=== PATIENT | male | born 1940 | race Caucasian/White ===

== ENCOUNTER 2018-07-20 05:58 | Day surgery (SDC) | payer MEDICARE ==
[2018-07-11 15:40] VITALS: BMI 48.7
[~2018-07-20 05:58] MED LIST: ALPRAZolam 0.25 MG TAB PO PRN; ALPRAZolam 0.5 MG TAB PO PRN; NITROGLYCERIN SL TABS 0.4 MG TAB SUBLINGUAL PRN; SODIUM CHLORIDE 0.9% 1,000 ML in EMPTY BAG 1 BAG IV ONE
[2018-07-20] MEDS ORDERED: ASPIRIN 325 MG TAB PO ONE (07:00)
[2018-07-20] MEDS ORDERED: ATORVASTATIN 80 MG TAB PO ONE (07:00)
[2018-07-20] MEDS ORDERED: HEPARIN SODIUM 1,000 UN/ML (10ML VL) ONE (07:21)
[2018-07-20] MEDS ORDERED: LIDOCAINE 1% INJ 10MG/ML (20 ML MDV) ONE (07:21)
[2018-07-20] MEDS ORDERED: VERAPAMIL 2.5 MG/ML 2 ML AMP ONE (07:21)
[2018-07-20] MEDS ORDERED: fentaNYL (PF) 50 MCG/ML 2 ML AMP ONE (07:30)
[2018-07-20] MEDS ORDERED: fentaNYL (PF) 50 MCG/ML 2 ML AMP IV ONE ×2 (07:47→12:13)
[2018-07-20] MEDS ORDERED: MIDAZOLAM 2 MG/2 ML VIAL ONE (07:56)
[2018-07-20] MEDS ORDERED: MIDAZOLAM 2 MG/2 ML VIAL IVP ONE (08:01)
[2018-07-20] MEDS ORDERED: LIDOCAINE 1% INJ 10MG/ML (20 ML MDV) SQ ONE (08:02)
[2018-07-20] MEDS ORDERED: VERAPAMIL SYRINGE (5 MG/10 ML) INTRAARTER ONE (08:04)
[2018-07-20] MEDS ORDERED: HEPARIN SODIUM 1,000 UN/ML (10ML VL) IV ONE (08:14)
[2018-07-20] MEDS ORDERED: IOPAMIDOL-370 125ML BTL INJ ONE ×2 (08:20)
[2018-07-20] MEDS ORDERED: IOPAMIDOL-370 50ML BTL INJ ONE (08:26)
[2018-07-20] MEDS ORDERED: RX INFO: IV CONTRAST WAS GIVEN 1 EACH MISC MISCELLANE PRN (08:46)
[2018-07-20] MEDS ORDERED: SODIUM CHLORIDE 0.9% 1,000 ML IV SCH (09:00)
[2018-07-20] MEDS ORDERED: NAPROXEN 250 MG TAB PO PRN (09:00)
--- NOTE | 2018-07-20 09:04 | CC ---
CARDIAC CATHETERIZATION REPORT Mr. Justice is a 78-year-old male with history of hypertension who has been complaining of symptoms of progressive dyspnea on exertion and chest discomfort with mild physical activity. In view of that, recommendation was made regarding cardiac catheterization. The procedure as well as the risks and the complications were discussed with the patient who is in full understanding and agreement. PROCEDURE: Patient was brought to warehouse general lab[facility] in a fasting semi-sedated state after receiving fentanyl and Benadryl and achieving moderate conscious sedated state. Using Xylocaine anesthesia and Seldinger technique, a 6-Stateless sheath was introduced in the right radial artery. Selective right and left coronary angiography performed using 5-Stateless 3.5 bend right Jose catheter and a 5-Stateless 4 bend left Jose catheter. Multiple views of the coronary artery including hemiaxial views were obtained. Following that, 5- Stateless tight pigtail catheter was introduced in the left ventricle and a 30-degree ARGUELLES view of the left ventricle was obtained. Following that, catheter and sheaths were removed. Hemostasis was obtained with deployment of a TR band. There was no immediate complication. Patient was returned to his room in stable condition. Of note, the patient received 5000 units of intravenous heparin as well as intra-arterial verapamil. FINDINGS: FLUOROSCOPY: There was significant calcification involving all the coronary arteries as well as the mitral anulus and the aortic valve. LEFT MAIN: This is a very short size vessel that bifurcates immediately to the left circumflex and the left anterior descending artery. LEFT ANTERIOR DESCENDING ARTERY: This vessel has a 95% stenosis in the ostium. Subsequently, it gives rise to a large diagonal branch that has an 80% stenosis. The LAD after the takeoff of the diagonal branch has a 99% stenosis with slow antegrade flow. LEFT CIRCUMFLEX: This is a nondominant vessel large in caliber giving rise to 2 large obtuse marginal branches. The left circumflex is diffusely disease anteriorly and both obtuse marginal branches have 80% plaque. The rest of the vessel has intimal disease without any evidence of high-grade stenosis. RIGHT CORONARY ARTERY: This is a large dominant vessel bifurcating distally PDA and posterolateral segment branches. The right coronary artery and the distal segment has a 30% to 40% plaque. The PLV has a 95% lesion in the mid segment. The rest of the vessel has intimal disease without any evidence of high-grade stenosis. LEFT VENTRICULOGRAM: Left ventriculogram was performed in 30-degree ARGUELLES view and revealed mild mid anterior wall hypokinesis. Ejection fraction is 50%. There was no significant mitral regurgitation. HEMODYNAMICS: Left ventricle end-diastolic pressure was 18 to 20 mmHg. There was a 35 to 40 mm peak gradient across the aortic valve. IMPRESSION: 1. Severe triple-vessel coronary artery disease. 2. Moderate aortic stenosis. RECOMMENDATION: In view of finding in the anatomy, I recommend proceeding with transesophageal echocardiogram to further evaluate the aortic valve and depending on that, proceed with aortic valve replacement and coronary artery bypass grafting. Those findings and recommendations were discussed with the patient and his family who are in full understanding and agreement. Duration of procedure is 30 minutes. MMJOSEL / IJN: [id number] /
[2018-07-20] MEDS ORDERED: IV FLUID CONTINUATION 600 ML IV ONE (11:50)
[2018-07-20] MEDS: BENZOCAINE SPRAY 1 CAN MUCOUS MEM ONE ×2 (11:58→12:13)
[2018-07-20] MEDS ORDERED: MIDAZOLAM 2 MG/2 ML VIAL IV ONE (12:13)
[2018-07-20] MEDS ORDERED: NITROGLYCERIN SL TABS 0.4 MG TAB SUBLINGUAL ONE (12:44)
--- NOTE | 2018-07-20 12:46 | ECHOT ---
TRANSESOPHAGEAL ECHOCARDIOGRAM TRANSESOPHAGEAL ECHOCARDIOGRAM: INDICATION: Evaluation of aortic valve. PROCEDURE: After explaining the procedure to the patient, its risks and complications, blood pressure, heart rate, O2 saturation was monitored. The throat was sprayed with Cetacaine. He received 2 mg intravenous Versed, 50 mcg intravenous fentanyl. The probe was introduced into the esophagus without difficulty. The probe was not advanced into the stomach because of prior history of lap band. Images were obtained. Following that, the probe was removed. There was no immediate complication. FINDINGS: Left atrial size appears to be normal. Left atrial appendage is normal. Left ventricular size and systolic function are preserved. The aortic valve is tricuspid valve, calcified with reduced opening. Bi-planimetry valve area is 1.2 cm2. The mitral valve revealed mild thickening of the mitral valve leaflets. The tricuspid valve appears to be normal. No pericardial effusion was noted. Contrast bubble study revealed no evidence of shunting across the interatrial septum. Doppler pulse wave and color Doppler obtained and revealed mild mitral, aortic and tricuspid regurgitation. There was no shunting by color Doppler study. CONCLUSION: 1. Normal left ventricular size and systolic function. 2. Moderate aortic stenosis with mild aortic regurgitation. 3. Mild mitral and tricuspid regurgitation. 4. Normal appearance of the descending and thoracic aorta. 5. No evidence of shunting across the interatrial septum. MMODL / IJN: [id number] /
--- NOTE | 2018-07-20 17:09 | P.GSCN ---
History of Present Illness Consult date: 07/20/18 Reason for Consult: Symptomatic multivessel artery disease, moderate aortic stenosis with mild aortic regurgitation. Requesting physician: Tracie Rand History of present illness: This is a 78-year-old gentleman who is followed by Dr. Colby Fuchs on an outpatient basis. 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 Recently, the patient was at a routine exam at Dr. Fuchs office, patient reported he had complaints of progressive dyspnea and chest pain with activity. On physical exam he was noted to have a systolic murmur and was referred to Dr. Rand from [facility]. The patient denies any complaints of nausea, vomiting, fever, chills, orthopnea, peripheral edema syncope or near syncope. Subsequently, the patient underwent an elective cardiac catheterization and transesophageal echocardiogram today . The patient's cardiac catheterization results demonstrated a 90% stenosis to his right coronary artery, and 80% stenosis to a circumflex coronary artery, a 95% stenosis to his proximal left anterior descending coronary artery, a 99% stenosis to his mid left anterior descending coronary artery and moderate aortic valve stenosis . Also during the heart catheterization a left ventriculogram was completed which demonstrated a mild mid anterior wall hypokinesis with an ejection fraction of 50%. The transesophageal echocardiogram results showed a normal left ventricular size and systolic function, moderate aortic valve stenosis with mild aortic valve regurgitation, mild mitral and tricuspid valve regurgitation and a left ventricular size and systolic function to be preserved. Due to the patient's presenting symptoms, cardiac catheterization and transesophageal echocardiogram results a consult was placed to Dr. Jarett Acharya from cardiothoracic surgery to evaluate the patient for recommendations on myocardial revascularization and aortic valve surgery. Review of Systems A 14 point review systems was completed and was negative except as mentioned in the HPI. Past Medical History Past Medical History: Chest Pain / Angina, CVA/TIA, Hypertension, Osteoarthritis (OA), Prostate Disorder, Sleep Apnea/CPAP/BIPAP Additional Past Medical History / Comment(s): hx TIA, heart murmer, no cpap used , drop foot left leg History of Any Multi-Drug Resistant Organisms: None Reported Past Surgical History: Back Surgery, Bariatric Surgery, Hernia Repair, Joint Replacement Additional Past Surgical History / Comment(s): lap band surgery, left knee replacement, ashley cataracts Past Anesthesia/Blood Transfusion Reactions: No Reported Reaction Past Psychological History: No Psychological Hx Reported Smoking Status: Former smoker (Quit 35-40 years ago.) Past Alcohol Use History: Rare Additional Past Alcohol Use History / Comment(s): quit smoking 30-40 yrs ago, smoked for 30 yrs, < 1 PPD Past Drug Use History: None Reported - Past Family History Father Family Medical History: Cancer Medications and Allergies Home Medications Medication Instructions Recorded Confirmed Type Aspirin [Adult Low Dose Aspirin EC] 162 mg PO QAM 07/11/18 07/20/18 History Isosorbide Mononitrate [Isosorbide 30 mg PO DAILY 07/11/18 07/11/18 History Mononitrate ER] Lisinopril 20 mg PO DAILY 07/11/18 07/11/18 History Metoprolol Tartrate 12.5 mg PO QAM 07/11/18 07/11/18 History Oxybutynin Chloride 5 mg PO QAM 07/11/18 07/11/18 History Tamsulosin HCl [Flomax] 0.4 mg PO QAM 07/11/18 07/11/18 History Naproxen Sodium [Aleve] 220 mg PO DIRECTED 07/20/18 07/20/18 History Allergies Allergy/AdvReac Type Severity Reaction Status Date / Time No Known Allergies Allergy Verified 07/11/18 15:29 Surgical - Exam Vital Signs Temp Pulse Resp BP Pulse Ox 97.7 F 70 20 163/92 93 L 07/20/18 06:57 07/20/18 06:57 07/20/18 06:57 07/20/18 06:57 07/20/18 06:57 - General well developed, well nourished, no distress, no pain, obese - Eyes PERRL, normal ocular movement - ENT normal pinna, normal nares, normal mucosa, no hearing loss, no congestion, poor penitent[facility] - Neck Neck is supple, no lymphadenopathy. no masses, no bruits, trachea midline, no venous distension - Respiratory Lungs sounds are essentially clear throughout. Respirations are symmetrical and nonlabored. No wheezing or rhonchi. Room air oxygen saturations 96%. - Cardiovascular Regular rhythm and rate. S1 and S2 present, systolic murmur 3/6 present heard at the base with radiation to his neck. - Abdomen Abdomen is soft, nontender and nondistended. Morbidly obese. No guarding or rigidity. Active bowel sounds all 4 abdominal quadrants. No organomegaly. - Genitourinary Deferred - Rectum Deferred - Integumentary no rash, no growths, no abnormal pigmentation - Neurologic normal coordination, normal sensation - Musculoskeletal Walks with a cane and a support to his left foot and ankle. Weakness to his left lower extremity. normal posture - Psychiatric oriented to time, oriented to person, oriented to place, speech is normal, memory intact Results - Imaging Comments: Cardiac catheterization and transesophageal echocardiogram results reviewed. Assessment and Plan (1) Hypertension Current Visit: Yes Status: Acute Code(s): I10 - ESSENTIAL (PRIMARY) HYPERTENSION SNOMED Code(s): 19732361 (2) Aortic valve stenosis Current Visit: Yes Status: Acute Code(s): I35.0 - NONRHEUMATIC AORTIC (VALVE ) STENOSIS SNOMED Code(s): 73469975 (3) Coronary artery disease Current Visit: Yes Status: Acute Code(s): I25.10 - ATHSCL HEART DISEASE OF [place] CORONARY ARTERY W/O ANG PCTRS SNOMED Code(s): 01505307 (4) Elevated hemoglobin A1c measurement Current Visit: Yes Status: Acute Code(s): R73.09 - OTHER ABNORMAL GLUCOSE SNOMED Code(s): 167873819 (5) Obstructive sleep apnea Current Visit: Yes Status: Acute Code(s): G47.33 - OBSTRUCTIVE SLEEP APNEA ( ADULT) (PEDIATRIC) SNOMED Code(s): 15712302 (6) Foot drop, left Current Visit: Yes Status: Acute Code(s): M21.372 - FOOT DROP, LEFT FOOT SNOMED Code(s): 0725567 (7) Osteoarthritis Current Visit: Yes Status: Acute Code(s): M19.90 - UNSPECIFIED OSTEOARTHRITIS, UNSPECIFIED SITE SNOMED Code(s): 783835592 (8) BPH (benign prostatic hyperplasia) Current Visit: Yes Status: Acute Code(s): N40.0 - BENIGN PROSTATIC HYPERPLASIA WITHOUT LOWER URINRY TRACT SYMP SNOMED Code(s): 937739865 (9) Nicotine dependence in remission Current Visit: Yes Status: Acute Code(s): F17.201 - NICOTINE DEPENDENCE, UNSPECIFIED, IN REMISSION SNOMED Code(s): 43126370 (10) Morbid obesity with BMI of 45.0-49.9, adult Current Visit: Yes Status: Acute Code(s): E66.01 - MORBID (SEVERE) OBESITY DUE TO EXCESS CALORIES; Z68.42 - BODY MASS INDEX (BMI) 45.0-49.9, ADULT SNOMED Code(s): 397831873 Plan: The patient was seen and examined. His chart and diagnostics were reviewed. The patient was seen and examined by Dr. Jarett Acharya from cardiothoracic surgery. Preoperative testing has been initiated. Preoperative teaching has been initiated. Dr. Acharya has reviewed the results of the cardiac catheterization and transesophageal echocardiogram reports with the patient and his . STS risk score reviewed with the patient and his . 5 minute walk test was completed with the patient, time 1:6.43 seconds, time 2: 6.69 seconds, time 3:6.8 to seconds. Patient does wish to proceed with myocardial revascularization surgery with possible aortic valve replacement on elective basis. Once his preoperative testing has been completed and dental clearance has been obtained and he will be scheduled for myocardial revascularization surgery with aortic valve replacement. Thank you Dr. Rand for this consult and we will look forward to working with you in the care of your patient. Time with Patient: Greater than 30
[2018-07-20] MEDS: ASPIRIN 81 MG PO SCH (19:01)
[2018-07-20] MEDS: METOPROLOL TARTRATE 12.5 MG TAB PO SCH (19:01)
[2018-07-20] MEDS: ISOSORBIDE MONONITRATE ER 30 MG TAB.ER.24H PO SCH (19:01)
[2018-07-20] MEDS: OXYBUTYNIN CHLORIDE 5 MG TAB PO SCH (19:01)
[2018-07-20] MEDS: LISINOPRIL 20 MG TAB PO SCH (19:01)
[2018-07-20] MEDS: ATORVASTATIN 40 MG TAB PO SCH (19:01)
[2018-07-20] MEDS: TAMSULOSIN 0.4 MG CAP.ER.24H PO SCH (19:02)
[2018-07-20] MEDS: SODIUM CHLORIDE 0.9% 1,000 ML IV SCH (19:02)
--- NOTE | 2018-07-20 19:16 | US ---
EXAMINATION TYPE: US carotid duplex BILAT DATE OF EXAM: 07/20/2018 COMPARISON: NONE CLINICAL HISTORY: PreOp Cardiac Surgery. Pre op cardiac surgery EXAM MEASUREMENTS: RIGHT: Peak Systolic Velocity (PSV) cm/sec ----- Right CCA: 81.2 ----- Right ICA: 151.5 ----- Right ECA: 206.5 ICA/CCA ratio: 1.9 RIGHT: End Diastole cm/sec ----- Right CCA: 13.1 ----- Right ICA: 51.0 ----- Right ECA: 18.4 LEFT: Peak Systolic Velocity (PSV) cm/sec ----- Left CCA: 73.5 ----- Left ICA: 87.9 ----- Left ECA: 125.8 ICA/CCA ratio: 1.2 LEFT: End Diastole cm/sec ----- Left CCA: 13.1 ----- Left ICA: 24.5 ----- Left ECA: 0.0 VERTEBRALS (direction of flow): Right Vertebral: Antegrade Left Vertebral: Antegrade Rhythm: Normal Moderate to severe plaque bilateral bifurcations, greater on the right. Increased velocities right IC A and ECA. Technical limitations due to patient's body habitus IMPRESSION: There is calcified plaque which limits the exam. The images and measurements suggest 50- 70% stenosis in both internal carotid arteries. There is antegrade flow in the vertebral arteries. Criteria for Assigning % of Stenosis / Diameter reduction (Estimation based on the indirect measurements of the internal carotid artery velocities (ICA PSV). 1. Normal (no stenosis)=ICA PSV < 125 cm/s: ratio < 2.0: ICA EDV<40 cm/s. 2. Less than 50% stenosis=ICA PSV < 125 cm/s: ratio < 2.0: ICA EDV<40 cm/s. 3. 50 to 69% stenosis=ICA PSV of 125 to 230 cm/s: ration 2.0 ? 4.0: ICA EDV 40-100 cm/s. 4. Greater than 70% stenosis to near occlusion= ICA PSV > 230 cm/s: ratio > 4.0: ICA EDV > 100 cm/s. 5. Near occlusion= ICA PSV velocities may be low or undetectable: variable ratio and ICA EDV. 6. Total occlusion=unable to detect flow.
[2018-07-20 19:23] LABS: Basophils # (A) 0.1 k/uL (0-0.2); Basophils % (A) 1 %; Eosinophils # (A) 0.2 k/uL (0-0.7); Eosinophils % (A) 2 %; HCT 45.3 % (39.0-53.0); HGB 14.4 gm/dL (13.0-17.5); Lymphocytes % (A) 20 %; MCH 30.7 pg (25.0-35.0); MCHC 31.8 g/dL (31.0-37.0); MCV 96.5 fL (80.0-100.0); Mean Platelet Volume 7.1; Monocytes # (A) 0.7 k/uL (0-1.0); Monocytes % (A) 7 %; Neutrophils # (A) 6.8 k/uL (1.3-7.7); Neutrophils % (A) 69 %; Platelet Count 231 k/uL (150-450); RBC 4.69 m/uL (4.30-5.90); RDW 12.7 % (11.5-15.5); WBC 9.9 k/uL (3.8-10.6)
[2018-07-20 19:46] LABS: Albumin 3.7 g/dL (3.5-5.0); Calcium 9.2 mg/dL (8.4-10.2); Potassium 4.4 mmol/L (3.5-5.1); Total Bilirubin 0.4 mg/dL (0.2-1.3); Total Protein 6.9 g/dL (6.3-8.2)
[2018-07-20 19:52] LABS: INR 1.1 (<1.2); Partial Thromboplastin Time 22.5 sec (22.0-30.0); Prothrombin Time 10.6 sec (9.0-12.0)
--- NOTE | 2018-07-20 21:49 | XR ---
EXAMINATION TYPE: XR chest 2V DATE OF EXAM: 07/20/2018 COMPARISON: NONE HISTORY: Preop cardiac surgery TECHNIQUE: Frontal and lateral views of the chest are obtained. FINDINGS: There is no heart failure nor confluent pneumonic infiltrate. Costophrenic angles are brianne r. Thoracic aorta is atheromatous. Heart appears top normal in size. There is spurring in the thoraci c spine. There are chest leads. IMPRESSION: No active cardiopulmonary disease.
[2018-07-21 04:04] LABS: Hepatitis A Antibody IgM Non-Reactive (Non-Reactive); Hepatitis B Core IgM Non-Reactive (Non-Reactive)
[2018-07-21 04:46] LABS: Hemoglobin A1C 6.3 % (4.0-6.0)
[2018-07-21] MEDS: METOPROLOL TARTRATE 12.5 MG TAB PO SCH ×2 (06:34→08:59)
[2018-07-21 06:45] VITALS: RESP 16
[2018-07-21] MEDS: LISINOPRIL 20 MG TAB PO SCH (08:59)
[2018-07-21] MEDS: OXYBUTYNIN CHLORIDE 5 MG TAB PO SCH (08:59)
[2018-07-21] MEDS: ATORVASTATIN 40 MG TAB PO SCH (08:59)
[2018-07-21] MEDS: ISOSORBIDE MONONITRATE ER 30 MG TAB.ER.24H PO SCH (08:59)
[2018-07-21] MEDS: TAMSULOSIN 0.4 MG CAP.ER.24H PO SCH (08:59)
[2018-07-21] MEDS: ASPIRIN 81 MG PO SCH (08:59)
[2018-07-21 10:10] VITALS: BP 155/86; PULSE 64; TEMP 97
[2018-07-21] MEDS: SODIUM CHLORIDE 0.9% 1,000 ML IV SCH (11:58)
--- NOTE | 2018-07-21 11:59 | PN ---
PROGRESS NOTE Mr. Justice is a 78-year-old male with a history of hypertension who presented with symptoms of progressive dyspnea and chest discomfort, underwent a cardiac catheterization that revealed evidence of severe triple-vessel coronary artery disease and he had moderate aortic stenosis. He was evaluated by the surgical team and he is scheduled to undergo surgical intervention early next week with possible aortic valve replacement. He is feeling well this morning, denying any chest pain. His breathing has been stable. He denies any dizziness or palpitation. He continued to be on aspirin once a day, Lipitor 40 mg daily, lisinopril 20 mg daily, isosorbide mononitrate 30 mg daily, metoprolol tartrate 12.5 mg twice a day. PHYSICAL EXAMINATION: Blood pressure running in the 120s to 150s with the heart rate in the 60s. LUNGS: Clear. HEART: Regular rate and rhythm. S1, S2. No S3 with systolic murmur heard at the base, ejection type. No diastolic murmur. No rub. ABDOMEN: Soft, nontender, obese. EXTREMITIES: Trace edema. Right radial pulse is intact. LAB DATA: Lab data revealed BUN and creatinine of 21 and 0.96. His cholesterol is 193, LDL of 136. Hemoglobin of 14.4. IMPRESSION: 1. Severe triple-vessel coronary artery disease. 2. Moderate aortic stenosis. 3. Hypertension. 4. Hyperlipidemia. RECOMMENDATION: The patient will be discharged home today and will be readmitted early next week for surgical intervention. MMJOSEL / BARBYN: [id number] /
--- NOTE | 2018-07-21 17:26 | CONS ---
CONSULTATION PULMONARY/CRITICAL CARE CONSULTATION: DATE OF SERVICE: 07/21/2018 This is a very pleasant 78-year-old male who is possibly going to be discharged home from the hospital today. He was actually sitting completely dressed in the room when we got to his room. He sees Dr. Colby Fuchs in the outpatient setting as his primary doctor. He apparently has a history of underlying hypertension, DJD, morbid obesity, remote history of TIA with left-sided weakness, BPH, drop foot to his left foot, unstable angina and obstructive sleep apnea syndrome. The patient has also had lower back surgery. Anyway, the patient was apparently having complaints of progressive dyspnea and was evaluated initially by Dr. Rand. He was recently being evaluated by Dr. Fuchs. Subsequent to that, he was apparently referred to Dr. Rand when he was noted to have a systolic murmur. Dr. Rnad, in the process of evaluating this patient, did a cardiac catheterization which revealed severe triple-vessel coronary artery disease and moderate aortic stenosis. His aortic valve surface area was 1.2 cm2. In addition, the patient had a 90% stenosis of his right coronary artery, 80% stenosis of the circumflex coronary artery and a 95% stenosis to his proximal left anterior descending coronary artery. He also had a 99% stenosis to his mid left anterior descending coronary artery. He was thought to have moderate aortic stenosis based on the evaluation. For that reason, the patient was evaluated and was being set up to have a triple-vessel bypass and possible aortic valve replacement next week. The surgeon will be Dr. Jarett Acharya. Anyway, the patient will be discharged I think later today or tomorrow and will come back next week for his surgery. He otherwise is doing well. Denies any chest pain or chest discomfort. He does get shortness of breath on exertion. PAST MEDICAL HISTORY: Positive for: 1. Angina. 2. CVA. 3. Hypertension. 4. DJD. 5. Prostate enlargement. 6. Sleep apnea syndrome, currently on CPAP. 7. The patient also has a history of drop foot on the left leg. 8. History of bariatric surgery. 9. Back surgery. 10.Hernia repair. 11.Joint replacement. 12.He also has a history of cataracts. SOCIAL HISTORY: Positive for previous smoking. He quit maybe 35 to 40 years ago. He states alcohol use is rare. Denies any illicit drug use. HOME MEDICATIONS: His home medications include: 1. Aspirin. 2. Imdur. 3. Lisinopril. 4. Metoprolol. 5. Oxybutynin. 6. Flomax. 7. Naproxen. ALLERGIES: DENIED. FAMILY HISTORY: Family history again is noncontributory. REVIEW OF SYSTEMS: CONSTITUTIONAL: Negative. NEUROLOGIC: Negative. HEENT: Negative. CARDIOVASCULAR: Negative. PULMONARY: Shortness of breath on exertion. GI: Negative. : Negative. RHEUMATOLOGIC: Negative. IMMUNOLOGIC: Negative. ENDOCRINOLOGIC: Negative. DERMATOLOGIC: Negative. PHYSICAL EXAMINATION: Current vital signs are reviewed. Temperature 97, heart rate 64, respiratory rate 16, blood pressure 155/86, mean 109, room-air saturation 95% to 96%. He appears in no acute distress. HEENT examination is grossly unremarkable. Mucous membranes are moist. No oral lesions. NECK: Supple. Full range of motion. No adenopathy or thyromegaly. Neck veins are flat. Cardiovascular examination reveals regular rhythm and rate. Heart sounds are distant. S1, S2 normal. There is a grade 2 to 3 over 6 systolic ejection murmur. It is consistent with aortic stenosis. No S3, S4. LUNGS: Clear breath sounds. No wheezes or rhonchi. No crackles. Breath sounds equal bilaterally. ABDOMEN: Obese. Bowel sounds are heard. Extremities are intact. No cyanosis, clubbing or edema. SKIN: Without rash. Neurologic examination is brief but non-focal. Gait is normal. Cranial nerves are intact. LABORATORY DATA: Reviewed. White count 9.9, hemoglobin 14.4, hematocrit 45.3, platelet count normal. PT, INR, PTT all normal. Sodium, potassium, chloride, CO2 all normal. Anion gap is 9. BUN 21, creatinine 0.96. Glucose 101. A1c is 6.3. TSH is normal. Cholesterol is 193. Hepatitis A, B and C are all non-reactive. His carotid Doppler studies show calcified plaque, which limits exam. The images and measurements suggest 50% to 70% stenosis in both internal carotid arteries. A chest x- ray done on July 20 shows no active cardiopulmonary disease. The rest of his studies are evaluated. His current medications only included an IV 0.9, atorvastatin 80 mg and aspirin. ASSESSMENT: 1. Severe triple-vessel coronary artery disease with moderate aortic stenosis showing a valve surface area of 1.2 cm2. 2. History of angina pectoris. 3. History of cerebrovascular accident. 4. History of hypertension. 5. Osteoarthritis by history. 6. Benign prostatic hypertrophy. 7. Sleep apnea syndrome. 8. Previous history of bariatric surgery. 9. Morbid obesity. 10.Remote history of tobacco use. PLAN: The patient did not appear to have any lung disease. From the pulmonary standpoint, the patient is cleared for surgery. My partner will see him next week after surgery. I believe he is coming back in on Tuesday for the surgical procedure. No additional recommendations are made. We will continue to follow. Prognosis is generally thought to be good. I did speak to Dr. Acharya about the patient. Given his weight, certainly he is at higher risk. He has no significant lung issues. Tobacco use was minimal and remote. MMODL / IJN: [id number] /
[2018-07-21] MEDS ORDERED: METOPROLOL TARTRATE 25 MG TAB PO SCH (21:00)
--- NOTE | 2018-07-26 13:01 | P.VSCSTY ---
Greater Saphenous Vein Mapping This is bilateral lower extremity greater saphenous vein mapping. Date of service 07/20/2018 Vein quality and ultrasound appearance preop CABG. Vein size groin right 6.1 x 6.4 groin left 5.7 x 6.6 High thigh right 4.7 x 4.7 high thigh left 5.2 x 4.2 Mid thigh right 4.2 x 5.2 mid thigh left 4.7 x 6.0 Above-knee right 3.9 x 5.0 above- knee left to 5.3 x 7.1 Below knee right 3.4 x 4.0 below-knee left 3.9 x 5.8 Mid calf right 2.7 x 3.5 mid calf left 3.5 x 4.5 Ankle right 2.3 x 3.3 ankle left 3.3 x 3.6 Impression usable bilateral greater saphenous vein. Somewhat more consistent in size on the right..
--- NOTE | 2018-07-26 13:02 | P.ARTDOP ---
Arterial Doppler LOWER EXTREMITY ARTERIAL DOPPLER: DATE OF SERVICE: 07/20/2018 Reason for study: Preop CABG. Doppler waveforms: Multiphasic bilaterally throughout. Pulse volume recording: []. Pressure gradients: None. Ankle-brachial indices: Greater than 1 bilaterally. Toe pressures: [] on the right, [] on the left Impression: Normal study.
== END 2018-07-21 14:51 | disposition home or self-care (01) ==
LOC: CATHCVL 05:58 → 3SCARD 08:37 → CATHCVL 07-21 14:51
PROVIDERS: ATTEND Internal Medicine Interventional Cardiology
DX: I25.110 Atherosclerotic heart disease of native coronary artery with unstable angina pectoris (principal); I08.3 Combined rheumatic disorders of mitral, aortic and tricuspid valves; I65.23 Occlusion and stenosis of bilateral carotid arteries; I10 Essential (primary) hypertension; E78.5 Hyperlipidemia, unspecified; R73.09 Other abnormal glucose; G47.33 Obstructive sleep apnea (adult) (pediatric); M21.372 Foot drop, left foot; R01.1 Cardiac murmur, unspecified; M19.90 Unspecified osteoarthritis, unspecified site; E66.01 Morbid (severe) obesity due to excess calories; Z68.42 Body mass index [BMI] 45.0-49.9, adult; I69.354 Hemiplegia and hemiparesis following cerebral infarction affecting left non-dominant side; N40.0 Benign prostatic hyperplasia without lower urinary tract symptoms; Z99.89 Dependence on other enabling machines and devices; Z79.1 Long term (current) use of non-steroidal anti-inflammatories (NSAID); Z79.82 Long term (current) use of aspirin; Z79.899 Other long term (current) drug therapy; Z96.652 Presence of left artificial knee joint; Z98.84 Bariatric surgery status; Z87.891 Personal history of nicotine dependence
CPT/HCPCS: 94150; 93312; 93320; 93325; 93458; 80061; 80053; 80074; 84443; 83735; 85025; 85610; 85730; 87070; 83036; 71046; 93970; 93922; 93880; C1894; C1769 ×2; J2250; J2001; J3010; J1644; Q9967 ×2; 93923

== ENCOUNTER → 2018-07-24 | Outpatient (CLI) | payer MEDICARE ==
[2018-07-24 13:38] LABS: Appearance,Urine Clear (Clear); Bilirubin,Urine Negative (Negative); Blood,Urine Negative (Negative); Color,Urine Yellow; Glucose,Urine (UA) Negative (Negative); Ketones,Urine Negative (Negative); Leukocyte Esterase,Urine Negative (Negative); Nitrite,Urine Negative (Negative); PH, Urine 5.5 (5.0-8.0); Protein,Urine Negative (Negative); Specific Gravity,Urine 1.014 (1.001-1.035); Urobilinogen,Urine <2.0 mg/dL (<2.0)
== END | disposition home or self-care (01) ==
LOC: LABPAT 12:19
PROVIDERS: ATTEND Surgery
DX: I25.10 Atherosclerotic heart disease of native coronary artery without angina pectoris (principal); Z79.899 Other long term (current) drug therapy
CPT/HCPCS: 81003; 87086

== ENCOUNTER 2018-07-25 05:26 | Inpatient (IN) | payer MEDICARE ==
[~2018-07-25 05:26] MED LIST changes: +ALBUMIN HUMAN 25% 50 ML IV ONE; +ALBUMIN HUMAN 5% 500 ML IVPB ONE; -ALPRAZolam 0.25 MG TAB PO PRN; -ALPRAZolam 0.5 MG TAB PO PRN; +ASPIRIN 325 MG TAB PO ONE; +ATORVASTATIN 10 MG TAB PO ONE; +CALCIUM CHLORIDE 100 MG/ML 10 ML SYRINGE IV ONE; +CHLORHEXIDINE GLUCONATE 15 ML CUP MUCOUS MEM ONE; +CLEVIDIPINE BUTYRATE 25 MG in EMPTY BAG 1 BAG IV ONE; +DEXTROSE 5% IN WATER 1,000 ML with POTASSIUM CHLORIDE 110 MEQ, MAGNESIUM SULFATE 16 MEQ... IV ONE; +DEXTROSE 5% IN WATER 1,000 ML with POTASSIUM CHLORIDE 25 MEQ, SODIUM CHLORIDE 2.5MEQ/ML... IRRIGATION ONE; +HEPARIN SODIUM 1,000 UN/ML (10ML VL) IV ONE; +HEPARIN SODIUM,PORCINE 5,000 UNIT in SODIUM CHLORIDE 0.9% 500 ML 500 ML IV ONE; +INSULIN REGULAR 100 UNIT in SODIUM CHLORIDE 0.9% 100 ML IV ONE; +LACTATED RINGERS 1,000 ML IV ONE; +MAGNESIUM SULFATE MG 500 MG/ML IV ONE; +MANNITOL 25% 12.5 GM/50 ML VIAL IV ONE; +METOPROLOL TARTRATE 12.5 MG TAB PO ONE; -NITROGLYCERIN SL TABS 0.4 MG TAB SUBLINGUAL PRN; +NITROGLYCERIN-D5W PMX 25 MG/250 ML BTL IV ONE; +NITROGLYCERIN-D5W PMX 50 MG in DEXTROSE/WATER 1 250ML.BAG IV ONE; +NOREPINEPHRINE 4 MG in SODIUM CHLORIDE 0.9% 250 ML IV ONE; +PAPAVERINE 360 MG in SODIUM CHLORIDE 0.9% 90 ML IV ONE; +PHENYLEPHRINE 40 MG in SODIUM CHLORIDE 0.9% 250 ML IV ONE; +PHENYLEPHRINE-0.9% NACL SYG 1 MG/10 ML SYRINGE IV ONE; +PROPOFOL 1,000 MG/100 ML VIAL IV ONE; +PROTAMINE SULFATE 10 MG/ML 25 ML VIAL IV ONE; +PROTAMINE SULFATE 250 MG in EMPTY BAG 1 BAG IV ONE; +SODIUM BICARB 8.4% 50 ML SYR (1 MEQ/ML) IV ONE; +SODIUM CHLORIDE 0.9% 1,000 ML IV ONE; -SODIUM CHLORIDE 0.9% 1,000 ML in EMPTY BAG 1 BAG IV ONE; +TRANEXAMIC ACID 2,000 MG in SODIUM CHLORIDE 0.9% 180 ML IV ONE; +ceFAZolin 1,000 MG in SODIUM CHLORIDE 0.9% IRRIGATIO 1,000 ML IRRIGATION ONE; +ceFAZolin 2,000 MG in SODIUM CHLORIDE 0.9% 30 ML IVPB ONE; +ceFAZolin 3 GM in SODIUM CHLORIDE 0.9% 30 ML IVPB ONE; +ceFAZolin IN SWFI 2 GM/20 ML SYRINGE IVP ONE
[2018-07-25] MEDS ORDERED: PROTAMINE SULFATE 10 MG/ML 25 ML VIAL IV ONE (07:57)
[2018-07-25] MEDS ORDERED: SODIUM CHLORIDE 0.9% 250 ML BAG ONE (07:57)
[2018-07-25] MEDS ORDERED: ceFAZolin 1,000 MG VIAL ONE (07:57)
[2018-07-25] MEDS ORDERED: ONDANSETRON 4 MG/2 ML VIAL ONE (07:57)
[2018-07-25] MEDS ORDERED: fentaNYL (PF) 50 MCG/ML 2 ML AMP ONE (07:57)
[2018-07-25] MEDS ORDERED: fentaNYL (PF) 50 MCG/ML 50 ML VIAL ONE (07:57)
[2018-07-25] MEDS ORDERED: ALBUMIN HUMAN 5% 250 ML BOTTLE IVPB ONE (07:57)
[2018-07-25] MEDS ORDERED: SUCCINYLCHOLINE CHLORIDE VIAL 200 MG/10 ML VIAL IV ONE (07:57)
[2018-07-25] MEDS ORDERED: LIDOCAINE 2% SYG (PF) 100 MG/5 ML ONE (07:57)
[2018-07-25] MEDS ORDERED: MIDAZOLAM 2 MG/2 ML VIAL ONE (07:57)
[2018-07-25] MEDS ORDERED: ELECTROLYTE-R (PH 7.4) 1,000 ML IV.SOLN IV ONE (07:57)
[2018-07-25] MEDS ORDERED: MAGNESIUM SULFATE 4 MEQ/ML 10ML VIAL ONE (07:57)
[2018-07-25] MEDS ORDERED: PROPOFOL 10 MG/ML 20 ML VIAL IV ONE (07:57)
[2018-07-25] MEDS ORDERED: SODIUM CHLORIDE 0.9% IRRIG 1,000 ML BTL IRRIGATION ONE (07:57)
[2018-07-25] MEDS ORDERED: WATER FOR INJECTION, STERILE 10 ML VIAL IV ONE (07:57)
[2018-07-25] MEDS ORDERED: TRANEXAMIC ACID 1,000 MG/10 ML VIAL ONE (07:57)
[2018-07-25] MEDS ORDERED: PHENYLEPHRINE-0.9% NACL SYG 1 MG/10 ML SYRINGE ONE (07:57)
[2018-07-25] MEDS ORDERED: CALCIUM CHLORIDE 100 MG/ML 10 ML SYRINGE ONE (07:57)
[2018-07-25] MEDS ORDERED: VECURONIUM 10 MG VIAL IV ONE (07:57)
[2018-07-25] MEDS ORDERED: TRANEXAMIC ACID 2,000 MG in SODIUM CHLORIDE 0.9% 180 ML IV ONE (08:15)
[2018-07-25 08:38] LABS: ABG Base Excess -0.2 mmol/L; ABG HCO3 25 mmol/L (21-25); ABG PCO2 42 mmHg (35-45); ABG PH 7.38 (7.35-7.45); ABG PO2 314 mmHg (83-108); ABG Potassium Whole Blood 4.8 mmol/L (3.4-4.5); ABG Sodium Whole Blood 139 mmol/L (135-146); ABG TCO2 26 mmol/L (19-24)
[2018-07-25 10:04] LABS: ABG Base Excess -1.8 mmol/L; ABG HCO3 24 mmol/L (21-25); ABG Oxygen Saturation 99.6 % (94-97); ABG PCO2 41 mmHg (35-45); ABG PH 7.37 (7.35-7.45); ABG PO2 190 mmHg (83-108); ABG Potassium Whole Blood 4.5 mmol/L (3.4-4.5); ABG Sodium Whole Blood 139 mmol/L (135-146); ABG TCO2 25 mmol/L (19-24)
[2018-07-25 11:31] LABS: ABG Base Excess -1.5 mmol/L; ABG HCO3 23 mmol/L (21-25); ABG PCO2 39 mmHg (35-45); ABG PH 7.39 (7.35-7.45); ABG Potassium Whole Blood 5.4 mmol/L (3.4-4.5); ABG Sodium Whole Blood 133 mmol/L (135-146); ABG TCO2 25 mmol/L (19-24)
[2018-07-25 11:50] LABS: ABG PO2 >420 mmHg (83-108)
[2018-07-25 11:57] LABS: ABG Base Excess -1.9 mmol/L; ABG HCO3 23 mmol/L (21-25); ABG PCO2 39 mmHg (35-45); ABG PH 7.38 (7.35-7.45); ABG PO2 401 mmHg (83-108); ABG Potassium Whole Blood 5.4 mmol/L (3.4-4.5); ABG Sodium Whole Blood 133 mmol/L (135-146); ABG TCO2 24 mmol/L (19-24)
[2018-07-25 12:32] LABS: ABG Base Excess -2.6 mmol/L; ABG HCO3 23 mmol/L (21-25); ABG PCO2 40 mmHg (35-45); ABG PH 7.36 (7.35-7.45); ABG PO2 375 mmHg (83-108); ABG Potassium Whole Blood 5.5 mmol/L (3.4-4.5); ABG Sodium Whole Blood 133 mmol/L (135-146); ABG TCO2 24 mmol/L (19-24)
[2018-07-25 13:05] LABS: ABG Base Excess -3.1 mmol/L; ABG HCO3 23 mmol/L (21-25); ABG PCO2 42 mmHg (35-45); ABG PH 7.34 (7.35-7.45); ABG PO2 322 mmHg (83-108); ABG Potassium Whole Blood 5.2 mmol/L (3.4-4.5); ABG Sodium Whole Blood 134 mmol/L (135-146); ABG TCO2 24 mmol/L (19-24)
[2018-07-25 13:43] LABS: ABG Base Excess -2.6 mmol/L; ABG HCO3 23 mmol/L (21-25); ABG PCO2 44 mmHg (35-45); ABG PH 7.33 (7.35-7.45); ABG PO2 380 mmHg (83-108); ABG Sodium Whole Blood 136 mmol/L (135-146); ABG TCO2 25 mmol/L (19-24)
[2018-07-25 14:37] LABS: ABG Base Excess -1.4 mmol/L; ABG HCO3 24 mmol/L (21-25); ABG Oxygen Saturation 99.4 % (94-97); ABG PCO2 41 mmHg (35-45); ABG PH 7.38 (7.35-7.45); ABG PO2 159 mmHg (83-108); ABG Potassium Whole Blood 4.5 mmol/L (3.4-4.5); ABG Sodium Whole Blood 139 mmol/L (135-146); ABG TCO2 25 mmol/L (19-24)
[2018-07-25] MEDS ORDERED: ONDANSETRON 4 MG/2 ML VIAL IVP PRN (16:06)
[2018-07-25] MEDS ORDERED: NITROGLYCERIN-D5W PMX 50 MG in DEXTROSE/WATER 1 250ML.BAG IV SCH (16:06)
[2018-07-25] MEDS ORDERED: PROPOFOL 1,000 MG in EMPTY BAG 1 BAG IV SCH (16:06)
[2018-07-25] MEDS ORDERED: Potassium Replacement Protocol 1 EACH MISC MISCELLANE PRN (16:06)
[2018-07-25] MEDS ORDERED: BENZOCAINE/MENTHOL LOZENG 1 EACH LOZENGE MUCOUS MEM PRN (16:06)
[2018-07-25] MEDS ORDERED: Phosphorus Replacement Protoco 1 EACH MISC MISCELLANE PRN (16:06)
[2018-07-25] MEDS ORDERED: CALCIUM CHLORIDE 1,000 MG in SODIUM CHLORIDE 0.9% 100 ML IV PRN (16:06)
[2018-07-25] MEDS ORDERED: NOREPINEPHRINE 4 MG in SODIUM CHLORIDE 0.9% 250 ML IV SCH (16:06)
[2018-07-25] MEDS ORDERED: METOCLOPRAMIDE 5 MG/ML 2 ML VIAL IVP PRN (16:06)
[2018-07-25] MEDS ORDERED: Magnesium Replacement Protocol 1 EACH MISC MISCELLANE PRN (16:06)
[2018-07-25 16:32] LABS: Glucose,Whole Blood 138 mg/dL (75-99)
--- NOTE | 2018-07-25 16:53 | XR ---
EXAMINATION TYPE: XR chest 1V portable DATE OF EXAM: 07/25/2018 COMPARISON: 07/20/2018 HISTORY: Postop cardiac surgery TECHNIQUE: Single frontal view of the chest is obtained. FINDINGS: There is left chest tube. Lungs are clear of consolidation. There is no heart failure. The re is right jugular catheter with the tip in the main pulmonary artery. Endotracheal tube is 2.5 cm f rom the antoni. There are drains over the chest. IMPRESSION: No complicating process seen.
[2018-07-25 16:55] LABS: ABG Base Excess -1.2 mmol/L; ABG HCO3 25 mmol/L (21-25); ABG PCO2 48 mmHg (35-45); ABG PH 7.33 (7.35-7.45); ABG PO2 174 mmHg (83-108); ABG TCO2 26 mmol/L (19-24)
[2018-07-25 16:59] LABS: Glucose,Whole Blood 157 mg/dL (75-99)
[2018-07-25] MEDS: LACTATED RINGERS 1,000 ML IV SCH (17:24)
[2018-07-25] MEDS: ACETAMINOPHEN IV (For NPO) 1,000 MG in EMPTY BAG 1 BAG IVPB SCH ×2 (17:27→23:05)
[2018-07-25] MEDS: MILRINONE-D5W PMX 20 MG in DEXTROSE/WATER 1 100ML.BAG IV SCH ×2 (17:29→21:43)
[2018-07-25] MEDS: INSULIN REGULAR 100 UNIT in SODIUM CHLORIDE 0.9% 100 ML IV SCH (17:30)
[2018-07-25 17:35] LABS: Ionized Calcium 4.4 mg/dL (4.5-5.3)
[2018-07-25 17:41] LABS: Basophils # (A) 0.1 k/uL (0-0.2); Basophils % (A) 0 %; Eosinophils # (A) 0.1 k/uL (0-0.7); Eosinophils % (A) 0 %; HCT 23.9 % (39.0-53.0); Lymphocytes # (A) 1.7 k/uL (1.0-4.8); Lymphocytes % (A) 12 %; MCH 31.9 pg (25.0-35.0); MCV 96.6 fL (80.0-100.0); Mean Platelet Volume 7.2; Monocytes # (A) 0.9 k/uL (0-1.0); Monocytes % (A) 6 %; Neutrophils # (A) 12.3 k/uL (1.3-7.7); Neutrophils % (A) 81 %; RBC 2.47 m/uL (4.30-5.90); RDW 12.8 % (11.5-15.5); WBC 15.2 k/uL (3.8-10.6)
[2018-07-25 17:42] LABS: HGB 7.9 gm/dL (13.0-17.5); Platelet Count 109 k/uL (150-450)
[2018-07-25 17:46] LABS: ALT 34 U/L (21-72); AST 33 U/L (17-59); Albumin 3.4 g/dL (3.5-5.0); Alkaline Phosphatase <20 U/L (38-126); Anion Gap 8 mmol/L; Blood Urea Nitrogen 17 mg/dL (9-20); Calcium 7.6 mg/dL (8.4-10.2); Carbon Dioxide 25 mmol/L (22-30); Chloride 107 mmol/L (98-107); Glucose 132 mg/dL (74-99); Magnesium 2.4 mg/dL (1.6-2.3); Potassium 4.4 mmol/L (3.5-5.1); Sodium 140 mmol/L (137-145)
[2018-07-25 17:47] LABS: INR 1.5 (<1.2); Partial Thromboplastin Time 30.5 sec (22.0-30.0); Prothrombin Time 13.9 sec (9.0-12.0)
[2018-07-25 18:13] LABS: Glucose,Whole Blood 183 mg/dL (75-99)
--- NOTE | 2018-07-25 18:15 | P.CNPUL ---
<Shweta Morejon M - Last Filed: 07/25/18 17:57> History of Present Illness Consult date: 07/25/18 Requesting physician: Jarett Acharya Reason for consult: other Chief complaint: Multivessel coronary artery disease, status post four-vessel bypass graftin History of present illness: This is 78-year-old white male patient of Dr. Fuchs, who we met on 07/20/2018 for preop pulmonary evaluation for coronary artery bypass grafting. Patient has been having progressive dyspnea, he was referred to cardiology, had a cardiac catheterization which revealed severe multivessel coronary artery disease and moderate aortic stenosis. Patient had a 90% stenosis of his RCA, 80 % stenosis of his circumflex, 95% stenosis of his mid LAD. Aortic valve surface area was 1.2 cm. Other medical history includes previous history of CVA, hypertension, osteoarthritis, and 9 prostatic hypertrophy, sleep apnea syndrome, previous history of bariatric surgery, morbid obesity, and remote history of tobacco use. His preop bedside spirometry showed FEV1 of 86% of predicted, FVC of 71% of predicted, mild restriction. Patient was deferred to cardiothoracic surgery, and was recommended a surgical intervention, today on patient underwent four-vessel coronary artery bypass grafting, with MATT to LAD, SVG to the PLB, SVG to the diagonal, and SVG to the OM 1. Patient is seen in the intensive care unit, he is sedated, on mechanical ventilator, currently SIMV mode of ventilation with a rate of 12, tidal volume of 580, FiO2 100%, and PEEP of 10. Chest x-ray showed ET tube, chest tubes, right IJ PA catheter in appropriate positions, lungs are clear of consolidation, no heart failure. Patient is in sinus rhythm, his maintenance IV fluids of LR at 50, milrinone at 0.5 mics/per kilo per minute, Levaquin fed at 2 mics per minute, insulin at 2 units per hour, Diprivan at 15 mics per kilo per minute, and nitro at 5 mics/min. Blood work showed WBC of 15.2, hemoglobin of 7.9, INR 1.5, choice and renal profile were within normal limits, blood gas showed pO2 of 174 , pCO2 48, and pH is 7.3. Patient has 2 mediastinal chest tubes, left pleural chest tube, and there has been a 300 mL of sanguinous output in the mediastinal chest tube, and 10 mL in the left pleural. Hemodynamically patient is stable, cardiac output and index are 5.6 and 2.2 respectively, PA pressures 35/21. Review of Systems All systems: negative Constitutional: Denies chills, Denies fever Eyes: denies blurred vision, denies pain Ears, nose, mouth and throat: Denies headache, Denies sore throat Cardiovascular: Reports decreased exercise tolerance, Reports dyspnea on exertion, Denies chest pain, Denies shortness of breath Respiratory: Denies cough Gastrointestinal: Denies abdominal pain, Denies diarrhea, Denies nausea, Denies vomiting Musculoskeletal: Denies myalgias Integumentary: Denies pruritus, Denies rash Neurological: Denies numbness, Denies weakness Psychiatric: Denies anxiety, Denies depression Endocrine: Denies fatigue, Denies weight change Past Medical History Past Medical History: Chest Pain / Angina, CVA/TIA, Hypertension, Osteoarthritis (OA), Prostate Disorder, Sleep Apnea/CPAP/BIPAP Additional Past Medical History / Comment(s): hx TIA, heart murmur, no cpap used , drop foot left leg History of Any Multi-Drug Resistant Organisms: None Reported Past Surgical History: Back Surgery, Bariatric Surgery, Hernia Repair, Joint Replacement Additional Past Surgical History / Comment(s): lap band surgery, left knee replacement, ashley cataracts Past Anesthesia/Blood Transfusion Reactions: No Reported Reaction Smoking Status: Former smoker - Past Family History Father Family Medical History: Cancer Medications and Allergies Home Medications Medication Instructions Recorded Confirmed Type Aspirin [Adult Low Dose Aspirin EC] 162 mg PO QAM 07/11/18 07/25/18 History Isosorbide Mononitrate [Isosorbide 30 mg PO DAILY 07/11/18 07/25/18 History Mononitrate ER] Lisinopril 20 mg PO DAILY 07/11/18 07/25/18 History Oxybutynin Chloride 5 mg PO QAM 07/11/18 07/25/18 History Tamsulosin HCl [Flomax] 0.4 mg PO QAM 07/11/18 07/25/18 History Atorvastatin [Lipitor] 40 mg PO DAILY #90 tab 07/21/18 07/25/18 Rx Metoprolol Tartrate 12.5 mg PO DAILY 07/24/18 07/25/18 History Allergies Allergy/AdvReac Type Severity Reaction Status Date / Time No Known Allergies Allergy Verified 07/25/18 15:47 Physical Exam Vitals: Vital Signs Temp Pulse Resp BP BP Pulse Ox 07/25/18 16:06 97 07/25/18 06:06 97.9 F 71 16 163/72 187/88 94 L Intake and Output 07/25/18 07/25/18 07/25/18 06:59 14:59 22:59 Intake Total 3 Output Total 3000 Balance -2997 Intake: IV 3 Output: Urine 1000 Estimated Blood Loss 1999 Other: Weight 152.407 kg GENERAL EXAM: Sedated, obese 78-year-old white male, intubated, comfortable in no apparent distress. HEAD: Normocephalic/atraumatic. EYES: Normal reaction of pupils, equal size. Conjunctiva pink, sclera white. NOSE: Clear with pink turbinates. THROAT: No erythema or exudates. NECK: No masses, no JVD, no thyroid enlargement, no adenopathy. CHEST: No chest wall deformity. Symmetrical expansion. Sternal incision is clean dry and intact, well approximated, covered with surgical dressing, 2 mediastinal and left pleural chest tubes, with Pleur-evacs to wall suction, with sanguinous output in the Pleur-evacs. Epicardial wires are present, to external pacemaker LUNGS: Equal air entry with no crackles, wheeze, rhonchi or dullness. CVS: Regular rate and rhythm, normal S1 and S2, no gallops, no murmurs, no rubs ABDOMEN: Soft, nontender. No hepatosplenomegaly, normal bowel sounds, no guarding or rigidity. EXTREMITIES: No clubbing, no edema, no cyanosis, 2+ pulses and upper and lower extremities. Bilateral lower extremities are Toni wrapped, there is a MELINA drain in the left lower extremity from saphenous graft site MUSCULOSKELETAL: Muscle strength and tone normal. SPINE: No scoliosis or deformity SKIN: No rashes CENTRAL NERVOUS SYSTEM: Sedated. No focal deficits, tone is normal in all 4 extremities. Results - Laboratory Findings CBC and BMP: 07/25/18 16:06 07/25/18 16:06 ABG ABG pH 7.33 (7.35-7.45) L 07/25/18 16:50 ABG pCO2 48 mmHg (35-45) H 07/25/18 16:50 ABG pO2 174 mmHg (83-108) H 07/25/18 16:50 ABG O2 Saturation 100.0 % (94-97) H 07/25/18 16:50 Abnormal lab findings: Abnormal Labs 07/24/18 07/25/18 07/25/18 12:40 08:36 10:02 WBC RBC Hgb Hct Plt Count Neutrophils # ABG pH ABG pCO2 ABG pO2 314 H 190 H ABG Total CO2 26 H 25 H ABG O2 Saturation 100.0 H 99.6 H ABG Hematocrit ABG Sodium ABG Potassium 4.8 H ABG Ionized Calcium ABG Glucose 119 H 124 H ABG Lactic Acid Hemoglobin Glucose POC Glucose (mg/dL) Calcium Ionized Calcium Gianluca Magnesium Alkaline Phosphatase Total Protein Albumin Arterial Blood Potassium 4.8 H Arterial Blood Glucose 119 H 124 H Crossmatch See Detail 07/25/18 07/25/18 07/25/18 11:29 11:55 12:30 WBC RBC Hgb Hct Plt Count Neutrophils # ABG pH ABG pCO2 ABG pO2 >420 H 401 H 375 H ABG Total CO2 25 H ABG O2 Saturation 100.0 H 100.0 H 100.0 H ABG Hematocrit 33 L 29 L 29 L ABG Sodium 133 L 133 L 133 L ABG Potassium 5.4 H 5.4 H 5.5 H ABG Ionized Calcium 4.2 L 4.0 L 4.0 L ABG Glucose 225 H 204 H 211 H ABG Lactic Acid 1.8 H 2.2 H* 2.5 H* Hemoglobin 10.6 L 9.4 L 9.5 L Glucose POC Glucose (mg/dL) Calcium Ionized Calcium Gianluca Magnesium Alkaline Phosphatase Total Protein Albumin Arterial Blood Potassium 5.4 H 5.4 H 5.5 H Arterial Blood Glucose 225 H 204 H 211 H Crossmatch 07/25/18 07/25/18 07/25/18 13:03 13:42 14:36 WBC RBC Hgb Hct Plt Count Neutrophils # ABG pH 7.34 L 7.33 L ABG pCO2 ABG pO2 322 H 380 H 159 H ABG Total CO2 25 H 25 H ABG O2 Saturation 100.0 H 100.0 H 99.4 H ABG Hematocrit 27 L 27 L 30 L ABG Sodium 134 L ABG Potassium 5.2 H 5.0 H ABG Ionized Calcium 4.0 L 3.9 L 3.9 L ABG Glucose 210 H 185 H 151 H ABG Lactic Acid 3.2 H* 4.2 H* 3.7 H* Hemoglobin 8.8 L 8.9 L 9.8 L Glucose POC Glucose (mg/dL) Calcium Ionized Calcium Gianluca Magnesium Alkaline Phosphatase Total Protein Albumin Arterial Blood Potassium 5.2 H 5.0 H Arterial Blood Glucose 210 H 185 H 151 H Crossmatch 07/25/18 07/25/18 07/25/18 16:06 16:06 16:29 WBC 15.2 H RBC 2.47 L Hgb 7.9 L D Hct 23.9 L Plt Count 109 L D Neutrophils # 12.3 H ABG pH ABG pCO2 ABG pO2 ABG Total CO2 ABG O2 Saturation ABG Hematocrit ABG Sodium ABG Potassium ABG Ionized Calcium ABG Glucose ABG Lactic Acid Hemoglobin Glucose 132 H POC Glucose (mg/dL) 138 H Calcium 7.6 L Ionized Calcium Gianluca 4.4 L Magnesium 2.4 H Alkaline Phosphatase <20 L Total Protein 5.0 L Albumin 3.4 L Arterial Blood Potassium Arterial Blood Glucose Crossmatch 07/25/18 07/25/18 16:50 16:56 WBC RBC Hgb Hct Plt Count Neutrophils # ABG pH 7.33 L ABG pCO2 48 H ABG pO2 174 H ABG Total CO2 26 H ABG O2 Saturation 100.0 H ABG Hematocrit ABG Sodium ABG Potassium ABG Ionized Calcium ABG Glucose ABG Lactic Acid Hemoglobin Glucose POC Glucose (mg/dL) 157 H Calcium Ionized Calcium Gianluca Magnesium Alkaline Phosphatase Total Protein Albumin Arterial Blood Potassium Arterial Blood Glucose Crossmatch - Diagnostic Findings Chest x-ray: report reviewed, image reviewed Assessment and Plan Plan: Assessment: #1. Symptomatic multivessel coronary artery disease, status post four-vessel bypass with MATT to LAD, SVG to the PLB, SVG to the diag, and to OM1, stop day 0 #2. Routine postoperative ventilator management #3. Acute blood loss anemia, an expected outcome of bypass grafting surgery #4. Moderate aortic stenosis #5. Hypertension #6. Sleep apnea syndrome on CPAP therapy #7. History of CVA #8. Morbid obesity #9. History of bariatric surgery #10. Prostate enlargement #11. DJD Plan: Continue close hemodynamic monitoring, chest x-ray, blood gases were reviewed by Dr. Rose, wean FiO2. Proceed with spontaneous breathing trials and extubation once the patient is awake, and following commands. Senna spirometer to the bedside, encourage deep breathing and coughing, pain control. Daily chest x-ray, labs, nebulized bronchodilators. Continue to closely follow I performed a history & physical examination of the patient and discussed their management with my nurse practitioner, Shweta Morejon. I reviewed the nurse practitioner's note and agree with the documented findings and plan of care. Lung sounds are clear breath sounds. The findings and the impression was discussed with the patient. I attest to the documentation by the nurse practitioner. Time with Patient: Greater than 30 <Lino Rose - Last Filed: 07/25/18 20:03> Physical Exam Vitals: Vital Signs Temp Pulse Pulse Resp BP BP Pulse Ox 07/25/18 19:00 98 21 97 07/25/18 18:45 95 20 97 07/25/18 18:30 93 19 97 07/25/18 18:15 87 20 97 07/25/18 18:00 88 21 96 07/25/18 17:45 86 19 97 07/25/18 17:30 81 21 96 07/25/18 17:15 76 18 96 07/25/18 17:00 75 22 99 07/25/18 16:45 74 11 L 93 L 07/25/18 16:30 75 12 97 07/25/18 16:15 70 12 100 07/25/18 16:14 18 07/25/18 16:06 97 07/25/18 06:06 97.9 F 71 16 163/72 187/88 94 L Intake and Output 07/25/18 07/25/18 07/25/18 06:59 14:59 22:59 Intake Total 3 436.310 Output Total 3000 1140 Balance -7921 -703.690 Intake: IV 3 116 cardiac output 80 pressure bags 36 Intake, IV Titration 320.310 Amount ACETAMINOPHEN IV (For NPO 100 ) 1,000 mg In Empty Bag 1 bag @ 400 mls/hr IVPB Q6HR [facility] Rx#:[id number] Insulin Regular 100 unit 9.007 In Sodium Chloride 0.9% 100 ml @ Per Protocol IV .Q0M [facility] Rx#:[id number] Lactated Ringers 1,000 ml 150 @ 50 mls/hr IV .Q20H [facility] Rx#:[id number] Norepinephrine 4 mg In 11.303 Sodium Chloride 0.9% 250 ml @ Titrate IV .Q0M [facility] Rx#:[id number] ceFAZolin 3 gm In Sodium 50 Chloride 0.9% 50 ml @ 50 mls/hr IVPB Q8HR [facility] Rx#: [id number] Output: Chest Tube Drainage 360 left pleural 20 mediastinal x2 340 Drainage 40 left calf 40 Urine 1000 740 Estimated Blood Loss 2000 Other: Voiding Method Indwelling Catheter Weight 152.407 kg ABP, PAP, CO, CI - Last 8 Hours Arterial Blood Pressure 108/50 Arterial Blood Pressure 95/45 Arterial Blood Pressure 97/45 Arterial Blood Pressure 100/46 Arterial Blood Pressure 113/49 Arterial Blood Pressure 92/43 Arterial Blood Pressure 108/47 Arterial Blood Pressure 90/43 Arterial Blood Pressure 98/46 Arterial Blood Pressure 108/53 Arterial Blood Pressure 97/48 Pulmonary Artery Pressure 36/20 Pulmonary Artery Pressure 35/19 Pulmonary Artery Pressure 36/20 Pulmonary Artery Pressure 34/20 Pulmonary Artery Pressure 36/19 Pulmonary Artery Pressure 35/21 Pulmonary Artery Pressure 37/19 Pulmonary Artery Pressure 26/20 Pulmonary Artery Pressure 29/20 Pulmonary Artery Pressure 39/9 Pulmonary Artery Pressure 29/17 Cardiac Output 6.9 Cardiac Output 6.5 Cardiac Output 6.5 Cardiac Output 6.5 Cardiac Output 5.6 Cardiac Output 5.6 Cardiac Output 5.6 Cardiac Output 5.6 Cardiac Output 5.6 Cardiac Output 6.1 Cardiac Output 6.1 Cardiac Index 2.7 Cardiac Index 2.5 Cardiac Index 2.2 Cardiac Index 2.2 Cardiac Index 2.3 Results - Laboratory Findings CBC and BMP: 07/25/18 18:54 07/25/18 16:06 ABG ABG pH 7.33 (7.35-7.45) L 07/25/18 16:50 ABG pCO2 48 mmHg (35-45) H 07/25/18 16:50 ABG pO2 174 mmHg (83-108) H 07/25/18 16:50 ABG O2 Saturation 100.0 % (94-97) H 07/25/18 16:50 PT/INR, D-dimer PT 13.9 sec (9.0-12.0) H 07/25/18 16:30 INR 1.5 (<1.2) H 07/25/18 16:30 Abnormal lab findings: Abnormal Labs 07/24/18 07/25/18 07/25/18 12:40 08:36 10:02 WBC RBC Hgb Hct Plt Count Neutrophils # PT INR APTT Fibrinogen ABG pH ABG pCO2 ABG pO2 314 H 190 H ABG Total CO2 26 H 25 H ABG O2 Saturation 100.0 H 99.6 H ABG Hematocrit ABG Sodium ABG Potassium 4.8 H ABG Ionized Calcium ABG Glucose 119 H 124 H ABG Lactic Acid Hemoglobin Glucose POC Glucose (mg/dL) Calcium Ionized Calcium Gianluca Magnesium Alkaline Phosphatase Total Protein Albumin Arterial Blood Potassium 4.8 H Arterial Blood Glucose 119 H 124 H Crossmatch See Detail 07/25/18 07/25/18 07/25/18 11:29 11:55 12:30 WBC RBC Hgb Hct Plt Count Neutrophils # PT INR APTT Fibrinogen ABG pH ABG pCO2 ABG pO2 >420 H 401 H 375 H ABG Total CO2 25 H ABG O2 Saturation 100.0 H 100.0 H 100.0 H ABG Hematocrit 33 L 29 L 29 L ABG Sodium 133 L 133 L 133 L ABG Potassium 5.4 H 5.4 H 5.5 H ABG Ionized Calcium 4.2 L 4.0 L 4.0 L ABG Glucose 225 H 204 H 211 H ABG Lactic Acid 1.8 H 2.2 H* 2.5 H* Hemoglobin 10.6 L 9.4 L 9.5 L Glucose POC Glucose (mg/dL) Calcium Ionized Calcium Gianluca Magnesium Alkaline Phosphatase Total Protein Albumin Arterial Blood Potassium 5.4 H 5.4 H 5.5 H Arterial Blood Glucose 225 H 204 H 211 H Crossmatch 07/25/18 07/25/18 07/25/18 13:03 13:42 14:36 WBC RBC Hgb Hct Plt Count Neutrophils # PT INR APTT Fibrinogen ABG pH 7.34 L 7.33 L ABG pCO2 ABG pO2 322 H 380 H 159 H ABG Total CO2 25 H 25 H ABG O2 Saturation 100.0 H 100.0 H 99.4 H ABG Hematocrit 27 L 27 L 30 L ABG Sodium 134 L ABG Potassium 5.2 H 5.0 H ABG Ionized Calcium 4.0 L 3.9 L 3.9 L ABG Glucose 210 H 185 H 151 H ABG Lactic Acid 3.2 H* 4.2 H* 3.7 H* Hemoglobin 8.8 L 8.9 L 9.8 L Glucose POC Glucose (mg/dL) Calcium Ionized Calcium Gianluca Magnesium Alkaline Phosphatase Total Protein Albumin Arterial Blood Potassium 5.2 H 5.0 H Arterial Blood Glucose 210 H 185 H 151 H Crossmatch 07/25/18 07/25/18 07/25/18 16:06 16:06 16:29 WBC 15.2 H RBC 2.47 L Hgb 7.9 L D Hct 23.9 L Plt Count 109 L D Neutrophils # 12.3 H PT INR APTT Fibrinogen ABG pH ABG pCO2 ABG pO2 ABG Total CO2 ABG O2 Saturation ABG Hematocrit ABG Sodium ABG Potassium ABG Ionized Calcium ABG Glucose ABG Lactic Acid Hemoglobin Glucose 132 H POC Glucose (mg/dL) 138 H Calcium 7.6 L Ionized Calcium Gianluca 4.4 L Magnesium 2.4 H Alkaline Phosphatase <20 L Total Protein 5.0 L Albumin 3.4 L Arterial Blood Potassium Arterial Blood Glucose Crossmatch 07/25/18 07/25/18 07/25/18 16:30 16:50 16:56 WBC RBC Hgb Hct Plt Count Neutrophils # PT 13.9 H INR 1.5 H APTT 30.5 H Fibrinogen 112 L ABG pH 7.33 L ABG pCO2 48 H ABG pO2 174 H ABG Total CO2 26 H ABG O2 Saturation 100.0 H ABG Hematocrit ABG Sodium ABG Potassium ABG Ionized Calcium ABG Glucose ABG Lactic Acid Hemoglobin Glucose POC Glucose (mg/dL) 157 H Calcium Ionized Calcium Gianluca Magnesium Alkaline Phosphatase Total Protein Albumin Arterial Blood Potassium Arterial Blood Glucose Crossmatch 07/25/18 07/25/18 07/25/18 17:58 18:54 18:54 WBC 16.5 H RBC 2.53 L Hgb 8.2 L Hct 24.5 L Plt Count 121 L Neutrophils # 14.3 H PT INR APTT Fibrinogen ABG pH ABG pCO2 ABG pO2 ABG Total CO2 ABG O2 Saturation ABG Hematocrit ABG Sodium ABG Potassium ABG Ionized Calcium ABG Glucose ABG Lactic Acid Hemoglobin Glucose POC Glucose (mg/dL) 183 H 187 H Calcium Ionized Calcium Gianluca Magnesium Alkaline Phosphatase Total Protein Albumin Arterial Blood Potassium Arterial Blood Glucose Crossmatch Assessment and Plan Plan: The patient was seen in intensive care unit postop day #0. This is a joint evaluation that was done along with a nurse practitioner. The patient is still sedated and when the process of weaning down the Diprivan. FiO2 has been cut down to 40%. We'll switch him to an assist-control mode volume cycle at a tidal volume of 580 and increased respiratory rate of 20. The blood Was reviewed. Chest x-ray was reviewed. Cardiac index is at 2.5. The patient is on a combination of levo fed and milrinone. Chest tube output is minimal at this point in time. No evidence of any bleeding. We'll continue to follow. Anticipate extubation with the next few hours.
[2018-07-25 18:56] LABS: Glucose,Whole Blood 187 mg/dL (75-99)
[2018-07-25 19:25] LABS: Basophils # (A) 0.1 k/uL (0-0.2); Basophils % (A) 0 %; Eosinophils % (A) 0 %; HCT 24.5 % (39.0-53.0); HGB 8.2 gm/dL (13.0-17.5); Lymphocytes # (A) 1.2 k/uL (1.0-4.8); Lymphocytes % (A) 7 %; MCH 32.5 pg (25.0-35.0); MCHC 33.5 g/dL (31.0-37.0); MCV 96.9 fL (80.0-100.0); Mean Platelet Volume 6.9; Monocytes # (A) 0.9 k/uL (0-1.0); Monocytes % (A) 5 %; Neutrophils # (A) 14.3 k/uL (1.3-7.7); Neutrophils % (A) 87 %; Platelet Count 121 k/uL (150-450); RBC 2.53 m/uL (4.30-5.90); RDW 12.9 % (11.5-15.5); WBC 16.5 k/uL (3.8-10.6)
[2018-07-25 20:03] LABS: Glucose,Whole Blood 205 mg/dL (75-99)
[2018-07-25] MEDS: CLEVIDIPINE BUTYRATE 25 MG in EMPTY BAG 1 BAG IV SCH (20:16)
[2018-07-25] MEDS: IPRATROPIUM-ALBUTEROL 3 ML NEB INHALATION SCH ×3 (20:17→23:27)
[2018-07-25] MEDS: CHLORHEXIDINE GLUCONATE 15 ML CUP MUCOUS MEM SCH (21:08)
[2018-07-25 21:35] LABS: Glucose,Whole Blood 223 mg/dL (75-99)
[2018-07-25] MEDS: MUPIROCIN 2% OINT 22 GM TUBE NASAL SCH (21:42)
[2018-07-25 22:12] LABS: Basophils % (A) 0 %; Eosinophils % (A) 0 %; HCT 23.8 % (39.0-53.0); HGB 7.9 gm/dL (13.0-17.5); Lymphocytes # (A) 0.7 k/uL (1.0-4.8); Lymphocytes % (A) 5 %; MCH 31.7 pg (25.0-35.0); MCV 96.1 fL (80.0-100.0); Mean Platelet Volume 7.6; Monocytes # (A) 0.6 k/uL (0-1.0); Monocytes % (A) 4 %; Neutrophils # (A) 13.3 k/uL (1.3-7.7); Neutrophils % (A) 90 %; Platelet Count 135 k/uL (150-450); RBC 2.48 m/uL (4.30-5.90); RDW 13.1 % (11.5-15.5); WBC 14.8 k/uL (3.8-10.6)
[2018-07-25 22:28] LABS: Glucose,Whole Blood 209 mg/dL (75-99)
[2018-07-25] MEDS: HEPARIN SODIUM,PORCINE 5,000 UNIT/ML 1 ML VIAL SQ SCH (23:05)
[2018-07-25 23:17] LABS: Glucose,Whole Blood 206 mg/dL (75-99)
[2018-07-26 00:30] LABS: Glucose,Whole Blood 202 mg/dL (75-99)
[2018-07-26 01:02] LABS: Glucose,Whole Blood 174 mg/dL (75-99)
[2018-07-26 01:06] LABS: ABG Base Excess -2.4 mmol/L; ABG HCO3 23 mmol/L (21-25); ABG Oxygen Saturation 95.8 % (94-97); ABG PCO2 40 mmHg (35-45); ABG PH 7.37 (7.35-7.45); ABG PO2 72 mmHg (83-108); ABG TCO2 24 mmol/L (19-24)
[2018-07-26] MEDS: INSULIN REGULAR 100 UNIT in SODIUM CHLORIDE 0.9% 100 ML IV SCH ×2 (01:25→13:09)
[2018-07-26] MEDS: IPRATROPIUM-ALBUTEROL 3 ML NEB INHALATION PRN (01:38)
[2018-07-26] MEDS: MILRINONE-D5W PMX 20 MG in DEXTROSE/WATER 1 100ML.BAG IV SCH ×2 (02:08→06:12)
[2018-07-26 02:11] LABS: Glucose,Whole Blood 170 mg/dL (75-99)
[2018-07-26 03:07] LABS: Glucose,Whole Blood 165 mg/dL (75-99)
[2018-07-26 04:03] LABS: Glucose,Whole Blood 161 mg/dL (75-99)
[2018-07-26 04:24] LABS: Basophils % (A) 0 %; Eosinophils % (A) 0 %; HCT 23.7 % (39.0-53.0); HGB 8.1 gm/dL (13.0-17.5); Lymphocytes % (A) 7 %; MCH 32.7 pg (25.0-35.0); MCV 96.3 fL (80.0-100.0); Mean Platelet Volume 8.3; Monocytes # (A) 0.6 k/uL (0-1.0); Monocytes % (A) 5 %; Neutrophils # (A) 11.6 k/uL (1.3-7.7); Neutrophils % (A) 87 %; Platelet Count 138 k/uL (150-450); RBC 2.46 m/uL (4.30-5.90); RDW 12.8 % (11.5-15.5); WBC 13.3 k/uL (3.8-10.6)
[2018-07-26 04:30] LABS: Ionized Calcium 4.8 mg/dL (4.5-5.3)
[2018-07-26 04:33] LABS: INR 1.2 (<1.2); Partial Thromboplastin Time 27.7 sec (22.0-30.0); Prothrombin Time 11.7 sec (9.0-12.0)
[2018-07-26 04:39] LABS: ALT 31 U/L (21-72); AST 98 U/L (17-59); Albumin 3.2 g/dL (3.5-5.0); Alkaline Phosphatase 25 U/L (38-126); Anion Gap 11 mmol/L; Blood Urea Nitrogen 19 mg/dL (9-20); Calcium 8.4 mg/dL (8.4-10.2); Carbon Dioxide 22 mmol/L (22-30); Chloride 107 mmol/L (98-107); Glucose 142 mg/dL (74-99); Magnesium 2.3 mg/dL (1.6-2.3); Potassium 4.1 mmol/L (3.5-5.1); Sodium 140 mmol/L (137-145); Total Bilirubin 0.6 mg/dL (0.2-1.3); Total Protein 5.1 g/dL (6.3-8.2)
[2018-07-26] MEDS: ACETAMINOPHEN IV (For NPO) 1,000 MG in EMPTY BAG 1 BAG IVPB SCH ×3 (05:39→18:32)
[2018-07-26 06:16] LABS: Glucose,Whole Blood 147 mg/dL (75-99)
[2018-07-26 07:05] LABS: Glucose,Whole Blood 130 mg/dL (75-99)
[2018-07-26] MEDS: IPRATROPIUM-ALBUTEROL 3 ML NEB INHALATION SCH ×4 (07:10→20:19)
--- NOTE | 2018-07-26 07:19 | XR ---
EXAMINATION TYPE: XR chest 1V portable DATE OF EXAM: 07/26/2018 COMPARISON: 07/25/2018 HISTORY: SOB, Follow Up FINDINGS: Endotracheal and NG tubes have been removed. Mcmillan-Perry catheter is in place as is left sided chest tu be and mediastinal drains. No change in bibasilar opacities. Stable appearance of the cardio-mediastinal structures at this time. Pleural effusion unchanged. IMPRESSION: 1. Stable portable chest. Clinical correlation and follow up until resolution is recommended.
--- NOTE | 2018-07-26 07:40 | OP ---
OPERATIVE REPORT DATE OF SURGERY: 07/25/2018 PREOPERATIVE DIAGNOSIS: Coronary artery disease. POSTOPERATIVE DIAGNOSIS: Coronary artery disease. PROCEDURE: 1. Coronary artery bypass grafting x4 vessels (left internal mammary to left anterior descending artery, saphenous vein graft to diagonal artery, saphenous vein graft to OM2, saphenous vein graft to posterolateral branch of right coronary artery). 2. Endoscopic vein harvest bilateral greater saphenous vein. 3. Epiaortic ultrasound. 4. Transesophageal echocardiogram. 5. Closure of sternum using titanium plating system. SURGEON: Jarett Acharya MD. ASSISTANTS: 1. NANCY Walls. 2. Reymundo Xavier NP. ANESTHESIA: General. SPECIMENS: None. COMPLICATIONS: None. HISTORY OF PRESENT ILLNESS: The patient is a 78-year-old male with a past medical history significant for TIA and left-sided weakness, BPH, drop foot in his left leg, obstructive sleep apnea, hypertension, osteoarthritis, and morbid obesity who reports chest pain and dyspnea with activity. Cardiac catheterization revealed multivessel coronary artery disease. He was also known to have moderate aortic valve stenosis. I did speak with Dr. Rand and we felt that the patient will be best served with coronary artery bypass at this time and we will monitor the aortic valve stenosis. If it gets worse, then he may benefit from or TAVR down the road. The risks, alternatives to surgery were discussed with the patient. All his questions were answered. Consent was obtained. FINDINGS: The left internal mammary artery was good, brisk flow. The saphenous vein was dilated but overall was adequate conduit. The LAD measured 1.3 mm. The diagonal artery measured 1.3 mm. The obtuse marginal artery #2 measured 1 mm. The posterolateral branch of the right coronary artery measured 1 mm. The OM1 was was heavily calcified and not amenable for bypass. Of note, the patient was morbidly obese, which made every aspect of the procedure somewhat challenging. PROCEDURE IN DETAIL: The patient was taken the operating room and placed supine on the operating table. After induction of general anesthesia, he was prepped and draped in the usual sterile fashion. Preoperative transesophageal echocardiogram revealed an ejection fraction of about 45% to 50% with mild mitral regurgitation and moderate aortic valve stenosis. There was no significant aortic insufficiency. A median sternotomy was performed. The left internal mammary artery was harvested in a standard fashion taking care to clip all branches. Intravenous heparin was administered. The vessel was transected distally revealing brisk flow. Of note, this dissection was quite difficult given the patient's body habitus. Simultaneously, greater saphenous vein was harvested from the left lower extremity. This was performed using endoscopic technique. All branches were tied. The vein was quite dilated proximally. Therefore, additional vein was harvested from the right thigh. Again, this was performed using endoscopic technique. Both the mammary artery and saphenous vein were adequate conduits. A pericardial cradle was created. The ascending aorta was palpated. There was no significant calcific plaque noted. Of note, the heart was quite enlarged and covered with fat. Epiaortic ultrasound was then performed on the ascending aorta. Again, there was no calcific plaque noted. An arterial cannula was placed in the distal ascending aorta. A venous cannula was placed through the right atrial appendage and directed into the IVC. Both antegrade and retrograde catheters were placed as well. The patient was then placed on cardiopulmonary bypass with good decompression of the heart. The aortic cross-clamp was applied. Cardioplegia was delivered in both antegrade and retrograde fashion to achieve arrest of the heart. Of note, cardioplegia was delivered every 15 to 20 minutes while the patient remained under cross-clamp. We began by inspecting the inferior wall. The posterolateral branch of right coronary artery was dissected free. It was small in diameter, but I felt it was amenable for bypass. It accepts a 1 mm probe. The saphenous vein in a reverse fashion in an end-to- side anastomosis was created. This was performed using a running 7-0 Prolene suture. The graft was hemostatic and had adequate flow. Next, lateral was inspected. Both OM branches were identified. The OM1 was heavily calcified throughout its course. There was no soft spot amenable to bypass. The OM2 did have a soft spot distally prior to the bifurcation. A small arteriotomy was created. This vessel accepted a 1 mm probe. Using saphenous vein in a reverse fashion, an end-to-side anastomosis was created. This was performed a running 7-0 Prolene suture. Graft was hemostatic and had adequate flow. Next, the anterior wall of the heart was identified. The diagonal artery was dissected free. A small arteriotomy was created. Using saphenous vein in a reverse fashion, an end-to-side anastomosis was created. This was performed in an end-to-side fashion with running 7-0 Prolene suture. The graft was hemostatic and had good flow. Finally the left anterior descending artery was dissected free. It was deep within the fat. It was found after a dissection. An arteriotomy was created. Using the left internal mammary artery, an end-to-side anastomosis was created. This was performed using running 8-0 Prolene suture. The graft was hemostatic. The mammary pedicle was then tacked on the anterior surface of the heart. Attention was then turned to the proximal anastomoses. This was performed in an end-to- side fashion using running 6-0 Prolene sutures. One liter of warm blood was delivered in retrograde fashion. Lidocaine magnesium were administered as well. The aortic cross-clamp was removed. All vein grafts were de-aired in the standard fashion. Distal anastomoses were inspected, appeared to be hemostatic. The retrograde catheter was removed. Temporary atrial and ventricular pacer wires were placed and brought through the skin. The patient was then weaned off cardiopulmonary bypass. He without difficulty. Low-dose Milrinone and low-dose Levophed were instituted. Protamine was administered. There were no adverse reactions. The site was copiously irrigated with warm saline solution. All surgical sites were inspected, appeared to be hemostatic. Reinforcement sutures were placed as needed. Soft tissues were reapproximated over the ascending aorta as well as over the apex of the heart. A straight 32-Montserratian chest tubes were placed directly in the left pleural space as well as the mediastinum. This were secured to the skin using sutures. Due to the patient's obesity, we elected to reapproximate the sternum using a sternal plating system. Two [place] cables, 2 X plates, and a V plate were placed and 16 mm screws screws were used. At the completion of the closure, the sternum was well aligned. The soft tissue was then reapproximated in multiple layers. A sterile dressing was applied. The patient appeared to tolerate the procedure well. There were no immediate complications. He returned to the ICU in critical, but stable condition. MMODL / IJN: [id number] /
[2018-07-26] MEDS: CHLORHEXIDINE GLUCONATE 15 ML CUP MUCOUS MEM SCH (08:12)
[2018-07-26 08:30] LABS: Glucose,Whole Blood 120 mg/dL (75-99)
[2018-07-26] MEDS: ATORVASTATIN 40 MG TAB PO SCH (08:41)
[2018-07-26] MEDS: CLOPIDOGREL 75 MG TAB PO SCH (08:41)
[2018-07-26] MEDS: PANTOPRAZOLE 40 MG/10 ML VIAL IVP SCH (08:41)
[2018-07-26] MEDS: ASPIRIN 325 MG TAB PO SCH (08:41)
[2018-07-26] MEDS: MUPIROCIN 2% OINT 22 GM TUBE NASAL SCH ×2 (08:41→20:51)
[2018-07-26] MEDS: HEPARIN SODIUM,PORCINE 5,000 UNIT/ML 1 ML VIAL SQ SCH ×3 (08:42→23:50)
[2018-07-26] MEDS ORDERED: METOPROLOL TARTRATE 25 MG TAB PO SCH (09:00)
[2018-07-26] MEDS ORDERED: METOPROLOL TARTRATE 12.5 MG TAB PO SCH (09:00)
[2018-07-26 09:11] LABS: Glucose,Whole Blood 114 mg/dL (75-99)
[2018-07-26 10:06] LABS: Glucose,Whole Blood 115 mg/dL (75-99)
--- NOTE | 2018-07-26 10:33 | P.CRDCN ---
History of Present Illness Consult date: 07/26/18 History of present illness: This is a 78-year-old gentleman who was evaluated by Dr. Jackson and was found to have triple-vessel disease and also aortic stenosis. Patient underwent hiatal coronary bypass surgery yesterday with the MATT graft to the LAD, separate graft to the PLV, diagonal and also OM branch. Patient also has evidence of mild to moderate aortic stenosis. Patient is extubated on 1:00 last night. Patient is still sleepy and mildly confused. His maintaining sinus rhythm. His urine output is. His cardiac index fever. He is lab work shows mild anemia. Renal function is stable. Continue current medical therapy. No arrhythmias noted. So far Review of Systems As per the chart Past Medical History Past Medical History: Chest Pain / Angina, CVA/TIA, Hypertension, Osteoarthritis (OA), Prostate Disorder, Sleep Apnea/CPAP/BIPAP Additional Past Medical History / Comment(s): hx TIA, heart murmur, no cpap used , drop foot left leg History of Any Multi-Drug Resistant Organisms: None Reported Past Surgical History: Back Surgery, Bariatric Surgery, Hernia Repair, Joint Replacement Additional Past Surgical History / Comment(s): lap band surgery, left knee replacement, ashley cataracts Past Anesthesia/Blood Transfusion Reactions: No Reported Reaction Smoking Status: Former smoker - Past Family History Father Family Medical History: Cancer Medications and Allergies Home Medications Medication Instructions Recorded Confirmed Type Aspirin [Adult Low Dose Aspirin EC] 162 mg PO QAM 07/11/18 07/25/18 History Isosorbide Mononitrate [Isosorbide 30 mg PO DAILY 07/11/18 07/25/18 History Mononitrate ER] Lisinopril 20 mg PO DAILY 07/11/18 07/25/18 History Oxybutynin Chloride 5 mg PO QAM 07/11/18 07/25/18 History Tamsulosin HCl [Flomax] 0.4 mg PO QAM 07/11/18 07/25/18 History Atorvastatin [Lipitor] 40 mg PO DAILY #90 tab 07/21/18 07/25/18 Rx Metoprolol Tartrate 12.5 mg PO DAILY 07/24/18 07/25/18 History Allergies Allergy/AdvReac Type Severity Reaction Status Date / Time No Known Allergies Allergy Verified 07/25/18 15:47 Physical Exam Vitals: Vital Signs Temp Pulse Resp BP Pulse Ox 12/05/18 08:15 115 H 20 110/62 94 L 07/26/18 08:00 112 H 24 111/61 95 07/26/18 07:45 112 H 21 111/61 95 07/26/18 07:30 112 H 23 111/61 95 07/26/18 07:25 112 H 07/26/18 07:15 108 H 28 H 111/61 96 18 07:10 113 H 07/26/18 07:00 115 H 23 95/72 93 L 07/26/18 06:45 112 H 22 95/72 94 L 07/26/18 06:30 108 H 21 95/72 94 L 07/26/18 06:15 110 H 21 94 L 07/26/18 06:00 114 H 26 H 97 07/26/18 05:45 112 H 24 92 L 07/26/18 05:30 115 H 22 92 L 07/26/18 05:15 110 H 25 H 90 L 07/26/18 05:00 101 H 21 91 L 07/26/18 04:45 97 27 H 93 L 07/26/18 04:30 105 H 26 H 95 07/26/18 04:15 106 H 25 H 94 L 07/26/18 04:00 97.8 F 101 H 26 H 93 L 07/26/18 03:45 101 H 27 H 91 L 07/26/18 03:30 100 27 H 93 L 07/26/18 03:15 105 H 25 H 93 L 07/26/18 03:00 105 H 27 H 92 L 07/26/18 02:45 103 H 25 H 93 L 07/26/18 02:30 103 H 28 H 92 L 07/26/18 02:15 102 H 22 92 L 07/26/18 02:00 98 25 H 95 18 01:47 96 07/26/18 01:45 98 20 96 07/26/18 01:38 96 07/26/18 01:30 89 27 H 96 07/26/18 01:15 93 22 92 L 07/26/18 01:00 94 20 94 L 07/26/18 00:45 90 22 94 L 07/26/18 00:30 93 21 95 07/26/18 00:15 92 21 94 L 07/26/18 00:07 92 20 94 L 07/26/18 00:00 97.6 F 87 20 97 07/25/18 23:45 88 20 95 07/25/18 23:30 92 21 95 07/25/18 23:15 92 22 94 L 07/25/18 23:00 94 24 94 L 07/25/18 22:45 90 21 95 07/25/18 22:30 100 23 96 07/25/18 22:15 85 20 96 07/25/18 22:00 92 20 96 07/25/18 21:45 92 23 92 L 07/25/18 21:30 103 H 29 H 95 07/25/18 21:15 92 23 95 07/25/18 21:00 92 22 94 L 07/25/18 20:45 88 20 95 07/25/18 20:30 93 20 93 L 07/25/18 20:15 93 21 92 L 07/25/18 20:00 97.6 F 95 21 95 07/25/18 19:45 96 20 97 07/25/18 19:30 96 25 H 96 07/25/18 19:15 110 H 22 95 07/25/18 19:00 98 21 97 07/25/18 18:45 95 20 97 07/25/18 18:30 93 19 97 07/25/18 18:15 87 20 97 07/25/18 18:00 88 21 96 07/25/18 17:45 86 19 97 07/25/18 17:30 81 21 96 07/25/18 17:15 76 18 96 07/25/18 17:00 75 22 99 07/25/18 16:45 74 11 L 93 L 07/25/18 16:30 75 12 97 07/25/18 16:15 70 12 100 07/25/18 16:14 18 07/25/18 16:06 97 Intake and Output 07/25/18 07/26/18 07/26/18 22:59 06:59 14:59 Intake Total 067.289 4053.477 192.292 Output Total 1594 879 130 Balance -624.160 892.477 62.292 Intake: IV 453 1402 118 ACETAMINOPHEN IV (For NPO 800 ) 1,000 mg In Empty Bag 1 bag @ 400 mls/hr IVPB Q6HR [facility] Rx#:[id number] Calcium Chloride 1,000 mg 100 In Sodium Chloride 0.9% 100 ml @ 100 mls/hr IV ONCE PRN Rx#:[id number] Lactated Ringers 1,000 ml 150 400 100 @ 20 mls/hr IV .Q24H [facility] Rx#:[id number] cardiac output 140 80 ceFAZolin 3 gm In Sodium 50 Chloride 0.9% 50 ml @ 50 mls/hr IVPB Q8HR [facility] Rx#: [id number] pressure bags 63 72 18 Intake, IV Titration 516.840 369.477 74.292 Amount ACETAMINOPHEN IV (For NPO 100 ) 1,000 mg In Empty Bag 1 bag @ 400 mls/hr IVPB Q6HR [facility] Rx#:[id number] Insulin Regular 100 unit 26.829 108.250 26.996 In Sodium Chloride 0.9% 100 ml @ Per Protocol IV .Q0M [facility] Rx#:[id number] Lactated Ringers 1,000 ml 150 @ 20 mls/hr IV .Q24H [facility] Rx#:[id number] Milrinone-D5w Pmx 20 mg 96.774 204.775 In Dextrose/Water 1 100ml .bag @ Per Protocol IV . Q0M [facility] Rx#:[id number] Nitroglycerin-D5w Pmx 50 22.15 mg In Dextrose/Water 1 250ml.bag @ 5 MCG/MIN 1.5 mls/hr IV .Q24H [facility] Rx#: [id number] Norepinephrine 4 mg In 48.070 56.452 25.146 Sodium Chloride 0.9% 250 ml @ Titrate IV .Q0M [facility] Rx#:[id number] Propofol 1,000 mg In 45.167 Empty Bag 1 bag @ Titrate IV .Q0M [facility] Rx#: [id number] ceFAZolin 3 gm In Sodium 50 Chloride 0.9% 50 ml @ 50 mls/hr IVPB Q8HR [facility] Rx#: [id number] Output: Chest Tube Drainage 594 344 30 left pleural 144 234 20 mediastinal x2 450 110 10 Drainage 40 20 left calf 40 20 Urine 960 535 80 Other: Voiding Method Indwelling Catheter Indwelling Catheter Indwelling Catheter Weight 156.2 kg ABP, PAP, CO, CI - Last 8 Hours Arterial Blood Pressure 103/48 Arterial Blood Pressure 103/49 Arterial Blood Pressure 103/48 Arterial Blood Pressure 105/48 Arterial Blood Pressure 96/48 Arterial Blood Pressure 108/51 Arterial Blood Pressure 101/47 Arterial Blood Pressure 102/49 Arterial Blood Pressure 93/45 Arterial Blood Pressure 104/47 Arterial Blood Pressure 104/49 Arterial Blood Pressure 117/59 Arterial Blood Pressure 88/50 Arterial Blood Pressure 99/54 Arterial Blood Pressure 88/43 Arterial Blood Pressure 101/47 Arterial Blood Pressure 122/57 Arterial Blood Pressure 108/58 Arterial Blood Pressure 108/54 Arterial Blood Pressure 94/52 Arterial Blood Pressure 113/60 Arterial Blood Pressure 111/56 Arterial Blood Pressure 118/60 Arterial Blood Pressure 121/56 Pulmonary Artery Pressure 34/20 Pulmonary Artery Pressure 34/20 Pulmonary Artery Pressure 34/19 Pulmonary Artery Pressure 33/17 Pulmonary Artery Pressure 31/16 Pulmonary Artery Pressure 40/21 Pulmonary Artery Pressure 32/18 Pulmonary Artery Pressure 32/19 Pulmonary Artery Pressure 32/19 Pulmonary Artery Pressure 40/18 Pulmonary Artery Pressure 34/21 Pulmonary Artery Pressure 40/15 Pulmonary Artery Pressure 46/19 Pulmonary Artery Pressure 41/15 Pulmonary Artery Pressure 39/10 Pulmonary Artery Pressure 36/17 Pulmonary Artery Pressure 41/23 Pulmonary Artery Pressure 40/23 Pulmonary Artery Pressure 46/24 Pulmonary Artery Pressure 41/22 Pulmonary Artery Pressure 45/24 Pulmonary Artery Pressure 41/24 Pulmonary Artery Pressure 44/22 Pulmonary Artery Pressure 41/21 Cardiac Output 6.9 Cardiac Output 5.8 Cardiac Output 5.8 Cardiac Output 5.8 Cardiac Output 5.8 Cardiac Output 7.3 Cardiac Output 7.3 Cardiac Index 2.8 GENERAL EXAM: Patient is sleepy and confused HEENT: Normocephalic. Normal reaction of pupils, equal size, normal range of extraocular motion. No erythema or exudates in the throat. NECK: No masses, no nuchal rigidity. CHEST: Postsurgical LUNGS: Diminished breath sounds HEART: S1 and S2 heard. Difficult to appreciate any murmurs ABDOMEN: Soft SKIN: No rashes CENTRAL NERVOUS SYSTEM: No focal deficits. EXTREMITIES: No cyanosis, clubbing or edema. Results 07/26/18 04:15 07/26/18 04:15 Cardiac Enzymes 07/25/18 07/26/18 Range/Units 16:06 04:15 AST 33 98 H (17-59) U/L Coagulation 07/25/18 07/26/18 Range/Units 16:30 04:15 PT 13.9 H 11.7 (9.0-12.0) sec APTT 30.5 H 27.7 (22.0-30.0) sec CBC 07/25/18 07/25/18 07/25/18 Range/Units 16:06 18:54 21:20 WBC 15.2 H 16.5 H 14.8 H (3.8-10.6) k/uL RBC 2.47 L 2.53 L 2.48 L (4.30-5.90) m/uL Hgb 7.9 L D 8.2 L 7.9 L (13.0-17.5) gm/dL Hct 23.9 L 24.5 L 23.8 L (39.0-53.0) % Plt Count 109 L D 121 L 135 L (150-450) k/uL 07/26/18 Range/Units 04:15 WBC 13.3 H (3.8-10.6) k/uL RBC 2.46 L (4.30-5.90) m/uL Hgb 8.1 L (13.0-17.5) gm/dL Hct 23.7 L (39.0-53.0) % Plt Count 138 L (150-450) k/uL Comprehensive Metabolic Panel 07/25/18 07/26/18 Range/Units 16:06 04:15 Sodium 140 140 (137-145) mmol/L Potassium 4.4 4.1 (3.5-5.1) mmol/L Chloride 107 107 (98-107) mmol/L Carbon Dioxide 25 22 (22-30) mmol/L BUN 17 19 (9-20) mg/dL Creatinine 0.74 0.89 (0.66-1.25) mg/dL Glucose 132 H 142 H (74-99) mg/dL Calcium 7.6 L 8.4 (8.4-10.2) mg/dL AST 33 98 H (17-59) U/L ALT 34 31 (21-72) U/L Alkaline Phosphatase <20 L 25 L (38-126) U/L Total Protein 5.0 L 5.1 L (6.3-8.2) g/dL Albumin 3.4 L 3.2 L (3.5-5.0) g/dL Current Medications Generic Name Dose Route Start Last Admin Trade Name Freq PRN Reason Stop Dose Admin Hydrocodone Bitart/Acetaminophen 2 each 07/26/18 23:00 [place] 5-325 PO Q4HR PRN Severe Pain Hydrocodone Bitart/Acetaminophen 1 each 07/26/18 23:00 [place] 5-325 PO Q4HR PRN Moderate Pain Albuterol/Ipratropium 3 ml 07/25/18 16:06 07/26/18 01:38 Duone[place] 0.5 Mg-3 Mg/3 Ml Soln INHALATION 3 ml RT-Q2H PRN Administration Shortness Of Breath Or Wheezing Albuterol/Ipratropium 3 ml 07/25/18 21:33 07/26/18 07:10 Duoneb 0.5 Mg-3 Mg/3 Ml Soln INHALATION 3 ml RT-QID [facility] Administration Aspirin 325 mg 07/26/18 09:00 07/26/18 08:41 Aspirin PO 325 mg DAILY [facility] Administration Atorvastatin Calcium 40 mg 07/26/18 09:00 07/26/18 08:41 Lipitor PO 40 mg DAILY [facility] Administration Benzocaine/Menthol 1 each 07/25/18 16:06 Cepacol Lozenge MUCOUS MEM Q2H PRN Sore Throat Bisacodyl 10 mg 07/26/18 15:30 Dulcolax RECTAL DAILY PRN Constipation Chlorhexidine Gluconate 15 ml 07/25/18 21:00 07/26/18 08:12 Peridex MUCOUS MEM Not Given BID [facility] Clopidogrel Bisulfate 75 mg 07/26/18 09:00 07/26/18 08:41 Plavix PO 75 mg DAILY [facility] Administration Heparin Sodium (Porcine) 5,000 unit 07/25/18 23:30 07/26/18 08:42 Heparin SQ 5,000 unit Q8HR [facility] Administration Acetaminophen 1,000 mg/ IV 100 mls @ 400 mls/hr 07/25/18 18:00 07/26/18 05:39 Solution IVPB 07/26/18 18:01 400 mls/hr Q6HR [facility] Administration Albumin Human 250 ml/ IV 250 mls @ 250 mls/hr 07/25/18 16:06 Solution IVPB 07/27/18 16:07 Q1HR PRN For Volume Amiodarone HCl 150 mg/ 103 mls @ 618 mls/hr 07/25/18 16:06 Dextrose/Water IV .Q10M PRN Per protocol Protocol Amiodarone HCl 450 mg/ 259 mls @ 34.53 mls/hr 07/25/18 16:06 Dextrose/Water IV .Q7H31M PRN Per Protocol Protocol 1 MG/MIN Cefazolin Sodium 3 gm/ Sodium 50 mls @ 50 mls/hr 07/25/18 16:06 07/26/18 09: 37 Chloride IVPB 07/27/18 00:59 50 mls/hr Q8HR [facility] Administration Clevidipine 25 mg/ IV Solution 50 mls @ 2 mls/hr 07/25/18 16:06 07/25/18 20: 16 IV Not Given .Q24H [facility] Protocol 1 MG/HR Insulin Human Regular 100 unit 101 mls @ 0 mls/hr 07/25/18 16:06 07/26/18 09: 08 / Sodium Chloride IV 0 units/hr .Q0M [facility] 0 mls/hr Titration Protocol Per Protocol Lactated Ringer's 1,000 mls @ 20 mls/hr 07/25/18 16:06 07/25/18 17:24 Lactated Ringers IV 50 mls/hr .Q24H [facility] Administration Milrinone Lactate/Dextrose 20 100 mls @ 0 mls/hr 07/25/18 16:06 07/26/18 06: 43 mg/ IV Solution IV 0.3 mcg/kg/min .Q0M [facility] 13.71 mls/hr Titration Protocol Per Protocol Norepinephrine Bitartrate 4 mg 254 mls @ 0 mls/hr 07/25/18 16:06 07/26/18 09: 39 / Sodium Chloride IV 0 mcg/min .Q0M [facility] 0 mls/hr Titration Protocol Titrate Magnesium Hydroxide 2,400 mg 07/26/18 15:30 Milk Of Magnesia PO BID PRN Constipation Metoclopramide HCl 10 mg 07/25/18 16:06 Reglan IVP Q4H PRN Nausea And Vomiting Metoprolol Tartrate 25 mg 07/26/18 09:00 07/26/18 08:41 Lopressor PO 25 mg BID [facility] Administration Miscellaneous Information 1 each 07/25/18 16:06 Magnesium Per Protocol MISCELLANE DAILY PRN Per Protocol Protocol Miscellaneous Information 1 each 07/25/18 16:06 Phosphorus Per Protocol MISCELLANE DAILY PRN Per Protocol Protocol Miscellaneous Information 1 each 07/25/18 16:06 Potassium Per Protocol MISCELLANE DAILY PRN Per Protocol Protocol Mupirocin 1 applic 07/25/18 21:00 07/26/18 08:41 Bactroban Oint NASAL 07/28/18 21:01 1 applic BID [facility] Administration Ondansetron HCl 4 mg 07/25/18 16:06 Zofran IVP Q6HR PRN Nausea And Vomiting Oxycodone HCl 10 mg 07/25/18 16:06 07/26/18 01:00 Oxyir PO 07/26/18 23:00 10 mg Q4H PRN Administration Severe Pain Oxycodone HCl 5 mg 07/25/18 16:06 Oxyir PO 07/26/18 23:00 Q4H PRN Moderate Pain Pantoprazole Sodium 40 mg 07/26/18 09:00 07/26/18 08:41 Protonix IVP 40 mg DAILY [facility] Administration Senna/Docusate Sodium 2 each 07/26/18 21:00 Senokot-S PO HS [facility] Sodium Chloride 10 ml 07/25/18 21:00 07/26/18 08:42 Saline Flush IV Not Given BID [facility] Intake and Output 07/25/18 07/26/18 07/26/18 22:59 06:59 14:59 Intake Total 116.219 1466.477 192.292 Output Total 1594 879 130 Balance -624.160 892.477 62.292 Intake: IV 453 1402 118 ACETAMINOPHEN IV (For NPO 800 ) 1,000 mg In Empty Bag 1 bag @ 400 mls/hr IVPB Q6HR [facility] Rx#:[id number] Calcium Chloride 1,000 mg 100 In Sodium Chloride 0.9% 100 ml @ 100 mls/hr IV ONCE PRN Rx#:[id number] Lactated Ringers 1,000 ml 150 400 100 @ 20 mls/hr IV .Q24H [facility] Rx#:[id number] cardiac output 140 80 ceFAZolin 3 gm In Sodium 50 Chloride 0.9% 50 ml @ 50 mls/hr IVPB Q8HR [facility] Rx#: [id number] pressure bags 63 72 18 Intake, IV Titration 516.840 369.477 74.292 Amount ACETAMINOPHEN IV (For NPO 100 ) 1,000 mg In Empty Bag 1 bag @ 400 mls/hr IVPB Q6HR [facility] Rx#:[id number] Insulin Regular 100 unit 26.829 108.250 26.996 In Sodium Chloride 0.9% 100 ml @ Per Protocol IV .Q0M [facility] Rx#:[id number] Lactated Ringers 1,000 ml 150 @ 20 mls/hr IV .Q24H [facility] Rx#:[id number] Milrinone-D5w Pmx 20 mg 96.774 204.775 In Dextrose/Water 1 100ml .bag @ Per Protocol IV . Q0M [facility] Rx#:[id number] Nitroglycerin-D5w Pmx 50 22.15 mg In Dextrose/Water 1 250ml.bag @ 5 MCG/MIN 1.5 mls/hr IV .Q24H [facility] Rx#: [id number] Norepinephrine 4 mg In 48.070 56.452 25.146 Sodium Chloride 0.9% 250 ml @ Titrate IV .Q0M [facility] Rx#:[id number] Propofol 1,000 mg In 45.167 Empty Bag 1 bag @ Titrate IV .Q0M [facility] Rx#: [id number] ceFAZolin 3 gm In Sodium 50 Chloride 0.9% 50 ml @ 50 mls/hr IVPB Q8HR [facility] Rx#: [id number] Output: Chest Tube Drainage 594 344 30 left pleural 144 234 20 mediastinal x2 450 110 10 Drainage 40 20 left calf 40 20 Urine 960 535 80 Other: Voiding Method Indwelling Catheter Indwelling Catheter Indwelling Catheter Weight 156.2 kg 07/26/18 04:15 07/26/18 04:15 EKG Interpretations (text) Sinus tachycardia Assessment and Plan (1) Status post aorto-coronary artery bypass graft Current Visit: Yes Status: Acute Code(s): Z95.1 - PRESENCE OF AORTOCORONARY BYPASS GRAFT SNOMED Code(s): 007138008 (2) Aortic valve stenosis Current Visit: No Status: Acute Code(s): I35.0 - NONRHEUMATIC AORTIC (VALVE ) STENOSIS SNOMED Code(s): 58767582 (3) Hypertension Current Visit: No Status: Acute Code(s): I10 - ESSENTIAL (PRIMARY) HYPERTENSION SNOMED Code(s): 83130095 (4) Morbid obesity with BMI of 45.0-49.9, adult Current Visit: No Status: Acute Code(s): E66.01 - MORBID (SEVERE) OBESITY DUE TO EXCESS CALORIES; Z68.42 - BODY MASS INDEX (BMI) 45.0-49.9, ADULT SNOMED Code(s): 778941837 Plan: Continue current management. Increase activity as tolerated. Incentive spirometry. Will follow
[2018-07-26 11:06] LABS: Glucose,Whole Blood 115 mg/dL (75-99)
[2018-07-26] MEDS: ALBUMIN HUMAN 5% 250 ML in EMPTY BAG 1 BAG IVPB PRN (11:09)
--- NOTE | 2018-07-26 11:44 | P.PN ---
Subjective Progress Note Date: 07/26/18 Principal diagnosis: Coronary artery disease. Previous medical history of hypertension, previous tobacco dependence with preoperative FEV1 86% of predicted, obstructive sleep apnea, TIA, bilateral internal carotid artery stenosis 50-79%, prostate disorder , morbid obesity with history of bariatric surgery, and drop foot on the left leg. POD #1 coronary artery bypass grafting 4 vessels, left internal mammary to the left anterior descending artery, reverse saphenous vein graft to the diagonal artery, reverse saphenous vein graft to the second obtuse marginal artery, reverse saphenous vein graft to the posterior lateral branch of the right coronary artery. Endoscopic vein harvest of bilateral greater saphenous veins. Epi-aortic ultrasound. Intraoperative transesophageal echocardiogram. Closure of the sternum using titanium plating system. Postoperative acute blood loss anemia, expected postsurgical condition secondary to hemodilution and cardiopulmonary bypass pump. The patient is currently lying in bed in no acute distress. Remains very lethargic but does arouse to verbal commands. Denies pain, shortness of breath. He was successfully extubated this morning at 1:30. Remains a little tachycardic and hypotensive on Primacor and low-dose levo. No new complaints. Objective - Vital Signs Vital signs: Vital Signs Temp 97.8 F 07/26/18 04:00 Pulse 102 H 07/26/18 11:05 Resp 20 07/26/18 11:00 BP 86/45 07/26/18 11:00 Pulse Ox 96 07/26/18 11:00 Intake & Output 07/25/18 07/26/18 07/26/18 18:59 06:59 18:59 Intake Total 623.168 0799.970 768.819 Output Total 4065 1408 420 Balance -3673.653 944.970 348.819 Weight 156.2 kg Intake: IV 90 1768 385 ACETAMINOPHEN IV (For NPO 800 ) 1,000 mg In Empty Bag 1 bag @ 400 mls/hr IVPB Q6HR [facility] Rx#:[id number] Calcium Chloride 1,000 mg 100 In Sodium Chloride 0.9% 100 ml @ 100 mls/hr IV ONCE PRN Rx#:[id number] Lactated Ringers 1,000 ml 550 250 @ 20 mls/hr IV .Q24H [facility] Rx#:[id number] cardiac output 60 160 40 ceFAZolin 3 gm In Sodium 50 50 Chloride 0.9% 50 ml @ 50 mls/hr IVPB Q8HR [facility] Rx#: [id number] pressure bags 27 108 45 Intake, IV Titration 301.347 584.970 383.819 Amount ACETAMINOPHEN IV (For NPO 100 ) 1,000 mg In Empty Bag 1 bag @ 400 mls/hr IVPB Q6HR [facility] Rx#:[id number] Dextrose 5% in Water 100 250 ml @ 618 mls/hr IV .Q10M PRN with Amiodarone 150 mg Rx#:[id number] Insulin Regular 100 unit 1.347 133.732 26.996 In Sodium Chloride 0.9% 100 ml @ Per Protocol IV .Q0M [facility] Rx#:[id number] Lactated Ringers 1,000 ml 150 @ 20 mls/hr IV .Q24H [facility] Rx#:[id number] Milrinone-D5w Pmx 20 mg 301.549 54.383 In Dextrose/Water 1 100ml .bag @ Per Protocol IV . Q0M [facility] Rx#:[id number] Nitroglycerin-D5w Pmx 50 22.15 mg In Dextrose/Water 1 250ml.bag @ 5 MCG/MIN 1.5 mls/hr IV .Q24H [facility] Rx#: [id number] Norepinephrine 4 mg In 104.522 30.290 Sodium Chloride 0.9% 250 ml @ Titrate IV .Q0M [facility] Rx#:[id number] Propofol 1,000 mg In 45.167 Empty Bag 1 bag @ Titrate IV .Q0M [facility] Rx#: [id number] ceFAZolin 3 gm In Sodium 50 Chloride 0.9% 50 ml @ 50 mls/hr IVPB Q8HR [facility] Rx#: [id number] Output: Chest Tube Drainage 360 578 210 left pleural 20 358 180 mediastinal x2 340 220 30 Drainage 40 20 left calf 40 20 Urine 1665 830 190 Estimated Blood Loss 1999 Other: Voiding Method Indwelling Catheter Indwelling Catheter Indwelling Catheter ABP, PAP, CO, CI - Last Documented Arterial Blood Pressure 111/47 Pulmonary Artery Pressure 32/17 Cardiac Output 6.2 Cardiac Index 2.4 - Constitutional General appearance: Present: morbidly obese, no acute distress - Respiratory Details: Lungs sounds diminished bilaterally. Respirations even, nonlabored. Currently on 7 L high flow nasal cannula with oxygen saturation 97%. Not able to use incentive spirometry appropriately. Weak cough. Mediastinal chest tube to continuous wall suction, 120 mL serosanguineous drainage overnight, 550 mL since surgery. Left pleural chest tube to continuous wall suction, 210 mL serosanguineous drainage overnight, 500 mL since surgery. No air leaks present. - Cardiovascular Details: S1, S2 present. Tachycardic but regular rate and rhythm, sinus tach on telemetry. Sternum stable. A/V epicardial pacemaker wires present, connected to generator, tender to turned off. Palpable peripheral pulses bilaterally. Trace generalized edema present. No calf pain or tenderness noted. Right internal jugular Iron/Cordis, right radial arterial line present. Currently on 0.3 mcg/kg/min of Primacor and 3 mcgs of levo with most recent CO/CI 6.2/2.4. Heart hugger in place with patient unable to demonstrate appropriate use. Antiembolism stockings, SCDs present. - Gastrointestinal Gastrointestinal Comment(s): Abdomen soft, nondistended, nontender, obese. Hypoactive bowel sounds present 4 quadrants. Able to swallow pills with applesauce but not eating very much currently due to lethargy. - Genitourinary Genitourinary Comment(s): Smith present draining clear, yellow urine. Output 42-125 mL per hour overnight. - Integumentary Integumentary Comment(s): Skin is warm and dry with evidence of good perfusion. Anterior chest incision well approximated, dry intact dressing present. Left lower extremity EVH site well approximated, MELINA drain present with minimal drainage. - Neurologic Neurologic: Present: CNII-XII intact - Musculoskeletal Musculoskeletal: Present: generalized weakness, strength equal bilaterally - Psychiatric Psychiatric Comment(s): Oriented 3 but very sleepy, does arouse to verbal command and follows directions. - Allied health notes Allied health notes reviewed: nursing - Labs CBC & Chem 7: 07/26/18 04:15 07/26/18 04:15 Labs: Abnormal Lab Results - Last 24 Hours (Table) 07/24/18 07/25/18 07/25/18 Range/Units 12:40 10:02 11:29 WBC (3.8-10.6) k/uL RBC (4.30-5.90) m/uL Hgb (13.0-17.5) gm/dL Hct (39.0-53.0) % Plt Count (150-450) k/uL Neutrophils # (1.3-7.7) k/uL Lymphocytes # (1.0-4.8) k/uL PT (9.0-12.0) sec INR (<1.2) APTT (22.0-30.0) sec Fibrinogen (200-500) mg/dL ABG pH (7.35-7.45) ABG pCO2 (35-45) mmHg ABG pO2 190 H >420 H (83-108) mmHg ABG Total CO2 25 H 25 H (19-24) mmol/L ABG O2 Saturation 99.6 H 100.0 H (94-97) % ABG Hematocrit 33 L (34.0-46.0) % ABG Sodium 133 L (135-146) mmol/L ABG Potassium 5.4 H (3.4-4.5) mmol/L ABG Ionized Calcium 4.2 L (4.5-5.3) mg/dL ABG Glucose 124 H 225 H (75-99) mg/dL ABG Lactic Acid 1.8 H (0.5-1.6) mmol/L Hemoglobin 10.6 L (13.0-17.5) gm/dL Glucose (74-99) mg/dL POC Glucose (mg/dL) (75-99) mg/dL Calcium (8.4-10.2) mg/dL Ionized Calcium Gianluca (4.5-5.3) mg/dL Magnesium (1.6-2.3) mg/dL AST (17-59) U/L Alkaline Phosphatase (38-126) U/L Total Protein (6.3-8.2) g/dL Albumin (3.5-5.0) g/dL Arterial Blood Potassium 5.4 H (3.4-4.5) mmol/L Arterial Blood Glucose 124 H 225 H (75-99) mg/dL Crossmatch See Detail 07/25/18 07/25/18 07/25/18 Range/Units 11:55 12:30 13:03 WBC (3.8-10.6) k/uL RBC (4.30-5.90) m/uL Hgb (13.0-17.5) gm/dL Hct (39.0-53.0) % Plt Count (150-450) k/uL Neutrophils # (1.3-7.7) k/uL Lymphocytes # (1.0-4.8) k/uL PT (9.0-12.0) sec INR (<1.2) APTT (22.0-30.0) sec Fibrinogen (200-500) mg/dL ABG pH 7.34 L (7.35-7.45) ABG pCO2 (35-45) mmHg ABG pO2 401 H 375 H 322 H (83-108) mmHg ABG Total CO2 (19-24) mmol/L ABG O2 Saturation 100.0 H 100.0 H 100.0 H (94-97) % ABG Hematocrit 29 L 29 L 27 L (34.0-46.0) % ABG Sodium 133 L 133 L 134 L (135-146) mmol/L ABG Potassium 5.4 H 5.5 H 5.2 H (3.4-4.5) mmol/L ABG Ionized Calcium 4.0 L 4.0 L 4.0 L (4.5-5.3) mg/dL ABG Glucose 204 H 211 H 210 H (75-99) mg/dL ABG Lactic Acid 2.2 H* 2.5 H* 3.2 H* (0.5-1.6) mmol/L Hemoglobin 9.4 L 9.5 L 8.8 L (13.0-17.5) gm/dL Glucose (74-99) mg/dL POC Glucose (mg/dL) (75-99) mg/dL Calcium (8.4-10.2) mg/dL Ionized Calcium Gianluca (4.5-5.3) mg/dL Magnesium (1.6-2.3) mg/dL AST (17-59) U/L Alkaline Phosphatase (38-126) U/L Total Protein (6.3-8.2) g/dL Albumin (3.5-5.0) g/dL Arterial Blood Potassium 5.4 H 5.5 H 5.2 H (3.4-4.5) mmol/L Arterial Blood Glucose 204 H 211 H 210 H (75-99) mg/dL Crossmatch 07/25/18 07/25/18 07/25/18 Range/Units 13:42 14:36 16:06 WBC 15.2 H (3.8-10.6) k/uL RBC 2.47 L (4.30-5.90) m/uL Hgb 7.9 L D (13.0-17.5) gm/dL Hct 23.9 L (39.0-53.0) % Plt Count 109 L D (150-450) k/uL Neutrophils # 12.3 H (1.3-7.7) k/uL Lymphocytes # (1.0-4.8) k/uL PT (9.0-12.0) sec INR (<1.2) APTT (22.0-30.0) sec Fibrinogen (200-500) mg/dL ABG pH 7.33 L (7.35-7.45) ABG pCO2 (35-45) mmHg ABG pO2 380 H 159 H (83-108) mmHg ABG Total CO2 25 H 25 H (19-24) mmol/L ABG O2 Saturation 100.0 H 99.4 H (94-97) % ABG Hematocrit 27 L 30 L (34.0-46.0) % ABG Sodium (135-146) mmol/L ABG Potassium 5.0 H (3.4-4.5) mmol/L ABG Ionized Calcium 3.9 L 3.9 L (4.5-5.3) mg/dL ABG Glucose 185 H 151 H (75-99) mg/dL ABG Lactic Acid 4.2 H* 3.7 H* (0.5-1.6) mmol/L Hemoglobin 8.9 L 9.8 L (13.0-17.5) gm/dL Glucose (74-99) mg/dL POC Glucose (mg/dL) (75-99) mg/dL Calcium (8.4-10.2) mg/dL Ionized Calcium Gianluca (4.5-5.3) mg/dL Magnesium (1.6-2.3) mg/dL AST (17-59) U/L Alkaline Phosphatase (38-126) U/L Total Protein (6.3-8.2) g/dL Albumin (3.5-5.0) g/dL Arterial Blood Potassium 5.0 H (3.4-4.5) mmol/L Arterial Blood Glucose 185 H 151 H (75-99) mg/dL Crossmatch 07/25/18 07/25/18 07/25/18 Range/Units 16:06 16:29 16:30 WBC (3.8-10.6) k/uL RBC (4.30-5.90) m/uL Hgb (13.0-17.5) gm/dL Hct (39.0-53.0) % Plt Count (150-450) k/uL Neutrophils # (1.3-7.7) k/uL Lymphocytes # (1.0-4.8) k/uL PT 13.9 H (9.0-12.0) sec INR 1.5 H (<1.2) APTT 30.5 H (22.0-30.0) sec Fibrinogen 112 L (200-500) mg/dL ABG pH (7.35-7.45) ABG pCO2 (35-45) mmHg ABG pO2 (83-108) mmHg ABG Total CO2 (19-24) mmol/L ABG O2 Saturation (94-97) % ABG Hematocrit (34.0-46.0) % ABG Sodium (135-146) mmol/L ABG Potassium (3.4-4.5) mmol/L ABG Ionized Calcium (4.5-5.3) mg/dL ABG Glucose (75-99) mg/dL ABG Lactic Acid (0.5-1.6) mmol/L Hemoglobin (13.0-17.5) gm/dL Glucose 132 H (74-99) mg/dL POC Glucose (mg/dL) 138 H (75-99) mg/dL Calcium 7.6 L (8.4-10.2) mg/dL Ionized Calcium Gianluca 4.4 L (4.5-5.3) mg/dL Magnesium 2.4 H (1.6-2.3) mg/dL AST (17-59) U/L Alkaline Phosphatase <20 L (38-126) U/L Total Protein 5.0 L (6.3-8.2) g/dL Albumin 3.4 L (3.5-5.0) g/dL Arterial Blood Potassium (3.4-4.5) mmol/L Arterial Blood Glucose (75-99) mg/dL Crossmatch 07/25/18 07/25/18 07/25/18 Range/Units 16:50 16:56 17:58 WBC (3.8-10.6) k/uL RBC (4.30-5.90) m/uL Hgb (13.0-17.5) gm/dL Hct (39.0-53.0) % Plt Count (150-450) k/uL Neutrophils # (1.3-7.7) k/uL Lymphocytes # (1.0-4.8) k/uL PT (9.0-12.0) sec INR (<1.2) APTT (22.0-30.0) sec Fibrinogen (200-500) mg/dL ABG pH 7.33 L (7.35-7.45) ABG pCO2 48 H (35-45) mmHg ABG pO2 174 H (83-108) mmHg ABG Total CO2 26 H (19-24) mmol/L ABG O2 Saturation 100.0 H (94-97) % ABG Hematocrit (34.0-46.0) % ABG Sodium (135-146) mmol/L ABG Potassium (3.4-4.5) mmol/L ABG Ionized Calcium (4.5-5.3) mg/dL ABG Glucose (75-99) mg/dL ABG Lactic Acid (0.5-1.6) mmol/L Hemoglobin (13.0-17.5) gm/dL Glucose (74-99) mg/dL POC Glucose (mg/dL) 157 H 183 H (75-99) mg/dL Calcium (8.4-10.2) mg/dL Ionized Calcium Gianluca (4.5-5.3) mg/dL Magnesium (1.6-2.3) mg/dL AST (17-59) U/L Alkaline Phosphatase (38-126) U/L Total Protein (6.3-8.2) g/dL Albumin (3.5-5.0) g/dL Arterial Blood Potassium (3.4-4.5) mmol/L Arterial Blood Glucose (75-99) mg/dL Crossmatch 07/25/18 07/25/18 07/25/18 Range/Units 18:54 18:54 19:50 WBC 16.5 H (3.8-10.6) k/uL RBC 2.53 L (4.30-5.90) m/uL Hgb 8.2 L (13.0-17.5) gm/dL Hct 24.5 L (39.0-53.0) % Plt Count 121 L (150-450) k/uL Neutrophils # 14.3 H (1.3-7.7) k/uL Lymphocytes # (1.0-4.8) k/uL PT (9.0-12.0) sec INR (<1.2) APTT (22.0-30.0) sec Fibrinogen (200-500) mg/dL ABG pH (7.35-7.45) ABG pCO2 (35-45) mmHg ABG pO2 (83-108) mmHg ABG Total CO2 (19-24) mmol/L ABG O2 Saturation (94-97) % ABG Hematocrit (34.0-46.0) % ABG Sodium (135-146) mmol/L ABG Potassium (3.4-4.5) mmol/L ABG Ionized Calcium (4.5-5.3) mg/dL ABG Glucose (75-99) mg/dL ABG Lactic Acid (0.5-1.6) mmol/L Hemoglobin (13.0-17.5) gm/dL Glucose (74-99) mg/dL POC Glucose (mg/dL) 187 H 205 H (75-99) mg/dL Calcium (8.4-10.2) mg/dL Ionized Calcium Gianluca (4.5-5.3) mg/dL Magnesium (1.6-2.3) mg/dL AST (17-59) U/L Alkaline Phosphatase (38-126) U/L Total Protein (6.3-8.2) g/dL Albumin (3.5-5.0) g/dL Arterial Blood Potassium (3.4-4.5) mmol/L Arterial Blood Glucose (75-99) mg/dL Crossmatch 07/25/18 07/25/18 07/25/18 Range/Units 21:20 21:21 22:15 WBC 14.8 H (3.8-10.6) k/uL RBC 2.48 L (4.30-5.90) m/uL Hgb 7.9 L (13.0-17.5) gm/dL Hct 23.8 L (39.0-53.0) % Plt Count 135 L (150-450) k/uL Neutrophils # 13.3 H (1.3-7.7) k/uL Lymphocytes # 0.7 L (1.0-4.8) k/uL PT (9.0-12.0) sec INR (<1.2) APTT (22.0-30.0) sec Fibrinogen (200-500) mg/dL ABG pH (7.35-7.45) ABG pCO2 (35-45) mmHg ABG pO2 (83-108) mmHg ABG Total CO2 (19-24) mmol/L ABG O2 Saturation (94-97) % ABG Hematocrit (34.0-46.0) % ABG Sodium (135-146) mmol/L ABG Potassium (3.4-4.5) mmol/L ABG Ionized Calcium (4.5-5.3) mg/dL ABG Glucose (75-99) mg/dL ABG Lactic Acid (0.5-1.6) mmol/L Hemoglobin (13.0-17.5) gm/dL Glucose (74-99) mg/dL POC Glucose (mg/dL) 223 H 209 H (75-99) mg/dL Calcium (8.4-10.2) mg/dL Ionized Calcium Gianluca (4.5-5.3) mg/dL Magnesium (1.6-2.3) mg/dL AST (17-59) U/L Alkaline Phosphatase (38-126) U/L Total Protein (6.3-8.2) g/dL Albumin (3.5-5.0) g/dL Arterial Blood Potassium (3.4-4.5) mmol/L Arterial Blood Glucose (75-99) mg/dL Crossmatch 07/25/18 07/26/18 07/26/18 Range/Units 23:03 00:03 00:58 WBC (3.8-10.6) k/uL RBC (4.30-5.90) m/uL Hgb (13.0-17.5) gm/dL Hct (39.0-53.0) % Plt Count (150-450) k/uL Neutrophils # (1.3-7.7) k/uL Lymphocytes # (1.0-4.8) k/uL PT (9.0-12.0) sec INR (<1.2) APTT (22.0-30.0) sec Fibrinogen (200-500) mg/dL ABG pH (7.35-7.45) ABG pCO2 (35-45) mmHg ABG pO2 (83-108) mmHg ABG Total CO2 (19-24) mmol/L ABG O2 Saturation (94-97) % ABG Hematocrit (34.0-46.0) % ABG Sodium (135-146) mmol/L ABG Potassium (3.4-4.5) mmol/L ABG Ionized Calcium (4.5-5.3) mg/dL ABG Glucose (75-99) mg/dL ABG Lactic Acid (0.5-1.6) mmol/L Hemoglobin (13.0-17.5) gm/dL Glucose (74-99) mg/dL POC Glucose (mg/dL) 206 H 202 H 174 H (75-99) mg/dL Calcium (8.4-10.2) mg/dL Ionized Calcium Gianluca (4.5-5.3) mg/dL Magnesium (1.6-2.3) mg/dL AST (17-59) U/L Alkaline Phosphatase (38-126) U/L Total Protein (6.3-8.2) g/dL Albumin (3.5-5.0) g/dL Arterial Blood Potassium (3.4-4.5) mmol/L Arterial Blood Glucose (75-99) mg/dL Crossmatch 07/26/18 07/26/18 07/26/18 Range/Units 01:00 01:56 02:53 WBC (3.8-10.6) k/uL RBC (4.30-5.90) m/uL Hgb (13.0-17.5) gm/dL Hct (39.0-53.0) % Plt Count (150-450) k/uL Neutrophils # (1.3-7.7) k/uL Lymphocytes # (1.0-4.8) k/uL PT (9.0-12.0) sec INR (<1.2) APTT (22.0-30.0) sec Fibrinogen (200-500) mg/dL ABG pH (7.35-7.45) ABG pCO2 (35-45) mmHg ABG pO2 72 L (83-108) mmHg ABG Total CO2 (19-24) mmol/L ABG O2 Saturation (94-97) % ABG Hematocrit (34.0-46.0) % ABG Sodium (135-146) mmol/L ABG Potassium (3.4-4.5) mmol/L ABG Ionized Calcium (4.5-5.3) mg/dL ABG Glucose (75-99) mg/dL ABG Lactic Acid (0.5-1.6) mmol/L Hemoglobin (13.0-17.5) gm/dL Glucose (74-99) mg/dL POC Glucose (mg/dL) 170 H 165 H (75-99) mg/dL Calcium (8.4-10.2) mg/dL Ionized Calcium Gianluca (4.5-5.3) mg/dL Magnesium (1.6-2.3) mg/dL AST (17-59) U/L Alkaline Phosphatase (38-126) U/L Total Protein (6.3-8.2) g/dL Albumin (3.5-5.0) g/dL Arterial Blood Potassium (3.4-4.5) mmol/L Arterial Blood Glucose (75-99) mg/dL Crossmatch 07/26/18 07/26/18 07/26/18 Range/Units 04:01 04:15 04:15 WBC 13.3 H (3.8-10.6) k/uL RBC 2.46 L (4.30-5.90) m/uL Hgb 8.1 L (13.0-17.5) gm/dL Hct 23.7 L (39.0-53.0) % Plt Count 138 L (150-450) k/uL Neutrophils # 11.6 H (1.3-7.7) k/uL Lymphocytes # (1.0-4.8) k/uL PT (9.0-12.0) sec INR 1.2 H (<1.2) APTT (22.0-30.0) sec Fibrinogen (200-500) mg/dL ABG pH (7.35-7.45) ABG pCO2 (35-45) mmHg ABG pO2 (83-108) mmHg ABG Total CO2 (19-24) mmol/L ABG O2 Saturation (94-97) % ABG Hematocrit (34.0-46.0) % ABG Sodium (135-146) mmol/L ABG Potassium (3.4-4.5) mmol/L ABG Ionized Calcium (4.5-5.3) mg/dL ABG Glucose (75-99) mg/dL ABG Lactic Acid (0.5-1.6) mmol/L Hemoglobin (13.0-17.5) gm/dL Glucose (74-99) mg/dL POC Glucose (mg/dL) 161 H (75-99) mg/dL Calcium (8.4-10.2) mg/dL Ionized Calcium Gianluca (4.5-5.3) mg/dL Magnesium (1.6-2.3) mg/dL AST (17-59) U/L Alkaline Phosphatase (38-126) U/L Total Protein (6.3-8.2) g/dL Albumin (3.5-5.0) g/dL Arterial Blood Potassium (3.4-4.5) mmol/L Arterial Blood Glucose (75-99) mg/dL Crossmatch 07/26/18 07/26/18 07/26/18 Range/Units 04:15 06:02 06:52 WBC (3.8-10.6) k/uL RBC (4.30-5.90) m/uL Hgb (13.0-17.5) gm/dL Hct (39.0-53.0) % Plt Count (150-450) k/uL Neutrophils # (1.3-7.7) k/uL Lymphocytes # (1.0-4.8) k/uL PT (9.0-12.0) sec INR (<1.2) APTT (22.0-30.0) sec Fibrinogen (200-500) mg/dL ABG pH (7.35-7.45) ABG pCO2 (35-45) mmHg ABG pO2 (83-108) mmHg ABG Total CO2 (19-24) mmol/L ABG O2 Saturation (94-97) % ABG Hematocrit (34.0-46.0) % ABG Sodium (135-146) mmol/L ABG Potassium (3.4-4.5) mmol/L ABG Ionized Calcium (4.5-5.3) mg/dL ABG Glucose (75-99) mg/dL ABG Lactic Acid (0.5-1.6) mmol/L Hemoglobin (13.0-17.5) gm/dL Glucose 142 H (74-99) mg/dL POC Glucose (mg/dL) 147 H 130 H (75-99) mg/dL Calcium (8.4-10.2) mg/dL Ionized Calcium Gianluca (4.5-5.3) mg/dL Magnesium (1.6-2.3) mg/dL AST 98 H (17-59) U/L Alkaline Phosphatase 25 L (38-126) U/L Total Protein 5.1 L (6.3-8.2) g/dL Albumin 3.2 L (3.5-5.0) g/dL Arterial Blood Potassium (3.4-4.5) mmol/L Arterial Blood Glucose (75-99) mg/dL Crossmatch 07/26/18 07/26/18 07/26/18 Range/Units 08:03 09:06 10:03 WBC (3.8-10.6) k/uL RBC (4.30-5.90) m/uL Hgb (13.0-17.5) gm/dL Hct (39.0-53.0) % Plt Count (150-450) k/uL Neutrophils # (1.3-7.7) k/uL Lymphocytes # (1.0-4.8) k/uL PT (9.0-12.0) sec INR (<1.2) APTT (22.0-30.0) sec Fibrinogen (200-500) mg/dL ABG pH (7.35-7.45) ABG pCO2 (35-45) mmHg ABG pO2 (83-108) mmHg ABG Total CO2 (19-24) mmol/L ABG O2 Saturation (94-97) % ABG Hematocrit (34.0-46.0) % ABG Sodium (135-146) mmol/L ABG Potassium (3.4-4.5) mmol/L ABG Ionized Calcium (4.5-5.3) mg/dL ABG Glucose (75-99) mg/dL ABG Lactic Acid (0.5-1.6) mmol/L Hemoglobin (13.0-17.5) gm/dL Glucose (74-99) mg/dL POC Glucose (mg/dL) 120 H 114 H 115 H (75-99) mg/dL Calcium (8.4-10.2) mg/dL Ionized Calcium Gianluca (4.5-5.3) mg/dL Magnesium (1.6-2.3) mg/dL AST (17-59) U/L Alkaline Phosphatase (38-126) U/L Total Protein (6.3-8.2) g/dL Albumin (3.5-5.0) g/dL Arterial Blood Potassium (3.4-4.5) mmol/L Arterial Blood Glucose (75-99) mg/dL Crossmatch 07/26/18 Range/Units 11:03 WBC (3.8-10.6) k/uL RBC (4.30-5.90) m/uL Hgb (13.0-17.5) gm/dL Hct (39.0-53.0) % Plt Count (150-450) k/uL Neutrophils # (1.3-7.7) k/uL Lymphocytes # (1.0-4.8) k/uL PT (9.0-12.0) sec INR (<1.2) APTT (22.0-30.0) sec Fibrinogen (200-500) mg/dL ABG pH (7.35-7.45) ABG pCO2 (35-45) mmHg ABG pO2 (83-108) mmHg ABG Total CO2 (19-24) mmol/L ABG O2 Saturation (94-97) % ABG Hematocrit (34.0-46.0) % ABG Sodium (135-146) mmol/L ABG Potassium (3.4-4.5) mmol/L ABG Ionized Calcium (4.5-5.3) mg/dL ABG Glucose (75-99) mg/dL ABG Lactic Acid (0.5-1.6) mmol/L Hemoglobin (13.0-17.5) gm/dL Glucose (74-99) mg/dL POC Glucose (mg/dL) 115 H (75-99) mg/dL Calcium (8.4-10.2) mg/dL Ionized Calcium Gianluca (4.5-5.3) mg/dL Magnesium (1.6-2.3) mg/dL AST (17-59) U/L Alkaline Phosphatase (38-126) U/L Total Protein (6.3-8.2) g/dL Albumin (3.5-5.0) g/dL Arterial Blood Potassium (3.4-4.5) mmol/L Arterial Blood Glucose (75-99) mg/dL Crossmatch - Imaging and Cardiology Chest x-ray: report reviewed, image reviewed Assessment and Plan (1) Status post aorto-coronary artery bypass graft Current Visit: Yes Status: Acute Code(s): Z95.1 - PRESENCE OF AORTOCORONARY BYPASS GRAFT SNOMED Code(s): 499396168 (2) Aortic valve stenosis Current Visit: Yes Status: Chronic Code(s): I35.0 - NONRHEUMATIC AORTIC ( VALVE) STENOSIS SNOMED Code(s): 90039494 (3) BPH (benign prostatic hyperplasia) Current Visit: Yes Status: Chronic Code(s): N40.0 - BENIGN PROSTATIC HYPERPLASIA WITHOUT LOWER URINRY TRACT SYMP SNOMED Code(s): 787327580 (4) Coronary artery disease Current Visit: Yes Status: Chronic Code(s): I25.10 - ATHSCL HEART DISEASE OF [place] CORONARY ARTERY W/O ANG PCTRS SNOMED Code(s): 16335244 (5) Foot drop, left Current Visit: Yes Status: Chronic Code(s): M21.372 - FOOT DROP, LEFT FOOT SNOMED Code(s): 7977796 (6) Hypertension Current Visit: Yes Status: Chronic Code(s): I10 - ESSENTIAL (PRIMARY) HYPERTENSION SNOMED Code(s): 59470818 (7) Morbid obesity with BMI of 45.0-49.9, adult Current Visit: Yes Status: Chronic Code(s): E66.01 - MORBID (SEVERE) OBESITY DUE TO EXCESS CALORIES; Z68.42 - BODY MASS INDEX (BMI) 45.0-49.9, ADULT SNOMED Code(s): 054521007 (8) Nicotine dependence in remission Current Visit: No Status: Resolved Code(s): F17.201 - NICOTINE DEPENDENCE, UNSPECIFIED, IN REMISSION SNOMED Code(s): 03790466 (9) Obstructive sleep apnea Current Visit: Yes Status: Chronic Code(s): G47.33 - OBSTRUCTIVE SLEEP APNEA (ADULT) (PEDIATRIC) SNOMED Code(s): 52237770 (10) Osteoarthritis Current Visit: Yes Status: Chronic Code(s): M19.90 - UNSPECIFIED OSTEOARTHRITIS, UNSPECIFIED SITE SNOMED Code(s): 170106398 Plan: 1. Continue aspirin, statin, Plavix, beta rodríguez therapy, will increase beta rodríguez therapy as tolerated. 2. Wean Primacor and levo as tolerated. 3. Wean O2 as tolerated. Encourage incentive spirometry use 10 times every hour while awake. 4. Increase activity as tolerated. PT/OT/cardiac rehab following. Patient should wear boot for ambulation on left leg. 5. Bronchodilators per pulmonology. 6. Will monitor daily labs and x-rays. No transfusion at this point. 7. GI prophylaxis with Protonix. DVT prophylaxis with subcu heparin, SCDs. 8. Pain control with current medication regimen. Avoid narcotics at this point in time as patient is too sleepy. 9. Insulin management per primary care service. 10. Will re-add patient's home Flomax. 11. More recommendations to follow. Time with Patient: Greater than 30
[2018-07-26] MEDS: LACTATED RINGERS 1,000 ML IV SCH (12:34)
[2018-07-26] MEDS: OXYBUTYNIN CHLORIDE 5 MG TAB PO SCH (12:34)
[2018-07-26 12:54] LABS: Glucose,Whole Blood 111 mg/dL (75-99)
[2018-07-26 13:03] LABS: Glucose,Whole Blood 119 mg/dL (75-99)
--- NOTE | 2018-07-26 13:33 | P.PN ---
Subjective Progress Note Date: 07/26/18 Principal diagnosis: Symptomatic multivessel coronary artery disease, status post four-vessel bypass with MATT to LAD, SVG to the PLB, SVG to the diagonal and OM 1, postop day 1 This is 78-year-old white male patient of Dr. Fuchs, who we met on 07/20/2018 for preop pulmonary evaluation for coronary artery bypass grafting. Patient has been having progressive dyspnea, he was referred to cardiology, had a cardiac catheterization which revealed severe multivessel coronary artery disease and moderate aortic stenosis. Patient had a 90% stenosis of his RCA, 80 % stenosis of his circumflex, 95% stenosis of his mid LAD. Aortic valve surface area was 1.2 cm. Other medical history includes previous history of CVA, hypertension, osteoarthritis, and 9 prostatic hypertrophy, sleep apnea syndrome, previous history of bariatric surgery, morbid obesity, and remote history of tobacco use. His preop bedside spirometry showed FEV1 of 86% of predicted, FVC of 71% of predicted, mild restriction. Patient was deferred to cardiothoracic surgery, and was recommended a surgical intervention, today on patient underwent four-vessel coronary artery bypass grafting, with MATT to LAD, SVG to the PLB, SVG to the diagonal, and SVG to the OM 1. Patient is seen in the intensive care unit, he is sedated, on mechanical ventilator, currently SIMV mode of ventilation with a rate of 12, tidal volume of 580, FiO2 100%, and PEEP of 10. Chest x-ray showed ET tube, chest tubes, right IJ PA catheter in appropriate positions, lungs are clear of consolidation, no heart failure. Patient is in sinus rhythm, his maintenance IV fluids of LR at 50, milrinone at 0.5 mics/per kilo per minute, Levaquin fed at 2 mics per minute, insulin at 2 units per hour, Diprivan at 15 mics per kilo per minute, and nitro at 5 mics/min. Blood work showed WBC of 15.2, hemoglobin of 7.9, INR 1.5, choice and renal profile were within normal limits, blood gas showed pO2 of 174 , pCO2 48, and pH is 7.3. Patient has 2 mediastinal chest tubes, left pleural chest tube, and there has been a 300 mL of sanguinous output in the mediastinal chest tube, and 10 mL in the left pleural. Hemodynamically patient is stable, cardiac output and index are 5.6 and 2.2 respectively, PA pressures 35/21. On 07/26/2018 patient seen in follow-up in the intensive care unit. This morning he is extubated, sitting up in the chair position in bed, he was extubated at about 1:30 in the morning. Currently on 6 L per nasal cannula, his pulse ox is 96%, he is awake and alert, acute distress, sinus rhythm on the monitor. Today's chest x-ray has been reviewed by Dr. Rose and showed stable bibasilar opacities and pleural effusions. Hemodynamically patient is stable. Levo has been off since 9:00 this morning, maintenance IV fluids is LR at 50 ML per hour, insulin drip is at 5 units per hour, no other drips. Cardiac output and index of 6.2 and 2.4 respectively. Today's lab work has been reviewed, WBCs 13.3, hemoglobin is 8.1, with recent blood gas prior to extubation showed pO2 of 72, pCO2 of 40%, and pH of 7.37, this was done and FiO2 40%, BMP was all within normal limits. Patient has underlying sleep apnea , on CPAP therapy. Patient may require some BiPAP support at night and is needed during the day. We'll continue to monitor, currently in no distress, he is awake and alert and responding to questions appropriately. 2 mediastinal and left pleural chest tubes are draining serosanguineous output. Mediastinal chest tube output is 560 over the last 24 hours, left pleural chest tube output is 378 in the last 24 hours. Smith catheter is present, draining urine in order of 30-45 ML per hour. We'll encourage incentive spirometry, we'll try to mobilize the patient, and set him up at the bedside. Objective - Vital Signs Vital signs: Vital Signs Temp 97.8 F 07/26/18 04:00 Pulse 101 H 07/26/18 13:00 Resp 24 07/26/18 13:00 BP 118/59 07/26/18 13:00 Pulse Ox 94 L 07/26/18 13:00 Intake & Output 07/25/18 07/26/18 07/26/18 18:59 06:59 18:59 Intake Total 666.229 4261.970 1020.951 Output Total 4065 1408 605 Balance -3673.653 944.970 415.951 Weight 156.2 kg Intake: IV 90 1768 623 ACETAMINOPHEN IV (For NPO 800 100 ) 1,000 mg In Empty Bag 1 bag @ 400 mls/hr IVPB Q6HR [facility] Rx#:[id number] Calcium Chloride 1,000 mg 100 In Sodium Chloride 0.9% 100 ml @ 100 mls/hr IV ONCE PRN Rx#:[id number] Lactated Ringers 1,000 ml 550 330 @ 20 mls/hr IV .Q24H [facility] Rx#:[id number] cardiac output 60 160 80 ceFAZolin 3 gm In Sodium 50 50 Chloride 0.9% 50 ml @ 50 mls/hr IVPB Q8HR [facility] Rx#: [id number] pressure bags 27 108 63 Intake, IV Titration 301.347 584.970 397.951 Amount ACETAMINOPHEN IV (For NPO 100 ) 1,000 mg In Empty Bag 1 bag @ 400 mls/hr IVPB Q6HR [facility] Rx#:[id number] Dextrose 5% in Water 100 250 ml @ 618 mls/hr IV .Q10M PRN with Amiodarone 150 mg Rx#:[id number] Insulin Regular 100 unit 1.347 133.732 26.996 In Sodium Chloride 0.9% 100 ml @ Per Protocol IV .Q0M [facility] Rx#:[id number] Lactated Ringers 1,000 ml 150 @ 20 mls/hr IV .Q24H [facility] Rx#:[id number] Milrinone-D5w Pmx 20 mg 301.549 62.990 In Dextrose/Water 1 100ml .bag @ Per Protocol IV . Q0M [facility] Rx#:[id number] Nitroglycerin-D5w Pmx 50 22.15 mg In Dextrose/Water 1 250ml.bag @ 5 MCG/MIN 1.5 mls/hr IV .Q24H [facility] Rx#: [id number] Norepinephrine 4 mg In 104.522 35.815 Sodium Chloride 0.9% 250 ml @ Titrate IV .Q0M [facility] Rx#:[id number] Propofol 1,000 mg In 45.167 Empty Bag 1 bag @ Titrate IV .Q0M [facility] Rx#: [id number] ceFAZolin 3 gm In Sodium 50 Chloride 0.9% 50 ml @ 50 mls/hr IVPB Q8HR [facility] Rx#: [id number] Output: Chest Tube Drainage 360 578 310 left pleural 20 358 260 mediastinal x2 340 220 50 Drainage 40 20 left calf 40 20 Urine 1665 830 275 Estimated Blood Loss 1999 Other: Voiding Method Indwelling Catheter Indwelling Catheter Indwelling Catheter ABP, PAP, CO, CI - Last Documented Arterial Blood Pressure 122/48 Pulmonary Artery Pressure 38/16 Cardiac Output 7.5 Cardiac Index 2.9 - Exam GENERAL EXAM: Sedated, obese 78-year-old white male, currently extubated, on 6 L per high flow nasal cannula, in no apparent distress. HEAD: Normocephalic/atraumatic. EYES: Normal reaction of pupils, equal size. Conjunctiva pink, sclera white. NOSE: Clear with pink turbinates. THROAT: No erythema or exudates. NECK: No masses, no JVD, no thyroid enlargement, no adenopathy. CHEST: No chest wall deformity. Symmetrical expansion. Sternal incision is clean dry and intact, well approximated, covered with surgical dressing, 2 mediastinal and left pleural chest tubes, with Pleur-evacs to wall suction, with sanguinous output in the Pleur-evacs. Epicardial wires are present, to external pacemaker, intrinsic rhythm is sinus rhythm LUNGS: Equal air entry with no crackles, wheeze, rhonchi or dullness. CVS: Regular rate and rhythm, normal S1 and S2, no gallops, no murmurs, no rubs ABDOMEN: Soft, nontender. No hepatosplenomegaly, normal bowel sounds, no guarding or rigidity. EXTREMITIES: No clubbing, no edema, no cyanosis, 2+ pulses and upper and lower extremities. Bilateral lower extremities are Toni wrapped, there is a MELINA drain in the left lower extremity from saphenous graft site MUSCULOSKELETAL: Muscle strength and tone normal. SPINE: No scoliosis or deformity SKIN: No rashes CENTRAL NERVOUS SYSTEM: Sedated. No focal deficits, tone is normal in all 4 extremities. - Labs CBC & Chem 7: 07/26/18 04:15 07/26/18 04:15 Labs: Abnormal Lab Results - Last 24 Hours (Table) 07/24/18 07/25/18 07/25/18 Range/Units 12:40 12:30 13:03 WBC (3.8-10.6) k/uL RBC (4.30-5.90) m/uL Hgb (13.0-17.5) gm/dL Hct (39.0-53.0) % Plt Count (150-450) k/uL Neutrophils # (1.3-7.7) k/uL Lymphocytes # (1.0-4.8) k/uL PT (9.0-12.0) sec INR (<1.2) APTT (22.0-30.0) sec Fibrinogen (200-500) mg/dL ABG pH 7.34 L (7.35-7.45) ABG pCO2 (35-45) mmHg ABG pO2 375 H 322 H (83-108) mmHg ABG Total CO2 (19-24) mmol/L ABG O2 Saturation 100.0 H 100.0 H (94-97) % ABG Hematocrit 29 L 27 L (34.0-46.0) % ABG Sodium 133 L 134 L (135-146) mmol/L ABG Potassium 5.5 H 5.2 H (3.4-4.5) mmol/L ABG Ionized Calcium 4.0 L 4.0 L (4.5-5.3) mg/dL ABG Glucose 211 H 210 H (75-99) mg/dL ABG Lactic Acid 2.5 H* 3.2 H* (0.5-1.6) mmol/L Hemoglobin 9.5 L 8.8 L (13.0-17.5) gm/dL Glucose (74-99) mg/dL POC Glucose (mg/dL) (75-99) mg/dL Calcium (8.4-10.2) mg/dL Ionized Calcium Gianluca (4.5-5.3) mg/dL Magnesium (1.6-2.3) mg/dL AST (17-59) U/L Alkaline Phosphatase (38-126) U/L Total Protein (6.3-8.2) g/dL Albumin (3.5-5.0) g/dL Arterial Blood Potassium 5.5 H 5.2 H (3.4-4.5) mmol/L Arterial Blood Glucose 211 H 210 H (75-99) mg/dL Crossmatch See Detail 07/25/18 07/25/18 07/25/18 Range/Units 13:42 14:36 16:06 WBC 15.2 H (3.8-10.6) k/uL RBC 2.47 L (4.30-5.90) m/uL Hgb 7.9 L D (13.0-17.5) gm/dL Hct 23.9 L (39.0-53.0) % Plt Count 109 L D (150-450) k/uL Neutrophils # 12.3 H (1.3-7.7) k/uL Lymphocytes # (1.0-4.8) k/uL PT (9.0-12.0) sec INR (<1.2) APTT (22.0-30.0) sec Fibrinogen (200-500) mg/dL ABG pH 7.33 L (7.35-7.45) ABG pCO2 (35-45) mmHg ABG pO2 380 H 159 H (83-108) mmHg ABG Total CO2 25 H 25 H (19-24) mmol/L ABG O2 Saturation 100.0 H 99.4 H (94-97) % ABG Hematocrit 27 L 30 L (34.0-46.0) % ABG Sodium (135-146) mmol/L ABG Potassium 5.0 H (3.4-4.5) mmol/L ABG Ionized Calcium 3.9 L 3.9 L (4.5-5.3) mg/dL ABG Glucose 185 H 151 H (75-99) mg/dL ABG Lactic Acid 4.2 H* 3.7 H* (0.5-1.6) mmol/L Hemoglobin 8.9 L 9.8 L (13.0-17.5) gm/dL Glucose (74-99) mg/dL POC Glucose (mg/dL) (75-99) mg/dL Calcium (8.4-10.2) mg/dL Ionized Calcium Gianluca (4.5-5.3) mg/dL Magnesium (1.6-2.3) mg/dL AST (17-59) U/L Alkaline Phosphatase (38-126) U/L Total Protein (6.3-8.2) g/dL Albumin (3.5-5.0) g/dL Arterial Blood Potassium 5.0 H (3.4-4.5) mmol/L Arterial Blood Glucose 185 H 151 H (75-99) mg/dL Crossmatch 07/25/18 07/25/18 07/25/18 Range/Units 16:06 16:29 16:30 WBC (3.8-10.6) k/uL RBC (4.30-5.90) m/uL Hgb (13.0-17.5) gm/dL Hct (39.0-53.0) % Plt Count (150-450) k/uL Neutrophils # (1.3-7.7) k/uL Lymphocytes # (1.0-4.8) k/uL PT 13.9 H (9.0-12.0) sec INR 1.5 H (<1.2) APTT 30.5 H (22.0-30.0) sec Fibrinogen 112 L (200-500) mg/dL ABG pH (7.35-7.45) ABG pCO2 (35-45) mmHg ABG pO2 (83-108) mmHg ABG Total CO2 (19-24) mmol/L ABG O2 Saturation (94-97) % ABG Hematocrit (34.0-46.0) % ABG Sodium (135-146) mmol/L ABG Potassium (3.4-4.5) mmol/L ABG Ionized Calcium (4.5-5.3) mg/dL ABG Glucose (75-99) mg/dL ABG Lactic Acid (0.5-1.6) mmol/L Hemoglobin (13.0-17.5) gm/dL Glucose 132 H (74-99) mg/dL POC Glucose (mg/dL) 138 H (75-99) mg/dL Calcium 7.6 L (8.4-10.2) mg/dL Ionized Calcium Gianluca 4.4 L (4.5-5.3) mg/dL Magnesium 2.4 H (1.6-2.3) mg/dL AST (17-59) U/L Alkaline Phosphatase <20 L (38-126) U/L Total Protein 5.0 L (6.3-8.2) g/dL Albumin 3.4 L (3.5-5.0) g/dL Arterial Blood Potassium (3.4-4.5) mmol/L Arterial Blood Glucose (75-99) mg/dL Crossmatch 07/25/18 07/25/18 07/25/18 Range/Units 16:50 16:56 17:58 WBC (3.8-10.6) k/uL RBC (4.30-5.90) m/uL Hgb (13.0-17.5) gm/dL Hct (39.0-53.0) % Plt Count (150-450) k/uL Neutrophils # (1.3-7.7) k/uL Lymphocytes # (1.0-4.8) k/uL PT (9.0-12.0) sec INR (<1.2) APTT (22.0-30.0) sec Fibrinogen (200-500) mg/dL ABG pH 7.33 L (7.35-7.45) ABG pCO2 48 H (35-45) mmHg ABG pO2 174 H (83-108) mmHg ABG Total CO2 26 H (19-24) mmol/L ABG O2 Saturation 100.0 H (94-97) % ABG Hematocrit (34.0-46.0) % ABG Sodium (135-146) mmol/L ABG Potassium (3.4-4.5) mmol/L ABG Ionized Calcium (4.5-5.3) mg/dL ABG Glucose (75-99) mg/dL ABG Lactic Acid (0.5-1.6) mmol/L Hemoglobin (13.0-17.5) gm/dL Glucose (74-99) mg/dL POC Glucose (mg/dL) 157 H 183 H (75-99) mg/dL Calcium (8.4-10.2) mg/dL Ionized Calcium Gianluca (4.5-5.3) mg/dL Magnesium (1.6-2.3) mg/dL AST (17-59) U/L Alkaline Phosphatase (38-126) U/L Total Protein (6.3-8.2) g/dL Albumin (3.5-5.0) g/dL Arterial Blood Potassium (3.4-4.5) mmol/L Arterial Blood Glucose (75-99) mg/dL Crossmatch 07/25/18 07/25/18 07/25/18 Range/Units 18:54 18:54 19:50 WBC 16.5 H (3.8-10.6) k/uL RBC 2.53 L (4.30-5.90) m/uL Hgb 8.2 L (13.0-17.5) gm/dL Hct 24.5 L (39.0-53.0) % Plt Count 121 L (150-450) k/uL Neutrophils # 14.3 H (1.3-7.7) k/uL Lymphocytes # (1.0-4.8) k/uL PT (9.0-12.0) sec INR (<1.2) APTT (22.0-30.0) sec Fibrinogen (200-500) mg/dL ABG pH (7.35-7.45) ABG pCO2 (35-45) mmHg ABG pO2 (83-108) mmHg ABG Total CO2 (19-24) mmol/L ABG O2 Saturation (94-97) % ABG Hematocrit (34.0-46.0) % ABG Sodium (135-146) mmol/L ABG Potassium (3.4-4.5) mmol/L ABG Ionized Calcium (4.5-5.3) mg/dL ABG Glucose (75-99) mg/dL ABG Lactic Acid (0.5-1.6) mmol/L Hemoglobin (13.0-17.5) gm/dL Glucose (74-99) mg/dL POC Glucose (mg/dL) 187 H 205 H (75-99) mg/dL Calcium (8.4-10.2) mg/dL Ionized Calcium Gianluca (4.5-5.3) mg/dL Magnesium (1.6-2.3) mg/dL AST (17-59) U/L Alkaline Phosphatase (38-126) U/L Total Protein (6.3-8.2) g/dL Albumin (3.5-5.0) g/dL Arterial Blood Potassium (3.4-4.5) mmol/L Arterial Blood Glucose (75-99) mg/dL Crossmatch 07/25/18 07/25/18 07/25/18 Range/Units 21:20 21:21 22:15 WBC 14.8 H (3.8-10.6) k/uL RBC 2.48 L (4.30-5.90) m/uL Hgb 7.9 L (13.0-17.5) gm/dL Hct 23.8 L (39.0-53.0) % Plt Count 135 L (150-450) k/uL Neutrophils # 13.3 H (1.3-7.7) k/uL Lymphocytes # 0.7 L (1.0-4.8) k/uL PT (9.0-12.0) sec INR (<1.2) APTT (22.0-30.0) sec Fibrinogen (200-500) mg/dL ABG pH (7.35-7.45) ABG pCO2 (35-45) mmHg ABG pO2 (83-108) mmHg ABG Total CO2 (19-24) mmol/L ABG O2 Saturation (94-97) % ABG Hematocrit (34.0-46.0) % ABG Sodium (135-146) mmol/L ABG Potassium (3.4-4.5) mmol/L ABG Ionized Calcium (4.5-5.3) mg/dL ABG Glucose (75-99) mg/dL ABG Lactic Acid (0.5-1.6) mmol/L Hemoglobin (13.0-17.5) gm/dL Glucose (74-99) mg/dL POC Glucose (mg/dL) 223 H 209 H (75-99) mg/dL Calcium (8.4-10.2) mg/dL Ionized Calcium Gianluca (4.5-5.3) mg/dL Magnesium (1.6-2.3) mg/dL AST (17-59) U/L Alkaline Phosphatase (38-126) U/L Total Protein (6.3-8.2) g/dL Albumin (3.5-5.0) g/dL Arterial Blood Potassium (3.4-4.5) mmol/L Arterial Blood Glucose (75-99) mg/dL Crossmatch 07/25/18 07/26/18 07/26/18 Range/Units 23:03 00:03 00:58 WBC (3.8-10.6) k/uL RBC (4.30-5.90) m/uL Hgb (13.0-17.5) gm/dL Hct (39.0-53.0) % Plt Count (150-450) k/uL Neutrophils # (1.3-7.7) k/uL Lymphocytes # (1.0-4.8) k/uL PT (9.0-12.0) sec INR (<1.2) APTT (22.0-30.0) sec Fibrinogen (200-500) mg/dL ABG pH (7.35-7.45) ABG pCO2 (35-45) mmHg ABG pO2 (83-108) mmHg ABG Total CO2 (19-24) mmol/L ABG O2 Saturation (94-97) % ABG Hematocrit (34.0-46.0) % ABG Sodium (135-146) mmol/L ABG Potassium (3.4-4.5) mmol/L ABG Ionized Calcium (4.5-5.3) mg/dL ABG Glucose (75-99) mg/dL ABG Lactic Acid (0.5-1.6) mmol/L Hemoglobin (13.0-17.5) gm/dL Glucose (74-99) mg/dL POC Glucose (mg/dL) 206 H 202 H 174 H (75-99) mg/dL Calcium (8.4-10.2) mg/dL Ionized Calcium Gianluca (4.5-5.3) mg/dL Magnesium (1.6-2.3) mg/dL AST (17-59) U/L Alkaline Phosphatase (38-126) U/L Total Protein (6.3-8.2) g/dL Albumin (3.5-5.0) g/dL Arterial Blood Potassium (3.4-4.5) mmol/L Arterial Blood Glucose (75-99) mg/dL Crossmatch 07/26/18 07/26/18 07/26/18 Range/Units 01:00 01:56 02:53 WBC (3.8-10.6) k/uL RBC (4.30-5.90) m/uL Hgb (13.0-17.5) gm/dL Hct (39.0-53.0) % Plt Count (150-450) k/uL Neutrophils # (1.3-7.7) k/uL Lymphocytes # (1.0-4.8) k/uL PT (9.0-12.0) sec INR (<1.2) APTT (22.0-30.0) sec Fibrinogen (200-500) mg/dL ABG pH (7.35-7.45) ABG pCO2 (35-45) mmHg ABG pO2 72 L (83-108) mmHg ABG Total CO2 (19-24) mmol/L ABG O2 Saturation (94-97) % ABG Hematocrit (34.0-46.0) % ABG Sodium (135-146) mmol/L ABG Potassium (3.4-4.5) mmol/L ABG Ionized Calcium (4.5-5.3) mg/dL ABG Glucose (75-99) mg/dL ABG Lactic Acid (0.5-1.6) mmol/L Hemoglobin (13.0-17.5) gm/dL Glucose (74-99) mg/dL POC Glucose (mg/dL) 170 H 165 H (75-99) mg/dL Calcium (8.4-10.2) mg/dL Ionized Calcium Gianluca (4.5-5.3) mg/dL Magnesium (1.6-2.3) mg/dL AST (17-59) U/L Alkaline Phosphatase (38-126) U/L Total Protein (6.3-8.2) g/dL Albumin (3.5-5.0) g/dL Arterial Blood Potassium (3.4-4.5) mmol/L Arterial Blood Glucose (75-99) mg/dL Crossmatch 07/26/18 07/26/18 07/26/18 Range/Units 04:01 04:15 04:15 WBC 13.3 H (3.8-10.6) k/uL RBC 2.46 L (4.30-5.90) m/uL Hgb 8.1 L (13.0-17.5) gm/dL Hct 23.7 L (39.0-53.0) % Plt Count 138 L (150-450) k/uL Neutrophils # 11.6 H (1.3-7.7) k/uL Lymphocytes # (1.0-4.8) k/uL PT (9.0-12.0) sec INR 1.2 H (<1.2) APTT (22.0-30.0) sec Fibrinogen (200-500) mg/dL ABG pH (7.35-7.45) ABG pCO2 (35-45) mmHg ABG pO2 (83-108) mmHg ABG Total CO2 (19-24) mmol/L ABG O2 Saturation (94-97) % ABG Hematocrit (34.0-46.0) % ABG Sodium (135-146) mmol/L ABG Potassium (3.4-4.5) mmol/L ABG Ionized Calcium (4.5-5.3) mg/dL ABG Glucose (75-99) mg/dL ABG Lactic Acid (0.5-1.6) mmol/L Hemoglobin (13.0-17.5) gm/dL Glucose (74-99) mg/dL POC Glucose (mg/dL) 161 H (75-99) mg/dL Calcium (8.4-10.2) mg/dL Ionized Calcium Gianluca (4.5-5.3) mg/dL Magnesium (1.6-2.3) mg/dL AST (17-59) U/L Alkaline Phosphatase (38-126) U/L Total Protein (6.3-8.2) g/dL Albumin (3.5-5.0) g/dL Arterial Blood Potassium (3.4-4.5) mmol/L Arterial Blood Glucose (75-99) mg/dL Crossmatch 07/26/18 07/26/18 07/26/18 Range/Units 04:15 06:02 06:52 WBC (3.8-10.6) k/uL RBC (4.30-5.90) m/uL Hgb (13.0-17.5) gm/dL Hct (39.0-53.0) % Plt Count (150-450) k/uL Neutrophils # (1.3-7.7) k/uL Lymphocytes # (1.0-4.8) k/uL PT (9.0-12.0) sec INR (<1.2) APTT (22.0-30.0) sec Fibrinogen (200-500) mg/dL ABG pH (7.35-7.45) ABG pCO2 (35-45) mmHg ABG pO2 (83-108) mmHg ABG Total CO2 (19-24) mmol/L ABG O2 Saturation (94-97) % ABG Hematocrit (34.0-46.0) % ABG Sodium (135-146) mmol/L ABG Potassium (3.4-4.5) mmol/L ABG Ionized Calcium (4.5-5.3) mg/dL ABG Glucose (75-99) mg/dL ABG Lactic Acid (0.5-1.6) mmol/L Hemoglobin (13.0-17.5) gm/dL Glucose 142 H (74-99) mg/dL POC Glucose (mg/dL) 147 H 130 H (75-99) mg/dL Calcium (8.4-10.2) mg/dL Ionized Calcium Gianluca (4.5-5.3) mg/dL Magnesium (1.6-2.3) mg/dL AST 98 H (17-59) U/L Alkaline Phosphatase 25 L (38-126) U/L Total Protein 5.1 L (6.3-8.2) g/dL Albumin 3.2 L (3.5-5.0) g/dL Arterial Blood Potassium (3.4-4.5) mmol/L Arterial Blood Glucose (75-99) mg/dL Crossmatch 07/26/18 07/26/18 07/26/18 Range/Units 08:03 09:06 10:03 WBC (3.8-10.6) k/uL RBC (4.30-5.90) m/uL Hgb (13.0-17.5) gm/dL Hct (39.0-53.0) % Plt Count (150-450) k/uL Neutrophils # (1.3-7.7) k/uL Lymphocytes # (1.0-4.8) k/uL PT (9.0-12.0) sec INR (<1.2) APTT (22.0-30.0) sec Fibrinogen (200-500) mg/dL ABG pH (7.35-7.45) ABG pCO2 (35-45) mmHg ABG pO2 (83-108) mmHg ABG Total CO2 (19-24) mmol/L ABG O2 Saturation (94-97) % ABG Hematocrit (34.0-46.0) % ABG Sodium (135-146) mmol/L ABG Potassium (3.4-4.5) mmol/L ABG Ionized Calcium (4.5-5.3) mg/dL ABG Glucose (75-99) mg/dL ABG Lactic Acid (0.5-1.6) mmol/L Hemoglobin (13.0-17.5) gm/dL Glucose (74-99) mg/dL POC Glucose (mg/dL) 120 H 114 H 115 H (75-99) mg/dL Calcium (8.4-10.2) mg/dL Ionized Calcium Gianluca (4.5-5.3) mg/dL Magnesium (1.6-2.3) mg/dL AST (17-59) U/L Alkaline Phosphatase (38-126) U/L Total Protein (6.3-8.2) g/dL Albumin (3.5-5.0) g/dL Arterial Blood Potassium (3.4-4.5) mmol/L Arterial Blood Glucose (75-99) mg/dL Crossmatch 07/26/18 07/26/18 07/26/18 Range/Units 11:03 12:28 13:00 WBC (3.8-10.6) k/uL RBC (4.30-5.90) m/uL Hgb (13.0-17.5) gm/dL Hct (39.0-53.0) % Plt Count (150-450) k/uL Neutrophils # (1.3-7.7) k/uL Lymphocytes # (1.0-4.8) k/uL PT (9.0-12.0) sec INR (<1.2) APTT (22.0-30.0) sec Fibrinogen (200-500) mg/dL ABG pH (7.35-7.45) ABG pCO2 (35-45) mmHg ABG pO2 (83-108) mmHg ABG Total CO2 (19-24) mmol/L ABG O2 Saturation (94-97) % ABG Hematocrit (34.0-46.0) % ABG Sodium (135-146) mmol/L ABG Potassium (3.4-4.5) mmol/L ABG Ionized Calcium (4.5-5.3) mg/dL ABG Glucose (75-99) mg/dL ABG Lactic Acid (0.5-1.6) mmol/L Hemoglobin (13.0-17.5) gm/dL Glucose (74-99) mg/dL POC Glucose (mg/dL) 115 H 111 H 119 H (75-99) mg/dL Calcium (8.4-10.2) mg/dL Ionized Calcium Gianluca (4.5-5.3) mg/dL Magnesium (1.6-2.3) mg/dL AST (17-59) U/L Alkaline Phosphatase (38-126) U/L Total Protein (6.3-8.2) g/dL Albumin (3.5-5.0) g/dL Arterial Blood Potassium (3.4-4.5) mmol/L Arterial Blood Glucose (75-99) mg/dL Crossmatch Assessment and Plan Plan: Assessment: #1. Symptomatic multivessel coronary artery disease, status post four-vessel bypass with MATT to LAD, SVG to the PLB, SVG to the diag, and to OM1, stop day 1 #2. Routine postoperative ventilator management, patient was extubated at 1:30 in the morning on 07/26/2018, currently on 6 L per high flow nasal cannula, tolerated extubation well #3. Acute blood loss anemia, an expected outcome of bypass grafting surgery #4. Moderate aortic stenosis #5. Hypertension #6. Sleep apnea syndrome on CPAP therapy #7. History of CVA #8. Morbid obesity #9. History of bariatric surgery #10. Prostate enlargement #11. DJD Plan: Continue encouraging deep breathing and coughing, will need physical therapist aide with mobilizing the patient, help him sit up in the recliner, today's chest x-ray has been reviewed by Dr. Rose, shows stable bibasilar small pleural effusions and atelectasis. Hemodynamically stable, remains in sinus mechanism. Patient has underlying sleep apnea, may need BiPAP support as needed during the day and at bedtime. We'll continue to closely follow. I performed a history & physical examination of the patient and discussed their management with my nurse practitioner, Shweta Morejon. I reviewed the nurse practitioner's note and agree with the documented findings and plan of care. Lung sounds are clear breath sounds. The findings and the impression was discussed with the patient. I attest to the documentation by the nurse practitioner. Time with Patient: Greater than 30
[2018-07-26 14:06] LABS: Glucose,Whole Blood 105 mg/dL (75-99)
--- NOTE | 2018-07-26 14:09 | P.CONS ---
History of Present Illness - Reason for Consult Consult date: 07/26/18 Medical management Requesting physician: Jarett Acharya - Chief Complaint s/p CABG - History of Present Illness 78-year-old male with a past medical history significant for hypertension, osteoarthritis, sleep apnea, TIA, and obesity who underwent CABG x 4 on 07/25/[address] Acharya after undergoing recent cardiac cath revealing triple vessel disease. Dr. Fuchs was consulted for medical management. The patient was seen and examined postoperatively in the intensive care unit. Patient was extubated during the night. He is on NC with oxygen saturations greater than 92%. He remains sleepy this morning but is easily arousable to verbal stimuli. He is on primacor, low dose levophed, and an insulin drip. Blood sugars are in the 110s. Chest tubes x 2 intact. He is hemodynamically stable. Reports his pain is tolerable this morning. WBC 13.3. Hemoglobin 8.1. Potassium 4.1. REVIEW OF SYSTEMS: Those systems with pertinent positive or pertinent negative responses have been documented in the HPI PHYSICAL EXAM: GENERAL: This is a 78-year-old male in no apparent distress at the time of examination, but remains sleepy. HEENT: Head is atraumatic, normocephalic. Pupils are equal, round, and reactive to light. Sclerae anicteric. Conjunctivae are clear. Mucus membranes of the mouth are moist. Neck is supple. RESPIRATORY: Clear to auscultation, diminished. No wheezes, rales, or rhonchi. No use of accessory muscles. Patient maintaining oxygen saturation greater than 92%. Mediastinal and pleural chest tubes noted. CARDIOVASCULAR: Regular rate and rhythm. S1 and S2 noted. No systolic or diastolic murmur auscultated. No JVD noted. No S3 or S4 noted. GASTROINTESTINAL: No distention noted. Abdomen soft and round. Bowel sounds auscultated x 4 quadrants. No pain or tenderness noted upon palpation. INTEGUMENTARY: No cyanosis. No jaundice. No rashes noted. No cellulitis noted. EXTREMITIES: 2+ peripheral pulses. Trace bilateral lower extremity edema. MELINA drain to left lower extremity. NEUROLOGIC: Cranial nerves II-XII intact. PSYCHIATRIC: Sleepy. Easily arousable to verbal stimuli. Oriented X 3. ASSESSMENT: Coronary artery disease, s/p CABG x 4 Acute blood loss, an expected outcome of surgery Hypertension History of TIA Sleep apnea Aortic stenosis Osteoarthritis BPH History of lap-band Nicotine dependence, in remission Morbid obesity: BMI 49.4 PLAN: Continue post op care per Dr. Acharya Continue insulin drip today. Anticipate transition to sliding scale tomorrow Pain control Activity as tolerated Monitor labs Monitor vital signs and address as appropriate Further recommendations pending patient's course Thank you for this consultation We will continue to follow with Levon during his hospitalization Nurse practitioner note has been reviewed by physician. Signing provider agrees with the documented findings, assessment, and plan of care. Past Medical History Past Medical History: Chest Pain / Angina, CVA/TIA, Hypertension, Osteoarthritis (OA), Prostate Disorder, Sleep Apnea/CPAP/BIPAP Additional Past Medical History / Comment(s): hx TIA, heart murmur, no cpap used , drop foot left leg History of Any Multi-Drug Resistant Organisms: None Reported Past Surgical History: Back Surgery, Bariatric Surgery, Hernia Repair, Joint Replacement Additional Past Surgical History / Comment(s): lap band surgery, left knee replacement, ashley cataracts Past Anesthesia/Blood Transfusion Reactions: No Reported Reaction Smoking Status: Former smoker - Past Family History Father Family Medical History: Cancer Medications and Allergies Home Medications Medication Instructions Recorded Confirmed Type Aspirin [Adult Low Dose Aspirin EC] 162 mg PO QAM 07/11/18 07/25/18 History Isosorbide Mononitrate [Isosorbide 30 mg PO DAILY 07/11/18 07/25/18 History Mononitrate ER] Lisinopril 20 mg PO DAILY 07/11/18 07/25/18 History Oxybutynin Chloride 5 mg PO QAM 07/11/18 07/25/18 History Tamsulosin HCl [Flomax] 0.4 mg PO QAM 07/11/18 07/25/18 History Atorvastatin [Lipitor] 40 mg PO DAILY #90 tab 07/21/18 07/25/18 Rx Metoprolol Tartrate 12.5 mg PO DAILY 07/24/18 07/25/18 History Allergies Allergy/AdvReac Type Severity Reaction Status Date / Time No Known Allergies Allergy Verified 07/25/18 15:47 Physical Exam Vitals: Vital Signs Temp Pulse Resp BP Pulse Ox 07/26/18 13:00 101 H 24 118/59 94 L 07/26/18 12:30 101 H 22 118/59 94 L 07/26/18 12:00 99 24 106/53 93 L 07/26/18 11:30 98 20 106/53 95 07/26/18 11:17 101 H 07/26/18 11:05 102 H 07/26/18 11:00 96 20 86/45 96 07/26/18 10:30 95 22 97/50 95 07/26/18 10:00 112 H 20 110/56 93 L 07/26/18 09:30 114 H 24 110/56 94 L 07/26/18 09:00 113 H 21 110/62 94 L 07/26/18 08:30 114 H 21 110/62 94 L 07/26/18 08:15 115 H 20 110/62 94 L 07/26/18 08:00 112 H 24 111/61 95 07/26/18 07:45 112 H 21 111/61 95 07/26/18 07:30 112 H 23 111/61 95 18 07:25 112 H 07/26/18 07:15 108 H 28 H 111/61 96 07/26/18 07:10 113 H 07/26/18 07:00 115 H 23 95/72 93 L 07/26/18 06:45 112 H 22 95/72 94 L 07/26/18 06:30 108 H 21 95/72 94 L 07/26/18 06:15 110 H 21 94 L 07/26/18 06:00 114 H 26 H 97 07/26/18 05:45 112 H 24 92 L 07/26/18 05:30 115 H 22 92 L 07/26/18 05:15 110 H 25 H 90 L 07/26/18 05:00 101 H 21 91 L 18 04:45 97 27 H 93 L 07/26/18 04:30 105 H 26 H 95 0518 04:15 106 H 25 H 94 L 07/26/18 04:00 97.8 F 101 H 26 H 93 L 18 03:45 101 H 27 H 91 L 05/18 03:30 100 27 H 93 L 18 03:15 105 H 25 H 93 L 05/18 03:00 105 H 27 H 92 L 18 02:45 103 H 25 H 93 L 18 02:30 103 H 28 H 92 L 07/26/18 02:15 102 H 22 92 L 07/26/18 02:00 98 25 H 95 07/26/18 01:47 96 07/26/18 01:45 98 20 96 07/26/18 01:38 96 07/26/18 01:30 89 27 H 96 07/26/18 01:15 93 22 92 L 07/26/18 01:00 94 20 94 L 07/26/18 00:45 90 22 94 L 07/26/18 00:30 93 21 95 07/26/18 00:15 92 21 94 L 07/26/18 00:07 92 20 94 L 07/26/18 00:00 97.6 F 87 20 97 07/25/18 23:45 88 20 95 07/25/18 23:30 92 21 95 07/25/18 23:15 92 22 94 L 07/25/18 23:00 94 24 94 L 07/25/18 22:45 90 21 95 07/25/18 22:30 100 23 96 07/25/18 22:15 85 20 96 07/25/18 22:00 92 20 96 07/25/18 21:45 92 23 92 L 07/25/18 21:30 103 H 29 H 95 07/25/18 21:15 92 23 95 07/25/18 21:00 92 22 94 L 07/25/18 20:45 88 20 95 07/25/18 20:30 93 20 93 L 07/25/18 20:15 93 21 92 L 07/25/18 20:00 97.6 F 95 21 95 07/25/18 19:45 96 20 97 07/25/18 19:30 96 25 H 96 07/25/18 19:15 110 H 22 95 07/25/18 19:00 98 21 97 07/25/18 18:45 95 20 97 07/25/18 18:30 93 19 97 07/25/18 18:15 87 20 97 07/25/18 18:00 88 21 96 07/25/18 17:45 86 19 97 07/25/18 17:30 81 21 96 07/25/18 17:15 76 18 96 07/25/18 17:00 75 22 99 07/25/18 16:45 74 11 L 93 L 07/25/18 16:30 75 12 97 12/04/18 16:15 70 12 100 07/25/18 16:14 18 07/25/18 16:06 97 Intake and Output 07/25/18 07/26/18 07/26/18 22:59 06:59 14:59 Intake Total 240.684 3566.477 1020.951 Output Total 1594 879 605 Balance -624.160 892.477 415.951 Intake: IV 453 1402 623 ACETAMINOPHEN IV (For NPO 800 100 ) 1,000 mg In Empty Bag 1 bag @ 400 mls/hr IVPB Q6HR [facility] Rx#:[id number] Calcium Chloride 1,000 mg 100 In Sodium Chloride 0.9% 100 ml @ 100 mls/hr IV ONCE PRN Rx#:[id number] Lactated Ringers 1,000 ml 150 400 330 @ 20 mls/hr IV .Q24H [facility] Rx#:[id number] cardiac output 140 80 80 ceFAZolin 3 gm In Sodium 50 50 Chloride 0.9% 50 ml @ 50 mls/hr IVPB Q8HR [facility] Rx#: [id number] pressure bags 63 72 63 Intake, IV Titration 516.840 369.477 397.951 Amount ACETAMINOPHEN IV (For NPO 100 ) 1,000 mg In Empty Bag 1 bag @ 400 mls/hr IVPB Q6HR [facility] Rx#:[id number] Dextrose 5% in Water 100 250 ml @ 618 mls/hr IV .Q10M PRN with Amiodarone 150 mg Rx#:[id number] Insulin Regular 100 unit 26.829 108.250 26.996 In Sodium Chloride 0.9% 100 ml @ Per Protocol IV .Q0M [facility] Rx#:[id number] Lactated Ringers 1,000 ml 150 @ 20 mls/hr IV .Q24H [facility] Rx#:[id number] Milrinone-D5w Pmx 20 mg 96.774 204.775 62.990 In Dextrose/Water 1 100ml .bag @ Per Protocol IV . Q0M [facility] Rx#:[id number] Nitroglycerin-D5w Pmx 50 22.15 mg In Dextrose/Water 1 250ml.bag @ 5 MCG/MIN 1.5 mls/hr IV .Q24H [facility] Rx#: [id number] Norepinephrine 4 mg In 48.070 56.452 35.815 Sodium Chloride 0.9% 250 ml @ Titrate IV .Q0M [facility] Rx#:[id number] Propofol 1,000 mg In 45.167 Empty Bag 1 bag @ Titrate IV .Q0M [facility] Rx#: [id number] ceFAZolin 3 gm In Sodium 50 Chloride 0.9% 50 ml @ 50 mls/hr IVPB Q8HR [facility] Rx#: [id number] Output: Chest Tube Drainage 594 344 310 left pleural 144 234 260 mediastinal x2 450 110 50 Drainage 40 20 left calf 40 20 Urine 960 535 275 Other: Voiding Method Indwelling Catheter Indwelling Catheter Indwelling Catheter Weight 156.2 kg ABP, PAP, CO, CI - Last 8 Hours Arterial Blood Pressure 122/48 Arterial Blood Pressure 128/52 Arterial Blood Pressure 109/47 Arterial Blood Pressure 102/44 Arterial Blood Pressure 111/47 Arterial Blood Pressure 98/32 Arterial Blood Pressure 99/48 Arterial Blood Pressure 100/49 Arterial Blood Pressure 106/49 Arterial Blood Pressure 104/49 Arterial Blood Pressure 103/48 Arterial Blood Pressure 103/49 Arterial Blood Pressure 103/48 Arterial Blood Pressure 105/48 Arterial Blood Pressure 96/48 Arterial Blood Pressure 108/51 Arterial Blood Pressure 101/47 Arterial Blood Pressure 102/49 Arterial Blood Pressure 93/45 Arterial Blood Pressure 104/47 Arterial Blood Pressure 104/49 Arterial Blood Pressure 117/59 Pulmonary Artery Pressure 38/16 Pulmonary Artery Pressure 34/18 Pulmonary Artery Pressure 32/15 Pulmonary Artery Pressure 32/16 Pulmonary Artery Pressure 32/17 Pulmonary Artery Pressure 33/9 Pulmonary Artery Pressure 35/16 Pulmonary Artery Pressure 34/20 Pulmonary Artery Pressure 33/19 Pulmonary Artery Pressure 32/19 Pulmonary Artery Pressure 34/20 Pulmonary Artery Pressure 34/20 Pulmonary Artery Pressure 34/19 Pulmonary Artery Pressure 33/17 Pulmonary Artery Pressure 31/16 Pulmonary Artery Pressure 40/21 Pulmonary Artery Pressure 32/18 Pulmonary Artery Pressure 32/19 Pulmonary Artery Pressure 32/19 Pulmonary Artery Pressure 40/18 Pulmonary Artery Pressure 34/21 Pulmonary Artery Pressure 40/15 Cardiac Output 7.5 Cardiac Output 7.5 Cardiac Output 7.3 Cardiac Output 7.3 Cardiac Output 6.2 Cardiac Output 6.9 Cardiac Output 6.9 Cardiac Output 6.9 Cardiac Output 6.9 Cardiac Output 6.9 Cardiac Output 5.8 Cardiac Output 5.8 Cardiac Output 5.8 Cardiac Output 5.8 Cardiac Output 7.3 Cardiac Index 2.9 Cardiac Index 2.4 Cardiac Index 2.7 Results CBC & Chem 7: 07/26/18 04:15 07/26/18 04:15 Labs: Abnormal Lab Results - Last 24 Hours (Table) 07/24/18 07/25/18 07/25/18 Range/Units 12:40 12:30 13:03 WBC (3.8-10.6) k/uL RBC (4.30-5.90) m/uL Hgb (13.0-17.5) gm/dL Hct (39.0-53.0) % Plt Count (150-450) k/uL Neutrophils # (1.3-7.7) k/uL Lymphocytes # (1.0-4.8) k/uL PT (9.0-12.0) sec INR (<1.2) APTT (22.0-30.0) sec Fibrinogen (200-500) mg/dL ABG pH 7.34 L (7.35-7.45) ABG pCO2 (35-45) mmHg ABG pO2 375 H 322 H (83-108) mmHg ABG Total CO2 (19-24) mmol/L ABG O2 Saturation 100.0 H 100.0 H (94-97) % ABG Hematocrit 29 L 27 L (34.0-46.0) % ABG Sodium 133 L 134 L (135-146) mmol/L ABG Potassium 5.5 H 5.2 H (3.4-4.5) mmol/L ABG Ionized Calcium 4.0 L 4.0 L (4.5-5.3) mg/dL ABG Glucose 211 H 210 H (75-99) mg/dL ABG Lactic Acid 2.5 H* 3.2 H* (0.5-1.6) mmol/L Hemoglobin 9.5 L 8.8 L (13.0-17.5) gm/dL Glucose (74-99) mg/dL POC Glucose (mg/dL) (75-99) mg/dL Calcium (8.4-10.2) mg/dL Ionized Calcium Gianluca (4.5-5.3) mg/dL Magnesium (1.6-2.3) mg/dL AST (17-59) U/L Alkaline Phosphatase (38-126) U/L Total Protein (6.3-8.2) g/dL Albumin (3.5-5.0) g/dL Arterial Blood Potassium 5.5 H 5.2 H (3.4-4.5) mmol/L Arterial Blood Glucose 211 H 210 H (75-99) mg/dL Crossmatch See Detail 07/25/18 07/25/18 07/25/18 Range/Units 13:42 14:36 16:06 WBC 15.2 H (3.8-10.6) k/uL RBC 2.47 L (4.30-5.90) m/uL Hgb 7.9 L D (13.0-17.5) gm/dL Hct 23.9 L (39.0-53.0) % Plt Count 109 L D (150-450) k/uL Neutrophils # 12.3 H (1.3-7.7) k/uL Lymphocytes # (1.0-4.8) k/uL PT (9.0-12.0) sec INR (<1.2) APTT (22.0-30.0) sec Fibrinogen (200-500) mg/dL ABG pH 7.33 L (7.35-7.45) ABG pCO2 (35-45) mmHg ABG pO2 380 H 159 H (83-108) mmHg ABG Total CO2 25 H 25 H (19-24) mmol/L ABG O2 Saturation 100.0 H 99.4 H (94-97) % ABG Hematocrit 27 L 30 L (34.0-46.0) % ABG Sodium (135-146) mmol/L ABG Potassium 5.0 H (3.4-4.5) mmol/L ABG Ionized Calcium 3.9 L 3.9 L (4.5-5.3) mg/dL ABG Glucose 185 H 151 H (75-99) mg/dL ABG Lactic Acid 4.2 H* 3.7 H* (0.5-1.6) mmol/L Hemoglobin 8.9 L 9.8 L (13.0-17.5) gm/dL Glucose (74-99) mg/dL POC Glucose (mg/dL) (75-99) mg/dL Calcium (8.4-10.2) mg/dL Ionized Calcium Gianluca (4.5-5.3) mg/dL Magnesium (1.6-2.3) mg/dL AST (17-59) U/L Alkaline Phosphatase (38-126) U/L Total Protein (6.3-8.2) g/dL Albumin (3.5-5.0) g/dL Arterial Blood Potassium 5.0 H (3.4-4.5) mmol/L Arterial Blood Glucose 185 H 151 H (75-99) mg/dL Crossmatch 07/25/18 07/25/18 07/25/18 Range/Units 16:06 16:29 16:30 WBC (3.8-10.6) k/uL RBC (4.30-5.90) m/uL Hgb (13.0-17.5) gm/dL Hct (39.0-53.0) % Plt Count (150-450) k/uL Neutrophils # (1.3-7.7) k/uL Lymphocytes # (1.0-4.8) k/uL PT 13.9 H (9.0-12.0) sec INR 1.5 H (<1.2) APTT 30.5 H (22.0-30.0) sec Fibrinogen 112 L (200-500) mg/dL ABG pH (7.35-7.45) ABG pCO2 (35-45) mmHg ABG pO2 (83-108) mmHg ABG Total CO2 (19-24) mmol/L ABG O2 Saturation (94-97) % ABG Hematocrit (34.0-46.0) % ABG Sodium (135-146) mmol/L ABG Potassium (3.4-4.5) mmol/L ABG Ionized Calcium (4.5-5.3) mg/dL ABG Glucose (75-99) mg/dL ABG Lactic Acid (0.5-1.6) mmol/L Hemoglobin (13.0-17.5) gm/dL Glucose 132 H (74-99) mg/dL POC Glucose (mg/dL) 138 H (75-99) mg/dL Calcium 7.6 L (8.4-10.2) mg/dL Ionized Calcium Gianluca 4.4 L (4.5-5.3) mg/dL Magnesium 2.4 H (1.6-2.3) mg/dL AST (17-59) U/L Alkaline Phosphatase <20 L (38-126) U/L Total Protein 5.0 L (6.3-8.2) g/dL Albumin 3.4 L (3.5-5.0) g/dL Arterial Blood Potassium (3.4-4.5) mmol/L Arterial Blood Glucose (75-99) mg/dL Crossmatch 07/25/18 07/25/18 07/25/18 Range/Units 16:50 16:56 17:58 WBC (3.8-10.6) k/uL RBC (4.30-5.90) m/uL Hgb (13.0-17.5) gm/dL Hct (39.0-53.0) % Plt Count (150-450) k/uL Neutrophils # (1.3-7.7) k/uL Lymphocytes # (1.0-4.8) k/uL PT (9.0-12.0) sec INR (<1.2) APTT (22.0-30.0) sec Fibrinogen (200-500) mg/dL ABG pH 7.33 L (7.35-7.45) ABG pCO2 48 H (35-45) mmHg ABG pO2 174 H (83-108) mmHg ABG Total CO2 26 H (19-24) mmol/L ABG O2 Saturation 100.0 H (94-97) % ABG Hematocrit (34.0-46.0) % ABG Sodium (135-146) mmol/L ABG Potassium (3.4-4.5) mmol/L ABG Ionized Calcium (4.5-5.3) mg/dL ABG Glucose (75-99) mg/dL ABG Lactic Acid (0.5-1.6) mmol/L Hemoglobin (13.0-17.5) gm/dL Glucose (74-99) mg/dL POC Glucose (mg/dL) 157 H 183 H (75-99) mg/dL Calcium (8.4-10.2) mg/dL Ionized Calcium Gianluca (4.5-5.3) mg/dL Magnesium (1.6-2.3) mg/dL AST (17-59) U/L Alkaline Phosphatase (38-126) U/L Total Protein (6.3-8.2) g/dL Albumin (3.5-5.0) g/dL Arterial Blood Potassium (3.4-4.5) mmol/L Arterial Blood Glucose (75-99) mg/dL Crossmatch 07/25/18 07/25/18 07/25/18 Range/Units 18:54 18:54 19:50 WBC 16.5 H (3.8-10.6) k/uL RBC 2.53 L (4.30-5.90) m/uL Hgb 8.2 L (13.0-17.5) gm/dL Hct 24.5 L (39.0-53.0) % Plt Count 121 L (150-450) k/uL Neutrophils # 14.3 H (1.3-7.7) k/uL Lymphocytes # (1.0-4.8) k/uL PT (9.0-12.0) sec INR (<1.2) APTT (22.0-30.0) sec Fibrinogen (200-500) mg/dL ABG pH (7.35-7.45) ABG pCO2 (35-45) mmHg ABG pO2 (83-108) mmHg ABG Total CO2 (19-24) mmol/L ABG O2 Saturation (94-97) % ABG Hematocrit (34.0-46.0) % ABG Sodium (135-146) mmol/L ABG Potassium (3.4-4.5) mmol/L ABG Ionized Calcium (4.5-5.3) mg/dL ABG Glucose (75-99) mg/dL ABG Lactic Acid (0.5-1.6) mmol/L Hemoglobin (13.0-17.5) gm/dL Glucose (74-99) mg/dL POC Glucose (mg/dL) 187 H 205 H (75-99) mg/dL Calcium (8.4-10.2) mg/dL Ionized Calcium Gianluca (4.5-5.3) mg/dL Magnesium (1.6-2.3) mg/dL AST (17-59) U/L Alkaline Phosphatase (38-126) U/L Total Protein (6.3-8.2) g/dL Albumin (3.5-5.0) g/dL Arterial Blood Potassium (3.4-4.5) mmol/L Arterial Blood Glucose (75-99) mg/dL Crossmatch 07/25/18 07/25/18 07/25/18 Range/Units 21:20 21:21 22:15 WBC 14.8 H (3.8-10.6) k/uL RBC 2.48 L (4.30-5.90) m/uL Hgb 7.9 L (13.0-17.5) gm/dL Hct 23.8 L (39.0-53.0) % Plt Count 135 L (150-450) k/uL Neutrophils # 13.3 H (1.3-7.7) k/uL Lymphocytes # 0.7 L (1.0-4.8) k/uL PT (9.0-12.0) sec INR (<1.2) APTT (22.0-30.0) sec Fibrinogen (200-500) mg/dL ABG pH (7.35-7.45) ABG pCO2 (35-45) mmHg ABG pO2 (83-108) mmHg ABG Total CO2 (19-24) mmol/L ABG O2 Saturation (94-97) % ABG Hematocrit (34.0-46.0) % ABG Sodium (135-146) mmol/L ABG Potassium (3.4-4.5) mmol/L ABG Ionized Calcium (4.5-5.3) mg/dL ABG Glucose (75-99) mg/dL ABG Lactic Acid (0.5-1.6) mmol/L Hemoglobin (13.0-17.5) gm/dL Glucose (74-99) mg/dL POC Glucose (mg/dL) 223 H 209 H (75-99) mg/dL Calcium (8.4-10.2) mg/dL Ionized Calcium Gianluca (4.5-5.3) mg/dL Magnesium (1.6-2.3) mg/dL AST (17-59) U/L Alkaline Phosphatase (38-126) U/L Total Protein (6.3-8.2) g/dL Albumin (3.5-5.0) g/dL Arterial Blood Potassium (3.4-4.5) mmol/L Arterial Blood Glucose (75-99) mg/dL Crossmatch 07/25/18 07/26/18 07/26/18 Range/Units 23:03 00:03 00:58 WBC (3.8-10.6) k/uL RBC (4.30-5.90) m/uL Hgb (13.0-17.5) gm/dL Hct (39.0-53.0) % Plt Count (150-450) k/uL Neutrophils # (1.3-7.7) k/uL Lymphocytes # (1.0-4.8) k/uL PT (9.0-12.0) sec INR (<1.2) APTT (22.0-30.0) sec Fibrinogen (200-500) mg/dL ABG pH (7.35-7.45) ABG pCO2 (35-45) mmHg ABG pO2 (83-108) mmHg ABG Total CO2 (19-24) mmol/L ABG O2 Saturation (94-97) % ABG Hematocrit (34.0-46.0) % ABG Sodium (135-146) mmol/L ABG Potassium (3.4-4.5) mmol/L ABG Ionized Calcium (4.5-5.3) mg/dL ABG Glucose (75-99) mg/dL ABG Lactic Acid (0.5-1.6) mmol/L Hemoglobin (13.0-17.5) gm/dL Glucose (74-99) mg/dL POC Glucose (mg/dL) 206 H 202 H 174 H (75-99) mg/dL Calcium (8.4-10.2) mg/dL Ionized Calcium Gianluca (4.5-5.3) mg/dL Magnesium (1.6-2.3) mg/dL AST (17-59) U/L Alkaline Phosphatase (38-126) U/L Total Protein (6.3-8.2) g/dL Albumin (3.5-5.0) g/dL Arterial Blood Potassium (3.4-4.5) mmol/L Arterial Blood Glucose (75-99) mg/dL Crossmatch 07/26/18 07/26/18 07/26/18 Range/Units 01:00 01:56 02:53 WBC (3.8-10.6) k/uL RBC (4.30-5.90) m/uL Hgb (13.0-17.5) gm/dL Hct (39.0-53.0) % Plt Count (150-450) k/uL Neutrophils # (1.3-7.7) k/uL Lymphocytes # (1.0-4.8) k/uL PT (9.0-12.0) sec INR (<1.2) APTT (22.0-30.0) sec Fibrinogen (200-500) mg/dL ABG pH (7.35-7.45) ABG pCO2 (35-45) mmHg ABG pO2 72 L (83-108) mmHg ABG Total CO2 (19-24) mmol/L ABG O2 Saturation (94-97) % ABG Hematocrit (34.0-46.0) % ABG Sodium (135-146) mmol/L ABG Potassium (3.4-4.5) mmol/L ABG Ionized Calcium (4.5-5.3) mg/dL ABG Glucose (75-99) mg/dL ABG Lactic Acid (0.5-1.6) mmol/L Hemoglobin (13.0-17.5) gm/dL Glucose (74-99) mg/dL POC Glucose (mg/dL) 170 H 165 H (75-99) mg/dL Calcium (8.4-10.2) mg/dL Ionized Calcium Gianluca (4.5-5.3) mg/dL Magnesium (1.6-2.3) mg/dL AST (17-59) U/L Alkaline Phosphatase (38-126) U/L Total Protein (6.3-8.2) g/dL Albumin (3.5-5.0) g/dL Arterial Blood Potassium (3.4-4.5) mmol/L Arterial Blood Glucose (75-99) mg/dL Crossmatch 07/26/18 07/26/18 07/26/18 Range/Units 04:01 04:15 04:15 WBC 13.3 H (3.8-10.6) k/uL RBC 2.46 L (4.30-5.90) m/uL Hgb 8.1 L (13.0-17.5) gm/dL Hct 23.7 L (39.0-53.0) % Plt Count 138 L (150-450) k/uL Neutrophils # 11.6 H (1.3-7.7) k/uL Lymphocytes # (1.0-4.8) k/uL PT (9.0-12.0) sec INR 1.2 H (<1.2) APTT (22.0-30.0) sec Fibrinogen (200-500) mg/dL ABG pH (7.35-7.45) ABG pCO2 (35-45) mmHg ABG pO2 (83-108) mmHg ABG Total CO2 (19-24) mmol/L ABG O2 Saturation (94-97) % ABG Hematocrit (34.0-46.0) % ABG Sodium (135-146) mmol/L ABG Potassium (3.4-4.5) mmol/L ABG Ionized Calcium (4.5-5.3) mg/dL ABG Glucose (75-99) mg/dL ABG Lactic Acid (0.5-1.6) mmol/L Hemoglobin (13.0-17.5) gm/dL Glucose (74-99) mg/dL POC Glucose (mg/dL) 161 H (75-99) mg/dL Calcium (8.4-10.2) mg/dL Ionized Calcium Gianluca (4.5-5.3) mg/dL Magnesium (1.6-2.3) mg/dL AST (17-59) U/L Alkaline Phosphatase (38-126) U/L Total Protein (6.3-8.2) g/dL Albumin (3.5-5.0) g/dL Arterial Blood Potassium (3.4-4.5) mmol/L Arterial Blood Glucose (75-99) mg/dL Crossmatch 07/26/18 07/26/18 07/26/18 Range/Units 04:15 06:02 06:52 WBC (3.8-10.6) k/uL RBC (4.30-5.90) m/uL Hgb (13.0-17.5) gm/dL Hct (39.0-53.0) % Plt Count (150-450) k/uL Neutrophils # (1.3-7.7) k/uL Lymphocytes # (1.0-4.8) k/uL PT (9.0-12.0) sec INR (<1.2) APTT (22.0-30.0) sec Fibrinogen (200-500) mg/dL ABG pH (7.35-7.45) ABG pCO2 (35-45) mmHg ABG pO2 (83-108) mmHg ABG Total CO2 (19-24) mmol/L ABG O2 Saturation (94-97) % ABG Hematocrit (34.0-46.0) % ABG Sodium (135-146) mmol/L ABG Potassium (3.4-4.5) mmol/L ABG Ionized Calcium (4.5-5.3) mg/dL ABG Glucose (75-99) mg/dL ABG Lactic Acid (0.5-1.6) mmol/L Hemoglobin (13.0-17.5) gm/dL Glucose 142 H (74-99) mg/dL POC Glucose (mg/dL) 147 H 130 H (75-99) mg/dL Calcium (8.4-10.2) mg/dL Ionized Calcium Gianluca (4.5-5.3) mg/dL Magnesium (1.6-2.3) mg/dL AST 98 H (17-59) U/L Alkaline Phosphatase 25 L (38-126) U/L Total Protein 5.1 L (6.3-8.2) g/dL Albumin 3.2 L (3.5-5.0) g/dL Arterial Blood Potassium (3.4-4.5) mmol/L Arterial Blood Glucose (75-99) mg/dL Crossmatch 07/26/18 07/26/18 07/26/18 Range/Units 08:03 09:06 10:03 WBC (3.8-10.6) k/uL RBC (4.30-5.90) m/uL Hgb (13.0-17.5) gm/dL Hct (39.0-53.0) % Plt Count (150-450) k/uL Neutrophils # (1.3-7.7) k/uL Lymphocytes # (1.0-4.8) k/uL PT (9.0-12.0) sec INR (<1.2) APTT (22.0-30.0) sec Fibrinogen (200-500) mg/dL ABG pH (7.35-7.45) ABG pCO2 (35-45) mmHg ABG pO2 (83-108) mmHg ABG Total CO2 (19-24) mmol/L ABG O2 Saturation (94-97) % ABG Hematocrit (34.0-46.0) % ABG Sodium (135-146) mmol/L ABG Potassium (3.4-4.5) mmol/L ABG Ionized Calcium (4.5-5.3) mg/dL ABG Glucose (75-99) mg/dL ABG Lactic Acid (0.5-1.6) mmol/L Hemoglobin (13.0-17.5) gm/dL Glucose (74-99) mg/dL POC Glucose (mg/dL) 120 H 114 H 115 H (75-99) mg/dL Calcium (8.4-10.2) mg/dL Ionized Calcium Gianluca (4.5-5.3) mg/dL Magnesium (1.6-2.3) mg/dL AST (17-59) U/L Alkaline Phosphatase (38-126) U/L Total Protein (6.3-8.2) g/dL Albumin (3.5-5.0) g/dL Arterial Blood Potassium (3.4-4.5) mmol/L Arterial Blood Glucose (75-99) mg/dL Crossmatch 07/26/18 07/26/18 07/26/18 Range/Units 11:03 12:28 13:00 WBC (3.8-10.6) k/uL RBC (4.30-5.90) m/uL Hgb (13.0-17.5) gm/dL Hct (39.0-53.0) % Plt Count (150-450) k/uL Neutrophils # (1.3-7.7) k/uL Lymphocytes # (1.0-4.8) k/uL PT (9.0-12.0) sec INR (<1.2) APTT (22.0-30.0) sec Fibrinogen (200-500) mg/dL ABG pH (7.35-7.45) ABG pCO2 (35-45) mmHg ABG pO2 (83-108) mmHg ABG Total CO2 (19-24) mmol/L ABG O2 Saturation (94-97) % ABG Hematocrit (34.0-46.0) % ABG Sodium (135-146) mmol/L ABG Potassium (3.4-4.5) mmol/L ABG Ionized Calcium (4.5-5.3) mg/dL ABG Glucose (75-99) mg/dL ABG Lactic Acid (0.5-1.6) mmol/L Hemoglobin (13.0-17.5) gm/dL Glucose (74-99) mg/dL POC Glucose (mg/dL) 115 H 111 H 119 H (75-99) mg/dL Calcium (8.4-10.2) mg/dL Ionized Calcium Gianluca (4.5-5.3) mg/dL Magnesium (1.6-2.3) mg/dL AST (17-59) U/L Alkaline Phosphatase (38-126) U/L Total Protein (6.3-8.2) g/dL Albumin (3.5-5.0) g/dL Arterial Blood Potassium (3.4-4.5) mmol/L Arterial Blood Glucose (75-99) mg/dL Crossmatch
[2018-07-26 15:07] LABS: Glucose,Whole Blood 113 mg/dL (75-99)
[2018-07-26] MEDS ORDERED: MAGNESIUM HYDROXIDE 2,400 MG/10 ML CUP PO PRN (15:30)
[2018-07-26] MEDS ORDERED: BISACODYL 10 MG SUPP RECTAL PRN (15:30)
[2018-07-26] MEDS: KETOROLAC 30 MG/ML 1 ML VIAL IVP SCH ×3 (15:36→23:50)
[2018-07-26] MEDS: METOPROLOL TARTRATE 25 MG TAB PO SCH ×2 (15:38→20:50)
[2018-07-26] MEDS: CLEVIDIPINE BUTYRATE 25 MG in EMPTY BAG 1 BAG IV SCH (16:22)
[2018-07-26 16:32] LABS: Glucose,Whole Blood 135 mg/dL (75-99)
[2018-07-26 17:20] LABS: Glucose,Whole Blood 129 mg/dL (75-99)
[2018-07-26] MEDS: TAMSULOSIN 0.4 MG CAP.ER.24H PO SCH (17:44)
[2018-07-26] MEDS ORDERED: ACETAMINOPHEN TAB 325 MG TAB PO PRN ×2 (18:01)
[2018-07-26 18:13] LABS: Glucose,Whole Blood 121 mg/dL (75-99)
[2018-07-26 19:07] LABS: Glucose,Whole Blood 113 mg/dL (75-99)
[2018-07-26 20:06] LABS: Glucose,Whole Blood 122 mg/dL (75-99)
[2018-07-26] MEDS: SENNOSIDES-DOCUSATE SODIUM 1 EACH TAB PO SCH (20:50)
[2018-07-26 21:08] LABS: Glucose,Whole Blood 113 mg/dL (75-99)
[2018-07-26 22:22] LABS: Glucose,Whole Blood 127 mg/dL (75-99)
[2018-07-26] MEDS ORDERED: HYDROcodone/APAP 5-325MG 1 EACH TAB PO PRN ×2 (23:00)
[2018-07-27 00:10] LABS: Glucose,Whole Blood 109 mg/dL (75-99)
[2018-07-27 01:56] LABS: Glucose,Whole Blood 166 mg/dL (75-99)
[2018-07-27] MEDS ORDERED: HALOPERIDOL LACTATE 5 MG/ML 1 ML VIAL IVP STA (02:06)
[2018-07-27] MEDS: ALBUMIN HUMAN 5% 250 ML in EMPTY BAG 1 BAG IVPB PRN (02:38)
[2018-07-27] MEDS ORDERED: HALOPERIDOL LACTATE 5 MG/ML 1 ML VIAL IVP ONE ×2 (03:00→12:56)
[2018-07-27 04:49] LABS: Glucose,Whole Blood 118 mg/dL (75-99)
[2018-07-27 05:06] LABS: Basophils % (A) 0 %; Eosinophils % (A) 0 %; HCT 21.2 % (39.0-53.0); HGB 7.1 gm/dL (13.0-17.5); Lymphocytes # (A) 1.6 k/uL (1.0-4.8); Lymphocytes % (A) 12 %; MCH 32.8 pg (25.0-35.0); MCHC 33.5 g/dL (31.0-37.0); MCV 97.8 fL (80.0-100.0); Mean Platelet Volume 8.3; Monocytes # (A) 0.6 k/uL (0-1.0); Monocytes % (A) 4 %; Neutrophils # (A) 11.3 k/uL (1.3-7.7); Neutrophils % (A) 83 %; Platelet Count 103 k/uL (150-450); RBC 2.17 m/uL (4.30-5.90); RDW 13.2 % (11.5-15.5); WBC 13.7 k/uL (3.8-10.6)
[2018-07-27 05:07] LABS: Ionized Calcium 4.8 mg/dL (4.5-5.3)
[2018-07-27 05:18] LABS: Calcium 8.2 mg/dL (8.4-10.2); Magnesium 2.6 mg/dL (1.6-2.3); Potassium 4.2 mmol/L (3.5-5.1); Total Bilirubin 0.4 mg/dL (0.2-1.3); Total Protein 5.1 g/dL (6.3-8.2)
[2018-07-27 05:58] LABS: Glucose,Whole Blood 85 mg/dL (75-99)
[2018-07-27] MEDS: KETOROLAC 30 MG/ML 1 ML VIAL IVP SCH ×3 (06:49→17:05)
[2018-07-27 07:14] LABS: Glucose,Whole Blood 104 mg/dL (75-99)
--- NOTE | 2018-07-27 07:19 | XR ---
EXAMINATION TYPE: XR chest 1V portable DATE OF EXAM: 07/27/2018 Comparison: 07/26/2018 and 07/25/2018 Clinical History: 78-year-old male Post Operative Cardiac Surgery Findings: Right IJ sheath with [place]-Perry catheter in the main pulmonary outflow tract. Mediastinal drains and l eft-sided chest tube are present. [id number] left pleural effusion tracks up to the apex. Retr ocardiac density persists. Median sternotomy wires as well as as plate and screw fixation. Lateral of fset regarding the vertical alignment of the multiple plates in the upper sternum is unchanged. Sligh tly tilted appearance to the first fixation plate. Heart remains enlarged with interstitial prominenc e. Impression: 1. Stable cardiomegaly with probable [id number] left effusion tracking up to the left apex and possible mild pulmonary vascular congestion. 2. Prominent postsurgical retrocardiac atelectasis. 3. Unchanged lateral offset of the first and second sternal fixation plates. Questionable clinical si gnificance. Correlate with surgical technique.
[2018-07-27] MEDS: IPRATROPIUM-ALBUTEROL 3 ML NEB INHALATION SCH ×4 (07:54→20:26)
[2018-07-27] MEDS: HEPARIN SODIUM,PORCINE 5,000 UNIT/ML 1 ML VIAL SQ SCH ×2 (08:12→16:38)
[2018-07-27] MEDS: PANTOPRAZOLE 40 MG/10 ML VIAL IVP SCH (08:12)
[2018-07-27 08:36] LABS: Glucose,Whole Blood 108 mg/dL (75-99)
[2018-07-27 08:40] LABS: ABG Base Excess 1.5 mmol/L; ABG HCO3 25 mmol/L (21-25); ABG Oxygen Saturation 96.4 % (94-97); ABG PCO2 35 mmHg (35-45); ABG PH 7.47 (7.35-7.45); ABG PO2 75 mmHg (83-108); ABG TCO2 26 mmol/L (19-24)
--- NOTE | 2018-07-27 08:56 | P.PN ---
Subjective Progress Note Date: 07/27/18 78-year-old male with a past medical history significant for hypertension, osteoarthritis, sleep apnea, TIA, and obesity who underwent CABG x 4 on 07/25/[address] Acharya after undergoing recent cardiac cath revealing triple vessel disease. Dr. Fuchs was consulted for medical management. 07/26/2018 The patient was seen and examined postoperatively in the intensive care unit. Patient was extubated during the night. He is on NC with oxygen saturations greater than 92%. He remains sleepy this morning but is easily arousable to verbal stimuli. He is on primacor, low dose levophed, and an insulin drip. Blood sugars are in the 110s. Chest tubes x 2 intact. He is hemodynamically stable. Reports his pain is tolerable this morning. WBC 13.3. Hemoglobin 8.1. Potassium 4.1. 07/27/2018 Patient examined at the bedside with Dr. Fuchs. Apparently patient became very combative and agitated last night. He was given Haldol at 0212 in the morning. The patient is currently extremely lethargic and difficult to arouse. He responds to painful stimuli and will say one or two words, although garbled and hard to understand. Patient will not open his eyes. He remains on an insulin drip. It is currently paused. However, nursing reports when it is infusing he is requiring 8-9 units an hour. Blood sugars are 85, 94, 104, 108. PHYSICAL EXAM: GENERAL: This is a 78-year-old male who is lethargic and difficult to arouse at the time of examination. HEENT: Head is atraumatic, normocephalic. Pupils are equal, round, and reactive to light. Sclerae anicteric. Conjunctivae are clear. Mucus membranes of the mouth are moist. Neck is supple. RESPIRATORY: Clear to auscultation, diminished. No wheezes, rales, or rhonchi. No use of accessory muscles. Patient maintaining oxygen saturation greater than 92%. Mediastinal and pleural chest tubes noted. CARDIOVASCULAR: Regular rate and rhythm. S1 and S2 noted. No systolic or diastolic murmur auscultated. No JVD noted. No S3 or S4 noted. GASTROINTESTINAL: No distention noted. Abdomen soft and round. Bowel sounds auscultated x 4 quadrants. No pain or tenderness noted upon palpation. INTEGUMENTARY: No cyanosis. No jaundice. No rashes noted. No cellulitis noted. EXTREMITIES: 2+ peripheral pulses. Trace bilateral lower extremity edema. MELINA drain to left lower extremity. NEUROLOGIC: Cranial nerves II-XII grossly intact. PSYCHIATRIC: Lethargic. Difficult to arouse. ASSESSMENT: Coronary artery disease, s/p CABG x 4 Acute blood loss, an expected outcome of surgery Lethargy, may be secondary to haldol administration, rule out hypoxia Hypertension History of TIA Sleep apnea Aortic stenosis Osteoarthritis BPH History of lap-band Nicotine dependence, in remission Morbid obesity: BMI 49.4 PLAN: Continue post op care per Dr. Patrizia Ragland ordered. Await results No further haldol. Avoid narcotics Due to patients mental status, patient will be unable to tolerate PO intake at this time. Due to this, we will continue insulin drip. If patients mentation improves and he is able to eat later today, insulin drip may be discontinued and will place patient on Novolog sliding scale. Pain control Activity as tolerated Monitor labs Monitor vital signs and address as appropriate Further recommendations pending patient's course Nurse practitioner note has been reviewed by physician. Signing provider agrees with the documented findings, assessment, and plan of care. Objective - Vital Signs Vital signs: Vital Signs Temp 99.3 F 07/27/18 08:00 Pulse 84 07/27/18 08:08 Resp 16 07/27/18 08:08 BP 123/58 07/26/18 22:00 Pulse Ox 93 L 07/27/18 08:00 Intake & Output 07/26/18 07/27/18 07/27/18 18:59 06:59 18:59 Intake Total 1446.660 612.478 58 Output Total 1060 945 60 Balance 386.660 -332.522 -2 Weight 156 kg Intake: IV 1018 498 58 ACETAMINOPHEN IV (For NPO 200 ) 1,000 mg In Empty Bag 1 bag @ 400 mls/hr IVPB Q6HR [facility] Rx#:[id number] Lactated Ringers 1,000 ml 480 250 40 @ 20 mls/hr IV .Q24H [facility] Rx#:[id number] cardiac output 130 90 ceFAZolin 3 gm In Sodium 100 50 Chloride 0.9% 50 ml @ 50 mls/hr IVPB Q8HR [facility] Rx#: [id number] pressure bags 108 108 18 Intake, IV Titration 428.660 114.478 Amount Dextrose 5% in Water 100 250 ml @ 618 mls/hr IV .Q10M PRN with Amiodarone 150 mg Rx#:[id number] Insulin Regular 100 unit 57.705 64.630 In Sodium Chloride 0.9% 100 ml @ Per Protocol IV .Q0M [facility] Rx#:[id number] Milrinone-D5w Pmx 20 mg 62.990 In Dextrose/Water 1 100ml .bag @ Per Protocol IV . Q0M [facility] Rx#:[id number] Nitroglycerin-D5w Pmx 50 22.15 mg In Dextrose/Water 1 250ml.bag @ 5 MCG/MIN 1.5 mls/hr IV .Q24H [facility] Rx#: [id number] Norepinephrine 4 mg In 35.815 49.848 Sodium Chloride 0.9% 250 ml @ Titrate IV .Q0M [facility] Rx#:[id number] Output: Chest Tube Drainage 550 460 left pleural 430 330 mediastinal x2 120 130 Drainage 20 10 left calf 20 10 Urine 490 475 60 Other: Voiding Method Indwelling Catheter Indwelling Catheter ABP, PAP, CO, CI - Last Documented Arterial Blood Pressure 155/66 Pulmonary Artery Pressure 46/11 Cardiac Output 7.2 Cardiac Index 2.8 - Labs CBC & Chem 7: 07/27/18 04:58 07/27/18 04:58 Labs: Abnormal Lab Results - Last 24 Hours (Table) 07/26/18 07/26/18 07/26/18 Range/Units 09:06 10:03 11:03 WBC (3.8-10.6) k/uL RBC (4.30-5.90) m/uL Hgb (13.0-17.5) gm/dL Hct (39.0-53.0) % Plt Count (150-450) k/uL Neutrophils # (1.3-7.7) k/uL Chloride (98-107) mmol/L BUN (9-20) mg/dL POC Glucose (mg/dL) 114 H 115 H 115 H (75-99) mg/dL Calcium (8.4-10.2) mg/dL Magnesium (1.6-2.3) mg/dL AST (17-59) U/L Alkaline Phosphatase (38-126) U/L Total Protein (6.3-8.2) g/dL Albumin (3.5-5.0) g/dL 07/26/18 07/26/18 07/26/18 Range/Units 12:28 13:00 13:58 WBC (3.8-10.6) k/uL RBC (4.30-5.90) m/uL Hgb (13.0-17.5) gm/dL Hct (39.0-53.0) % Plt Count (150-450) k/uL Neutrophils # (1.3-7.7) k/uL Chloride (98-107) mmol/L BUN (9-20) mg/dL POC Glucose (mg/dL) 111 H 119 H 105 H (75-99) mg/dL Calcium (8.4-10.2) mg/dL Magnesium (1.6-2.3) mg/dL AST (17-59) U/L Alkaline Phosphatase (38-126) U/L Total Protein (6.3-8.2) g/dL Albumin (3.5-5.0) g/dL 07/26/18 07/26/18 07/26/18 Range/Units 15:05 16:18 17:17 WBC (3.8-10.6) k/uL RBC (4.30-5.90) m/uL Hgb (13.0-17.5) gm/dL Hct (39.0-53.0) % Plt Count (150-450) k/uL Neutrophils # (1.3-7.7) k/uL Chloride (98-107) mmol/L BUN (9-20) mg/dL POC Glucose (mg/dL) 113 H 135 H 129 H (75-99) mg/dL Calcium (8.4-10.2) mg/dL Magnesium (1.6-2.3) mg/dL AST (17-59) U/L Alkaline Phosphatase (38-126) U/L Total Protein (6.3-8.2) g/dL Albumin (3.5-5.0) g/dL 07/26/18 07/26/18 07/26/18 Range/Units 18:09 19:04 20:02 WBC (3.8-10.6) k/uL RBC (4.30-5.90) m/uL Hgb (13.0-17.5) gm/dL Hct (39.0-53.0) % Plt Count (150-450) k/uL Neutrophils # (1.3-7.7) k/uL Chloride (98-107) mmol/L BUN (9-20) mg/dL POC Glucose (mg/dL) 121 H 113 H 122 H (75-99) mg/dL Calcium (8.4-10.2) mg/dL Magnesium (1.6-2.3) mg/dL AST (17-59) U/L Alkaline Phosphatase (38-126) U/L Total Protein (6.3-8.2) g/dL Albumin (3.5-5.0) g/dL 07/26/18 07/26/18 07/26/18 Range/Units 21:04 22:16 23:56 WBC (3.8-10.6) k/uL RBC (4.30-5.90) m/uL Hgb (13.0-17.5) gm/dL Hct (39.0-53.0) % Plt Count (150-450) k/uL Neutrophils # (1.3-7.7) k/uL Chloride (98-107) mmol/L BUN (9-20) mg/dL POC Glucose (mg/dL) 113 H 127 H 109 H (75-99) mg/dL Calcium (8.4-10.2) mg/dL Magnesium (1.6-2.3) mg/dL AST (17-59) U/L Alkaline Phosphatase (38-126) U/L Total Protein (6.3-8.2) g/dL Albumin (3.5-5.0) g/dL 07/27/18 07/27/18 07/27/18 Range/Units 01:52 04:22 04:58 WBC (3.8-10.6) k/uL RBC (4.30-5.90) m/uL Hgb (13.0-17.5) gm/dL Hct (39.0-53.0) % Plt Count (150-450) k/uL Neutrophils # (1.3-7.7) k/uL Chloride 109 H (98-107) mmol/L BUN 28 H (9-20) mg/dL POC Glucose (mg/dL) 166 H 118 H (75-99) mg/dL Calcium 8.2 L (8.4-10.2) mg/dL Magnesium 2.6 H (1.6-2.3) mg/dL AST 271 H (17-59) U/L Alkaline Phosphatase 26 L (38-126) U/L Total Protein 5.1 L (6.3-8.2) g/dL Albumin 3.0 L (3.5-5.0) g/dL 07/27/18 07/27/18 07/27/18 Range/Units 04:58 07:11 08:11 WBC 13.7 H (3.8-10.6) k/uL RBC 2.17 L (4.30-5.90) m/uL Hgb 7.1 L (13.0-17.5) gm/dL Hct 21.2 L (39.0-53.0) % Plt Count 103 L (150-450) k/uL Neutrophils # 11.3 H (1.3-7.7) k/uL Chloride (98-107) mmol/L BUN (9-20) mg/dL POC Glucose (mg/dL) 104 H 108 H (75-99) mg/dL Calcium (8.4-10.2) mg/dL Magnesium (1.6-2.3) mg/dL AST (17-59) U/L Alkaline Phosphatase (38-126) U/L Total Protein (6.3-8.2) g/dL Albumin (3.5-5.0) g/dL
--- NOTE | 2018-07-27 09:07 | P.PN ---
Subjective Progress Note Date: 07/27/18 78-year-old gentleman is status post aortocoronary bypass surgery. Last night patient got agitated and received Haldol. This morning patient is sleepy and lethargic but arousable. Patient is not communicating. Hemodynamically stable. Maintaining sinus rhythm. No arrhythmias noted. Urine output is adequate. Blood work shows anemia which is stable. We'll continue current medical therapy. Objective - Vital Signs Vital signs: Vital Signs Temp 99.3 F 07/27/18 08:00 Pulse 84 07/27/18 08:08 Resp 16 07/27/18 08:08 BP 123/58 07/26/18 22:00 Pulse Ox 93 L 07/27/18 08:00 Intake & Output 07/26/18 07/27/18 07/27/18 18:59 06:59 18:59 Intake Total 1446.660 612.478 58 Output Total 1060 945 60 Balance 386.660 -332.522 -2 Weight 156 kg Intake: IV 1018 498 58 ACETAMINOPHEN IV (For NPO 200 ) 1,000 mg In Empty Bag 1 bag @ 400 mls/hr IVPB Q6HR [facility] Rx#:[id number] Lactated Ringers 1,000 ml 480 250 40 @ 20 mls/hr IV .Q24H [facility] Rx#:[id number] cardiac output 130 90 ceFAZolin 3 gm In Sodium 100 50 Chloride 0.9% 50 ml @ 50 mls/hr IVPB Q8HR [facility] Rx#: [id number] pressure bags 108 108 18 Intake, IV Titration 428.660 114.478 Amount Dextrose 5% in Water 100 250 ml @ 618 mls/hr IV .Q10M PRN with Amiodarone 150 mg Rx#:[id number] Insulin Regular 100 unit 57.705 64.630 In Sodium Chloride 0.9% 100 ml @ Per Protocol IV .Q0M [facility] Rx#:[id number] Milrinone-D5w Pmx 20 mg 62.990 In Dextrose/Water 1 100ml .bag @ Per Protocol IV . Q0M [facility] Rx#:[id number] Nitroglycerin-D5w Pmx 50 22.15 mg In Dextrose/Water 1 250ml.bag @ 5 MCG/MIN 1.5 mls/hr IV .Q24H [facility] Rx#: [id number] Norepinephrine 4 mg In 35.815 49.848 Sodium Chloride 0.9% 250 ml @ Titrate IV .Q0M [facility] Rx#:[id number] Output: Chest Tube Drainage 550 460 left pleural 430 330 mediastinal x2 120 130 Drainage 20 10 left calf 20 10 Urine 490 475 60 Other: Voiding Method Indwelling Catheter Indwelling Catheter ABP, PAP, CO, CI - Last Documented Arterial Blood Pressure 155/66 Pulmonary Artery Pressure 46/11 Cardiac Output 7.2 Cardiac Index 2.8 - Exam GENERAL EXAM: Patient is sleepy and barely arousable. Not communicative HEENT: Normocephalic. Normal reaction of pupils, equal size, normal range of extraocular motion. No erythema or exudates in the throat. NECK: No masses, no nuchal rigidity. CHEST: Postsurgical changes LUNGS: Equal air entry with no crackles or wheeze. HEART: S1 and S2 normal with no audible mumurs or gallops. Regular rhythm, femorals equal on both sides.. ABDOMEN: No hepatosplenomegaly, normal bowel sounds, no guarding or rigidity. SKIN: No rashes CENTRAL NERVOUS SYSTEM: No focal deficits. EXTREMITIES: No cyanosis, clubbing or edema. - Labs CBC & Chem 7: 07/27/18 04:58 07/27/18 04:58 Labs: Abnormal Lab Results - Last 24 Hours (Table) 07/26/18 07/26/18 07/26/18 Range/Units 09:06 10:03 11:03 WBC (3.8-10.6) k/uL RBC (4.30-5.90) m/uL Hgb (13.0-17.5) gm/dL Hct (39.0-53.0) % Plt Count (150-450) k/uL Neutrophils # (1.3-7.7) k/uL ABG pH (7.35-7.45) ABG pO2 (83-108) mmHg ABG Total CO2 (19-24) mmol/L Chloride (98-107) mmol/L BUN (9-20) mg/dL POC Glucose (mg/dL) 114 H 115 H 115 H (75-99) mg/dL Calcium (8.4-10.2) mg/dL Magnesium (1.6-2.3) mg/dL AST (17-59) U/L Alkaline Phosphatase (38-126) U/L Total Protein (6.3-8.2) g/dL Albumin (3.5-5.0) g/dL 07/26/18 07/26/18 07/26/18 Range/Units 12:28 13:00 13:58 WBC (3.8-10.6) k/uL RBC (4.30-5.90) m/uL Hgb (13.0-17.5) gm/dL Hct (39.0-53.0) % Plt Count (150-450) k/uL Neutrophils # (1.3-7.7) k/uL ABG pH (7.35-7.45) ABG pO2 (83-108) mmHg ABG Total CO2 (19-24) mmol/L Chloride (98-107) mmol/L BUN (9-20) mg/dL POC Glucose (mg/dL) 111 H 119 H 105 H (75-99) mg/dL Calcium (8.4-10.2) mg/dL Magnesium (1.6-2.3) mg/dL AST (17-59) U/L Alkaline Phosphatase (38-126) U/L Total Protein (6.3-8.2) g/dL Albumin (3.5-5.0) g/dL 07/26/18 07/26/18 07/26/18 Range/Units 15:05 16:18 17:17 WBC (3.8-10.6) k/uL RBC (4.30-5.90) m/uL Hgb (13.0-17.5) gm/dL Hct (39.0-53.0) % Plt Count (150-450) k/uL Neutrophils # (1.3-7.7) k/uL ABG pH (7.35-7.45) ABG pO2 (83-108) mmHg ABG Total CO2 (19-24) mmol/L Chloride (98-107) mmol/L BUN (9-20) mg/dL POC Glucose (mg/dL) 113 H 135 H 129 H (75-99) mg/dL Calcium (8.4-10.2) mg/dL Magnesium (1.6-2.3) mg/dL AST (17-59) U/L Alkaline Phosphatase (38-126) U/L Total Protein (6.3-8.2) g/dL Albumin (3.5-5.0) g/dL 07/26/18 07/26/18 07/26/18 Range/Units 18:09 19:04 20:02 WBC (3.8-10.6) k/uL RBC (4.30-5.90) m/uL Hgb (13.0-17.5) gm/dL Hct (39.0-53.0) % Plt Count (150-450) k/uL Neutrophils # (1.3-7.7) k/uL ABG pH (7.35-7.45) ABG pO2 (83-108) mmHg ABG Total CO2 (19-24) mmol/L Chloride (98-107) mmol/L BUN (9-20) mg/dL POC Glucose (mg/dL) 121 H 113 H 122 H (75-99) mg/dL Calcium (8.4-10.2) mg/dL Magnesium (1.6-2.3) mg/dL AST (17-59) U/L Alkaline Phosphatase (38-126) U/L Total Protein (6.3-8.2) g/dL Albumin (3.5-5.0) g/dL 07/26/18 07/26/18 07/26/18 Range/Units 21:04 22:16 23:56 WBC (3.8-10.6) k/uL RBC (4.30-5.90) m/uL Hgb (13.0-17.5) gm/dL Hct (39.0-53.0) % Plt Count (150-450) k/uL Neutrophils # (1.3-7.7) k/uL ABG pH (7.35-7.45) ABG pO2 (83-108) mmHg ABG Total CO2 (19-24) mmol/L Chloride (98-107) mmol/L BUN (9-20) mg/dL POC Glucose (mg/dL) 113 H 127 H 109 H (75-99) mg/dL Calcium (8.4-10.2) mg/dL Magnesium (1.6-2.3) mg/dL AST (17-59) U/L Alkaline Phosphatase (38-126) U/L Total Protein (6.3-8.2) g/dL Albumin (3.5-5.0) g/dL 07/27/18 07/27/18 07/27/18 Range/Units 01:52 04:22 04:58 WBC (3.8-10.6) k/uL RBC (4.30-5.90) m/uL Hgb (13.0-17.5) gm/dL Hct (39.0-53.0) % Plt Count (150-450) k/uL Neutrophils # (1.3-7.7) k/uL ABG pH (7.35-7.45) ABG pO2 (83-108) mmHg ABG Total CO2 (19-24) mmol/L Chloride 109 H (98-107) mmol/L BUN 28 H (9-20) mg/dL POC Glucose (mg/dL) 166 H 118 H (75-99) mg/dL Calcium 8.2 L (8.4-10.2) mg/dL Magnesium 2.6 H (1.6-2.3) mg/dL AST 271 H (17-59) U/L Alkaline Phosphatase 26 L (38-126) U/L Total Protein 5.1 L (6.3-8.2) g/dL Albumin 3.0 L (3.5-5.0) g/dL 07/27/18 07/27/18 07/27/18 Range/Units 04:58 07:11 08:11 WBC 13.7 H (3.8-10.6) k/uL RBC 2.17 L (4.30-5.90) m/uL Hgb 7.1 L (13.0-17.5) gm/dL Hct 21.2 L (39.0-53.0) % Plt Count 103 L (150-450) k/uL Neutrophils # 11.3 H (1.3-7.7) k/uL ABG pH (7.35-7.45) ABG pO2 (83-108) mmHg ABG Total CO2 (19-24) mmol/L Chloride (98-107) mmol/L BUN (9-20) mg/dL POC Glucose (mg/dL) 104 H 108 H (75-99) mg/dL Calcium (8.4-10.2) mg/dL Magnesium (1.6-2.3) mg/dL AST (17-59) U/L Alkaline Phosphatase (38-126) U/L Total Protein (6.3-8.2) g/dL Albumin (3.5-5.0) g/dL 07/27/18 Range/Units 08:38 WBC (3.8-10.6) k/uL RBC (4.30-5.90) m/uL Hgb (13.0-17.5) gm/dL Hct (39.0-53.0) % Plt Count (150-450) k/uL Neutrophils # (1.3-7.7) k/uL ABG pH 7.47 H (7.35-7.45) ABG pO2 75 L (83-108) mmHg ABG Total CO2 26 H (19-24) mmol/L Chloride (98-107) mmol/L BUN (9-20) mg/dL POC Glucose (mg/dL) (75-99) mg/dL Calcium (8.4-10.2) mg/dL Magnesium (1.6-2.3) mg/dL AST (17-59) U/L Alkaline Phosphatase (38-126) U/L Total Protein (6.3-8.2) g/dL Albumin (3.5-5.0) g/dL Assessment and Plan (1) Status post aorto-coronary artery bypass graft Current Visit: Yes Status: Acute Code(s): Z95.1 - PRESENCE OF AORTOCORONARY BYPASS GRAFT SNOMED Code(s): 126866076 (2) Aortic valve stenosis Current Visit: Yes Status: Chronic Code(s): I35.0 - NONRHEUMATIC AORTIC ( VALVE) STENOSIS SNOMED Code(s): 51732254 (3) Hypertension Current Visit: Yes Status: Chronic Code(s): I10 - ESSENTIAL (PRIMARY) HYPERTENSION SNOMED Code(s): 76273503 (4) Morbid obesity with BMI of 45.0-49.9, adult Current Visit: Yes Status: Chronic Code(s): E66.01 - MORBID (SEVERE) OBESITY DUE TO EXCESS CALORIES; Z68.42 - BODY MASS INDEX (BMI) 45.0-49.9, ADULT SNOMED Code(s): 773725925 Plan: Patient is status post CABG. Patient's mental status remains unstable. Patient was agitated last night. Currently sleepy and drowsy and barely arousable. Hemodynamically otherwise stable. Continue current medical therapy.
[2018-07-27 09:31] LABS: Glucose,Whole Blood 123 mg/dL (75-99)
--- NOTE | 2018-07-27 10:18 | P.PN ---
Subjective Progress Note Date: 07/27/18 Principal diagnosis: Coronary artery disease. Previous medical history of hypertension, previous tobacco dependence with preoperative FEV1 86% of predicted, obstructive sleep apnea, TIA, bilateral internal carotid artery stenosis 50-79%, prostate disorder , morbid obesity with history of bariatric surgery, and drop foot on the left leg. POD #2 coronary artery bypass grafting 4 vessels, left internal mammary to the left anterior descending artery, reverse saphenous vein graft to the diagonal artery, reverse saphenous vein graft to the second obtuse marginal artery, reverse saphenous vein graft to the posterior lateral branch of the right coronary artery. Endoscopic vein harvest of bilateral greater saphenous veins. Epi-aortic ultrasound. Intraoperative transesophageal echocardiogram. Closure of the sternum using titanium plating system. Postoperative acute blood loss anemia, expected postsurgical condition secondary to hemodilution and cardiopulmonary bypass pump. The patient is currently lying in bed in no acute distress. Denies pain, shortness of breath. Currently off all pressors and inotropes, hemodynamically stable. Patient was agitated and confused last night, received IV Haldol, currently sleepy but does arouse. Objective - Vital Signs Vital signs: Vital Signs Temp 99.3 F 07/27/18 08:00 Pulse 85 07/27/18 09:00 Resp 19 07/27/18 09:00 BP 123/58 07/26/18 22:00 Pulse Ox 96 07/27/18 09:00 Intake & Output 07/26/18 07/27/18 07/27/18 18:59 06:59 18:59 Intake Total 1446.660 612.478 92.661 Output Total 1060 945 185 Balance 386.660 -332.522 -92.339 Weight 156 kg Intake: IV 1018 498 87 ACETAMINOPHEN IV (For NPO 200 ) 1,000 mg In Empty Bag 1 bag @ 400 mls/hr IVPB Q6HR [facility] Rx#:[id number] Lactated Ringers 1,000 ml 480 250 60 @ 20 mls/hr IV .Q24H [facility] Rx#:[id number] cardiac output 130 90 ceFAZolin 3 gm In Sodium 100 50 Chloride 0.9% 50 ml @ 50 mls/hr IVPB Q8HR [facility] Rx#: [id number] pressure bags 108 108 27 Intake, IV Titration 428.660 114.478 5.661 Amount Dextrose 5% in Water 100 250 ml @ 618 mls/hr IV .Q10M PRN with Amiodarone 150 mg Rx#:[id number] Insulin Regular 100 unit 57.705 64.630 5.661 In Sodium Chloride 0.9% 100 ml @ Per Protocol IV .Q0M [facility] Rx#:[id number] Milrinone-D5w Pmx 20 mg 62.990 In Dextrose/Water 1 100ml .bag @ Per Protocol IV . Q0M [facility] Rx#:[id number] Nitroglycerin-D5w Pmx 50 22.15 mg In Dextrose/Water 1 250ml.bag @ 5 MCG/MIN 1.5 mls/hr IV .Q24H [facility] Rx#: [id number] Norepinephrine 4 mg In 35.815 49.848 Sodium Chloride 0.9% 250 ml @ Titrate IV .Q0M [facility] Rx#:[id number] Output: Chest Tube Drainage 550 460 90 left pleural 430 330 90 mediastinal x2 120 130 0 Drainage 20 10 left calf 20 10 Urine 490 475 95 Other: Voiding Method Indwelling Catheter Indwelling Catheter ABP, PAP, CO, CI - Last Documented Arterial Blood Pressure 150/64 Pulmonary Artery Pressure 44/8 Cardiac Output 7.2 Cardiac Index 2.8 - Constitutional General appearance: Present: cooperative, no acute distress, obese - Respiratory Details: Lungs sounds diminished bilaterally. Respirations even, nonlabored. Currently on 9 L high flow nasal cannula with oxygen saturation 96%. Not able to use incentive spirometry appropriately. Weak cough. Mediastinal chest tube to continuous wall suction, 100 mL serosanguineous drainage overnight, 250 mL since surgery. Left pleural chest tube to continuous wall suction, 220 mL serosanguineous drainage overnight, 850 mL since surgery. No air leaks present. - Cardiovascular Details: S1, S2 present. Regular rate and rhythm, sinus rhythm on telemetry. Sternum stable. A/V epicardial pacemaker wires present, grounded. Palpable peripheral pulses bilaterally. Trace generalized edema present. No calf pain or tenderness noted. Right internal jugular [place]/Cordis, right radial arterial line present. Heart hugger in place with patient unable to demonstrate appropriate use. Antiembolism stockings, SCDs present. - Gastrointestinal Gastrointestinal Comment(s): Abdomen soft, nondistended, nontender, obese. Hypoactive bowel sounds present 4 quadrants. Able to swallow pills with applesauce but not eating very much currently due to lethargy. - Genitourinary Genitourinary Comment(s): Smith present draining clear, yellow urine. Output 35-40 mL per hour overnight. - Integumentary Integumentary Comment(s): Skin is warm and dry with evidence of good perfusion. Anterior chest incision well approximated, dry intact dressing present. Left lower extremity EVH site well approximated, MELINA drain present with minimal drainage. - Neurologic Neurologic: Present: CNII-XII intact - Musculoskeletal Musculoskeletal Comment(s): Left foot drop present, chronic for patient. Musculoskeletal: Present: generalized weakness, strength equal bilaterally - Psychiatric Psychiatric Comment(s): Patient is sleepy but does arouse to verbal commands. - Allied health notes Allied health notes reviewed: nursing - Labs CBC & Chem 7: 07/27/18 04:58 07/27/18 04:58 Labs: Abnormal Lab Results - Last 24 Hours (Table) 07/26/18 07/26/18 07/26/18 Range/Units 10:03 11:03 12:28 WBC (3.8-10.6) k/uL RBC (4.30-5.90) m/uL Hgb (13.0-17.5) gm/dL Hct (39.0-53.0) % Plt Count (150-450) k/uL Neutrophils # (1.3-7.7) k/uL ABG pH (7.35-7.45) ABG pO2 (83-108) mmHg ABG Total CO2 (19-24) mmol/L Chloride (98-107) mmol/L BUN (9-20) mg/dL POC Glucose (mg/dL) 115 H 115 H 111 H (75-99) mg/dL Calcium (8.4-10.2) mg/dL Magnesium (1.6-2.3) mg/dL AST (17-59) U/L Alkaline Phosphatase (38-126) U/L Total Protein (6.3-8.2) g/dL Albumin (3.5-5.0) g/dL 07/26/18 07/26/18 07/26/18 Range/Units 13:00 13:58 15:05 WBC (3.8-10.6) k/uL RBC (4.30-5.90) m/uL Hgb (13.0-17.5) gm/dL Hct (39.0-53.0) % Plt Count (150-450) k/uL Neutrophils # (1.3-7.7) k/uL ABG pH (7.35-7.45) ABG pO2 (83-108) mmHg ABG Total CO2 (19-24) mmol/L Chloride (98-107) mmol/L BUN (9-20) mg/dL POC Glucose (mg/dL) 119 H 105 H 113 H (75-99) mg/dL Calcium (8.4-10.2) mg/dL Magnesium (1.6-2.3) mg/dL AST (17-59) U/L Alkaline Phosphatase (38-126) U/L Total Protein (6.3-8.2) g/dL Albumin (3.5-5.0) g/dL 07/26/18 07/26/18 07/26/18 Range/Units 16:18 17:17 18:09 WBC (3.8-10.6) k/uL RBC (4.30-5.90) m/uL Hgb (13.0-17.5) gm/dL Hct (39.0-53.0) % Plt Count (150-450) k/uL Neutrophils # (1.3-7.7) k/uL ABG pH (7.35-7.45) ABG pO2 (83-108) mmHg ABG Total CO2 (19-24) mmol/L Chloride (98-107) mmol/L BUN (9-20) mg/dL POC Glucose (mg/dL) 135 H 129 H 121 H (75-99) mg/dL Calcium (8.4-10.2) mg/dL Magnesium (1.6-2.3) mg/dL AST (17-59) U/L Alkaline Phosphatase (38-126) U/L Total Protein (6.3-8.2) g/dL Albumin (3.5-5.0) g/dL 07/26/18 07/26/18 07/26/18 Range/Units 19:04 20:02 21:04 WBC (3.8-10.6) k/uL RBC (4.30-5.90) m/uL Hgb (13.0-17.5) gm/dL Hct (39.0-53.0) % Plt Count (150-450) k/uL Neutrophils # (1.3-7.7) k/uL ABG pH (7.35-7.45) ABG pO2 (83-108) mmHg ABG Total CO2 (19-24) mmol/L Chloride (98-107) mmol/L BUN (9-20) mg/dL POC Glucose (mg/dL) 113 H 122 H 113 H (75-99) mg/dL Calcium (8.4-10.2) mg/dL Magnesium (1.6-2.3) mg/dL AST (17-59) U/L Alkaline Phosphatase (38-126) U/L Total Protein (6.3-8.2) g/dL Albumin (3.5-5.0) g/dL 07/26/18 07/26/18 07/27/18 Range/Units 22:16 23:56 01:52 WBC (3.8-10.6) k/uL RBC (4.30-5.90) m/uL Hgb (13.0-17.5) gm/dL Hct (39.0-53.0) % Plt Count (150-450) k/uL Neutrophils # (1.3-7.7) k/uL ABG pH (7.35-7.45) ABG pO2 (83-108) mmHg ABG Total CO2 (19-24) mmol/L Chloride (98-107) mmol/L BUN (9-20) mg/dL POC Glucose (mg/dL) 127 H 109 H 166 H (75-99) mg/dL Calcium (8.4-10.2) mg/dL Magnesium (1.6-2.3) mg/dL AST (17-59) U/L Alkaline Phosphatase (38-126) U/L Total Protein (6.3-8.2) g/dL Albumin (3.5-5.0) g/dL 07/27/18 07/27/18 07/27/18 Range/Units 04:22 04:58 04:58 WBC 13.7 H (3.8-10.6) k/uL RBC 2.17 L (4.30-5.90) m/uL Hgb 7.1 L (13.0-17.5) gm/dL Hct 21.2 L (39.0-53.0) % Plt Count 103 L (150-450) k/uL Neutrophils # 11.3 H (1.3-7.7) k/uL ABG pH (7.35-7.45) ABG pO2 (83-108) mmHg ABG Total CO2 (19-24) mmol/L Chloride 109 H (98-107) mmol/L BUN 28 H (9-20) mg/dL POC Glucose (mg/dL) 118 H (75-99) mg/dL Calcium 8.2 L (8.4-10.2) mg/dL Magnesium 2.6 H (1.6-2.3) mg/dL AST 271 H (17-59) U/L Alkaline Phosphatase 26 L (38-126) U/L Total Protein 5.1 L (6.3-8.2) g/dL Albumin 3.0 L (3.5-5.0) g/dL 07/27/18 07/27/18 07/27/18 Range/Units 07:11 08:11 08:38 WBC (3.8-10.6) k/uL RBC (4.30-5.90) m/uL Hgb (13.0-17.5) gm/dL Hct (39.0-53.0) % Plt Count (150-450) k/uL Neutrophils # (1.3-7.7) k/uL ABG pH 7.47 H (7.35-7.45) ABG pO2 75 L (83-108) mmHg ABG Total CO2 26 H (19-24) mmol/L Chloride (98-107) mmol/L BUN (9-20) mg/dL POC Glucose (mg/dL) 104 H 108 H (75-99) mg/dL Calcium (8.4-10.2) mg/dL Magnesium (1.6-2.3) mg/dL AST (17-59) U/L Alkaline Phosphatase (38-126) U/L Total Protein (6.3-8.2) g/dL Albumin (3.5-5.0) g/dL 07/27/18 Range/Units 09:24 WBC (3.8-10.6) k/uL RBC (4.30-5.90) m/uL Hgb (13.0-17.5) gm/dL Hct (39.0-53.0) % Plt Count (150-450) k/uL Neutrophils # (1.3-7.7) k/uL ABG pH (7.35-7.45) ABG pO2 (83-108) mmHg ABG Total CO2 (19-24) mmol/L Chloride (98-107) mmol/L BUN (9-20) mg/dL POC Glucose (mg/dL) 123 H (75-99) mg/dL Calcium (8.4-10.2) mg/dL Magnesium (1.6-2.3) mg/dL AST (17-59) U/L Alkaline Phosphatase (38-126) U/L Total Protein (6.3-8.2) g/dL Albumin (3.5-5.0) g/dL - Imaging and Cardiology Chest x-ray: report reviewed, image reviewed Assessment and Plan (1) Status post aorto-coronary artery bypass graft Current Visit: Yes Status: Acute Code(s): Z95.1 - PRESENCE OF AORTOCORONARY BYPASS GRAFT SNOMED Code(s): 231563944 (2) Aortic valve stenosis Current Visit: Yes Status: Chronic Code(s): I35.0 - NONRHEUMATIC AORTIC ( VALVE) STENOSIS SNOMED Code(s): 75545412 (3) BPH (benign prostatic hyperplasia) Current Visit: Yes Status: Chronic Code(s): N40.0 - BENIGN PROSTATIC HYPERPLASIA WITHOUT LOWER URINRY TRACT SYMP SNOMED Code(s): 669842889 (4) Coronary artery disease Current Visit: Yes Status: Chronic Code(s): I25.10 - ATHSCL HEART DISEASE OF [place] CORONARY ARTERY W/O ANG PCTRS SNOMED Code(s): 11845150 (5) Foot drop, left Current Visit: Yes Status: Chronic Code(s): M21.372 - FOOT DROP, LEFT FOOT SNOMED Code(s): 4635934 (6) Hypertension Current Visit: Yes Status: Chronic Code(s): I10 - ESSENTIAL (PRIMARY) HYPERTENSION SNOMED Code(s): 88748497 (7) Morbid obesity with BMI of 45.0-49.9, adult Current Visit: Yes Status: Chronic Code(s): E66.01 - MORBID (SEVERE) OBESITY DUE TO EXCESS CALORIES; Z68.42 - BODY MASS INDEX (BMI) 45.0-49.9, ADULT SNOMED Code(s): 224305904 (8) Nicotine dependence in remission Current Visit: No Status: Resolved Code(s): F17.201 - NICOTINE DEPENDENCE, UNSPECIFIED, IN REMISSION SNOMED Code(s): 74713800 (9) Obstructive sleep apnea Current Visit: Yes Status: Chronic Code(s): G47.33 - OBSTRUCTIVE SLEEP APNEA (ADULT) (PEDIATRIC) SNOMED Code(s): 14919195 (10) Osteoarthritis Current Visit: Yes Status: Chronic Code(s): M19.90 - UNSPECIFIED OSTEOARTHRITIS, UNSPECIFIED SITE SNOMED Code(s): 780341096 Plan: 1. Continue aspirin, statin, Plavix, beta rodríguez therapy, will increase beta rodríguez therapy as tolerated. 2. Wean O2 as tolerated. Encourage incentive spirometry use 10 times every hour while awake. 3. Increase activity as tolerated. PT/OT/cardiac rehab following. Patient should wear boot for ambulation on left leg. 4. Bronchodilators per pulmonology. 5. Will monitor daily labs and x-rays. No transfusion at this point. Oral iron and vitamin C added. 6. GI prophylaxis with Protonix. DVT prophylaxis with subcu heparin, SCDs. 7. Pain control with current medication regimen. Avoid narcotics at this point in time as patient is too sleepy. 8. Reorient patient as needed. 9. Insulin management per primary care service. 10. Mediastinal chest tubes discontinued without incident. 11. Will consult social work for insurance authorization as patient is going to need rehab upon discharge. 12. More recommendations to follow. Time with Patient: Greater than 30
[2018-07-27] MEDS: INSULIN REGULAR 100 UNIT in SODIUM CHLORIDE 0.9% 100 ML IV SCH (10:28)
[2018-07-27 10:30] LABS: Glucose,Whole Blood 119 mg/dL (75-99)
[2018-07-27] MEDS: ATORVASTATIN 40 MG TAB PO SCH ×2 (10:37→17:06)
[2018-07-27] MEDS: METOPROLOL TARTRATE 25 MG TAB PO SCH ×2 (10:37→16:39)
[2018-07-27] MEDS: ASPIRIN 325 MG TAB PO SCH (10:37)
[2018-07-27] MEDS: CLOPIDOGREL 75 MG TAB PO SCH (10:37)
[2018-07-27] MEDS: OXYBUTYNIN CHLORIDE 5 MG TAB PO SCH ×2 (10:38→17:06)
[2018-07-27] MEDS: MUPIROCIN 2% OINT 22 GM TUBE NASAL SCH ×2 (10:38→21:18)
[2018-07-27] MEDS: ASCORBIC ACID 500 MG TAB PO SCH ×2 (10:47→19:37)
[2018-07-27] MEDS: FERROUS SULFATE 325 MG TAB PO SCH ×2 (10:47→19:39)
[2018-07-27 12:17] LABS: Glucose,Whole Blood 103 mg/dL (75-99)
[2018-07-27] MEDS: LACTATED RINGERS 1,000 ML IV SCH (13:09)
[2018-07-27 13:42] LABS: Glucose,Whole Blood 121 mg/dL (75-99)
[2018-07-27 15:21] LABS: Glucose,Whole Blood 113 mg/dL (75-99)
[2018-07-27] MEDS: CLEVIDIPINE BUTYRATE 25 MG in EMPTY BAG 1 BAG IV SCH (16:40)
[2018-07-27 16:57] LABS: Glucose,Whole Blood 117 mg/dL (75-99)
[2018-07-27 18:18] LABS: Glucose,Whole Blood 131 mg/dL (75-99)
[2018-07-27] MEDS: TAMSULOSIN 0.4 MG CAP.ER.24H PO SCH (19:39)
[2018-07-27 20:08] LABS: Glucose,Whole Blood 113 mg/dL (75-99)
[2018-07-27 21:11] LABS: Glucose,Whole Blood 115 mg/dL (75-99)
[2018-07-27] MEDS: METOPROLOL TARTRATE 5 MG/5 ML VIAL IVP SCH (21:11)
[2018-07-27] MEDS: SENNOSIDES-DOCUSATE SODIUM 1 EACH TAB PO SCH (21:12)
[2018-07-27] MEDS: QUEtiapine 25 MG TAB PO SCH (21:12)
[2018-07-27 22:07] LABS: Glucose,Whole Blood 132 mg/dL (75-99)
[2018-07-27 22:49] LABS: Glucose,Whole Blood 131 mg/dL (75-99)
[2018-07-28] MEDS: KETOROLAC 30 MG/ML 1 ML VIAL IVP SCH ×4 (00:24→18:33)
[2018-07-28 00:26] LABS: Glucose,Whole Blood 109 mg/dL (75-99)
[2018-07-28] MEDS: HEPARIN SODIUM,PORCINE 5,000 UNIT/ML 1 ML VIAL SQ SCH ×3 (00:26→17:19)
[2018-07-28 01:42] LABS: Glucose,Whole Blood 123 mg/dL (75-99)
[2018-07-28 02:19] LABS: Glucose,Whole Blood 111 mg/dL (75-99)
[2018-07-28] MEDS ORDERED: FUROSEMIDE 10 MG/ML 2 ML VIAL IV ONE ×2 (03:26→14:00)
[2018-07-28 03:55] LABS: Glucose,Whole Blood 118 mg/dL (75-99)
[2018-07-28] MEDS ORDERED: METOPROLOL TARTRATE 5 MG/5 ML VIAL IVP STA (04:13)
[2018-07-28] MEDS: NITROGLYCERIN OINT 1 INCH/GM PACKET TOPICAL SCH ×3 (04:25→18:34)
[2018-07-28 04:47] LABS: Glucose,Whole Blood 132 mg/dL (75-99)
[2018-07-28 04:50] LABS: Basophils % (A) 0 %; Eosinophils # (A) 0.1 k/uL (0-0.7); Eosinophils % (A) 1 %; Lymphocytes # (A) 1.5 k/uL (1.0-4.8); Lymphocytes % (A) 13 %; MCH 31.7 pg (25.0-35.0); MCHC 32.2 g/dL (31.0-37.0); MCV 98.5 fL (80.0-100.0); Mean Platelet Volume 7.9; Monocytes # (A) 0.5 k/uL (0-1.0); Monocytes % (A) 4 %; Neutrophils # (A) 9.4 k/uL (1.3-7.7); Neutrophils % (A) 80 %; Platelet Count 101 k/uL (150-450); RDW 13.6 % (11.5-15.5); WBC 11.7 k/uL (3.8-10.6)
[2018-07-28 04:56] LABS: HCT 17.7 % (39.0-53.0); HGB 5.7 gm/dL (13.0-17.5)
[2018-07-28 05:01] LABS: Ionized Calcium 4.8 mg/dL (4.5-5.3)
[2018-07-28 05:09] LABS: ALT 44 U/L (21-72); AST 184 U/L (17-59); Albumin 3.3 g/dL (3.5-5.0); Alkaline Phosphatase 39 U/L (38-126); Amylase <30 U/L (30-110); Anion Gap 8 mmol/L; Blood Urea Nitrogen 34 mg/dL (9-20); Calcium 8.4 mg/dL (8.4-10.2); Carbon Dioxide 24 mmol/L (22-30); Chloride 110 mmol/L (98-107); Glucose 128 mg/dL (74-99); Lipase 83 U/L (23-300); Magnesium 2.5 mg/dL (1.6-2.3); Phosphorus 3.1 mg/dL (2.5-4.5); Potassium 4.3 mmol/L (3.5-5.1); Sodium 142 mmol/L (137-145); Total Bilirubin 0.7 mg/dL (0.2-1.3); Total Protein 5.8 g/dL (6.3-8.2)
[2018-07-28 05:24] LABS: Basophils # (A) 0.1 k/uL (0-0.2); Basophils % (A) 0 %; Eosinophils % (A) 0 %; HCT 23.5 % (39.0-53.0); Lymphocytes # (A) 1.7 k/uL (1.0-4.8); Lymphocytes % (A) 11 %; MCH 32.1 pg (25.0-35.0); MCHC 32.2 g/dL (31.0-37.0); MCV 99.7 fL (80.0-100.0); Mean Platelet Volume 8.3; Monocytes # (A) 0.6 k/uL (0-1.0); Monocytes % (A) 4 %; Neutrophils # (A) 12.6 k/uL (1.3-7.7); Neutrophils % (A) 83 %; Platelet Count 131 k/uL (150-450); RBC 2.36 m/uL (4.30-5.90); RDW 13.8 % (11.5-15.5); WBC 15.1 k/uL (3.8-10.6)
[2018-07-28 05:27] LABS: HGB 7.6 gm/dL (13.0-17.5)
[2018-07-28] MEDS: ENALAPRILAT 1.25 MG/ML 1 ML VIAL IVP SCH ×2 (05:33→22:30)
[2018-07-28 05:49] LABS: Glucose,Whole Blood 134 mg/dL (75-99)
[2018-07-28 07:00] LABS: Glucose,Whole Blood 110 mg/dL (75-99)
--- NOTE | 2018-07-28 07:44 | XR ---
EXAMINATION TYPE: XR chest 1V portable DATE OF EXAM: 07/28/2018 COMPARISON: 07/27/2018 HISTORY: Status post cardiac surgery. Follow-up exam. TECHNIQUE: Single frontal view of the chest is obtained. FINDINGS: There is redemonstration of a left-sided thoracostomy tube stable in position. No discrete pneumothorax is seen. Again there is a small left pleural effusion with extent to the left lung apex and probable trace right pleural effusion. Mild pulmonary vascular congestion and marked cardiomegal y remain. Right internal jugular central venous catheter sheath is again seen. Mediastinal closure de vice is are slightly offset as mentioned on the prior. IMPRESSION: Slight interval worsening in degree of mild pulmonary vascular congestion and bibasilar atelectasis. Otherwise stable exam.
[2018-07-28 08:04] LABS: Glucose,Whole Blood 115 mg/dL (75-99)
[2018-07-28] MEDS: IPRATROPIUM-ALBUTEROL 3 ML NEB INHALATION SCH ×4 (08:14→20:07)
[2018-07-28] MEDS: ASPIRIN 325 MG TAB PO SCH (08:25)
[2018-07-28] MEDS: PANTOPRAZOLE 40 MG TABLET PO SCH (08:25)
[2018-07-28] MEDS: ASCORBIC ACID 500 MG TAB PO SCH ×2 (08:25→17:19)
[2018-07-28] MEDS: FERROUS SULFATE 325 MG TAB PO SCH ×2 (08:25→17:19)
[2018-07-28] MEDS: METOPROLOL TARTRATE 5 MG/5 ML VIAL IVP SCH ×4 (08:26→18:33)
[2018-07-28] MEDS: ATORVASTATIN 40 MG TAB PO SCH (08:26)
[2018-07-28] MEDS: CLOPIDOGREL 75 MG TAB PO SCH (08:26)
[2018-07-28] MEDS: OXYBUTYNIN CHLORIDE 5 MG TAB PO SCH (08:26)
[2018-07-28] MEDS: MUPIROCIN 2% OINT 22 GM TUBE NASAL SCH ×2 (08:34→21:39)
[2018-07-28 08:40] LABS: Calcium 8.4 mg/dL (8.4-10.2); Potassium 4.2 mmol/L (3.5-5.1)
--- NOTE | 2018-07-28 09:04 | P.PN ---
Subjective Progress Note Date: 07/28/18 Principal diagnosis: Coronary artery disease. Previous medical history of hypertension, previous tobacco dependence with preoperative FEV1 86% of predicted, obstructive sleep apnea, TIA, bilateral internal carotid artery stenosis 50-79%, prostate disorder , morbid obesity with history of bariatric surgery, and drop foot on the left leg. POD #3 coronary artery bypass grafting 4 vessels, left internal mammary to the left anterior descending artery, reverse saphenous vein graft to the diagonal artery, reverse saphenous vein graft to the second obtuse marginal artery, reverse saphenous vein graft to the posterior lateral branch of the right coronary artery. Endoscopic vein harvest of bilateral greater saphenous veins. Epi-aortic ultrasound. Intraoperative transesophageal echocardiogram. Closure of the sternum using titanium plating system. Postoperative acute blood loss anemia, expected postsurgical condition secondary to hemodilution and cardiopulmonary bypass pump. Acute confusion, unexpected, possibly from cardiopulmonary bypass pump. The patient is currently lying in bed in no acute distress. Does complain of postsurgical pain, denies shortness of breath. Continues to be confused but is much less agitated. Patient is much more awake today. He did have some difficulty swallowing his pills last night, medications were changed to IV route , swallow eval was ordered. Urine output dropped off this morning, patient was given IV Lasix with excellent diuresis. Objective - Vital Signs Vital signs: Vital Signs Temp 99.5 F 07/28/18 04:00 Pulse 96 07/28/18 08:26 Resp 26 H 07/28/18 07:00 BP 174/88 07/28/18 04:00 Pulse Ox 96 07/28/18 08:15 Intake & Output 07/27/18 07/28/18 07/28/18 18:59 06:59 18:59 Intake Total 384.295 434.753 87.635 Output Total 875 1643 355 Balance -490.705 -1208.247 -267.365 Weight 156 kg 152.5 kg Intake: IV 344 396 72 Lactated Ringers 1,000 ml 260 330 60 @ 20 mls/hr IV .Q24H [facility] Rx#:[id number] pressure bags 84 66 12 Intake, IV Titration 40.295 38.753 15.635 Amount Insulin Regular 100 unit 40.295 38.753 15.635 In Sodium Chloride 0.9% 100 ml @ Per Protocol IV .Q0M [facility] Rx#:[id number] Output: Chest Tube Drainage 340 385 90 left pleural 340 385 90 mediastinal x2 0 Urine 535 1258 265 Other: Voiding Method Indwelling Catheter Indwelling Catheter ABP, PAP, CO, CI - Last Documented Arterial Blood Pressure 147/61 Pulmonary Artery Pressure 44/8 Cardiac Output 7.2 Cardiac Index 2.8 - Constitutional General appearance: Present: cooperative, morbidly obese, no acute distress - Respiratory Details: Lungs sounds diminished bilaterally, coarse in the bases. Respirations even, nonlabored. Currently on 2 L nasal cannula with oxygen saturation 94%. Able to achieve 500 mL on his incentive spirometry. Strong, productive cough. Left pleural chest tube to continuous wall suction, 345 mL serosanguineous drainage overnight, 725 mL since surgery. No air leaks present. - Cardiovascular Details: S1, S2 present. Regular rate and rhythm, sinus rhythm on telemetry. Sternum stable. A/V epicardial pacemaker wires present, grounded. Palpable peripheral pulses bilaterally. Trace generalized edema present. No calf pain or tenderness noted. Right internal jugular [place], right radial arterial line present. Heart hugger in place with patient unable to demonstrate appropriate use. Antiembolism stockings, SCDs present. - Gastrointestinal Gastrointestinal Comment(s): Abdomen soft, nondistended, nontender, obese. Active bowel sounds present 4 quadrants. Patient was coughing significantly after medication administration last night, currently nothing by mouth for swallow evaluation. - Genitourinary Genitourinary Comment(s): Smith present draining clear, yellow urine. Output 20-40 mL per hour overnight , increased to greater than 100 mL per hour after IV Lasix given. - Integumentary Integumentary Comment(s): Skin is warm and dry with evidence of good perfusion. Anterior chest incision well approximated, dry intact dressing present. Left lower extremity EVH site well approximated. - Neurologic Neurologic: Present: CNII-XII intact - Musculoskeletal Musculoskeletal: Present: generalized weakness, strength equal bilaterally - Psychiatric Psychiatric Comment(s): Oriented to person only, thinks he is an 72, has stated that year is 1998 and 1988. More alert this morning and following most commands. - Allied health notes Allied health notes reviewed: nursing - Labs CBC & Chem 7: 07/28/18 05:14 07/28/18 08:15 Labs: Abnormal Lab Results - Last 24 Hours (Table) 07/27/18 07/27/18 07/27/18 Range/Units 09:24 10:26 11:57 WBC (3.8-10.6) k/uL RBC (4.30-5.90) m/uL Hgb (13.0-17.5) gm/dL Hct (39.0-53.0) % Plt Count (150-450) k/uL Neutrophils # (1.3-7.7) k/uL Chloride (98-107) mmol/L BUN (9-20) mg/dL Glucose (74-99) mg/dL POC Glucose (mg/dL) 123 H 119 H 103 H (75-99) mg/dL Magnesium (1.6-2.3) mg/dL AST (17-59) U/L Total Protein (6.3-8.2) g/dL Albumin (3.5-5.0) g/dL Amylase (30-110) U/L 07/27/18 07/27/18 07/27/18 Range/Units 13:22 15:10 16:49 WBC (3.8-10.6) k/uL RBC (4.30-5.90) m/uL Hgb (13.0-17.5) gm/dL Hct (39.0-53.0) % Plt Count (150-450) k/uL Neutrophils # (1.3-7.7) k/uL Chloride (98-107) mmol/L BUN (9-20) mg/dL Glucose (74-99) mg/dL POC Glucose (mg/dL) 121 H 113 H 117 H (75-99) mg/dL Magnesium (1.6-2.3) mg/dL AST (17-59) U/L Total Protein (6.3-8.2) g/dL Albumin (3.5-5.0) g/dL Amylase (30-110) U/L 07/27/18 07/27/18 07/27/18 Range/Units 17:51 20:07 21:08 WBC (3.8-10.6) k/uL RBC (4.30-5.90) m/uL Hgb (13.0-17.5) gm/dL Hct (39.0-53.0) % Plt Count (150-450) k/uL Neutrophils # (1.3-7.7) k/uL Chloride (98-107) mmol/L BUN (9-20) mg/dL Glucose (74-99) mg/dL POC Glucose (mg/dL) 131 H 113 H 115 H (75-99) mg/dL Magnesium (1.6-2.3) mg/dL AST (17-59) U/L Total Protein (6.3-8.2) g/dL Albumin (3.5-5.0) g/dL Amylase (30-110) U/L 07/27/18 07/27/18 07/28/18 Range/Units 22:04 22:47 00:23 WBC (3.8-10.6) k/uL RBC (4.30-5.90) m/uL Hgb (13.0-17.5) gm/dL Hct (39.0-53.0) % Plt Count (150-450) k/uL Neutrophils # (1.3-7.7) k/uL Chloride (98-107) mmol/L BUN (9-20) mg/dL Glucose (74-99) mg/dL POC Glucose (mg/dL) 132 H 131 H 109 H (75-99) mg/dL Magnesium (1.6-2.3) mg/dL AST (17-59) U/L Total Protein (6.3-8.2) g/dL Albumin (3.5-5.0) g/dL Amylase (30-110) U/L 07/28/18 07/28/18 07/28/18 Range/Units 01:28 02:05 03:10 WBC (3.8-10.6) k/uL RBC (4.30-5.90) m/uL Hgb (13.0-17.5) gm/dL Hct (39.0-53.0) % Plt Count (150-450) k/uL Neutrophils # (1.3-7.7) k/uL Chloride (98-107) mmol/L BUN (9-20) mg/dL Glucose (74-99) mg/dL POC Glucose (mg/dL) 123 H 111 H 118 H (75-99) mg/dL Magnesium (1.6-2.3) mg/dL AST (17-59) U/L Total Protein (6.3-8.2) g/dL Albumin (3.5-5.0) g/dL Amylase (30-110) U/L 07/28/18 07/28/18 07/28/18 Range/Units 04:36 04:42 04:42 WBC 11.7 H (3.8-10.6) k/uL RBC 1.80 L (4.30-5.90) m/uL Hgb 5.7 L* (13.0-17.5) gm/dL Hct 17.7 L* (39.0-53.0) % Plt Count 101 L (150-450) k/uL Neutrophils # 9.4 H (1.3-7.7) k/uL Chloride 110 H (98-107) mmol/L BUN 34 H (9-20) mg/dL Glucose 128 H (74-99) mg/dL POC Glucose (mg/dL) 132 H (75-99) mg/dL Magnesium 2.5 H (1.6-2.3) mg/dL AST 184 H (17-59) U/L Total Protein 5.8 L (6.3-8.2) g/dL Albumin 3.3 L (3.5-5.0) g/dL Amylase <30 L (30-110) U/L 07/28/18 07/28/18 07/28/18 Range/Units 05:14 05:46 06:58 WBC 15.1 H (3.8-10.6) k/uL RBC 2.36 L (4.30-5.90) m/uL Hgb 7.6 L D (13.0-17.5) gm/dL Hct 23.5 L (39.0-53.0) % Plt Count 131 L (150-450) k/uL Neutrophils # 12.6 H (1.3-7.7) k/uL Chloride (98-107) mmol/L BUN (9-20) mg/dL Glucose (74-99) mg/dL POC Glucose (mg/dL) 134 H 110 H (75-99) mg/dL Magnesium (1.6-2.3) mg/dL AST (17-59) U/L Total Protein (6.3-8.2) g/dL Albumin (3.5-5.0) g/dL Amylase (30-110) U/L 07/28/18 07/28/18 Range/Units 08:01 08:15 WBC (3.8-10.6) k/uL RBC (4.30-5.90) m/uL Hgb (13.0-17.5) gm/dL Hct (39.0-53.0) % Plt Count (150-450) k/uL Neutrophils # (1.3-7.7) k/uL Chloride 111 H (98-107) mmol/L BUN 33 H (9-20) mg/dL Glucose 113 H (74-99) mg/dL POC Glucose (mg/dL) 115 H (75-99) mg/dL Magnesium (1.6-2.3) mg/dL AST (17-59) U/L Total Protein (6.3-8.2) g/dL Albumin (3.5-5.0) g/dL Amylase (30-110) U/L - Imaging and Cardiology Chest x-ray: report reviewed, image reviewed Assessment and Plan (1) Status post aorto-coronary artery bypass graft Current Visit: Yes Status: Acute Code(s): Z95.1 - PRESENCE OF AORTOCORONARY BYPASS GRAFT SNOMED Code(s): 067632477 (2) Aortic valve stenosis Current Visit: Yes Status: Chronic Code(s): I35.0 - NONRHEUMATIC AORTIC ( VALVE) STENOSIS SNOMED Code(s): 91431243 (3) BPH (benign prostatic hyperplasia) Current Visit: Yes Status: Chronic Code(s): N40.0 - BENIGN PROSTATIC HYPERPLASIA WITHOUT LOWER URINRY TRACT SYMP SNOMED Code(s): 866617694 (4) Coronary artery disease Current Visit: Yes Status: Chronic Code(s): I25.10 - ATHSCL HEART DISEASE OF [place] CORONARY ARTERY W/O ANG PCTRS SNOMED Code(s): 88437808 (5) Foot drop, left Current Visit: Yes Status: Chronic Code(s): M21.372 - FOOT DROP, LEFT FOOT SNOMED Code(s): 8436743 (6) Hypertension Current Visit: Yes Status: Chronic Code(s): I10 - ESSENTIAL (PRIMARY) HYPERTENSION SNOMED Code(s): 24586953 (7) Morbid obesity with BMI of 45.0-49.9, adult Current Visit: Yes Status: Chronic Code(s): E66.01 - MORBID (SEVERE) OBESITY DUE TO EXCESS CALORIES; Z68.42 - BODY MASS INDEX (BMI) 45.0-49.9, ADULT SNOMED Code(s): 339309976 (8) Nicotine dependence in remission Current Visit: No Status: Resolved Code(s): F17.201 - NICOTINE DEPENDENCE, UNSPECIFIED, IN REMISSION SNOMED Code(s): 37482069 (9) Obstructive sleep apnea Current Visit: Yes Status: Chronic Code(s): G47.33 - OBSTRUCTIVE SLEEP APNEA (ADULT) (PEDIATRIC) SNOMED Code(s): 62723785 (10) Osteoarthritis Current Visit: Yes Status: Chronic Code(s): M19.90 - UNSPECIFIED OSTEOARTHRITIS, UNSPECIFIED SITE SNOMED Code(s): 682870429 Plan: 1. Continue aspirin, statin, Plavix, beta rodríguez therapy, will increase beta rodríguez therapy as tolerated. Enalapril IV added last night per cardiology. Beta rodríguez switched to IV due to lack of swallowing. 2. Wean O2 as tolerated. Encourage incentive spirometry use 10 times every hour while awake. 3. Increase activity as tolerated. PT/OT/cardiac rehab following. Patient should wear boot for ambulation on left leg. He needs to get up into bariatric chair today. 4. Bronchodilators per pulmonology. 5. Will monitor daily labs and x-rays. No transfusion at this point. 6. GI prophylaxis with Protonix. DVT prophylaxis with subcu heparin, SCDs. 7. Pain control with current medication regimen. Avoid narcotics. 8. Reorient patient as needed. 9. Insulin management per primary care service. 10. Will give another dose of Lasix this afternoon. Keep Smith for now for accurate I and O's. 11. Will consult social work for insurance authorization as patient is going to need rehab upon discharge. 12. More recommendations to follow. Time with Patient: Greater than 30
[2018-07-28 09:10] LABS: Glucose,Whole Blood 122 mg/dL (75-99)
[2018-07-28] MEDS ORDERED: ASPIRIN 300 MG SUPP RECTAL SCH (09:15)
--- NOTE | 2018-07-28 10:00 | P.PN ---
Subjective Progress Note Date: 07/28/18 78-year-old male with a past medical history significant for hypertension, osteoarthritis, sleep apnea, TIA, and obesity who underwent CABG x 4 on 07/25/[address] Acharya after undergoing recent cardiac cath revealing triple vessel disease. Dr. Fuchs was consulted for medical management. 07/26/2018 The patient was seen and examined postoperatively in the intensive care unit. Patient was extubated during the night. He is on NC with oxygen saturations greater than 92%. He remains sleepy this morning but is easily arousable to verbal stimuli. He is on primacor, low dose levophed, and an insulin drip. Blood sugars are in the 110s. Chest tubes x 2 intact. He is hemodynamically stable. Reports his pain is tolerable this morning. WBC 13.3. Hemoglobin 8.1. Potassium 4.1. 07/27/2018 Patient examined at the bedside with Dr. Fuchs. Apparently patient became very combative and agitated last night. He was given Haldol at 0212 in the morning. The patient is currently extremely lethargic and difficult to arouse. He responds to painful stimuli and will say one or two words, although garbled and hard to understand. Patient will not open his eyes. He remains on an insulin drip. It is currently paused. However, nursing reports when it is infusing he is requiring 8-9 units an hour. Blood sugars are 85, 94, 104, 108. 07/28/18 Patient examined at the bedside with Dr. Fuchs. Patient remains confused this morning, although improved since yesterday. He remains sleepy, but improved since yesterday. Patient had difficulty yesterday evening swallowing pills. Speech eval is to be completed today. He remains on insulin drip. Currently paused. Blood sugars 110, 115, 113, 122. PHYSICAL EXAM: GENERAL: This is a 78-year-old male who is lethargic and difficult to arouse at the time of examination. HEENT: Head is atraumatic, normocephalic. Pupils are equal, round, and reactive to light. Sclerae anicteric. Conjunctivae are clear. Mucus membranes of the mouth are moist. Neck is supple. RESPIRATORY: Diminished, coarse. No wheezes, rales, or rhonchi. No use of accessory muscles. Patient maintaining oxygen saturation greater than 92%. Pleural chest tube noted. CARDIOVASCULAR: Regular rate and rhythm. S1 and S2 noted. No systolic or diastolic murmur auscultated. No JVD noted. No S3 or S4 noted. GASTROINTESTINAL: No distention noted. Abdomen soft and round. Bowel sounds auscultated x 4 quadrants. No pain or tenderness noted upon palpation. INTEGUMENTARY: No cyanosis. No jaundice. No rashes noted. No cellulitis noted. EXTREMITIES: 2+ peripheral pulses. Trace bilateral lower extremity edema. NEUROLOGIC: Cranial nerves II-XII grossly intact. PSYCHIATRIC: Confused, although improving. ASSESSMENT: Coronary artery disease, s/p CABG x 4 Acute blood loss, an expected outcome of surgery Lethargy, may be secondary to haldol administration, improving Hypertension History of TIA Sleep apnea Aortic stenosis Osteoarthritis BPH History of lap-band Nicotine dependence, in remission Morbid obesity: BMI 49.4 PLAN: Continue post op care per Dr. Acharya Patient is NPO due to difficulty swallowing yesterday and coughing when taking his pills. Scheduled for swallow evaluation today. Will continue insulin drip at this time. If patient passes swallow eval and is able to tolerate PO intake, will discontinue insulin drip and begin sliding scale insulin. Pain control Activity as tolerated Monitor labs Monitor vital signs and address as appropriate Further recommendations pending patient's course Nurse practitioner note has been reviewed by physician. Signing provider agrees with the documented findings, assessment, and plan of care. Objective - Vital Signs Vital signs: Vital Signs Temp 98.2 F 07/28/18 08:00 Pulse 94 07/28/18 09:00 Resp 26 H 07/28/18 09:00 BP 174/88 07/28/18 04:00 Pulse Ox 94 L 07/28/18 09:00 Intake & Output 07/27/18 07/28/18 07/28/18 18:59 06:59 18:59 Intake Total 384.295 434.753 123.635 Output Total 875 1643 470 Balance -490.705 -1208.247 -346.365 Weight 156 kg 152.5 kg Intake: IV 344 396 108 Lactated Ringers 1,000 ml 260 330 90 @ 20 mls/hr IV .Q24H [facility] Rx#:[id number] pressure bags 84 66 18 Intake, IV Titration 40.295 38.753 15.635 Amount Insulin Regular 100 unit 40.295 38.753 15.635 In Sodium Chloride 0.9% 100 ml @ Per Protocol IV .Q0M [facility] Rx#:[id number] Output: Chest Tube Drainage 340 385 130 left pleural 340 385 130 mediastinal x2 0 Urine 535 1258 340 Other: Voiding Method Indwelling Catheter Indwelling Catheter Indwelling Catheter ABP, PAP, CO, CI - Last Documented Arterial Blood Pressure 155/65 Pulmonary Artery Pressure 44/8 Cardiac Output 7.2 Cardiac Index 2.8 - Labs CBC & Chem 7: 07/28/18 05:14 07/28/18 08:15 Labs: Abnormal Lab Results - Last 24 Hours (Table) 07/27/18 07/27/18 07/27/18 Range/Units 10:26 11:57 13:22 WBC (3.8-10.6) k/uL RBC (4.30-5.90) m/uL Hgb (13.0-17.5) gm/dL Hct (39.0-53.0) % Plt Count (150-450) k/uL Neutrophils # (1.3-7.7) k/uL Chloride (98-107) mmol/L BUN (9-20) mg/dL Glucose (74-99) mg/dL POC Glucose (mg/dL) 119 H 103 H 121 H (75-99) mg/dL Magnesium (1.6-2.3) mg/dL AST (17-59) U/L Total Protein (6.3-8.2) g/dL Albumin (3.5-5.0) g/dL Amylase (30-110) U/L 07/27/18 07/27/18 07/27/18 Range/Units 15:10 16:49 17:51 WBC (3.8-10.6) k/uL RBC (4.30-5.90) m/uL Hgb (13.0-17.5) gm/dL Hct (39.0-53.0) % Plt Count (150-450) k/uL Neutrophils # (1.3-7.7) k/uL Chloride (98-107) mmol/L BUN (9-20) mg/dL Glucose (74-99) mg/dL POC Glucose (mg/dL) 113 H 117 H 131 H (75-99) mg/dL Magnesium (1.6-2.3) mg/dL AST (17-59) U/L Total Protein (6.3-8.2) g/dL Albumin (3.5-5.0) g/dL Amylase (30-110) U/L 07/27/18 07/27/18 07/27/18 Range/Units 20:07 21:08 22:04 WBC (3.8-10.6) k/uL RBC (4.30-5.90) m/uL Hgb (13.0-17.5) gm/dL Hct (39.0-53.0) % Plt Count (150-450) k/uL Neutrophils # (1.3-7.7) k/uL Chloride (98-107) mmol/L BUN (9-20) mg/dL Glucose (74-99) mg/dL POC Glucose (mg/dL) 113 H 115 H 132 H (75-99) mg/dL Magnesium (1.6-2.3) mg/dL AST (17-59) U/L Total Protein (6.3-8.2) g/dL Albumin (3.5-5.0) g/dL Amylase (30-110) U/L 07/27/18 07/28/18 07/28/18 Range/Units 22:47 00:23 01:28 WBC (3.8-10.6) k/uL RBC (4.30-5.90) m/uL Hgb (13.0-17.5) gm/dL Hct (39.0-53.0) % Plt Count (150-450) k/uL Neutrophils # (1.3-7.7) k/uL Chloride (98-107) mmol/L BUN (9-20) mg/dL Glucose (74-99) mg/dL POC Glucose (mg/dL) 131 H 109 H 123 H (75-99) mg/dL Magnesium (1.6-2.3) mg/dL AST (17-59) U/L Total Protein (6.3-8.2) g/dL Albumin (3.5-5.0) g/dL Amylase (30-110) U/L 07/28/18 07/28/18 07/28/18 Range/Units 02:05 03:10 04:36 WBC (3.8-10.6) k/uL RBC (4.30-5.90) m/uL Hgb (13.0-17.5) gm/dL Hct (39.0-53.0) % Plt Count (150-450) k/uL Neutrophils # (1.3-7.7) k/uL Chloride (98-107) mmol/L BUN (9-20) mg/dL Glucose (74-99) mg/dL POC Glucose (mg/dL) 111 H 118 H 132 H (75-99) mg/dL Magnesium (1.6-2.3) mg/dL AST (17-59) U/L Total Protein (6.3-8.2) g/dL Albumin (3.5-5.0) g/dL Amylase (30-110) U/L 07/28/18 07/28/18 07/28/18 Range/Units 04:42 04:42 05:14 WBC 11.7 H 15.1 H (3.8-10.6) k/uL RBC 1.80 L 2.36 L (4.30-5.90) m/uL Hgb 5.7 L* 7.6 L D (13.0-17.5) gm/dL Hct 17.7 L* 23.5 L (39.0-53.0) % Plt Count 101 L 131 L (150-450) k/uL Neutrophils # 9.4 H 12.6 H (1.3-7.7) k/uL Chloride 110 H (98-107) mmol/L BUN 34 H (9-20) mg/dL Glucose 128 H (74-99) mg/dL POC Glucose (mg/dL) (75-99) mg/dL Magnesium 2.5 H (1.6-2.3) mg/dL AST 184 H (17-59) U/L Total Protein 5.8 L (6.3-8.2) g/dL Albumin 3.3 L (3.5-5.0) g/dL Amylase <30 L (30-110) U/L 07/28/18 07/28/18 07/28/18 Range/Units 05:46 06:58 08:01 WBC (3.8-10.6) k/uL RBC (4.30-5.90) m/uL Hgb (13.0-17.5) gm/dL Hct (39.0-53.0) % Plt Count (150-450) k/uL Neutrophils # (1.3-7.7) k/uL Chloride (98-107) mmol/L BUN (9-20) mg/dL Glucose (74-99) mg/dL POC Glucose (mg/dL) 134 H 110 H 115 H (75-99) mg/dL Magnesium (1.6-2.3) mg/dL AST (17-59) U/L Total Protein (6.3-8.2) g/dL Albumin (3.5-5.0) g/dL Amylase (30-110) U/L 07/28/18 07/28/18 Range/Units 08:15 09:07 WBC (3.8-10.6) k/uL RBC (4.30-5.90) m/uL Hgb (13.0-17.5) gm/dL Hct (39.0-53.0) % Plt Count (150-450) k/uL Neutrophils # (1.3-7.7) k/uL Chloride 111 H (98-107) mmol/L BUN 33 H (9-20) mg/dL Glucose 113 H (74-99) mg/dL POC Glucose (mg/dL) 122 H (75-99) mg/dL Magnesium (1.6-2.3) mg/dL AST (17-59) U/L Total Protein (6.3-8.2) g/dL Albumin (3.5-5.0) g/dL Amylase (30-110) U/L
[2018-07-28 10:04] LABS: Glucose,Whole Blood 117 mg/dL (75-99)
[2018-07-28] MEDS ORDERED: hydrALAZINE HCL 20 MG/ML 1 ML VIAL IVP PRN (10:08)
[2018-07-28] MEDS: INSULIN REGULAR 100 UNIT in SODIUM CHLORIDE 0.9% 100 ML IV SCH (11:05)
[2018-07-28 11:08] LABS: Glucose,Whole Blood 129 mg/dL (75-99)
[2018-07-28 12:06] LABS: Glucose,Whole Blood 126 mg/dL (75-99)
[2018-07-28 13:10] LABS: Glucose,Whole Blood 102 mg/dL (75-99)
[2018-07-28] MEDS: LACTATED RINGERS 1,000 ML IV SCH (14:10)
[2018-07-28 14:17] LABS: Glucose,Whole Blood 110 mg/dL (75-99)
[2018-07-28 15:17] LABS: Glucose,Whole Blood 147 mg/dL (75-99)
[2018-07-28 16:17] LABS: Glucose,Whole Blood 149 mg/dL (75-99)
--- NOTE | 2018-07-28 16:59 | P.PN ---
Subjective Progress Note Date: 07/28/18 78-year-old gentleman is status post aortocoronary bypass surgery. Last night patient got agitated and received Haldol. This morning patient is sleepy and lethargic but arousable. Patient is not communicating. Hemodynamically stable. Maintaining sinus rhythm. No arrhythmias noted. Urine output is adequate. Blood work shows anemia which is stable. We'll continue current medical therapy. 07/28/2018: This patient is status post prior to coronary bypass surgery. Patient is sleepy but arousable. Less confused. Hemodynamically stable. No arrhythmias are noted. Continue increase his activity as tolerated. Incentive spirometry. Objective - Vital Signs Vital signs: Vital Signs Temp 99.2 F 07/28/18 16:00 Pulse 95 07/28/18 16:20 Resp 21 07/28/18 16:00 BP 174/88 07/28/18 04:00 Pulse Ox 95 07/28/18 16:00 Intake & Output 07/27/18 07/28/18 07/28/18 18:59 06:59 18:59 Intake Total 384.295 434.753 396.988 Output Total 875 1643 1205 Balance -490.705 -1208.247 -808.012 Weight 156 kg 152.5 kg 152.5 kg Intake: IV 344 396 350 Lactated Ringers 1,000 ml 260 330 290 @ 20 mls/hr IV .Q24H [facility] Rx#:[id number] pressure bags 84 66 60 Intake, IV Titration 40.295 38.753 46.988 Amount Insulin Regular 100 unit 40.295 38.753 46.988 In Sodium Chloride 0.9% 100 ml @ Per Protocol IV .Q0M [facility] Rx#:[id number] Output: Chest Tube Drainage 340 385 300 left pleural 340 385 300 mediastinal x2 0 Urine 535 1258 905 Other: Voiding Method Indwelling Catheter Indwelling Catheter Indwelling Catheter ABP, PAP, CO, CI - Last Documented Arterial Blood Pressure 152/59 Pulmonary Artery Pressure 44/8 Cardiac Output 7.2 Cardiac Index 2.8 - Exam GENERAL EXAM: Patient is sleepy and barely arousable. Not communicative HEENT: Normocephalic. Normal reaction of pupils, equal size, normal range of extraocular motion. No erythema or exudates in the throat. NECK: No masses, no nuchal rigidity. CHEST: Postsurgical changes LUNGS: Equal air entry with no crackles or wheeze. HEART: S1 and S2 normal with no audible mumurs or gallops. Regular rhythm, femorals equal on both sides.. ABDOMEN: No hepatosplenomegaly, normal bowel sounds, no guarding or rigidity. SKIN: No rashes CENTRAL NERVOUS SYSTEM: No focal deficits. EXTREMITIES: No cyanosis, clubbing or edema. - Labs CBC & Chem 7: 07/28/18 05:14 07/28/18 08:15 Labs: Abnormal Lab Results - Last 24 Hours (Table) 07/27/18 07/27/18 07/27/18 Range/Units 16:49 17:51 20:07 WBC (3.8-10.6) k/uL RBC (4.30-5.90) m/uL Hgb (13.0-17.5) gm/dL Hct (39.0-53.0) % Plt Count (150-450) k/uL Neutrophils # (1.3-7.7) k/uL Chloride (98-107) mmol/L BUN (9-20) mg/dL Glucose (74-99) mg/dL POC Glucose (mg/dL) 117 H 131 H 113 H (75-99) mg/dL Magnesium (1.6-2.3) mg/dL AST (17-59) U/L Total Protein (6.3-8.2) g/dL Albumin (3.5-5.0) g/dL Amylase (30-110) U/L 07/27/18 07/27/18 07/27/18 Range/Units 21:08 22:04 22:47 WBC (3.8-10.6) k/uL RBC (4.30-5.90) m/uL Hgb (13.0-17.5) gm/dL Hct (39.0-53.0) % Plt Count (150-450) k/uL Neutrophils # (1.3-7.7) k/uL Chloride (98-107) mmol/L BUN (9-20) mg/dL Glucose (74-99) mg/dL POC Glucose (mg/dL) 115 H 132 H 131 H (75-99) mg/dL Magnesium (1.6-2.3) mg/dL AST (17-59) U/L Total Protein (6.3-8.2) g/dL Albumin (3.5-5.0) g/dL Amylase (30-110) U/L 07/28/18 07/28/18 07/28/18 Range/Units 00:23 01:28 02:05 WBC (3.8-10.6) k/uL RBC (4.30-5.90) m/uL Hgb (13.0-17.5) gm/dL Hct (39.0-53.0) % Plt Count (150-450) k/uL Neutrophils # (1.3-7.7) k/uL Chloride (98-107) mmol/L BUN (9-20) mg/dL Glucose (74-99) mg/dL POC Glucose (mg/dL) 109 H 123 H 111 H (75-99) mg/dL Magnesium (1.6-2.3) mg/dL AST (17-59) U/L Total Protein (6.3-8.2) g/dL Albumin (3.5-5.0) g/dL Amylase (30-110) U/L 07/28/18 07/28/18 07/28/18 Range/Units 03:10 04:36 04:42 WBC (3.8-10.6) k/uL RBC (4.30-5.90) m/uL Hgb (13.0-17.5) gm/dL Hct (39.0-53.0) % Plt Count (150-450) k/uL Neutrophils # (1.3-7.7) k/uL Chloride 110 H (98-107) mmol/L BUN 34 H (9-20) mg/dL Glucose 128 H (74-99) mg/dL POC Glucose (mg/dL) 118 H 132 H (75-99) mg/dL Magnesium 2.5 H (1.6-2.3) mg/dL AST 184 H (17-59) U/L Total Protein 5.8 L (6.3-8.2) g/dL Albumin 3.3 L (3.5-5.0) g/dL Amylase <30 L (30-110) U/L 07/28/18 07/28/18 07/28/18 Range/Units 04:42 05:14 05:46 WBC 11.7 H 15.1 H (3.8-10.6) k/uL RBC 1.80 L 2.36 L (4.30-5.90) m/uL Hgb 5.7 L* 7.6 L D (13.0-17.5) gm/dL Hct 17.7 L* 23.5 L (39.0-53.0) % Plt Count 101 L 131 L (150-450) k/uL Neutrophils # 9.4 H 12.6 H (1.3-7.7) k/uL Chloride (98-107) mmol/L BUN (9-20) mg/dL Glucose (74-99) mg/dL POC Glucose (mg/dL) 134 H (75-99) mg/dL Magnesium (1.6-2.3) mg/dL AST (17-59) U/L Total Protein (6.3-8.2) g/dL Albumin (3.5-5.0) g/dL Amylase (30-110) U/L 07/28/18 07/28/18 07/28/18 Range/Units 06:58 08:01 08:15 WBC (3.8-10.6) k/uL RBC (4.30-5.90) m/uL Hgb (13.0-17.5) gm/dL Hct (39.0-53.0) % Plt Count (150-450) k/uL Neutrophils # (1.3-7.7) k/uL Chloride 111 H (98-107) mmol/L BUN 33 H (9-20) mg/dL Glucose 113 H (74-99) mg/dL POC Glucose (mg/dL) 110 H 115 H (75-99) mg/dL Magnesium (1.6-2.3) mg/dL AST (17-59) U/L Total Protein (6.3-8.2) g/dL Albumin (3.5-5.0) g/dL Amylase (30-110) U/L 07/28/18 07/28/18 07/28/18 Range/Units 09:07 10:02 11:03 WBC (3.8-10.6) k/uL RBC (4.30-5.90) m/uL Hgb (13.0-17.5) gm/dL Hct (39.0-53.0) % Plt Count (150-450) k/uL Neutrophils # (1.3-7.7) k/uL Chloride (98-107) mmol/L BUN (9-20) mg/dL Glucose (74-99) mg/dL POC Glucose (mg/dL) 122 H 117 H 129 H (75-99) mg/dL Magnesium (1.6-2.3) mg/dL AST (17-59) U/L Total Protein (6.3-8.2) g/dL Albumin (3.5-5.0) g/dL Amylase (30-110) U/L 07/28/18 07/28/18 07/28/18 Range/Units 12:03 13:07 14:13 WBC (3.8-10.6) k/uL RBC (4.30-5.90) m/uL Hgb (13.0-17.5) gm/dL Hct (39.0-53.0) % Plt Count (150-450) k/uL Neutrophils # (1.3-7.7) k/uL Chloride (98-107) mmol/L BUN (9-20) mg/dL Glucose (74-99) mg/dL POC Glucose (mg/dL) 126 H 102 H 110 H (75-99) mg/dL Magnesium (1.6-2.3) mg/dL AST (17-59) U/L Total Protein (6.3-8.2) g/dL Albumin (3.5-5.0) g/dL Amylase (30-110) U/L 07/28/18 07/28/18 Range/Units 15:01 16:14 WBC (3.8-10.6) k/uL RBC (4.30-5.90) m/uL Hgb (13.0-17.5) gm/dL Hct (39.0-53.0) % Plt Count (150-450) k/uL Neutrophils # (1.3-7.7) k/uL Chloride (98-107) mmol/L BUN (9-20) mg/dL Glucose (74-99) mg/dL POC Glucose (mg/dL) 147 H 149 H (75-99) mg/dL Magnesium (1.6-2.3) mg/dL AST (17-59) U/L Total Protein (6.3-8.2) g/dL Albumin (3.5-5.0) g/dL Amylase (30-110) U/L Assessment and Plan (1) Status post aorto-coronary artery bypass graft Current Visit: Yes Status: Acute Code(s): Z95.1 - PRESENCE OF AORTOCORONARY BYPASS GRAFT SNOMED Code(s): 769618579 (2) Aortic valve stenosis Current Visit: Yes Status: Chronic Code(s): I35.0 - NONRHEUMATIC AORTIC ( VALVE) STENOSIS SNOMED Code(s): 23718510 (3) Hypertension Current Visit: Yes Status: Chronic Code(s): I10 - ESSENTIAL (PRIMARY) HYPERTENSION SNOMED Code(s): 08464423 (4) Morbid obesity with BMI of 45.0-49.9, adult Current Visit: Yes Status: Chronic Code(s): E66.01 - MORBID (SEVERE) OBESITY DUE TO EXCESS CALORIES; Z68.42 - BODY MASS INDEX (BMI) 45.0-49.9, ADULT SNOMED Code(s): 331454184 Plan: Overall patient mental status seemed to be showing some improvement. Overall, otherwise patient is Hemoccult ventricle stable. Urine output is adequate. Increase physical activity as tolerated. Incentive spirometry. We'll follow
--- NOTE | 2018-07-28 17:08 | P.PN ---
Subjective Progress Note Date: 07/28/18 Principal diagnosis: Symptomatic multivessel coronary artery disease, status post four-vessel bypass with MATT to LAD, SVG to the PLB, SVG to the diagonal and OM 1, postop day 1 This is 78-year-old white male patient of Dr. Fuchs, who we met on 07/20/2018 for preop pulmonary evaluation for coronary artery bypass grafting. Patient has been having progressive dyspnea, he was referred to cardiology, had a cardiac catheterization which revealed severe multivessel coronary artery disease and moderate aortic stenosis. Patient had a 90% stenosis of his RCA, 80 % stenosis of his circumflex, 95% stenosis of his mid LAD. Aortic valve surface area was 1.2 cm. Other medical history includes previous history of CVA, hypertension, osteoarthritis, and 9 prostatic hypertrophy, sleep apnea syndrome, previous history of bariatric surgery, morbid obesity, and remote history of tobacco use. His preop bedside spirometry showed FEV1 of 86% of predicted, FVC of 71% of predicted, mild restriction. Patient was deferred to cardiothoracic surgery, and was recommended a surgical intervention, today on patient underwent four-vessel coronary artery bypass grafting, with MATT to LAD, SVG to the PLB, SVG to the diagonal, and SVG to the OM 1. Patient is seen in the intensive care unit, he is sedated, on mechanical ventilator, currently SIMV mode of ventilation with a rate of 12, tidal volume of 580, FiO2 100%, and PEEP of 10. Chest x-ray showed ET tube, chest tubes, right IJ PA catheter in appropriate positions, lungs are clear of consolidation, no heart failure. Patient is in sinus rhythm, his maintenance IV fluids of LR at 50, milrinone at 0.5 mics/per kilo per minute, Levaquin fed at 2 mics per minute, insulin at 2 units per hour, Diprivan at 15 mics per kilo per minute, and nitro at 5 mics/min. Blood work showed WBC of 15.2, hemoglobin of 7.9, INR 1.5, choice and renal profile were within normal limits, blood gas showed pO2 of 174 , pCO2 48, and pH is 7.3. Patient has 2 mediastinal chest tubes, left pleural chest tube, and there has been a 300 mL of sanguinous output in the mediastinal chest tube, and 10 mL in the left pleural. Hemodynamically patient is stable, cardiac output and index are 5.6 and 2.2 respectively, PA pressures 35/21. On 07/26/2018 patient seen in follow-up in the intensive care unit. This morning he is extubated, sitting up in the chair position in bed, he was extubated at about 1:30 in the morning. Currently on 6 L per nasal cannula, his pulse ox is 96%, he is awake and alert, acute distress, sinus rhythm on the monitor. Today's chest x-ray has been reviewed by Dr. Rose and showed stable bibasilar opacities and pleural effusions. Hemodynamically patient is stable. Levo has been off since 9:00 this morning, maintenance IV fluids is LR at 50 ML per hour, insulin drip is at 5 units per hour, no other drips. Cardiac output and index of 6.2 and 2.4 respectively. Today's lab work has been reviewed, WBCs 13.3, hemoglobin is 8.1, with recent blood gas prior to extubation showed pO2 of 72, pCO2 of 40%, and pH of 7.37, this was done and FiO2 40%, BMP was all within normal limits. Patient has underlying sleep apnea , on CPAP therapy. Patient may require some BiPAP support at night and is needed during the day. We'll continue to monitor, currently in no distress, he is awake and alert and responding to questions appropriately. 2 mediastinal and left pleural chest tubes are draining serosanguineous output. Mediastinal chest tube output is 560 over the last 24 hours, left pleural chest tube output is 378 in the last 24 hours. Smith catheter is present, draining urine in order of 30-45 ML per hour. We'll encourage incentive spirometry, we'll try to mobilize the patient, and set him up at the bedside. On 07/27/2018 patient seen in follow-up in the intensive care unit. This morning he is lethargic, mumbling, patient was apparently confused, agitated and delirious last night, received a dose of Haldol after which he became lethargic, hypotensive, and required albumin and levofed for blood pressure support. This morning he is off the levofed infusion. Blood gas was done, which showed pO2 of 75, pCO2 of 35, and pH of 7.47 as was done on FiO2 of 55%. There is some blood work was reviewed, WBCs 13.7, hemoglobin is 7.1, sodium is 140, potassium is 4.2, chloride is 109, B1 is 28 and creatinine 1.13. On 9 L per high flow nasal cannula, and his pulse ox is 96%, patient is afebrile, blood pressure is 150/64, PA pressure is 44/8, and cardiac output and index hours 7.2 and 2.8. Patient is mediastinal chest tubes removed, left pleural chest tube remains in place with serosanguineous thin output. Has been 760 mL out of the left pleural and the last 24 hours, and 250 on of the mediastinal chest tubes. Lung sounds are positive for scattered rhonchi, he is somnolent, has a loose nonproductive cough. Today's chest x-ray was reviewed by Dr. Rose, and shows stable cardiomegaly with small to moderate left pleural effusion tracking up to the left apex and possible mild pulmonary vascular congestion, retrocardiac atelectasis. Urinary catheter is in, and his urine output is 2240 ML per hour. Maintenance IV fluid is lactated Ringer's at a rate of 20 ML per hour, no other drips. On 07/28/2018 patient seen in follow-up in the intensive care unit. Patient remains confused, but cooperative. He is in the chair, currently on 2 L per nasal cannula, his pulse ox is 95%, afebrile, hemodynamically stable. Today's lab work has been reviewed, showed WBC of 15.1, hemoglobin of 7.6, platelet count of 131, sodium of 145, potassium is 4.2, chloride is 111, BUN is 33, creatinine 1.03. Chest x-ray showed slight interval worsening mild pulmonary vascular congestion and bibasilar atelectasis. Patient denied any shortness of breath, patient is currently in A. fib RVR, and her beta rodríguez therapy was increased per CT surgery come patient received a dose of IV Lasix. Encourage deep breathing and coughing. Objective - Vital Signs Vital signs: Vital Signs Temp 99.2 F 07/28/18 16:00 Pulse 95 07/28/18 16:20 Resp 21 07/28/18 16:00 BP 174/88 07/28/18 04:00 Pulse Ox 95 07/28/18 16:00 Intake & Output 07/27/18 07/28/18 07/28/18 18:59 06:59 18:59 Intake Total 384.295 434.753 396.988 Output Total 875 1643 1205 Balance -490.705 -1208.247 -808.012 Weight 156 kg 152.5 kg 152.5 kg Intake: IV 344 396 350 Lactated Ringers 1,000 ml 260 330 290 @ 20 mls/hr IV .Q24H [facility] Rx#:[id number] pressure bags 84 66 60 Intake, IV Titration 40.295 38.753 46.988 Amount Insulin Regular 100 unit 40.295 38.753 46.988 In Sodium Chloride 0.9% 100 ml @ Per Protocol IV .Q0M [facility] Rx#:[id number] Output: Chest Tube Drainage 340 385 300 left pleural 340 385 300 mediastinal x2 0 Urine 535 1258 905 Other: Voiding Method Indwelling Catheter Indwelling Catheter Indwelling Catheter ABP, PAP, CO, CI - Last Documented Arterial Blood Pressure 152/59 Pulmonary Artery Pressure 44/8 Cardiac Output 7.2 Cardiac Index 2.8 - Exam GENERAL EXAM: Lethargic, obese 78-year-old white male, currently extubated, on 2 L per high flow nasal cannula, patient is still disoriented, but confused, no agitation or combativeness HEAD: Normocephalic/atraumatic. EYES: Normal reaction of pupils, equal size. Conjunctiva pink, sclera white. NOSE: Clear with pink turbinates. THROAT: No erythema or exudates. NECK: No masses, no JVD, no thyroid enlargement, no adenopathy. CHEST: No chest wall deformity. Symmetrical expansion. Sternal incision is clean dry and intact, well approximated, covered with surgical dressing, 2 mediastinal chest tubes have been discontinued and left pleural chest tube remains in place with thin serosanguineous output, with Pleur-evac to wall suction, with sanguinous output in the Pleur-evacs. Epicardial wires are present, to external pacemaker, intrinsic rhythm is sinus rhythm LUNGS: Equal air entry with diffuse rhonchi CVS: Regular rate and rhythm, normal S1 and S2, no gallops, no murmurs, no rubs ABDOMEN: Soft, nontender. No hepatosplenomegaly, normal bowel sounds, no guarding or rigidity. EXTREMITIES: No clubbing, no edema, no cyanosis, 2+ pulses and upper and lower extremities. Bilateral lower extremities are Toni wrapped, there is a MELINA drain in the left lower extremity from saphenous graft site MUSCULOSKELETAL: Muscle strength and tone normal. SPINE: No scoliosis or deformity SKIN: No rashes CENTRAL NERVOUS SYSTEM: Sedated. No focal deficits, tone is normal in all 4 extremities. - Labs CBC & Chem 7: 07/28/18 05:14 07/28/18 08:15 Labs: Abnormal Lab Results - Last 24 Hours (Table) 07/27/18 07/27/18 07/27/18 Range/Units 16:49 17:51 20:07 WBC (3.8-10.6) k/uL RBC (4.30-5.90) m/uL Hgb (13.0-17.5) gm/dL Hct (39.0-53.0) % Plt Count (150-450) k/uL Neutrophils # (1.3-7.7) k/uL Chloride (98-107) mmol/L BUN (9-20) mg/dL Glucose (74-99) mg/dL POC Glucose (mg/dL) 117 H 131 H 113 H (75-99) mg/dL Magnesium (1.6-2.3) mg/dL AST (17-59) U/L Total Protein (6.3-8.2) g/dL Albumin (3.5-5.0) g/dL Amylase (30-110) U/L 07/27/18 07/27/18 07/27/18 Range/Units 21:08 22:04 22:47 WBC (3.8-10.6) k/uL RBC (4.30-5.90) m/uL Hgb (13.0-17.5) gm/dL Hct (39.0-53.0) % Plt Count (150-450) k/uL Neutrophils # (1.3-7.7) k/uL Chloride (98-107) mmol/L BUN (9-20) mg/dL Glucose (74-99) mg/dL POC Glucose (mg/dL) 115 H 132 H 131 H (75-99) mg/dL Magnesium (1.6-2.3) mg/dL AST (17-59) U/L Total Protein (6.3-8.2) g/dL Albumin (3.5-5.0) g/dL Amylase (30-110) U/L 07/28/18 07/28/18 07/28/18 Range/Units 00:23 01:28 02:05 WBC (3.8-10.6) k/uL RBC (4.30-5.90) m/uL Hgb (13.0-17.5) gm/dL Hct (39.0-53.0) % Plt Count (150-450) k/uL Neutrophils # (1.3-7.7) k/uL Chloride (98-107) mmol/L BUN (9-20) mg/dL Glucose (74-99) mg/dL POC Glucose (mg/dL) 109 H 123 H 111 H (75-99) mg/dL Magnesium (1.6-2.3) mg/dL AST (17-59) U/L Total Protein (6.3-8.2) g/dL Albumin (3.5-5.0) g/dL Amylase (30-110) U/L 07/28/18 07/28/18 07/28/18 Range/Units 03:10 04:36 04:42 WBC (3.8-10.6) k/uL RBC (4.30-5.90) m/uL Hgb (13.0-17.5) gm/dL Hct (39.0-53.0) % Plt Count (150-450) k/uL Neutrophils # (1.3-7.7) k/uL Chloride 110 H (98-107) mmol/L BUN 34 H (9-20) mg/dL Glucose 128 H (74-99) mg/dL POC Glucose (mg/dL) 118 H 132 H (75-99) mg/dL Magnesium 2.5 H (1.6-2.3) mg/dL AST 184 H (17-59) U/L Total Protein 5.8 L (6.3-8.2) g/dL Albumin 3.3 L (3.5-5.0) g/dL Amylase <30 L (30-110) U/L 07/28/18 07/28/18 07/28/18 Range/Units 04:42 05:14 05:46 WBC 11.7 H 15.1 H (3.8-10.6) k/uL RBC 1.80 L 2.36 L (4.30-5.90) m/uL Hgb 5.7 L* 7.6 L D (13.0-17.5) gm/dL Hct 17.7 L* 23.5 L (39.0-53.0) % Plt Count 101 L 131 L (150-450) k/uL Neutrophils # 9.4 H 12.6 H (1.3-7.7) k/uL Chloride (98-107) mmol/L BUN (9-20) mg/dL Glucose (74-99) mg/dL POC Glucose (mg/dL) 134 H (75-99) mg/dL Magnesium (1.6-2.3) mg/dL AST (17-59) U/L Total Protein (6.3-8.2) g/dL Albumin (3.5-5.0) g/dL Amylase (30-110) U/L 07/28/18 07/28/18 07/28/18 Range/Units 06:58 08:01 08:15 WBC (3.8-10.6) k/uL RBC (4.30-5.90) m/uL Hgb (13.0-17.5) gm/dL Hct (39.0-53.0) % Plt Count (150-450) k/uL Neutrophils # (1.3-7.7) k/uL Chloride 111 H (98-107) mmol/L BUN 33 H (9-20) mg/dL Glucose 113 H (74-99) mg/dL POC Glucose (mg/dL) 110 H 115 H (75-99) mg/dL Magnesium (1.6-2.3) mg/dL AST (17-59) U/L Total Protein (6.3-8.2) g/dL Albumin (3.5-5.0) g/dL Amylase (30-110) U/L 07/28/18 07/28/18 07/28/18 Range/Units 09:07 10:02 11:03 WBC (3.8-10.6) k/uL RBC (4.30-5.90) m/uL Hgb (13.0-17.5) gm/dL Hct (39.0-53.0) % Plt Count (150-450) k/uL Neutrophils # (1.3-7.7) k/uL Chloride (98-107) mmol/L BUN (9-20) mg/dL Glucose (74-99) mg/dL POC Glucose (mg/dL) 122 H 117 H 129 H (75-99) mg/dL Magnesium (1.6-2.3) mg/dL AST (17-59) U/L Total Protein (6.3-8.2) g/dL Albumin (3.5-5.0) g/dL Amylase (30-110) U/L 07/28/18 07/28/18 07/28/18 Range/Units 12:03 13:07 14:13 WBC (3.8-10.6) k/uL RBC (4.30-5.90) m/uL Hgb (13.0-17.5) gm/dL Hct (39.0-53.0) % Plt Count (150-450) k/uL Neutrophils # (1.3-7.7) k/uL Chloride (98-107) mmol/L BUN (9-20) mg/dL Glucose (74-99) mg/dL POC Glucose (mg/dL) 126 H 102 H 110 H (75-99) mg/dL Magnesium (1.6-2.3) mg/dL AST (17-59) U/L Total Protein (6.3-8.2) g/dL Albumin (3.5-5.0) g/dL Amylase (30-110) U/L 07/28/18 07/28/18 Range/Units 15:01 16:14 WBC (3.8-10.6) k/uL RBC (4.30-5.90) m/uL Hgb (13.0-17.5) gm/dL Hct (39.0-53.0) % Plt Count (150-450) k/uL Neutrophils # (1.3-7.7) k/uL Chloride (98-107) mmol/L BUN (9-20) mg/dL Glucose (74-99) mg/dL POC Glucose (mg/dL) 147 H 149 H (75-99) mg/dL Magnesium (1.6-2.3) mg/dL AST (17-59) U/L Total Protein (6.3-8.2) g/dL Albumin (3.5-5.0) g/dL Amylase (30-110) U/L Assessment and Plan Plan: Assessment: #1. Symptomatic multivessel coronary artery disease, status post four-vessel bypass with MATT to LAD, SVG to the PLB, SVG to the diag, and to OM1, stop day 3 #2. Routine postoperative ventilator management, patient was extubated at 1:30 in the morning on 07/26/2018, currently on 6 L per high flow nasal cannula, tolerated extubation well On 07/27/2018 patient is on 9 L per high flow nasal cannula, episode of delirium and agitation last night, requiring a dose of IV Haldol, this morning his lethargic. Patient needs aggressive pulmonary toileting, he is not able to clear secretions. Chest x-ray was reviewed, and showed small to moderate-sized left pleural effusion, mild pulmonary vessel congestion, retrocardiac atelectasis #3. Confusion, agitation, delirium in the postoperative period, may be related to metabolic encephalopathy #4. A. fib RVR #5. Acute blood loss anemia, an expected outcome of bypass grafting surgery #6. Moderate aortic stenosis #7. Hypertension #8. Sleep apnea syndrome on CPAP therapy. Whether the patient uses CPAP on the regular basis is to be further clarified #9. History of CVA #10. Morbid obesity #11. History of bariatric surgery #12. Prostate enlargement #13. DJD Plan: Continue encouraging deep breathing and coughing, today's chest x-ray has been reviewed by Dr. Rose and showed slight interval worsening in the degree of mild pulmonary vascular congestion, patient was given a dose of IV Lasix. His FiO2 is down to 2 L. Less confused and agitated on today's exam, we'll continue to closely monitor, patient did have A. fib RVR, and his beta rodríguez therapy was increased per CT surgery. We'll continue to closely follow I performed a history & physical examination of the patient and discussed their management with my nurse practitioner, Shweta Morejon. I reviewed the nurse practitioner's note and agree with the documented findings and plan of care. Lung sounds are scattered rhonchi. The findings and the impression was discussed with the patient. I attest to the documentation by the nurse practitioner. Time with Patient: Greater than 30
[2018-07-28] MEDS: CLEVIDIPINE BUTYRATE 25 MG in EMPTY BAG 1 BAG IV SCH (17:16)
[2018-07-28 17:17] LABS: Glucose,Whole Blood 140 mg/dL (75-99)
[2018-07-28 18:32] LABS: Glucose,Whole Blood 178 mg/dL (75-99)
[2018-07-28] MEDS: TAMSULOSIN 0.4 MG CAP.ER.24H PO SCH (18:36)
[2018-07-28 19:03] LABS: Glucose,Whole Blood 138 mg/dL (75-99)
[2018-07-28 20:11] LABS: Glucose,Whole Blood 123 mg/dL (75-99)
[2018-07-28 21:08] LABS: Glucose,Whole Blood 105 mg/dL (75-99)
[2018-07-28] MEDS: SENNOSIDES-DOCUSATE SODIUM 1 EACH TAB PO SCH (21:38)
[2018-07-28] MEDS: QUEtiapine 25 MG TAB PO SCH (21:39)
[2018-07-28 22:19] LABS: Glucose,Whole Blood 106 mg/dL (75-99)
[2018-07-29 00:18] LABS: Glucose,Whole Blood 138 mg/dL (75-99)
[2018-07-29] MEDS: HEPARIN SODIUM,PORCINE 5,000 UNIT/ML 1 ML VIAL SQ SCH ×4 (00:43→23:21)
[2018-07-29] MEDS: KETOROLAC 30 MG/ML 1 ML VIAL IVP SCH ×5 (00:43→23:21)
[2018-07-29] MEDS: METOPROLOL TARTRATE 5 MG/5 ML VIAL IVP SCH ×2 (00:43→05:52)
[2018-07-29] MEDS: NITROGLYCERIN OINT 1 INCH/GM PACKET TOPICAL SCH ×2 (00:44→05:52)
[2018-07-29 01:21] LABS: Glucose,Whole Blood 138 mg/dL (75-99)
[2018-07-29 02:48] LABS: Glucose,Whole Blood 135 mg/dL (75-99)
[2018-07-29 03:09] LABS: Glucose,Whole Blood 106 mg/dL (75-99)
[2018-07-29 04:25] LABS: Glucose,Whole Blood 109 mg/dL (75-99)
[2018-07-29 05:04] LABS: Glucose,Whole Blood 112 mg/dL (75-99)
[2018-07-29 05:55] LABS: Basophils % (A) 0 %; Eosinophils # (A) 0.1 k/uL (0-0.7); Eosinophils % (A) 1 %; HCT 23.8 % (39.0-53.0); HGB 7.5 gm/dL (13.0-17.5); Lymphocytes # (A) 2.1 k/uL (1.0-4.8); Lymphocytes % (A) 16 %; MCH 31.3 pg (25.0-35.0); MCHC 31.6 g/dL (31.0-37.0); MCV 99.3 fL (80.0-100.0); Macrocytosis Slight; Mean Platelet Volume 8.3; Monocytes # (A) 0.7 k/uL (0-1.0); Monocytes % (A) 5 %; Neutrophils # (A) 10.1 k/uL (1.3-7.7); Neutrophils % (A) 76 %; Platelet Count 155 k/uL (150-450); RBC 2.39 m/uL (4.30-5.90); RDW 14.2 % (11.5-15.5); WBC 13.2 k/uL (3.8-10.6)
[2018-07-29 06:05] LABS: ALT 41 U/L (21-72); AST 130 U/L (17-59); Alkaline Phosphatase 38 U/L (38-126); Anion Gap 6 mmol/L; Blood Urea Nitrogen 42 mg/dL (9-20); Calcium 8.1 mg/dL (8.4-10.2); Carbon Dioxide 26 mmol/L (22-30); Chloride 113 mmol/L (98-107); Glucose 112 mg/dL (74-99); Magnesium 2.7 mg/dL (1.6-2.3); Phosphorus 4.1 mg/dL (2.5-4.5); Potassium 4.1 mmol/L (3.5-5.1); Sodium 145 mmol/L (137-145); Total Bilirubin 0.7 mg/dL (0.2-1.3); Total Protein 5.7 g/dL (6.3-8.2)
--- NOTE | 2018-07-29 06:45 | XR ---
EXAMINATION TYPE: XR chest 1V portable DATE OF EXAM: 07/29/2018 HISTORY: post cardiac surgery. REFERENCE: Previous study dated 07/28/2018. FINDINGS: There has been a midline sternotomy. A right internal jugular sheath is in place. A left pl eural drain is present. The study is moderately rotated. The heart appears enlarged. There is mild vascular congestion withou t stephanie edema. There is left basilar airspace disease. There are small, bilateral effusions. IMPRESSION: NO SIGNIFICANT INTERVAL CHANGE IN THE APPEARANCE OF THE CHEST.
[2018-07-29 06:47] LABS: Glucose,Whole Blood 124 mg/dL (75-99)
[2018-07-29 07:20] LABS: Glucose,Whole Blood 138 mg/dL (75-99)
[2018-07-29] MEDS: IPRATROPIUM-ALBUTEROL 3 ML NEB INHALATION SCH ×4 (08:03→20:54)
[2018-07-29 08:15] LABS: Glucose,Whole Blood 146 mg/dL (75-99)
[2018-07-29] MEDS: PANTOPRAZOLE 40 MG TABLET PO SCH (08:58)
[2018-07-29] MEDS: ATORVASTATIN 40 MG TAB PO SCH (08:58)
[2018-07-29] MEDS: FERROUS SULFATE 325 MG TAB PO SCH ×2 (08:58→17:50)
[2018-07-29] MEDS: OXYBUTYNIN CHLORIDE 5 MG TAB PO SCH (08:58)
[2018-07-29] MEDS: ASCORBIC ACID 500 MG TAB PO SCH ×2 (08:58→17:50)
[2018-07-29] MEDS: CLOPIDOGREL 75 MG TAB PO SCH (08:58)
[2018-07-29] MEDS: ASPIRIN 325 MG TAB PO SCH (09:00)
[2018-07-29] MEDS ORDERED: METOPROLOL TARTRATE 25 MG TAB PO SCH (09:00)
--- NOTE | 2018-07-29 09:09 | P.PN ---
Subjective Progress Note Date: 07/29/18 Principal diagnosis: Coronary artery disease. Previous medical history of hypertension, previous tobacco dependence with preoperative FEV1 86% of predicted, obstructive sleep apnea, TIA, bilateral internal carotid artery stenosis 50-79%, prostate disorder , morbid obesity with history of bariatric surgery, and drop foot on the left leg. POD #4 coronary artery bypass grafting 4 vessels, left internal mammary to the left anterior descending artery, reverse saphenous vein graft to the diagonal artery, reverse saphenous vein graft to the second obtuse marginal artery, reverse saphenous vein graft to the posterior lateral branch of the right coronary artery. Endoscopic vein harvest of bilateral greater saphenous veins. Epi-aortic ultrasound. Intraoperative transesophageal echocardiogram. Closure of the sternum using titanium plating system. Postoperative acute blood loss anemia, expected postsurgical condition secondary to hemodilution and cardiopulmonary bypass pump. Acute confusion, unexpected, possibly from cardiopulmonary bypass pump. The patient is currently sitting up in a recliner in no acute distress. Denies pain, shortness of breath. Patient is alert and oriented 3 today and much more cooperative. He did get up by himself last night pulling out his arterial line. He is tolerating oral intake at this time. Remains hemodynamically stable on no inotropes or pressors. No new complaints. Objective - Vital Signs Vital signs: Vital Signs Temp 98.5 F 07/29/18 04:00 Pulse 86 07/29/18 08:10 Resp 19 07/29/18 07:00 BP 132/90 07/29/18 07:00 Pulse Ox 99 07/29/18 07:00 Intake & Output 07/28/18 07/29/18 07/29/18 18:59 06:59 18:59 Intake Total 482.539 409.299 33.785 Output Total 1420 639 30 Balance -937.461 -229.701 3.785 Weight 152.5 kg 149.8 kg Intake: IV 422 368 23 Lactated Ringers 1,000 ml 350 320 20 @ 20 mls/hr IV .Q24H [facility] Rx#:[id number] pressure bags 72 48 3 Intake, IV Titration 60.539 41.299 10.785 Amount Insulin Regular 100 unit 60.539 41.299 10.785 In Sodium Chloride 0.9% 100 ml @ Per Protocol IV .Q0M [facility] Rx#:[id number] Output: Chest Tube Drainage 320 210 0 left pleural 320 210 0 Urine 1100 429 30 Other: Voiding Method Indwelling Catheter Indwelling Catheter ABP, PAP, CO, CI - Last Documented Arterial Blood Pressure 130/50 Pulmonary Artery Pressure 44/8 Cardiac Output 7.2 Cardiac Index 2.8 - Constitutional General appearance: Present: cooperative, morbidly obese, no acute distress - Respiratory Details: Lungs sounds diminished bilaterally. Respirations even, nonlabored. Currently on 2 L nasal cannula with oxygen saturation 97%. Able to achieve 750-1000 mL on his incentive spirometry. Strong, productive cough. Left pleural chest tube to continuous wall suction, 20 mL serosanguineous drainage overnight, 470 mL in the last 24 hours. No air leaks present. - Cardiovascular Details: S1, S2 present. Regular rate and rhythm, sinus rhythm on telemetry. Sternum stable. A/V epicardial pacemaker wires present, grounded. Palpable peripheral pulses bilaterally. Trace generalized edema present. No calf pain or tenderness noted. Right internal jugular Cordis present. Heart hugger in place with patient able to demonstrate appropriate use. Antiembolism stockings , SCDs present. - Gastrointestinal Gastrointestinal Comment(s): Abdomen soft, nondistended, nontender, obese. Active bowel sounds present 4 quadrants. Tolerating pured diet with thickened liquids. Positive flatus, negative bowel movement. - Genitourinary Genitourinary Comment(s): Smith present draining clear, yellow urine. Output 35-40 mL per hour overnight , excellent diuresis after IV Lasix given a yesterday. - Integumentary Integumentary Comment(s): Skin is warm and dry with evidence of good perfusion. Anterior chest incision well approximated, dry intact dressing present. Left lower extremity EVH site well approximated. - Neurologic Neurologic: Present: CNII-XII intact - Musculoskeletal Musculoskeletal: Present: generalized weakness, strength equal bilaterally - Psychiatric Psychiatric: Present: A&O x's 3, appropriate affect, intact judgment & insight - Allied health notes Allied health notes reviewed: nursing - Labs CBC & Chem 7: 07/29/18 05:40 07/29/18 05:40 Labs: Abnormal Lab Results - Last 24 Hours (Table) 07/28/18 07/28/18 07/28/18 Range/Units 09:07 10:02 11:03 WBC (3.8-10.6) k/uL RBC (4.30-5.90) m/uL Hgb (13.0-17.5) gm/dL Hct (39.0-53.0) % Neutrophils # (1.3-7.7) k/uL Chloride (98-107) mmol/L BUN (9-20) mg/dL Glucose (74-99) mg/dL POC Glucose (mg/dL) 122 H 117 H 129 H (75-99) mg/dL Calcium (8.4-10.2) mg/dL Magnesium (1.6-2.3) mg/dL AST (17-59) U/L Total Protein (6.3-8.2) g/dL Albumin (3.5-5.0) g/dL 07/28/18 07/28/18 07/28/18 Range/Units 12:03 13:07 14:13 WBC (3.8-10.6) k/uL RBC (4.30-5.90) m/uL Hgb (13.0-17.5) gm/dL Hct (39.0-53.0) % Neutrophils # (1.3-7.7) k/uL Chloride (98-107) mmol/L BUN (9-20) mg/dL Glucose (74-99) mg/dL POC Glucose (mg/dL) 126 H 102 H 110 H (75-99) mg/dL Calcium (8.4-10.2) mg/dL Magnesium (1.6-2.3) mg/dL AST (17-59) U/L Total Protein (6.3-8.2) g/dL Albumin (3.5-5.0) g/dL 07/28/18 07/28/18 07/28/18 Range/Units 15:01 16:14 17:13 WBC (3.8-10.6) k/uL RBC (4.30-5.90) m/uL Hgb (13.0-17.5) gm/dL Hct (39.0-53.0) % Neutrophils # (1.3-7.7) k/uL Chloride (98-107) mmol/L BUN (9-20) mg/dL Glucose (74-99) mg/dL POC Glucose (mg/dL) 147 H 149 H 140 H (75-99) mg/dL Calcium (8.4-10.2) mg/dL Magnesium (1.6-2.3) mg/dL AST (17-59) U/L Total Protein (6.3-8.2) g/dL Albumin (3.5-5.0) g/dL 07/28/18 07/28/18 07/28/18 Range/Units 18:11 19:00 20:07 WBC (3.8-10.6) k/uL RBC (4.30-5.90) m/uL Hgb (13.0-17.5) gm/dL Hct (39.0-53.0) % Neutrophils # (1.3-7.7) k/uL Chloride (98-107) mmol/L BUN (9-20) mg/dL Glucose (74-99) mg/dL POC Glucose (mg/dL) 178 H 138 H 123 H (75-99) mg/dL Calcium (8.4-10.2) mg/dL Magnesium (1.6-2.3) mg/dL AST (17-59) U/L Total Protein (6.3-8.2) g/dL Albumin (3.5-5.0) g/dL 07/28/18 07/28/18 07/29/18 Range/Units 21:05 22:05 00:15 WBC (3.8-10.6) k/uL RBC (4.30-5.90) m/uL Hgb (13.0-17.5) gm/dL Hct (39.0-53.0) % Neutrophils # (1.3-7.7) k/uL Chloride (98-107) mmol/L BUN (9-20) mg/dL Glucose (74-99) mg/dL POC Glucose (mg/dL) 105 H 106 H 138 H (75-99) mg/dL Calcium (8.4-10.2) mg/dL Magnesium (1.6-2.3) mg/dL AST (17-59) U/L Total Protein (6.3-8.2) g/dL Albumin (3.5-5.0) g/dL 07/29/18 07/29/18 07/29/18 Range/Units 01:18 02:11 03:07 WBC (3.8-10.6) k/uL RBC (4.30-5.90) m/uL Hgb (13.0-17.5) gm/dL Hct (39.0-53.0) % Neutrophils # (1.3-7.7) k/uL Chloride (98-107) mmol/L BUN (9-20) mg/dL Glucose (74-99) mg/dL POC Glucose (mg/dL) 138 H 135 H 106 H (75-99) mg/dL Calcium (8.4-10.2) mg/dL Magnesium (1.6-2.3) mg/dL AST (17-59) U/L Total Protein (6.3-8.2) g/dL Albumin (3.5-5.0) g/dL 07/29/18 07/29/18 07/29/18 Range/Units 04:11 05:00 05:40 WBC 13.2 H (3.8-10.6) k/uL RBC 2.39 L (4.30-5.90) m/uL Hgb 7.5 L (13.0-17.5) gm/dL Hct 23.8 L (39.0-53.0) % Neutrophils # 10.1 H (1.3-7.7) k/uL Chloride (98-107) mmol/L BUN (9-20) mg/dL Glucose (74-99) mg/dL POC Glucose (mg/dL) 109 H 112 H (75-99) mg/dL Calcium (8.4-10.2) mg/dL Magnesium (1.6-2.3) mg/dL AST (17-59) U/L Total Protein (6.3-8.2) g/dL Albumin (3.5-5.0) g/dL 07/29/18 07/29/18 07/29/18 Range/Units 05:40 06:22 07:07 WBC (3.8-10.6) k/uL RBC (4.30-5.90) m/uL Hgb (13.0-17.5) gm/dL Hct (39.0-53.0) % Neutrophils # (1.3-7.7) k/uL Chloride 113 H (98-107) mmol/L BUN 42 H (9-20) mg/dL Glucose 112 H (74-99) mg/dL POC Glucose (mg/dL) 124 H 138 H (75-99) mg/dL Calcium 8.1 L (8.4-10.2) mg/dL Magnesium 2.7 H (1.6-2.3) mg/dL AST 130 H (17-59) U/L Total Protein 5.7 L (6.3-8.2) g/dL Albumin 3.0 L (3.5-5.0) g/dL 07/29/18 Range/Units 08:13 WBC (3.8-10.6) k/uL RBC (4.30-5.90) m/uL Hgb (13.0-17.5) gm/dL Hct (39.0-53.0) % Neutrophils # (1.3-7.7) k/uL Chloride (98-107) mmol/L BUN (9-20) mg/dL Glucose (74-99) mg/dL POC Glucose (mg/dL) 146 H (75-99) mg/dL Calcium (8.4-10.2) mg/dL Magnesium (1.6-2.3) mg/dL AST (17-59) U/L Total Protein (6.3-8.2) g/dL Albumin (3.5-5.0) g/dL - Imaging and Cardiology Chest x-ray: report reviewed, image reviewed Assessment and Plan (1) Status post aorto-coronary artery bypass graft Current Visit: Yes Status: Acute Code(s): Z95.1 - PRESENCE OF AORTOCORONARY BYPASS GRAFT SNOMED Code(s): 736833487 (2) Aortic valve stenosis Current Visit: Yes Status: Chronic Code(s): I35.0 - NONRHEUMATIC AORTIC ( VALVE) STENOSIS SNOMED Code(s): 81004514 (3) BPH (benign prostatic hyperplasia) Current Visit: Yes Status: Chronic Code(s): N40.0 - BENIGN PROSTATIC HYPERPLASIA WITHOUT LOWER URINRY TRACT SYMP SNOMED Code(s): 320120330 (4) Coronary artery disease Current Visit: Yes Status: Chronic Code(s): I25.10 - ATHSCL HEART DISEASE OF BLACKFEET CORONARY ARTERY W/O ANG PCTRS SNOMED Code(s): 49039164 (5) Foot drop, left Current Visit: Yes Status: Chronic Code(s): M21.372 - FOOT DROP, LEFT FOOT SNOMED Code(s): 6929764 (6) Hypertension Current Visit: Yes Status: Chronic Code(s): I10 - ESSENTIAL (PRIMARY) HYPERTENSION SNOMED Code(s): 84351911 (7) Morbid obesity with BMI of 45.0-49.9, adult Current Visit: Yes Status: Chronic Code(s): E66.01 - MORBID (SEVERE) OBESITY DUE TO EXCESS CALORIES; Z68.42 - BODY MASS INDEX (BMI) 45.0-49.9, ADULT SNOMED Code(s): 615364824 (8) Nicotine dependence in remission Current Visit: No Status: Resolved Code(s): F17.201 - NICOTINE DEPENDENCE, UNSPECIFIED, IN REMISSION SNOMED Code(s): 95600664 (9) Obstructive sleep apnea Current Visit: Yes Status: Chronic Code(s): G47.33 - OBSTRUCTIVE SLEEP APNEA (ADULT) (PEDIATRIC) SNOMED Code(s): 03620956 (10) Osteoarthritis Current Visit: Yes Status: Chronic Code(s): M19.90 - UNSPECIFIED OSTEOARTHRITIS, UNSPECIFIED SITE SNOMED Code(s): 841162207 Plan: 1. Continue aspirin, statin, Plavix, BEATRIZ inhibitor, beta rodríguez therapy, will increase beta rodríguez therapy as tolerated. IV meds switched back to oral as patient is tolerating oral intake. 2. Wean O2 as tolerated. Encourage incentive spirometry use 10 times every hour while awake. 3. Increase activity as tolerated. PT/OT/cardiac rehab following. Patient should wear boot for ambulation on left leg. 4. Bronchodilators per pulmonology. 5. Will monitor daily labs and x-rays. No transfusion. 6. GI prophylaxis with Protonix. DVT prophylaxis with subcu heparin, SCDs. 7. Pain control with current medication regimen. Avoid narcotics. 8. Reorient patient as needed. 9. Insulin management per primary care service. 10. Will give Lasix today. USHA Smith later this afternoon. 11. Will consult social work for insurance authorization as patient is going to need rehab upon discharge. 12. More recommendations to follow. Time with Patient: Greater than 30
[2018-07-29 09:17] LABS: Glucose,Whole Blood 187 mg/dL (75-99)
--- NOTE | 2018-07-29 09:53 | P.PN ---
Subjective Progress Note Date: 07/29/18 Principal diagnosis: Symptomatic multivessel coronary artery disease, status post coronary artery bypass grafting. This is 78-year-old white male patient of Dr. Fuchs, who we met on 07/20/2018 for preop pulmonary evaluation for coronary artery bypass grafting. Patient has been having progressive dyspnea, he was referred to cardiology, had a cardiac catheterization which revealed severe multivessel coronary artery disease and moderate aortic stenosis. Patient had a 90% stenosis of his RCA, 80 % stenosis of his circumflex, 95% stenosis of his mid LAD. Aortic valve surface area was 1.2 cm. Other medical history includes previous history of CVA, hypertension, osteoarthritis, and 9 prostatic hypertrophy, sleep apnea syndrome, previous history of bariatric surgery, morbid obesity, and remote history of tobacco use. His preop bedside spirometry showed FEV1 of 86% of predicted, FVC of 71% of predicted, mild restriction. Patient was deferred to cardiothoracic surgery, and was recommended a surgical intervention, today on patient underwent four-vessel coronary artery bypass grafting, with MATT to LAD, SVG to the PLB, SVG to the diagonal, and SVG to the OM 1. Patient is seen in the intensive care unit, he is sedated, on mechanical ventilator, currently SIMV mode of ventilation with a rate of 12, tidal volume of 580, FiO2 100%, and PEEP of 10. Chest x-ray showed ET tube, chest tubes, right IJ PA catheter in appropriate positions, lungs are clear of consolidation, no heart failure. Patient is in sinus rhythm, his maintenance IV fluids of LR at 50, milrinone at 0.5 mics/per kilo per minute, Levaquin fed at 2 mics per minute, insulin at 2 units per hour, Diprivan at 15 mics per kilo per minute, and nitro at 5 mics/min. Blood work showed WBC of 15.2, hemoglobin of 7.9, INR 1.5, choice and renal profile were within normal limits, blood gas showed pO2 of 174 , pCO2 48, and pH is 7.3. Patient has 2 mediastinal chest tubes, left pleural chest tube, and there has been a 300 mL of sanguinous output in the mediastinal chest tube, and 10 mL in the left pleural. Hemodynamically patient is stable, cardiac output and index are 5.6 and 2.2 respectively, PA pressures 35/21. On 07/26/2018 patient seen in follow-up in the intensive care unit. This morning he is extubated, sitting up in the chair position in bed, he was extubated at about 1:30 in the morning. Currently on 6 L per nasal cannula, his pulse ox is 96%, he is awake and alert, acute distress, sinus rhythm on the monitor. Today's chest x-ray has been reviewed by Dr. Rose and showed stable bibasilar opacities and pleural effusions. Hemodynamically patient is stable. Levo has been off since 9:00 this morning, maintenance IV fluids is LR at 50 ML per hour, insulin drip is at 5 units per hour, no other drips. Cardiac output and index of 6.2 and 2.4 respectively. Today's lab work has been reviewed, WBCs 13.3, hemoglobin is 8.1, with recent blood gas prior to extubation showed pO2 of 72, pCO2 of 40%, and pH of 7.37, this was done and FiO2 40%, BMP was all within normal limits. Patient has underlying sleep apnea , on CPAP therapy. Patient may require some BiPAP support at night and is needed during the day. We'll continue to monitor, currently in no distress, he is awake and alert and responding to questions appropriately. 2 mediastinal and left pleural chest tubes are draining serosanguineous output. Mediastinal chest tube output is 560 over the last 24 hours, left pleural chest tube output is 378 in the last 24 hours. Smith catheter is present, draining urine in order of 30-45 ML per hour. We'll encourage incentive spirometry, we'll try to mobilize the patient, and set him up at the bedside. On 07/27/2018 patient seen in follow-up in the intensive care unit. This morning he is lethargic, mumbling, patient was apparently confused, agitated and delirious last night, received a dose of Haldol after which he became lethargic, hypotensive, and required albumin and levofed for blood pressure support. This morning he is off the levofed infusion. Blood gas was done, which showed pO2 of 75, pCO2 of 35, and pH of 7.47 as was done on FiO2 of 55%. There is some blood work was reviewed, WBCs 13.7, hemoglobin is 7.1, sodium is 140, potassium is 4.2, chloride is 109, B1 is 28 and creatinine 1.13. On 9 L per high flow nasal cannula, and his pulse ox is 96%, patient is afebrile, blood pressure is 150/64, PA pressure is 44/8, and cardiac output and index hours 7.2 and 2.8. Patient is mediastinal chest tubes removed, left pleural chest tube remains in place with serosanguineous thin output. Has been 760 mL out of the left pleural and the last 24 hours, and 250 on of the mediastinal chest tubes. Lung sounds are positive for scattered rhonchi, he is somnolent, has a loose nonproductive cough. Today's chest x-ray was reviewed by Dr. Rose, and shows stable cardiomegaly with small to moderate left pleural effusion tracking up to the left apex and possible mild pulmonary vascular congestion, retrocardiac atelectasis. Urinary catheter is in, and his urine output is 2240 ML per hour. Maintenance IV fluid is lactated Ringer's at a rate of 20 ML per hour, no other drips. On 07/28/2018 patient seen in follow-up in the intensive care unit. Patient remains confused, but cooperative. He is in the chair, currently on 2 L per nasal cannula, his pulse ox is 95%, afebrile, hemodynamically stable. Today's lab work has been reviewed, showed WBC of 15.1, hemoglobin of 7.6, platelet count of 131, sodium of 145, potassium is 4.2, chloride is 111, BUN is 33, creatinine 1.03. Chest x-ray showed slight interval worsening mild pulmonary vascular congestion and bibasilar atelectasis. Patient denied any shortness of breath, patient is currently in A. fib RVR, and her beta rodríguez therapy was increased per CT surgery come patient received a dose of IV Lasix. Encourage deep breathing and coughing. Patient is seen again today 07/29/2018 in follow-up in the intensive care unit. He is currently sitting up in a chair at the bedside. He is much more awake and alert today. He is oriented 3. He is maintaining good O2 saturations in the high 90s on 2 L/m per nasal cannula. He's been afebrile. Hemodynamically stable. Regular rhythm. His x-ray reveals mild vascular congestion but no stephanie edema. Left basilar airspace disease. Small bilateral effusions. No significant change compared to yesterday. White count 13.2. Hemoglobin 7.5. Creatinine 0.95. AST 130. Albumin 3.0. He continues to need increased encouragement regarding the use of the incentive spirometer. He is attempting to improve his numbers. He's been up with assistance. He remains on lactated Ringer's at 20 ML's per hour. Insulin drip currently at 9 units per hour. Most recent glucose 187. Objective - Vital Signs Vital signs: Vital Signs Temp 98.5 F 07/29/18 04:00 Pulse 86 07/29/18 08:10 Resp 19 07/29/18 07:00 BP 132/90 07/29/18 07:00 Pulse Ox 99 07/29/18 07:00 Intake & Output 07/28/18 07/29/18 07/29/18 18:59 06:59 18:59 Intake Total 482.539 409.299 40.236 Output Total 1420 639 30 Balance -937.461 -229.701 10.236 Weight 152.5 kg 149.8 kg Intake: IV 422 368 23 Lactated Ringers 1,000 ml 350 320 20 @ 20 mls/hr IV .Q24H [facility] Rx#:[id number] pressure bags 72 48 3 Intake, IV Titration 60.539 41.299 17.236 Amount Insulin Regular 100 unit 60.539 41.299 17.236 In Sodium Chloride 0.9% 100 ml @ Per Protocol IV .Q0M [facility] Rx#:[id number] Output: Chest Tube Drainage 320 210 0 left pleural 320 210 0 Urine 1100 429 30 Other: Voiding Method Indwelling Catheter Indwelling Catheter ABP, PAP, CO, CI - Last Documented Arterial Blood Pressure 130/50 Pulmonary Artery Pressure 44/8 Cardiac Output 7.2 Cardiac Index 2.8 - Exam GENERAL EXAM: Awake alert, obese 78-year-old white male, on 2 L per high flow nasal cannula, patient is less confused as compared to yesterday. EYES: Normal reaction of pupils, equal size. Conjunctiva pink, sclera white. NOSE: Clear with pink turbinates. THROAT: No erythema or exudates. NECK: No masses, no JVD, no thyroid enlargement, no adenopathy. CHEST: No chest wall deformity. Symmetrical expansion. Sternal incision is clean dry and intact, well approximated, covered with surgical dressing, left pleural chest tube remains in place with thin serosanguineous output, with Pleur -evac to wall suction. Epicardial wires are present, grounded, intrinsic rhythm is sinus rhythm LUNGS: Equal air entry with diffuse rhonchi CVS: Regular rate and rhythm, normal S1 and S2, no gallops, no murmurs, no rubs ABDOMEN: Soft, nontender. No hepatosplenomegaly, normal bowel sounds, no guarding or rigidity. EXTREMITIES: No clubbing, no edema, no cyanosis, 2+ pulses and upper and lower extremities. Bilateral lower extremities are Toni wrapped, there is a MELINA drain in the left lower extremity from saphenous graft site MUSCULOSKELETAL: Muscle strength and tone normal. SPINE: No scoliosis or deformity SKIN: No rashes CENTRAL NERVOUS SYSTEM: Sedated. No focal deficits, tone is normal in all 4 extremities. - Labs CBC & Chem 7: 07/29/18 05:40 07/29/18 05:40 Labs: Abnormal Lab Results - Last 24 Hours (Table) 07/28/18 07/28/18 07/28/18 Range/Units 10:02 11:03 12:03 WBC (3.8-10.6) k/uL RBC (4.30-5.90) m/uL Hgb (13.0-17.5) gm/dL Hct (39.0-53.0) % Neutrophils # (1.3-7.7) k/uL Chloride (98-107) mmol/L BUN (9-20) mg/dL Glucose (74-99) mg/dL POC Glucose (mg/dL) 117 H 129 H 126 H (75-99) mg/dL Calcium (8.4-10.2) mg/dL Magnesium (1.6-2.3) mg/dL AST (17-59) U/L Total Protein (6.3-8.2) g/dL Albumin (3.5-5.0) g/dL 07/28/18 07/28/18 07/28/18 Range/Units 13:07 14:13 15:01 WBC (3.8-10.6) k/uL RBC (4.30-5.90) m/uL Hgb (13.0-17.5) gm/dL Hct (39.0-53.0) % Neutrophils # (1.3-7.7) k/uL Chloride (98-107) mmol/L BUN (9-20) mg/dL Glucose (74-99) mg/dL POC Glucose (mg/dL) 102 H 110 H 147 H (75-99) mg/dL Calcium (8.4-10.2) mg/dL Magnesium (1.6-2.3) mg/dL AST (17-59) U/L Total Protein (6.3-8.2) g/dL Albumin (3.5-5.0) g/dL 07/28/18 07/28/18 07/28/18 Range/Units 16:14 17:13 18:11 WBC (3.8-10.6) k/uL RBC (4.30-5.90) m/uL Hgb (13.0-17.5) gm/dL Hct (39.0-53.0) % Neutrophils # (1.3-7.7) k/uL Chloride (98-107) mmol/L BUN (9-20) mg/dL Glucose (74-99) mg/dL POC Glucose (mg/dL) 149 H 140 H 178 H (75-99) mg/dL Calcium (8.4-10.2) mg/dL Magnesium (1.6-2.3) mg/dL AST (17-59) U/L Total Protein (6.3-8.2) g/dL Albumin (3.5-5.0) g/dL 07/28/18 07/28/18 07/28/18 Range/Units 19:00 20:07 21:05 WBC (3.8-10.6) k/uL RBC (4.30-5.90) m/uL Hgb (13.0-17.5) gm/dL Hct (39.0-53.0) % Neutrophils # (1.3-7.7) k/uL Chloride (98-107) mmol/L BUN (9-20) mg/dL Glucose (74-99) mg/dL POC Glucose (mg/dL) 138 H 123 H 105 H (75-99) mg/dL Calcium (8.4-10.2) mg/dL Magnesium (1.6-2.3) mg/dL AST (17-59) U/L Total Protein (6.3-8.2) g/dL Albumin (3.5-5.0) g/dL 07/28/18 07/29/18 07/29/18 Range/Units 22:05 00:15 01:18 WBC (3.8-10.6) k/uL RBC (4.30-5.90) m/uL Hgb (13.0-17.5) gm/dL Hct (39.0-53.0) % Neutrophils # (1.3-7.7) k/uL Chloride (98-107) mmol/L BUN (9-20) mg/dL Glucose (74-99) mg/dL POC Glucose (mg/dL) 106 H 138 H 138 H (75-99) mg/dL Calcium (8.4-10.2) mg/dL Magnesium (1.6-2.3) mg/dL AST (17-59) U/L Total Protein (6.3-8.2) g/dL Albumin (3.5-5.0) g/dL 07/29/18 07/29/18 07/29/18 Range/Units 02:11 03:07 04:11 WBC (3.8-10.6) k/uL RBC (4.30-5.90) m/uL Hgb (13.0-17.5) gm/dL Hct (39.0-53.0) % Neutrophils # (1.3-7.7) k/uL Chloride (98-107) mmol/L BUN (9-20) mg/dL Glucose (74-99) mg/dL POC Glucose (mg/dL) 135 H 106 H 109 H (75-99) mg/dL Calcium (8.4-10.2) mg/dL Magnesium (1.6-2.3) mg/dL AST (17-59) U/L Total Protein (6.3-8.2) g/dL Albumin (3.5-5.0) g/dL 07/29/18 07/29/18 07/29/18 Range/Units 05:00 05:40 05:40 WBC 13.2 H (3.8-10.6) k/uL RBC 2.39 L (4.30-5.90) m/uL Hgb 7.5 L (13.0-17.5) gm/dL Hct 23.8 L (39.0-53.0) % Neutrophils # 10.1 H (1.3-7.7) k/uL Chloride 113 H (98-107) mmol/L BUN 42 H (9-20) mg/dL Glucose 112 H (74-99) mg/dL POC Glucose (mg/dL) 112 H (75-99) mg/dL Calcium 8.1 L (8.4-10.2) mg/dL Magnesium 2.7 H (1.6-2.3) mg/dL AST 130 H (17-59) U/L Total Protein 5.7 L (6.3-8.2) g/dL Albumin 3.0 L (3.5-5.0) g/dL 07/29/18 07/29/18 07/29/18 Range/Units 06:22 07:07 08:13 WBC (3.8-10.6) k/uL RBC (4.30-5.90) m/uL Hgb (13.0-17.5) gm/dL Hct (39.0-53.0) % Neutrophils # (1.3-7.7) k/uL Chloride (98-107) mmol/L BUN (9-20) mg/dL Glucose (74-99) mg/dL POC Glucose (mg/dL) 124 H 138 H 146 H (75-99) mg/dL Calcium (8.4-10.2) mg/dL Magnesium (1.6-2.3) mg/dL AST (17-59) U/L Total Protein (6.3-8.2) g/dL Albumin (3.5-5.0) g/dL 07/29/18 Range/Units 09:13 WBC (3.8-10.6) k/uL RBC (4.30-5.90) m/uL Hgb (13.0-17.5) gm/dL Hct (39.0-53.0) % Neutrophils # (1.3-7.7) k/uL Chloride (98-107) mmol/L BUN (9-20) mg/dL Glucose (74-99) mg/dL POC Glucose (mg/dL) 187 H (75-99) mg/dL Calcium (8.4-10.2) mg/dL Magnesium (1.6-2.3) mg/dL AST (17-59) U/L Total Protein (6.3-8.2) g/dL Albumin (3.5-5.0) g/dL Assessment and Plan Assessment: Assessment: #1. Symptomatic multivessel coronary artery disease, status post four-vessel bypass with MATT to LAD, SVG to the PLB, SVG to the diag, and to OM1 #2. Routine postoperative ventilator management, patient was extubated at 1:30 in the morning on 07/26/2018, currently on 2 L per high flow nasal cannula, tolerated extubation well #3. Confusion, agitation, delirium in the postoperative period, may be related to metabolic encephalopathy #4. A. fib RVR, currently in sinus rhythm #5. Acute blood loss anemia, an expected outcome of bypass grafting surgery #6. Moderate aortic stenosis #7. Hypertension #8. Sleep apnea syndrome on CPAP therapy. Whether the patient uses CPAP on the regular basis is to be further clarified #9. History of CVA #10. Morbid obesity #11. History of bariatric surgery #12. Prostate enlargement #13. DJD Plan: The patient was seen and evaluated by Dr. Rose. Chest x-ray and labs were reviewed. The patient is improved mentally today as compared to previous. Chest x-rays is stable. Lasix given today. Continues to work with the incentive spirometer. We'll continue with bronchodilators. Increase his activity as tolerated. We'll continue to follow make further recommendations based on his clinical status. I, the cosigning physician, performed a history & physical examination of the patient. Lungs sounds with few scattered rhonchi, crackles in the posterior bases.. Maintaining good O2 saturations in the 90s on 2 L/m per nasal cannula. I discussed the assessment and plan of care with my nurse practitioner, Katey Moss. I attest to the above note as dictated by her. Time with Patient: Greater than 30
[2018-07-29 10:47] LABS: Glucose,Whole Blood 136 mg/dL (75-99)
[2018-07-29] MEDS: INSULIN REGULAR 100 UNIT in SODIUM CHLORIDE 0.9% 100 ML IV SCH (11:04)
--- NOTE | 2018-07-29 11:04 | CONS ---
CONSULTATION Mr. Justice is status post aortocoronary bypass surgery with a 4-vessel bypass. He also has moderate aortic stenosis, which was not addressed by surgery. He has had some confusion issues, but he is doing very well. He is quite lucid, answers questions appropriately. Vital signs are stable. He is having some issues with swallowing. S1, S2 heard normally. Ejection systolic murmur is audible. Second heart sound is preserved. Lungs reveal diminished air entry, both bases. Abdomen is soft, nontender. Lower extremities reveal diminished pulses. Central nervous system grossly within normal limits. Plan is to continue incentive spirometry, pulmonary toilet and supportive care. I will continue to follow this patient. MMODL / IJN: [id number] /
[2018-07-29 11:17] LABS: Glucose,Whole Blood 152 mg/dL (75-99)
[2018-07-29] MEDS: INSULIN ASPART 100 UNIT/ML 1 ML 10 ML VIAL SQ SCH ×3 (12:22→21:18)
[2018-07-29 12:23] LABS: Glucose,Whole Blood 97 mg/dL (75-99)
[2018-07-29] MEDS: LISINOPRIL 10 MG TAB PO SCH (12:32)
[2018-07-29] MEDS: LACTATED RINGERS 1,000 ML IV SCH (12:32)
[2018-07-29 13:17] LABS: Glucose,Whole Blood 137 mg/dL (75-99)
--- NOTE | 2018-07-29 16:29 | P.PN ---
Subjective Patient has multivessel coronary artery disease for which patient underwent CABG. Patient is presently clinically doing well alert oriented 3 minimal mild vascular congestion on the chest x-ray hemodynamically stable presently on insulin drip. Constitutional: Denied any fatigue denied any fever. Cardio vascular: denied any chest pain, palpitations Gastrointestinal denied any nausea vomiting Pulmonary: Denied any shortness of breath cough Neurologic denied any new focal deficits All inpatient medications were reviewed and appropriate changes in these medications as dictated in the interval history and assessment and plan. Objective - Vital Signs Vital signs: Vital Signs Temp 98.3 F 07/29/18 16:00 Pulse 88 07/29/18 16:19 Resp 23 07/29/18 16:00 BP 109/53 07/29/18 16:00 Pulse Ox 97 07/29/18 16:00 Intake & Output 07/28/18 07/29/18 07/29/18 18:59 06:59 18:59 Intake Total 482.539 409.299 286.527 Output Total 1420 639 275 Balance -937.461 -229.701 11.527 Weight 152.5 kg 149.8 kg Intake: IV 422 368 161 Lactated Ringers 1,000 ml 350 320 140 @ 20 mls/hr IV .Q24H [facility] Rx#:[id number] pressure bags 72 48 21 Intake, IV Titration 60.539 41.299 25.527 Amount Insulin Regular 100 unit 60.539 41.299 25.527 In Sodium Chloride 0.9% 100 ml @ Per Protocol IV .Q0M [facility] Rx#:[id number] Oral 100 Output: Chest Tube Drainage 320 210 50 left pleural 320 210 50 Urine 1100 429 225 Other: Voiding Method Indwelling Catheter Indwelling Catheter Indwelling Catheter ABP, PAP, CO, CI - Last Documented Arterial Blood Pressure 130/50 Pulmonary Artery Pressure 44/8 Cardiac Output 7.2 Cardiac Index 2.8 - Exam PHYSICAL EXAMINATION: GENERAL: The patient is alert and oriented x3, not in any acute distress. Well developed, well nourished. Morbidly Obese HEENT: Pupils are round and equally reacting to light. EOMI. No scleral icterus. No conjunctival pallor. Normocephalic, atraumatic. No pharyngeal erythema. No thyromegaly. CARDIOVASCULAR: S1 and S2 present. No murmurs, rubs, or gallops. PULMONARY: Chest is clear to auscultation, no wheezing or crackles. Tendon relationship patient is clean ABDOMEN: Soft, nontender, nondistended, normoactive bowel sounds. No palpable organomegaly. MUSCULOSKELETAL: No joint swelling or deformity. EXTREMITIES: No cyanosis, clubbing, or pedal edema. MELINA drain in the left lower extremity NEUROLOGICAL: Gross neurological examination did not reveal any focal deficits. SKIN: No rashes. - Labs CBC & Chem 7: 07/29/18 05:40 07/29/18 05:40 Labs: Abnormal Lab Results - Last 24 Hours (Table) 07/28/18 07/28/18 07/28/18 Range/Units 17:13 18:11 19:00 WBC (3.8-10.6) k/uL RBC (4.30-5.90) m/uL Hgb (13.0-17.5) gm/dL Hct (39.0-53.0) % Neutrophils # (1.3-7.7) k/uL Chloride (98-107) mmol/L BUN (9-20) mg/dL Glucose (74-99) mg/dL POC Glucose (mg/dL) 140 H 178 H 138 H (75-99) mg/dL Calcium (8.4-10.2) mg/dL Magnesium (1.6-2.3) mg/dL AST (17-59) U/L Total Protein (6.3-8.2) g/dL Albumin (3.5-5.0) g/dL 07/28/18 07/28/18 07/28/18 Range/Units 20:07 21:05 22:05 WBC (3.8-10.6) k/uL RBC (4.30-5.90) m/uL Hgb (13.0-17.5) gm/dL Hct (39.0-53.0) % Neutrophils # (1.3-7.7) k/uL Chloride (98-107) mmol/L BUN (9-20) mg/dL Glucose (74-99) mg/dL POC Glucose (mg/dL) 123 H 105 H 106 H (75-99) mg/dL Calcium (8.4-10.2) mg/dL Magnesium (1.6-2.3) mg/dL AST (17-59) U/L Total Protein (6.3-8.2) g/dL Albumin (3.5-5.0) g/dL 07/29/18 07/29/18 07/29/18 Range/Units 00:15 01:18 02:11 WBC (3.8-10.6) k/uL RBC (4.30-5.90) m/uL Hgb (13.0-17.5) gm/dL Hct (39.0-53.0) % Neutrophils # (1.3-7.7) k/uL Chloride (98-107) mmol/L BUN (9-20) mg/dL Glucose (74-99) mg/dL POC Glucose (mg/dL) 138 H 138 H 135 H (75-99) mg/dL Calcium (8.4-10.2) mg/dL Magnesium (1.6-2.3) mg/dL AST (17-59) U/L Total Protein (6.3-8.2) g/dL Albumin (3.5-5.0) g/dL 07/29/18 07/29/18 07/29/18 Range/Units 03:07 04:11 05:00 WBC (3.8-10.6) k/uL RBC (4.30-5.90) m/uL Hgb (13.0-17.5) gm/dL Hct (39.0-53.0) % Neutrophils # (1.3-7.7) k/uL Chloride (98-107) mmol/L BUN (9-20) mg/dL Glucose (74-99) mg/dL POC Glucose (mg/dL) 106 H 109 H 112 H (75-99) mg/dL Calcium (8.4-10.2) mg/dL Magnesium (1.6-2.3) mg/dL AST (17-59) U/L Total Protein (6.3-8.2) g/dL Albumin (3.5-5.0) g/dL 07/29/18 07/29/18 07/29/18 Range/Units 05:40 05:40 06:22 WBC 13.2 H (3.8-10.6) k/uL RBC 2.39 L (4.30-5.90) m/uL Hgb 7.5 L (13.0-17.5) gm/dL Hct 23.8 L (39.0-53.0) % Neutrophils # 10.1 H (1.3-7.7) k/uL Chloride 113 H (98-107) mmol/L BUN 42 H (9-20) mg/dL Glucose 112 H (74-99) mg/dL POC Glucose (mg/dL) 124 H (75-99) mg/dL Calcium 8.1 L (8.4-10.2) mg/dL Magnesium 2.7 H (1.6-2.3) mg/dL AST 130 H (17-59) U/L Total Protein 5.7 L (6.3-8.2) g/dL Albumin 3.0 L (3.5-5.0) g/dL 07/29/18 07/29/18 07/29/18 Range/Units 07:07 08:13 09:13 WBC (3.8-10.6) k/uL RBC (4.30-5.90) m/uL Hgb (13.0-17.5) gm/dL Hct (39.0-53.0) % Neutrophils # (1.3-7.7) k/uL Chloride (98-107) mmol/L BUN (9-20) mg/dL Glucose (74-99) mg/dL POC Glucose (mg/dL) 138 H 146 H 187 H (75-99) mg/dL Calcium (8.4-10.2) mg/dL Magnesium (1.6-2.3) mg/dL AST (17-59) U/L Total Protein (6.3-8.2) g/dL Albumin (3.5-5.0) g/dL 07/29/18 07/29/18 07/29/18 Range/Units 10:18 11:03 13:13 WBC (3.8-10.6) k/uL RBC (4.30-5.90) m/uL Hgb (13.0-17.5) gm/dL Hct (39.0-53.0) % Neutrophils # (1.3-7.7) k/uL Chloride (98-107) mmol/L BUN (9-20) mg/dL Glucose (74-99) mg/dL POC Glucose (mg/dL) 136 H 152 H 137 H (75-99) mg/dL Calcium (8.4-10.2) mg/dL Magnesium (1.6-2.3) mg/dL AST (17-59) U/L Total Protein (6.3-8.2) g/dL Albumin (3.5-5.0) g/dL Assessment and Plan Plan: -Status post CABG: Continue with an crit P statins -Postoperative brief ventilator dependent respiratory failure presently extubated -On and of delirium secondary to ICU delirium and metabolic encephalopathy -Atrial fibrillation presently rate controlled in sinus rhythm -Acute blood loss anemia from surgery -Moderate aortic stenosis -Sleep apnea and uses CPAP machine at home -Cerebrovascular accident in the past -Benign prostatic hypertrophy -Degenerative joint disease
[2018-07-29 17:48] LABS: Glucose,Whole Blood 99 mg/dL (75-99)
[2018-07-29 20:27] LABS: Glucose,Whole Blood 172 mg/dL (75-99)
[2018-07-29] MEDS: METOPROLOL TARTRATE 25 MG TAB PO SCH (21:18)
[2018-07-29] MEDS: TAMSULOSIN 0.4 MG CAP.ER.24H PO SCH (21:18)
[2018-07-29] MEDS: SENNOSIDES-DOCUSATE SODIUM 1 EACH TAB PO SCH (21:18)
[2018-07-29] MEDS: QUEtiapine 25 MG TAB PO SCH (21:18)
[2018-07-29] MEDS: MUPIROCIN 2% OINT 22 GM TUBE NASAL SCH (21:24)
[2018-07-30 02:43] LABS: Glucose,Whole Blood 138 mg/dL (75-99)
[2018-07-30 06:28] LABS: Glucose,Whole Blood 120 mg/dL (75-99)
[2018-07-30] MEDS: INSULIN ASPART 100 UNIT/ML 1 ML 10 ML VIAL SQ SCH ×4 (06:28→20:55)
[2018-07-30] MEDS: KETOROLAC 30 MG/ML 1 ML VIAL IVP SCH ×4 (06:35→22:52)
[2018-07-30] MEDS: FERROUS SULFATE 325 MG TAB PO SCH ×2 (06:36→17:15)
[2018-07-30] MEDS: ASCORBIC ACID 500 MG TAB PO SCH ×2 (06:36→17:15)
[2018-07-30] MEDS: PANTOPRAZOLE 40 MG TABLET PO SCH (06:36)
[2018-07-30 06:38] LABS: Basophils % (A) 0 %; Eosinophils # (A) 0.3 k/uL (0-0.7); Eosinophils % (A) 2 %; HCT 22.7 % (39.0-53.0); HGB 7.2 gm/dL (13.0-17.5); Hypochromasia Slight; Lymphocytes # (A) 1.5 k/uL (1.0-4.8); Lymphocytes % (A) 14 %; MCH 32.1 pg (25.0-35.0); MCHC 31.9 g/dL (31.0-37.0); MCV 100.6 fL (80.0-100.0); Macrocytosis Slight; Mean Platelet Volume 7.9; Monocytes # (A) 0.5 k/uL (0-1.0); Monocytes % (A) 5 %; Neutrophils # (A) 8.6 k/uL (1.3-7.7); Neutrophils % (A) 78 %; Platelet Count 181 k/uL (150-450); RBC 2.25 m/uL (4.30-5.90); RDW 14.4 % (11.5-15.5); WBC 11.1 k/uL (3.8-10.6)
[2018-07-30 06:54] LABS: ALT 66 U/L (21-72); AST 222 U/L (17-59); Albumin 2.9 g/dL (3.5-5.0); Alkaline Phosphatase 47 U/L (38-126); Anion Gap 6 mmol/L; Blood Urea Nitrogen 38 mg/dL (9-20); Calcium 7.8 mg/dL (8.4-10.2); Carbon Dioxide 26 mmol/L (22-30); Chloride 112 mmol/L (98-107); Glucose 128 mg/dL (74-99); Magnesium 2.8 mg/dL (1.6-2.3); Potassium 4.1 mmol/L (3.5-5.1); Sodium 144 mmol/L (137-145); Total Bilirubin 0.6 mg/dL (0.2-1.3); Total Protein 5.5 g/dL (6.3-8.2)
[2018-07-30] MEDS: IPRATROPIUM-ALBUTEROL 3 ML NEB INHALATION SCH ×4 (08:25→20:40)
--- NOTE | 2018-07-30 09:12 | XR ---
EXAMINATION TYPE: XR chest 2V DATE OF EXAM: 07/30/2018 HISTORY: post cardiac surgery. REFERENCE: Previous study dated 07/29/2018. FINDINGS: There has been a midline sternotomy. The patient's right internal jugular sheath is been re moved. The heart is enlarged. There is mild vascular congestion without edema. There is bibasilar atelectasi s. There are small, bilateral effusions. IMPRESSION: NO SIGNIFICANT INTERVAL CHANGE IN THE APPEARANCE OF THE CHEST.
[2018-07-30] MEDS: ATORVASTATIN 40 MG TAB PO SCH (09:48)
[2018-07-30] MEDS: METOPROLOL TARTRATE 25 MG TAB PO SCH ×2 (09:48→20:38)
[2018-07-30] MEDS: OXYBUTYNIN CHLORIDE 5 MG TAB PO SCH (09:49)
[2018-07-30] MEDS: HEPARIN SODIUM,PORCINE 5,000 UNIT/ML 1 ML VIAL SQ SCH ×3 (09:49→22:51)
[2018-07-30] MEDS: CLOPIDOGREL 75 MG TAB PO SCH (09:49)
[2018-07-30] MEDS: ASPIRIN 325 MG TAB PO SCH (09:49)
--- NOTE | 2018-07-30 10:47 | P.PN ---
Subjective Progress Note Date: 07/30/18 Principal diagnosis: Coronary artery disease. Previous medical history of hypertension, previous tobacco dependence with preoperative FEV1 86% of predicted, obstructive sleep apnea, TIA, bilateral internal carotid artery stenosis 50-79%, prostate disorder , morbid obesity with history of bariatric surgery, and drop foot on the left leg. POD #5 coronary artery bypass grafting 4 vessels, left internal mammary to the left anterior descending artery, reverse saphenous vein graft to the diagonal artery, reverse saphenous vein graft to the second obtuse marginal artery, reverse saphenous vein graft to the posterior lateral branch of the right coronary artery. Endoscopic vein harvest of bilateral greater saphenous veins. Epi-aortic ultrasound. Intraoperative transesophageal echocardiogram. Closure of the sternum using titanium plating system. Postoperative acute blood loss anemia, expected postsurgical condition secondary to hemodilution and cardiopulmonary bypass pump. Acute confusion, unexpected, possibly from cardiopulmonary bypass pump. The patient is currently sitting up in bed in no acute distress. Denies pain, shortness of breath. Patient is a bit more lethargic and confused this morning. He was transferred out of ICU to [address] [place] [address] cardiac stepdown unit early this morning. Objective - Vital Signs Vital signs: Vital Signs Temp 97.6 F 07/30/18 03:38 Pulse 82 07/30/18 08:35 Resp 18 07/30/18 03:38 BP 105/56 07/30/18 03:38 Pulse Ox 97 07/30/18 03:38 Intake & Output 07/29/18 07/30/18 07/30/18 18:59 06:59 18:59 Intake Total 286.527 Output Total 275 950 Balance 11.527 -950 Intake: IV 161 Lactated Ringers 1,000 ml 140 @ 20 mls/hr IV .Q24H [facility] Rx#:[id number] pressure bags 21 Intake, IV Titration 25.527 Amount Insulin Regular 100 unit 25.527 In Sodium Chloride 0.9% 100 ml @ Per Protocol IV .Q0M [facility] Rx#:[id number] Oral 100 Output: Chest Tube Drainage 50 left pleural 50 Urine 225 475 Post Void Residual 475 Other: Voiding Method Urinal Incontinent Indwelling Catheter # Voids 1 ABP, PAP, CO, CI - Last Documented Arterial Blood Pressure 130/50 Pulmonary Artery Pressure 44/8 Cardiac Output 7.2 Cardiac Index 2.8 - Constitutional General appearance: Present: cooperative, morbidly obese, no acute distress - Respiratory Details: Lungs sounds diminished bilaterally. Respirations even, nonlabored. Currently on 2 L nasal cannula with oxygen saturation 97%. Unable to perform incentive spirometry at this time. Strong, productive cough. - Cardiovascular Details: S1, S2 present. Regular rate and rhythm, sinus rhythm on telemetry. Sternum stable. A/V epicardial pacemaker wires present, grounded. Palpable peripheral pulses bilaterally. Trace generalized edema present. No calf pain or tenderness noted. Heart hugger in place with patient able to demonstrate appropriate use. Antiembolism stockings, SCDs present. - Gastrointestinal Gastrointestinal Comment(s): Abdomen soft, nondistended, nontender, obese. Active bowel sounds present 4 quadrants. Tolerating pured diet with thickened liquids. Positive bowel movement 07/29. - Genitourinary Genitourinary Comment(s): Smith discontinued yesterday. Patient has voided several times but has been incontinent. - Integumentary Integumentary Comment(s): Skin is warm and dry with evidence of good perfusion. Anterior chest incision well approximated, dry intact dressing present. Left lower extremity EVH site well approximated. Left pleural chest tube site draining serous fluid. - Neurologic Neurologic: Present: CNII-XII intact - Musculoskeletal Musculoskeletal: Present: generalized weakness - Psychiatric Psychiatric Comment(s): Patient does know his name and his 's name is well as he can tell us that he camps in [place], however he is unable to tell me where he is at and thinks that the year is 1988. - Allied health notes Allied health notes reviewed: nursing - Labs CBC & Chem 7: 07/30/18 05:59 07/30/18 05:59 Labs: Abnormal Lab Results - Last 24 Hours (Table) 07/29/18 07/29/18 07/29/18 Range/Units 10:18 11:03 13:13 WBC (3.8-10.6) k/uL RBC (4.30-5.90) m/uL Hgb (13.0-17.5) gm/dL Hct (39.0-53.0) % MCV (80.0-100.0) fL Neutrophils # (1.3-7.7) k/uL Chloride (98-107) mmol/L BUN (9-20) mg/dL Glucose (74-99) mg/dL POC Glucose (mg/dL) 136 H 152 H 137 H (75-99) mg/dL Calcium (8.4-10.2) mg/dL Magnesium (1.6-2.3) mg/dL AST (17-59) U/L Total Protein (6.3-8.2) g/dL Albumin (3.5-5.0) g/dL 18 07/30/18 07/30/18 Range/Units 20:22 02:41 05:59 WBC (3.8-10.6) k/uL RBC (4.30-5.90) m/uL Hgb (13.0-17.5) gm/dL Hct (39.0-53.0) % MCV (80.0-100.0) fL Neutrophils # (1.3-7.7) k/uL Chloride 112 H (98-107) mmol/L BUN 38 H (9-20) mg/dL Glucose 128 H (74-99) mg/dL POC Glucose (mg/dL) 172 H 138 H (75-99) mg/dL Calcium 7.8 L (8.4-10.2) mg/dL Magnesium 2.8 H (1.6-2.3) mg/dL AST 222 H (17-59) U/L Total Protein 5.5 L (6.3-8.2) g/dL Albumin 2.9 L (3.5-5.0) g/dL 07/30/18 07/30/18 Range/Units 05:59 06:25 WBC 11.1 H (3.8-10.6) k/uL RBC 2.25 L (4.30-5.90) m/uL Hgb 7.2 L (13.0-17.5) gm/dL Hct 22.7 L (39.0-53.0) % MCV 100.6 H (80.0-100.0) fL Neutrophils # 8.6 H (1.3-7.7) k/uL Chloride (98-107) mmol/L BUN (9-20) mg/dL Glucose (74-99) mg/dL POC Glucose (mg/dL) 120 H (75-99) mg/dL Calcium (8.4-10.2) mg/dL Magnesium (1.6-2.3) mg/dL AST (17-59) U/L Total Protein (6.3-8.2) g/dL Albumin (3.5-5.0) g/dL - Imaging and Cardiology Chest x-ray: report reviewed, image reviewed Assessment and Plan (1) Status post aorto-coronary artery bypass graft Current Visit: Yes Status: Acute Code(s): Z95.1 - PRESENCE OF AORTOCORONARY BYPASS GRAFT SNOMED Code(s): 111124356 (2) Aortic valve stenosis Current Visit: Yes Status: Chronic Code(s): I35.0 - NONRHEUMATIC AORTIC ( VALVE) STENOSIS SNOMED Code(s): 07450545 (3) BPH (benign prostatic hyperplasia) Current Visit: Yes Status: Chronic Code(s): N40.0 - BENIGN PROSTATIC HYPERPLASIA WITHOUT LOWER URINRY TRACT SYMP SNOMED Code(s): 028853013 (4) Coronary artery disease Current Visit: Yes Status: Chronic Code(s): I25.10 - ATHSCL HEART DISEASE OF [place] CORONARY ARTERY W/O ANG PCTRS SNOMED Code(s): 34948513 (5) Foot drop, left Current Visit: Yes Status: Chronic Code(s): M21.372 - FOOT DROP, LEFT FOOT SNOMED Code(s): 1488047 (6) Hypertension Current Visit: Yes Status: Chronic Code(s): I10 - ESSENTIAL (PRIMARY) HYPERTENSION SNOMED Code(s): 85676240 (7) Morbid obesity with BMI of 45.0-49.9, adult Current Visit: Yes Status: Chronic Code(s): E66.01 - MORBID (SEVERE) OBESITY DUE TO EXCESS CALORIES; Z68.42 - BODY MASS INDEX (BMI) 45.0-49.9, ADULT SNOMED Code(s): 772898811 (8) Nicotine dependence in remission Current Visit: No Status: Resolved Code(s): F17.201 - NICOTINE DEPENDENCE, UNSPECIFIED, IN REMISSION SNOMED Code(s): 82940338 (9) Obstructive sleep apnea Current Visit: Yes Status: Chronic Code(s): G47.33 - OBSTRUCTIVE SLEEP APNEA (ADULT) (PEDIATRIC) SNOMED Code(s): 46353541 (10) Osteoarthritis Current Visit: Yes Status: Chronic Code(s): M19.90 - UNSPECIFIED OSTEOARTHRITIS, UNSPECIFIED SITE SNOMED Code(s): 781430473 Plan: 1. Continue aspirin, statin, Plavix, BEATRIZ inhibitor, beta rodríguez therapy, will increase beta rodríguez therapy as tolerated. 2. Wean O2 as tolerated. Encourage incentive spirometry use 10 times every hour while awake. 3. Increase activity as tolerated. PT/OT/cardiac rehab following. Patient should wear boot for ambulation on left leg. 4. Bronchodilators per pulmonology. 5. Will monitor daily labs and x-rays. No transfusion. 6. GI prophylaxis with Protonix. DVT prophylaxis with subcu heparin, SCDs. 7. Pain control with current medication regimen. Avoid narcotics. 8. Reorient patient as needed. 9. Insulin management per primary care service. 10. Will consult social work for insurance authorization as patient is going to need rehab upon discharge. 11. More recommendations to follow. Time with Patient: Greater than 30
[2018-07-30 11:26] LABS: Glucose,Whole Blood 146 mg/dL (75-99)
[2018-07-30] MEDS ORDERED: FUROSEMIDE 10 MG/ML 2 ML VIAL IV ONE (11:33)
[2018-07-30] MEDS: MUPIROCIN 2% OINT 22 GM TUBE NASAL SCH ×2 (12:31→20:38)
[2018-07-30] MEDS: LACTATED RINGERS 1,000 ML IV SCH (12:31)
[2018-07-30] MEDS: LISINOPRIL 10 MG TAB PO SCH (12:35)
--- NOTE | 2018-07-30 12:43 | P.PN ---
Subjective Patient has multivessel coronary artery disease for which patient underwent CABG. Patient is presently clinically doing well alert oriented 3 minimal mild vascular congestion on the chest x-ray hemodynamically stable presently on insulin drip. 07/30/2018 No overnight events patient's IV insulin was discontinued patient is presently on sliding scale insulin depending on his sliding scale insulin requirement will decide on the home regimen may abdomen not requires insulin upon discharge. Constitutional: Denied any fatigue denied any fever. Cardio vascular: denied any chest pain, palpitations Gastrointestinal denied any nausea vomiting Pulmonary: Denied any shortness of breath cough Neurologic denied any new focal deficits All inpatient medications were reviewed and appropriate changes in these medications as dictated in the interval history and assessment and plan. Objective - Vital Signs Vital signs: Vital Signs Temp 97.3 F L 07/30/18 08:00 Pulse 88 07/30/18 12:25 Resp 18 07/30/18 08:00 BP 166/66 07/30/18 08:00 Pulse Ox 95 07/30/18 08:00 Intake & Output 07/29/18 07/30/18 07/30/18 18:59 06:59 18:59 Intake Total 286.527 Output Total 275 950 Balance 11.527 -950 Weight 161 kg Intake: IV 161 Lactated Ringers 1,000 ml 140 @ 20 mls/hr IV .Q24H [facility] Rx#:[id number] pressure bags 21 Intake, IV Titration 25.527 Amount Insulin Regular 100 unit 25.527 In Sodium Chloride 0.9% 100 ml @ Per Protocol IV .Q0M [facility] Rx#:[id number] Oral 100 Output: Chest Tube Drainage 50 left pleural 50 Urine 225 475 Post Void Residual 475 Other: Voiding Method Urinal Incontinent Urinal Indwelling Catheter Diaper # Voids 1 ABP, PAP, CO, CI - Last Documented Arterial Blood Pressure 130/50 Pulmonary Artery Pressure 44/8 Cardiac Output 7.2 Cardiac Index 2.8 - Exam PHYSICAL EXAMINATION: GENERAL: The patient is alert and oriented x3, not in any acute distress. Well developed, well nourished. Morbidly Obese HEENT: Pupils are round and equally reacting to light. EOMI. No scleral icterus. No conjunctival pallor. Normocephalic, atraumatic. No pharyngeal erythema. No thyromegaly. CARDIOVASCULAR: S1 and S2 present. No murmurs, rubs, or gallops. PULMONARY: Chest is clear to auscultation, no wheezing or crackles. Tendon relationship patient is clean ABDOMEN: Soft, nontender, nondistended, normoactive bowel sounds. No palpable organomegaly. MUSCULOSKELETAL: No joint swelling or deformity. EXTREMITIES: No cyanosis, clubbing, or pedal edema. MELINA drain in the left lower extremity NEUROLOGICAL: Gross neurological examination did not reveal any focal deficits. SKIN: No rashes. - Labs CBC & Chem 7: 07/30/18 05:59 07/30/18 05:59 Labs: Abnormal Lab Results - Last 24 Hours (Table) 07/29/18 07/29/18 07/30/18 Range/Units 13:13 20:22 02:41 WBC (3.8-10.6) k/uL RBC (4.30-5.90) m/uL Hgb (13.0-17.5) gm/dL Hct (39.0-53.0) % MCV (80.0-100.0) fL Neutrophils # (1.3-7.7) k/uL Chloride (98-107) mmol/L BUN (9-20) mg/dL Glucose (74-99) mg/dL POC Glucose (mg/dL) 137 H 172 H 138 H (75-99) mg/dL Calcium (8.4-10.2) mg/dL Magnesium (1.6-2.3) mg/dL AST (17-59) U/L Total Protein (6.3-8.2) g/dL Albumin (3.5-5.0) g/dL 07/30/18 07/30/18 07/30/18 Range/Units 05:59 05:59 06:25 WBC 11.1 H (3.8-10.6) k/uL RBC 2.25 L (4.30-5.90) m/uL Hgb 7.2 L (13.0-17.5) gm/dL Hct 22.7 L (39.0-53.0) % MCV 100.6 H (80.0-100.0) fL Neutrophils # 8.6 H (1.3-7.7) k/uL Chloride 112 H (98-107) mmol/L BUN 38 H (9-20) mg/dL Glucose 128 H (74-99) mg/dL POC Glucose (mg/dL) 120 H (75-99) mg/dL Calcium 7.8 L (8.4-10.2) mg/dL Magnesium 2.8 H (1.6-2.3) mg/dL AST 222 H (17-59) U/L Total Protein 5.5 L (6.3-8.2) g/dL Albumin 2.9 L (3.5-5.0) g/dL 07/30/18 Range/Units 11:24 WBC (3.8-10.6) k/uL RBC (4.30-5.90) m/uL Hgb (13.0-17.5) gm/dL Hct (39.0-53.0) % MCV (80.0-100.0) fL Neutrophils # (1.3-7.7) k/uL Chloride (98-107) mmol/L BUN (9-20) mg/dL Glucose (74-99) mg/dL POC Glucose (mg/dL) 146 H (75-99) mg/dL Calcium (8.4-10.2) mg/dL Magnesium (1.6-2.3) mg/dL AST (17-59) U/L Total Protein (6.3-8.2) g/dL Albumin (3.5-5.0) g/dL Assessment and Plan Plan: -Status post CABG: Continue with an crit P statins -Postoperative brief ventilator dependent respiratory failure presently extubated -On and of delirium secondary to ICU delirium and metabolic encephalopathy -Atrial fibrillation presently rate controlled in sinus rhythm -Acute blood loss anemia from surgery -Moderate aortic stenosis -Sleep apnea and uses CPAP machine at home -Cerebrovascular accident in the past -Benign prostatic hypertrophy -Degenerative joint disease
--- NOTE | 2018-07-30 14:34 | P.PN ---
Subjective Progress Note Date: 07/30/18 This is 78-year-old white male patient of Dr. Fuchs, who we met on 07/20/2018 for preop pulmonary evaluation for coronary artery bypass grafting. Patient has been having progressive dyspnea, he was referred to cardiology, had a cardiac catheterization which revealed severe multivessel coronary artery disease and moderate aortic stenosis. Patient had a 90% stenosis of his RCA, 80 % stenosis of his circumflex, 95% stenosis of his mid LAD. Aortic valve surface area was 1.2 cm. Other medical history includes previous history of CVA, hypertension, osteoarthritis, and 9 prostatic hypertrophy, sleep apnea syndrome, previous history of bariatric surgery, morbid obesity, and remote history of tobacco use. His preop bedside spirometry showed FEV1 of 86% of predicted, FVC of 71% of predicted, mild restriction. Patient was deferred to cardiothoracic surgery, and was recommended a surgical intervention, today on patient underwent four-vessel coronary artery bypass grafting, with MATT to LAD, SVG to the PLB, SVG to the diagonal, and SVG to the OM 1. Patient is seen in the intensive care unit, he is sedated, on mechanical ventilator, currently SIMV mode of ventilation with a rate of 12, tidal volume of 580, FiO2 100%, and PEEP of 10. Chest x-ray showed ET tube, chest tubes, right IJ PA catheter in appropriate positions, lungs are clear of consolidation, no heart failure. Patient is in sinus rhythm, his maintenance IV fluids of LR at 50, milrinone at 0.5 mics/per kilo per minute, Levaquin fed at 2 mics per minute, insulin at 2 units per hour, Diprivan at 15 mics per kilo per minute, and nitro at 5 mics/min. Blood work showed WBC of 15.2, hemoglobin of 7.9, INR 1.5, choice and renal profile were within normal limits, blood gas showed pO2 of 174 , pCO2 48, and pH is 7.3. Patient has 2 mediastinal chest tubes, left pleural chest tube, and there has been a 300 mL of sanguinous output in the mediastinal chest tube, and 10 mL in the left pleural. Hemodynamically patient is stable, cardiac output and index are 5.6 and 2.2 respectively, PA pressures 35/21. On 07/26/2018 patient seen in follow-up in the intensive care unit. This morning he is extubated, sitting up in the chair position in bed, he was extubated at about 1:30 in the morning. Currently on 6 L per nasal cannula, his pulse ox is 96%, he is awake and alert, acute distress, sinus rhythm on the monitor. Today's chest x-ray has been reviewed by Dr. Rose and showed stable bibasilar opacities and pleural effusions. Hemodynamically patient is stable. Levo has been off since 9:00 this morning, maintenance IV fluids is LR at 50 ML per hour, insulin drip is at 5 units per hour, no other drips. Cardiac output and index of 6.2 and 2.4 respectively. Today's lab work has been reviewed, WBCs 13.3, hemoglobin is 8.1, with recent blood gas prior to extubation showed pO2 of 72, pCO2 of 40%, and pH of 7.37, this was done and FiO2 40%, BMP was all within normal limits. Patient has underlying sleep apnea , on CPAP therapy. Patient may require some BiPAP support at night and is needed during the day. We'll continue to monitor, currently in no distress, he is awake and alert and responding to questions appropriately. 2 mediastinal and left pleural chest tubes are draining serosanguineous output. Mediastinal chest tube output is 560 over the last 24 hours, left pleural chest tube output is 378 in the last 24 hours. Smith catheter is present, draining urine in order of 30-45 ML per hour. We'll encourage incentive spirometry, we'll try to mobilize the patient, and set him up at the bedside. On 07/27/2018 patient seen in follow-up in the intensive care unit. This morning he is lethargic, mumbling, patient was apparently confused, agitated and delirious last night, received a dose of Haldol after which he became lethargic, hypotensive, and required albumin and levofed for blood pressure support. This morning he is off the levofed infusion. Blood gas was done, which showed pO2 of 75, pCO2 of 35, and pH of 7.47 as was done on FiO2 of 55%. There is some blood work was reviewed, WBCs 13.7, hemoglobin is 7.1, sodium is 140, potassium is 4.2, chloride is 109, B1 is 28 and creatinine 1.13. On 9 L per high flow nasal cannula, and his pulse ox is 96%, patient is afebrile, blood pressure is 150/64, PA pressure is 44/8, and cardiac output and index hours 7.2 and 2.8. Patient is mediastinal chest tubes removed, left pleural chest tube remains in place with serosanguineous thin output. Has been 760 mL out of the left pleural and the last 24 hours, and 250 on of the mediastinal chest tubes. Lung sounds are positive for scattered rhonchi, he is somnolent, has a loose nonproductive cough. Today's chest x-ray was reviewed by Dr. Rose, and shows stable cardiomegaly with small to moderate left pleural effusion tracking up to the left apex and possible mild pulmonary vascular congestion, retrocardiac atelectasis. Urinary catheter is in, and his urine output is 2240 ML per hour. Maintenance IV fluid is lactated Ringer's at a rate of 20 ML per hour, no other drips. On 07/28/2018 patient seen in follow-up in the intensive care unit. Patient remains confused, but cooperative. He is in the chair, currently on 2 L per nasal cannula, his pulse ox is 95%, afebrile, hemodynamically stable. Today's lab work has been reviewed, showed WBC of 15.1, hemoglobin of 7.6, platelet count of 131, sodium of 145, potassium is 4.2, chloride is 111, BUN is 33, creatinine 1.03. Chest x-ray showed slight interval worsening mild pulmonary vascular congestion and bibasilar atelectasis. Patient denied any shortness of breath, patient is currently in A. fib RVR, and her beta rodríguez therapy was increased per CT surgery come patient received a dose of IV Lasix. Encourage deep breathing and coughing. Patient is seen again today 07/29/2018 in follow-up in the intensive care unit. He is currently sitting up in a chair at the bedside. He is much more awake and alert today. He is oriented 3. He is maintaining good O2 saturations in the high 90s on 2 L/m per nasal cannula. He's been afebrile. Hemodynamically stable. Regular rhythm. His x-ray reveals mild vascular congestion but no stephanie edema. Left basilar airspace disease. Small bilateral effusions. No significant change compared to yesterday. White count 13.2. Hemoglobin 7.5. Creatinine 0.95. AST 130. Albumin 3.0. He continues to need increased encouragement regarding the use of the incentive spirometer. He is attempting to improve his numbers. He's been up with assistance. He remains on lactated Ringer's at 20 ML's per hour. Insulin drip currently at 9 units per hour. Most recent glucose 187. On 07/30/2018 the patient is currently being seen in follow-up out of the intensive care unit. The patient is post carotid bypass surgery. The patient had a relatively slow recovery from his bypass surgery. He is currently postop day #5. He is still lethargic probably most of the time in bed. He is trying to utilized incentive spirometer although he is using is not adequate. No chest pain. Sternum stable treatment intact. No cough or sputum production. Chest tubes are all removed. Cardiac rhythm is sinus. Oral intake is small. No focal logical deficits. No fever or chills. No other complaints otherwise for now. He is currently on 2 L about 2 by nasal cannula. Objective - Vital Signs Vital signs: Vital Signs Temp 97.6 F 07/30/18 12:00 Pulse 88 07/30/18 12:25 Resp 18 07/30/18 12:00 BP 110/57 07/30/18 12:00 Pulse Ox 95 07/30/18 12:00 Intake & Output 07/29/18 07/30/18 07/30/18 18:59 06:59 18:59 Intake Total 286.527 Output Total 275 950 2 Balance 11.527 -950 -2 Weight 161 kg Intake: IV 161 Lactated Ringers 1,000 ml 140 @ 20 mls/hr IV .Q24H [facility] Rx#:[id number] pressure bags 21 Intake, IV Titration 25.527 Amount Insulin Regular 100 unit 25.527 In Sodium Chloride 0.9% 100 ml @ Per Protocol IV .Q0M [facility] Rx#:[id number] Oral 100 Output: Chest Tube Drainage 50 left pleural 50 Urine 225 475 Post Void Residual 475 Stool 2 Other: Voiding Method Urinal Incontinent Urinal Indwelling Catheter Diaper # Voids 1 2 ABP, PAP, CO, CI - Last Documented Arterial Blood Pressure 130/50 Pulmonary Artery Pressure 44/8 Cardiac Output 7.2 Cardiac Index 2.8 - Exam - Constitutional General appearance: Present: cooperative, morbidly obese, no acute distress - Respiratory Details: Lungs sounds diminished bilaterally. Respirations even, nonlabored. Currently on 2 L nasal cannula with oxygen saturation 97%. Unable to perform incentive spirometry at this time. Strong, productive cough. - Cardiovascular Details: S1, S2 present. Regular rate and rhythm, sinus rhythm on telemetry. Sternum stable. A/V epicardial pacemaker wires present, grounded. Palpable peripheral pulses bilaterally. Trace generalized edema present. No calf pain or tenderness noted. Heart hugger in place with patient able to demonstrate appropriate use. Antiembolism stockings, SCDs present. - Gastrointestinal Gastrointestinal Comment(s): Abdomen soft, nondistended, nontender, obese. Active bowel sounds present 4 quadrants. Tolerating pured diet with thickened liquids. Positive bowel movement 07/29. - Genitourinary Genitourinary Comment(s): Smith discontinued yesterday. Patient has voided several times but has been incontinent. - Integumentary Integumentary Comment(s): Skin is warm and dry with evidence of good perfusion. Anterior chest incision well approximated, dry intact dressing present. Left lower extremity EVH site well approximated. Left pleural chest tube site draining serous fluid. - Neurologic Neurologic: Present: CNII-XII intact - Musculoskeletal Musculoskeletal: Present: generalized weakness - Psychiatric - Labs CBC & Chem 7: 07/30/18 05:59 07/30/18 05:59 Labs: Abnormal Lab Results - Last 24 Hours (Table) 07/29/18 07/30/18 07/30/18 Range/Units 20:22 02:41 05:59 WBC (3.8-10.6) k/uL RBC (4.30-5.90) m/uL Hgb (13.0-17.5) gm/dL Hct (39.0-53.0) % MCV (80.0-100.0) fL Neutrophils # (1.3-7.7) k/uL Chloride 112 H (98-107) mmol/L BUN 38 H (9-20) mg/dL Glucose 128 H (74-99) mg/dL POC Glucose (mg/dL) 172 H 138 H (75-99) mg/dL Calcium 7.8 L (8.4-10.2) mg/dL Magnesium 2.8 H (1.6-2.3) mg/dL AST 222 H (17-59) U/L Total Protein 5.5 L (6.3-8.2) g/dL Albumin 2.9 L (3.5-5.0) g/dL 07/30/18 07/30/18 07/30/18 Range/Units 05:59 06:25 11:24 WBC 11.1 H (3.8-10.6) k/uL RBC 2.25 L (4.30-5.90) m/uL Hgb 7.2 L (13.0-17.5) gm/dL Hct 22.7 L (39.0-53.0) % MCV 100.6 H (80.0-100.0) fL Neutrophils # 8.6 H (1.3-7.7) k/uL Chloride (98-107) mmol/L BUN (9-20) mg/dL Glucose (74-99) mg/dL POC Glucose (mg/dL) 120 H 146 H (75-99) mg/dL Calcium (8.4-10.2) mg/dL Magnesium (1.6-2.3) mg/dL AST (17-59) U/L Total Protein (6.3-8.2) g/dL Albumin (3.5-5.0) g/dL Assessment and Plan Plan: #1. Symptomatic multivessel coronary artery disease, status post four-vessel bypass with MATT to LAD, SVG to the PLB, SVG to the diag, and to OM1, patient is postop day #6. #2. Post thoracotomy, currently on 2 L of oxygen nasal cannula utilizing incentive spirometer and the chest x-ray shows limited atelectatic changes in lung bases and small effusions. No evidence of any pneumothorax. Chest is of been all removed. #3. Confusion, agitation, delirium in the postoperative period, may be related to metabolic encephalopathy, improved and the patient is much more alert and awake. #4. A. fib RVR, currently in sinus rhythm #5. Acute blood loss anemia, an expected outcome of bypass grafting surgery hemoglobin stable at 7.2 #6. Moderate aortic stenosis #7. Hypertension #8. Sleep apnea syndrome on CPAP therapy. Whether the patient uses CPAP on the regular basis is to be further clarified #9. History of CVA #10. Morbid obesity #11. History of bariatric surgery #12. Prostate enlargement #13. DJD JOHN Continue aspirin and Plavix. Continue beta blockers. Continue statins. Deep breathing. Incentive spirometer. Increased level of activity as tolerated. Chest x-ray was reviewed. Oxygen at 2 L per minute nasal cannula. We'll continue to follow.
--- NOTE | 2018-07-30 15:56 | PN ---
PROGRESS NOTE Mr. Levon Justice underwent aortocoronary bypass surgery. He is somewhat slow and is not very motivated to do deep breathing. He is resting comfortably. Denies any chest discomfort. He is getting IV Lasix dose which I agree with. His vital signs are stable. There is JVD of 1-2 cm. No carotid bruit. S1-S2 heard normally but distantly. Lungs reveal diminished air entry. There is not a very good effort on patient's part. Abdomen is soft. Lower extremities reveal bilateral mild edema. Central nervous system grossly within normal limits. I am recommending that we diurese him cautiously and pursue incentive spirometry, pulmonary toilet and educate the patient regarding deep breathing and incentive spirometry and I have requested the Respiratory therapist to address this issue. MMJOSEL / IJN: [id number] /
[2018-07-30 16:44] LABS: Glucose,Whole Blood 128 mg/dL (75-99)
[2018-07-30] MEDS: TAMSULOSIN 0.4 MG CAP.ER.24H PO SCH (17:15)
[2018-07-30] MEDS: SENNOSIDES-DOCUSATE SODIUM 1 EACH TAB PO SCH (20:38)
[2018-07-30 20:50] LABS: Glucose,Whole Blood 121 mg/dL (75-99)
[2018-07-31 02:27] LABS: Glucose,Whole Blood 136 mg/dL (75-99)
[2018-07-31 06:11] LABS: Glucose,Whole Blood 99 mg/dL (75-99)
[2018-07-31] MEDS: KETOROLAC 30 MG/ML 1 ML VIAL IVP SCH ×2 (06:26→11:27)
[2018-07-31] MEDS: ASCORBIC ACID 500 MG TAB PO SCH ×2 (06:26→17:43)
[2018-07-31] MEDS: FERROUS SULFATE 325 MG TAB PO SCH ×2 (06:26→17:43)
[2018-07-31] MEDS: INSULIN ASPART 100 UNIT/ML 1 ML 10 ML VIAL SQ SCH ×4 (06:26→22:00)
[2018-07-31] MEDS: PANTOPRAZOLE 40 MG TABLET PO SCH (06:26)
[2018-07-31] MEDS: ASPIRIN 325 MG TAB PO SCH (07:41)
[2018-07-31] MEDS: CLOPIDOGREL 75 MG TAB PO SCH (07:41)
[2018-07-31] MEDS: METOPROLOL TARTRATE 25 MG TAB PO SCH ×2 (07:41→22:11)
[2018-07-31] MEDS: MUPIROCIN 2% OINT 22 GM TUBE NASAL SCH ×2 (07:42→22:44)
[2018-07-31] MEDS: ATORVASTATIN 40 MG TAB PO SCH (07:42)
[2018-07-31] MEDS: HEPARIN SODIUM,PORCINE 5,000 UNIT/ML 1 ML VIAL SQ SCH ×3 (07:42→22:45)
[2018-07-31] MEDS: OXYBUTYNIN CHLORIDE 5 MG TAB PO SCH (07:42)
[2018-07-31 08:19] LABS: Basophils % (A) 0 %; Eosinophils # (A) 0.5 k/uL (0-0.7); Eosinophils % (A) 4 %; HCT 23.5 % (39.0-53.0); HGB 7.6 gm/dL (13.0-17.5); Hypochromasia Slight; Lymphocytes # (A) 1.7 k/uL (1.0-4.8); Lymphocytes % (A) 17 %; MCH 32.2 pg (25.0-35.0); MCHC 32.5 g/dL (31.0-37.0); MCV 99.2 fL (80.0-100.0); Macrocytosis Slight; Mean Platelet Volume 8.1; Monocytes # (A) 0.5 k/uL (0-1.0); Monocytes % (A) 5 %; Neutrophils # (A) 7.5 k/uL (1.3-7.7); Neutrophils % (A) 72 %; Platelet Count 206 k/uL (150-450); RBC 2.37 m/uL (4.30-5.90); RDW 14.7 % (11.5-15.5); WBC 10.4 k/uL (3.8-10.6)
[2018-07-31 08:20] LABS: Ionized Calcium 4.6 mg/dL (4.5-5.3)
[2018-07-31 08:35] LABS: ALT 90 U/L (21-72); AST 337 U/L (17-59); Alkaline Phosphatase 53 U/L (38-126); Anion Gap 7 mmol/L; Blood Urea Nitrogen 33 mg/dL (9-20); Calcium 7.7 mg/dL (8.4-10.2); Carbon Dioxide 25 mmol/L (22-30); Chloride 112 mmol/L (98-107); Glucose 141 mg/dL (74-99); Potassium 4.1 mmol/L (3.5-5.1); Sodium 144 mmol/L (137-145); Total Bilirubin 0.7 mg/dL (0.2-1.3); Total Protein 5.5 g/dL (6.3-8.2)
[2018-07-31] MEDS: IPRATROPIUM-ALBUTEROL 3 ML NEB INHALATION SCH ×4 (08:55→19:24)
--- NOTE | 2018-07-31 08:56 | XR ---
EXAMINATION TYPE: XR chest 1V portable DATE OF EXAM: 07/31/2018 COMPARISON: 07/30/2018 INDICATION: Post cardiac surgery TECHNIQUE: Single frontal view of the chest is obtained. FINDINGS: The heart size is prominently enlarged. This is stable in appearance from comparison study. The pulmonary vasculature is normal. The lungs are clear. IMPRESSION: 1. No acute pulmonary process. 2. Cardiomegaly
[2018-07-31] MEDS ORDERED: CALCIUM CHLORIDE 1,000 MG in SODIUM CHLORIDE 0.9% 100 ML IV ONE ×2 (09:00→10:00)
--- NOTE | 2018-07-31 10:33 | P.PN ---
Subjective Progress Note Date: 07/31/18 Principal diagnosis: Coronary artery disease. Previous medical history of hypertension, previous tobacco dependence with preoperative FEV1 86% of predicted, obstructive sleep apnea, TIA, bilateral internal carotid artery stenosis 50-79%, prostate disorder , morbid obesity with history of bariatric surgery, and drop foot on the left leg. POD #6 coronary artery bypass grafting 4 vessels, left internal mammary to the left anterior descending artery, reverse saphenous vein graft to the diagonal artery, reverse saphenous vein graft to the second obtuse marginal artery, reverse saphenous vein graft to the posterior lateral branch of the right coronary artery. Endoscopic vein harvest of bilateral greater saphenous veins. Epi-aortic ultrasound. Intraoperative transesophageal echocardiogram. Closure of the sternum using titanium plating system. Postoperative acute blood loss anemia, expected postsurgical condition secondary to hemodilution and cardiopulmonary bypass pump. Acute confusion, unexpected, possibly from cardiopulmonary bypass pump. Elevation in transaminases, an expected outcome. The patient is currently sitting up in bed in no acute distress. Denies pain, shortness of breath. Patient is more alert and oriented this morning. Nursing had concern about his swallowing so he is NPO for speech to re-evaluate. Liver enzymes are elevated, amylase/lipase are normal. Objective - Vital Signs Vital signs: Vital Signs Temp 97.8 F 07/31/18 04:00 Pulse 78 07/31/18 09:08 Resp 16 07/31/18 08:56 BP 136/59 07/31/18 04:00 Pulse Ox 95 07/31/18 08:56 Intake & Output 07/30/18 07/31/18 07/31/18 18:59 06:59 18:59 Intake Total 360 125 Output Total 4 Balance 356 125 Weight 161 kg 157.5 kg Intake: Oral 360 125 Output: Stool 4 Other: Voiding Method Urinal Urinal Diaper Diaper # Voids 2 1 ABP, PAP, CO, CI - Last Documented Arterial Blood Pressure 130/50 Pulmonary Artery Pressure 44/8 Cardiac Output 7.2 Cardiac Index 2.8 - Constitutional General appearance: Present: cooperative, morbidly obese, no acute distress - Respiratory Details: Lungs sounds diminished bilaterally. Respirations even, nonlabored. Currently on 2 L nasal cannula with oxygen saturation 97%. Only able to achieve 500 mL on his incentive spirometry at this time. Strong, productive cough. - Cardiovascular Details: S1, S2 present. Regular rate and rhythm, sinus rhythm on telemetry. Sternum stable. A/V epicardial pacemaker wires present, grounded. Palpable peripheral pulses bilaterally. Trace generalized edema present. No calf pain or tenderness noted. Heart hugger in place with patient able to demonstrate appropriate use. Antiembolism stockings, SCDs present. - Gastrointestinal Gastrointestinal Comment(s): Abdomen soft, nondistended, nontender, obese. Active bowel sounds present 4 quadrants. Currently NPO for swallow eval. Positive bowel movement 07/29. - Genitourinary Genitourinary Comment(s): Patient has voided several times but has been incontinent. - Integumentary Integumentary Comment(s): Skin is warm and dry with evidence of good perfusion. Anterior chest incision well approximated, dry intact dressing present. Left lower extremity EVH site well approximated. Left pleural chest tube site draining serous fluid. - Neurologic Neurologic: Present: CNII-XII intact - Musculoskeletal Musculoskeletal: Present: generalized weakness, strength equal bilaterally - Psychiatric Psychiatric: Present: A&O x's 3, appropriate affect, intact judgment & insight - Allied health notes Allied health notes reviewed: nursing - Labs CBC & Chem 7: 07/31/18 07:29 07/31/18 07:29 Labs: Abnormal Lab Results - Last 24 Hours (Table) 07/30/18 07/30/18 07/30/18 Range/Units 11:24 16:42 20:48 RBC (4.30-5.90) m/uL Hgb (13.0-17.5) gm/dL Hct (39.0-53.0) % Chloride (98-107) mmol/L BUN (9-20) mg/dL Glucose (74-99) mg/dL POC Glucose (mg/dL) 146 H 128 H 121 H (75-99) mg/dL Calcium (8.4-10.2) mg/dL Magnesium (1.6-2.3) mg/dL AST (17-59) U/L ALT (21-72) U/L Total Protein (6.3-8.2) g/dL Albumin (3.5-5.0) g/dL 07/31/18 07/31/18 07/31/18 Range/Units 02:08 07:29 07:29 RBC 2.37 L (4.30-5.90) m/uL Hgb 7.6 L (13.0-17.5) gm/dL Hct 23.5 L (39.0-53.0) % Chloride 112 H (98-107) mmol/L BUN 33 H (9-20) mg/dL Glucose 141 H (74-99) mg/dL POC Glucose (mg/dL) 136 H (75-99) mg/dL Calcium 7.7 L (8.4-10.2) mg/dL Magnesium 3.0 H (1.6-2.3) mg/dL AST 337 H (17-59) U/L ALT 90 H (21-72) U/L Total Protein 5.5 L (6.3-8.2) g/dL Albumin 3.0 L (3.5-5.0) g/dL - Imaging and Cardiology Chest x-ray: report reviewed, image reviewed Assessment and Plan (1) Status post aorto-coronary artery bypass graft Current Visit: Yes Status: Acute Code(s): Z95.1 - PRESENCE OF AORTOCORONARY BYPASS GRAFT SNOMED Code(s): 170321628 (2) Aortic valve stenosis Current Visit: Yes Status: Chronic Code(s): I35.0 - NONRHEUMATIC AORTIC ( VALVE) STENOSIS SNOMED Code(s): 62150075 (3) BPH (benign prostatic hyperplasia) Current Visit: Yes Status: Chronic Code(s): N40.0 - BENIGN PROSTATIC HYPERPLASIA WITHOUT LOWER URINRY TRACT SYMP SNOMED Code(s): 637951243 (4) Coronary artery disease Current Visit: Yes Status: Chronic Code(s): I25.10 - ATHSCL HEART DISEASE OF [place] CORONARY ARTERY W/O ANG PCTRS SNOMED Code(s): 10370179 (5) Foot drop, left Current Visit: Yes Status: Chronic Code(s): M21.372 - FOOT DROP, LEFT FOOT SNOMED Code(s): 9800595 (6) Hypertension Current Visit: Yes Status: Chronic Code(s): I10 - ESSENTIAL (PRIMARY) HYPERTENSION SNOMED Code(s): 75001202 (7) Morbid obesity with BMI of 45.0-49.9, adult Current Visit: Yes Status: Chronic Code(s): E66.01 - MORBID (SEVERE) OBESITY DUE TO EXCESS CALORIES; Z68.42 - BODY MASS INDEX (BMI) 45.0-49.9, ADULT SNOMED Code(s): 276114919 (8) Nicotine dependence in remission Current Visit: No Status: Resolved Code(s): F17.201 - NICOTINE DEPENDENCE, UNSPECIFIED, IN REMISSION SNOMED Code(s): 45072396 (9) Obstructive sleep apnea Current Visit: Yes Status: Chronic Code(s): G47.33 - OBSTRUCTIVE SLEEP APNEA (ADULT) (PEDIATRIC) SNOMED Code(s): 53291405 (10) Osteoarthritis Current Visit: Yes Status: Chronic Code(s): M19.90 - UNSPECIFIED OSTEOARTHRITIS, UNSPECIFIED SITE SNOMED Code(s): 022307835 Plan: 1. Continue aspirin, Plavix, BEATRIZ inhibitor, beta rodríguez therapy, will increase beta rodríguez therapy as tolerated. Statin on hold secondary to elevation in liver enzymes. 2. Wean O2 as tolerated. Encourage incentive spirometry use 10 times every hour while awake. 3. Increase activity as tolerated. PT/OT/cardiac rehab following. Patient should wear boot for ambulation on left leg. 4. Bronchodilators per pulmonology. 5. Will monitor daily labs and x-rays. No transfusion. 6. GI prophylaxis with Protonix. DVT prophylaxis with subcu heparin, SCDs. 7. Pain control with current medication regimen. Avoid narcotics. 8. Reorient patient as needed. 9. Insulin management per primary care service. 10. Patient to receive a swallow eval from speech therapy today. We will make tight recommendations based on their evaluation. 11. Ultrasound of the right upper quadrant ordered secondary to elevation in liver enzymes. 12. Will consult social work for insurance authorization as patient is going to need rehab upon discharge. 13. More recommendations to follow. Time with Patient: Greater than 30
[2018-07-31] MEDS: LISINOPRIL 10 MG TAB PO SCH (11:23)
[2018-07-31] MEDS: LACTATED RINGERS 1,000 ML IV SCH (11:24)
[2018-07-31 12:14] LABS: Glucose,Whole Blood 135 mg/dL (75-99)
--- NOTE | 2018-07-31 13:45 | P.PN ---
Subjective Progress Note Date: 07/31/18 Principal diagnosis: Symptomatic multivessel coronary artery disease, status post four-vessel bypass with MATT to LAD, SVG to the PLB, SVG to the diagonal and OM 1, postop day 1 This is 78-year-old white male patient of Dr. Fuchs, who we met on 07/20/2018 for preop pulmonary evaluation for coronary artery bypass grafting. Patient has been having progressive dyspnea, he was referred to cardiology, had a cardiac catheterization which revealed severe multivessel coronary artery disease and moderate aortic stenosis. Patient had a 90% stenosis of his RCA, 80 % stenosis of his circumflex, 95% stenosis of his mid LAD. Aortic valve surface area was 1.2 cm. Other medical history includes previous history of CVA, hypertension, osteoarthritis, and 9 prostatic hypertrophy, sleep apnea syndrome, previous history of bariatric surgery, morbid obesity, and remote history of tobacco use. His preop bedside spirometry showed FEV1 of 86% of predicted, FVC of 71% of predicted, mild restriction. Patient was deferred to cardiothoracic surgery, and was recommended a surgical intervention, today on patient underwent four-vessel coronary artery bypass grafting, with MATT to LAD, SVG to the PLB, SVG to the diagonal, and SVG to the OM 1. Patient is seen in the intensive care unit, he is sedated, on mechanical ventilator, currently SIMV mode of ventilation with a rate of 12, tidal volume of 580, FiO2 100%, and PEEP of 10. Chest x-ray showed ET tube, chest tubes, right IJ PA catheter in appropriate positions, lungs are clear of consolidation, no heart failure. Patient is in sinus rhythm, his maintenance IV fluids of LR at 50, milrinone at 0.5 mics/per kilo per minute, Levaquin fed at 2 mics per minute, insulin at 2 units per hour, Diprivan at 15 mics per kilo per minute, and nitro at 5 mics/min. Blood work showed WBC of 15.2, hemoglobin of 7.9, INR 1.5, choice and renal profile were within normal limits, blood gas showed pO2 of 174 , pCO2 48, and pH is 7.3. Patient has 2 mediastinal chest tubes, left pleural chest tube, and there has been a 300 mL of sanguinous output in the mediastinal chest tube, and 10 mL in the left pleural. Hemodynamically patient is stable, cardiac output and index are 5.6 and 2.2 respectively, PA pressures 35/21. On 07/26/2018 patient seen in follow-up in the intensive care unit. This morning he is extubated, sitting up in the chair position in bed, he was extubated at about 1:30 in the morning. Currently on 6 L per nasal cannula, his pulse ox is 96%, he is awake and alert, acute distress, sinus rhythm on the monitor. Today's chest x-ray has been reviewed by Dr. Rose and showed stable bibasilar opacities and pleural effusions. Hemodynamically patient is stable. Levo has been off since 9:00 this morning, maintenance IV fluids is LR at 50 ML per hour, insulin drip is at 5 units per hour, no other drips. Cardiac output and index of 6.2 and 2.4 respectively. Today's lab work has been reviewed, WBCs 13.3, hemoglobin is 8.1, with recent blood gas prior to extubation showed pO2 of 72, pCO2 of 40%, and pH of 7.37, this was done and FiO2 40%, BMP was all within normal limits. Patient has underlying sleep apnea , on CPAP therapy. Patient may require some BiPAP support at night and is needed during the day. We'll continue to monitor, currently in no distress, he is awake and alert and responding to questions appropriately. 2 mediastinal and left pleural chest tubes are draining serosanguineous output. Mediastinal chest tube output is 560 over the last 24 hours, left pleural chest tube output is 378 in the last 24 hours. Smith catheter is present, draining urine in order of 30-45 ML per hour. We'll encourage incentive spirometry, we'll try to mobilize the patient, and set him up at the bedside. On 07/27/2018 patient seen in follow-up in the intensive care unit. This morning he is lethargic, mumbling, patient was apparently confused, agitated and delirious last night, received a dose of Haldol after which he became lethargic, hypotensive, and required albumin and levofed for blood pressure support. This morning he is off the levofed infusion. Blood gas was done, which showed pO2 of 75, pCO2 of 35, and pH of 7.47 as was done on FiO2 of 55%. There is some blood work was reviewed, WBCs 13.7, hemoglobin is 7.1, sodium is 140, potassium is 4.2, chloride is 109, B1 is 28 and creatinine 1.13. On 9 L per high flow nasal cannula, and his pulse ox is 96%, patient is afebrile, blood pressure is 150/64, PA pressure is 44/8, and cardiac output and index hours 7.2 and 2.8. Patient is mediastinal chest tubes removed, left pleural chest tube remains in place with serosanguineous thin output. Has been 760 mL out of the left pleural and the last 24 hours, and 250 on of the mediastinal chest tubes. Lung sounds are positive for scattered rhonchi, he is somnolent, has a loose nonproductive cough. Today's chest x-ray was reviewed by Dr. Rose, and shows stable cardiomegaly with small to moderate left pleural effusion tracking up to the left apex and possible mild pulmonary vascular congestion, retrocardiac atelectasis. Urinary catheter is in, and his urine output is 2240 ML per hour. Maintenance IV fluid is lactated Ringer's at a rate of 20 ML per hour, no other drips. On 07/28/2018 patient seen in follow-up in the intensive care unit. Patient remains confused, but cooperative. He is in the chair, currently on 2 L per nasal cannula, his pulse ox is 95%, afebrile, hemodynamically stable. Today's lab work has been reviewed, showed WBC of 15.1, hemoglobin of 7.6, platelet count of 131, sodium of 145, potassium is 4.2, chloride is 111, BUN is 33, creatinine 1.03. Chest x-ray showed slight interval worsening mild pulmonary vascular congestion and bibasilar atelectasis. Patient denied any shortness of breath, patient is currently in A. fib RVR, and her beta rodríguez therapy was increased per CT surgery come patient received a dose of IV Lasix. Encourage deep breathing and coughing. On 07/31/2018 patient seen in follow-up in selective care unit, he is resting in bed, in no acute distress, seems much more alert and oriented, she knew where he was, he knew the month and the president. He states he is having some trouble swallowing. Denies any dyspnea, pulse ox on 3 L per nasal cannula is 95 %, respirations are even and nonlabored, lung sounds are positive for a few rales at the left base, IS effort 500-750, chest x-ray showed no cardiopulmonary process. Today's labs showed WBC of 10.4, hemoglobin is 7.6, BMP was essentially unremarkable Objective - Vital Signs Vital signs: Vital Signs Temp 96.9 F L 07/31/18 08:00 Pulse 78 07/31/18 09:08 Resp 16 07/31/18 08:56 BP 98/53 07/31/18 08:00 Pulse Ox 95 07/31/18 08:56 Intake & Output 07/30/18 07/31/18 07/31/18 18:59 06:59 18:59 Intake Total 360 125 Output Total 4 Balance 356 125 Weight 161 kg 157.5 kg 157.5 kg Intake: Oral 360 125 Output: Stool 4 Other: Voiding Method Urinal Urinal Urinal Diaper Diaper Diaper # Voids 2 1 ABP, PAP, CO, CI - Last Documented Arterial Blood Pressure 130/50 Pulmonary Artery Pressure 44/8 Cardiac Output 7.2 Cardiac Index 2.8 - Exam GENERAL EXAM: Lethargic, obese 78-year-old white male, currently extubated, on 3 L per nasal cannula, awake and alert, oriented 3, in no acute distress HEAD: Normocephalic/atraumatic. EYES: Normal reaction of pupils, equal size. Conjunctiva pink, sclera white. NOSE: Clear with pink turbinates. THROAT: No erythema or exudates. NECK: No masses, no JVD, no thyroid enlargement, no adenopathy. CHEST: No chest wall deformity. Symmetrical expansion. Sternal incision is clean dry and intact, well approximated, covered with surgical dressing, 2 mediastinal chest tubes have been discontinued and left pleural chest tube has been discontinued as well LUNGS: Equal air entry with him limited left base crackles CVS: Regular rate and rhythm, normal S1 and S2, no gallops, no murmurs, no rubs ABDOMEN: Soft, nontender. No hepatosplenomegaly, normal bowel sounds, no guarding or rigidity. EXTREMITIES: No clubbing, no edema, no cyanosis, 2+ pulses and upper and lower extremities. Bilateral lower extremities are Toni wrapped, there is a MELINA drain in the left lower extremity from saphenous graft site MUSCULOSKELETAL: Muscle strength and tone normal. SPINE: No scoliosis or deformity SKIN: No rashes CENTRAL NERVOUS SYSTEM: Awake and alert and oriented 3 No focal deficits, tone is normal in all 4 extremities. - Labs CBC & Chem 7: 07/31/18 07:29 07/31/18 07:29 Labs: Abnormal Lab Results - Last 24 Hours (Table) 07/30/18 07/30/18 07/31/18 Range/Units 16:42 20:48 02:08 RBC (4.30-5.90) m/uL Hgb (13.0-17.5) gm/dL Hct (39.0-53.0) % Chloride (98-107) mmol/L BUN (9-20) mg/dL Glucose (74-99) mg/dL POC Glucose (mg/dL) 128 H 121 H 136 H (75-99) mg/dL Calcium (8.4-10.2) mg/dL Magnesium (1.6-2.3) mg/dL AST (17-59) U/L ALT (21-72) U/L Total Protein (6.3-8.2) g/dL Albumin (3.5-5.0) g/dL 07/31/18 07/31/18 07/31/18 Range/Units 07:29 07:29 11:46 RBC 2.37 L (4.30-5.90) m/uL Hgb 7.6 L (13.0-17.5) gm/dL Hct 23.5 L (39.0-53.0) % Chloride 112 H (98-107) mmol/L BUN 33 H (9-20) mg/dL Glucose 141 H (74-99) mg/dL POC Glucose (mg/dL) 135 H (75-99) mg/dL Calcium 7.7 L (8.4-10.2) mg/dL Magnesium 3.0 H (1.6-2.3) mg/dL AST 337 H (17-59) U/L ALT 90 H (21-72) U/L Total Protein 5.5 L (6.3-8.2) g/dL Albumin 3.0 L (3.5-5.0) g/dL Assessment and Plan Plan: Assessment: #1. Symptomatic multivessel coronary artery disease, status post four-vessel bypass with MATT to LAD, SVG to the PLB, SVG to the diag, and to OM1, stop day 6 #2. Routine postoperative ventilator management, patient was extubated at 1:30 in the morning on 07/26/2018, currently on 6 L per high flow nasal cannula, tolerated extubation well On 07/27/2018 patient is on 9 L per high flow nasal cannula, episode of delirium and agitation last night, requiring a dose of IV Haldol, this morning his lethargic. Patient needs aggressive pulmonary toileting, he is not able to clear secretions. Chest x-ray was reviewed, and showed small to moderate-sized left pleural effusion, mild pulmonary vessel congestion, retrocardiac atelectasis On 07/31/2018 patient is down to 3 L per nasal cannula, doing well, more alert and oriented, no agitation or confusion, no difficulty breathing signs are stable #3. Confusion, agitation, delirium in the postoperative period, may be related to metabolic encephalopathy, improving #4. A. fib RVR, currently in sinus rhythm #5. Acute blood loss anemia, an expected outcome of bypass grafting surgery #6. Moderate aortic stenosis #7. Hypertension #8. Sleep apnea syndrome on CPAP therapy. Whether the patient uses CPAP on the regular basis is to be further clarified #9. History of CVA #10. Morbid obesity #11. History of bariatric surgery #12. Prostate enlargement #13. DJD Plan: Today's chest x-ray has been reviewed by Dr. Velarde, showed no acute cardiopulmonary process,patient is less confused, and less agitated, actually is quite calm and comfortable, cooperative. Continue encouraging incentive spirometry use, deep breathing and coughing, continue to follow. I performed a history & physical examination of the patient and discussed their management with my nurse practitioner, Shweta Morejon. I reviewed the nurse practitioner's note and agree with the documented findings and plan of care. Lung sounds are limited left base crackles. The findings and the impression was discussed with the patient. I attest to the documentation by the nurse practitioner. Time with Patient: Less than 30
--- NOTE | 2018-07-31 13:55 | P.PN ---
Subjective Progress Note Date: 07/31/18 78-year-old male with a past medical history significant for hypertension, osteoarthritis, sleep apnea, TIA, and obesity who underwent CABG x 4 on 07/25/[address] Acharya after undergoing recent cardiac cath revealing triple vessel disease. Dr. Fuchs was consulted for medical management. 07/26/2018 The patient was seen and examined postoperatively in the intensive care unit. Patient was extubated during the night. He is on NC with oxygen saturations greater than 92%. He remains sleepy this morning but is easily arousable to verbal stimuli. He is on primacor, low dose levophed, and an insulin drip. Blood sugars are in the 110s. Chest tubes x 2 intact. He is hemodynamically stable. Reports his pain is tolerable this morning. WBC 13.3. Hemoglobin 8.1. Potassium 4.1. 07/27/2018 Patient examined at the bedside with Dr. Fuchs. Apparently patient became very combative and agitated last night. He was given Haldol at 0212 in the morning. The patient is currently extremely lethargic and difficult to arouse. He responds to painful stimuli and will say one or two words, although garbled and hard to understand. Patient will not open his eyes. He remains on an insulin drip. It is currently paused. However, nursing reports when it is infusing he is requiring 8-9 units an hour. Blood sugars are 85, 94, 104, 108. 07/28/18 Patient examined at the bedside with Dr. Fuchs. Patient remains confused this morning, although improved since yesterday. He remains sleepy, but improved since yesterday. Patient had difficulty yesterday evening swallowing pills. Speech eval is to be completed today. He remains on insulin drip. Currently paused. Blood sugars 110, 115, 113, 122. 07/31/2018 Patient examined at the bedside. He has been moved to the selective care unit. Patient is much more awake today in comparison to last evaluation. He is on thickened liquids and is complaining that he would like to have regular liquids. Will ask speech to re-eval patient today. He is on novolog sliding scale. Blood sugars are 141, 99, 136, 121, 128. PHYSICAL EXAM: GENERAL: This is a 78-year-old male who is in no active distress at the time of examination. HEENT: Head is atraumatic, normocephalic. Pupils are equal, round, and reactive to light. Sclerae anicteric. Conjunctivae are clear. Mucus membranes of the mouth are moist. Neck is supple. RESPIRATORY: Diminished, coarse. No wheezes, rales, or rhonchi. No use of accessory muscles. Patient maintaining oxygen saturation greater than 92%. Pleural chest tube noted. CARDIOVASCULAR: Regular rate and rhythm. S1 and S2 noted. No systolic or diastolic murmur auscultated. No JVD noted. No S3 or S4 noted. GASTROINTESTINAL: No distention noted. Abdomen soft and round. Bowel sounds auscultated x 4 quadrants. No pain or tenderness noted upon palpation. INTEGUMENTARY: No cyanosis. No jaundice. No rashes noted. No cellulitis noted. EXTREMITIES: 2+ peripheral pulses. Trace bilateral lower extremity edema. NEUROLOGIC: Cranial nerves II-XII grossly intact. PSYCHIATRIC: Awake and alert. Mentation has improved. ASSESSMENT: Coronary artery disease, s/p CABG x 4 Acute blood loss, an expected outcome of surgery Lethargy, may be secondary to haldol administration, improving Elevated liver enzymes Hypertension History of TIA Sleep apnea Aortic stenosis Osteoarthritis BPH History of lap-band Nicotine dependence, in remission Morbid obesity: BMI 49.4 PLAN: Continue post op care per Dr. Acharya Repeat swallow eval today Continue Novolog sliding scale Pain control Activity as tolerated Monitor labs Monitor vital signs and address as appropriate Further recommendations pending patient's course Nurse practitioner note has been reviewed by physician. Signing provider agrees with the documented findings, assessment, and plan of care. Objective - Vital Signs Vital signs: Vital Signs Temp 96.9 F L 07/31/18 08:00 Pulse 78 07/31/18 09:08 Resp 16 07/31/18 08:56 BP 98/53 07/31/18 08:00 Pulse Ox 95 07/31/18 08:56 Intake & Output 07/30/18 07/31/18 07/31/18 18:59 06:59 18:59 Intake Total 360 125 Output Total 4 Balance 356 125 Weight 161 kg 157.5 kg Intake: Oral 360 125 Output: Stool 4 Other: Voiding Method Urinal Urinal Urinal Diaper Diaper Diaper # Voids 2 1 ABP, PAP, CO, CI - Last Documented Arterial Blood Pressure 130/50 Pulmonary Artery Pressure 44/8 Cardiac Output 7.2 Cardiac Index 2.8 - Labs CBC & Chem 7: 07/31/18 07:29 07/31/18 07:29 Labs: Abnormal Lab Results - Last 24 Hours (Table) 07/30/18 07/30/18 07/31/18 Range/Units 16:42 20:48 02:08 RBC (4.30-5.90) m/uL Hgb (13.0-17.5) gm/dL Hct (39.0-53.0) % Chloride (98-107) mmol/L BUN (9-20) mg/dL Glucose (74-99) mg/dL POC Glucose (mg/dL) 128 H 121 H 136 H (75-99) mg/dL Calcium (8.4-10.2) mg/dL Magnesium (1.6-2.3) mg/dL AST (17-59) U/L ALT (21-72) U/L Total Protein (6.3-8.2) g/dL Albumin (3.5-5.0) g/dL 07/31/18 07/31/18 Range/Units 07:29 07:29 RBC 2.37 L (4.30-5.90) m/uL Hgb 7.6 L (13.0-17.5) gm/dL Hct 23.5 L (39.0-53.0) % Chloride 112 H (98-107) mmol/L BUN 33 H (9-20) mg/dL Glucose 141 H (74-99) mg/dL POC Glucose (mg/dL) (75-99) mg/dL Calcium 7.7 L (8.4-10.2) mg/dL Magnesium 3.0 H (1.6-2.3) mg/dL AST 337 H (17-59) U/L ALT 90 H (21-72) U/L Total Protein 5.5 L (6.3-8.2) g/dL Albumin 3.0 L (3.5-5.0) g/dL
--- NOTE | 2018-07-31 16:18 | PN ---
PROGRESS NOTE Levon Justice is status post aortocoronary bypass surgery. He is doing well. He remains in sinus rhythm. His vital signs are stable. Blood pressure is acceptable. He is doing better on incentive spirometry. S1-S2 heard normally. Heart sounds are distant. Lungs reveal diminished breath sounds both bases. Abdomen and lower extremity exam is unchanged. I am recommending that we will continue current medications. Incentive spirometry. Increase activity and see how he does. MMODL / IJN: [id number] /
[2018-07-31 16:37] LABS: Glucose,Whole Blood 135 mg/dL (75-99)
--- NOTE | 2018-07-31 16:47 | FL ---
EXAMINATION TYPE: FL barium swallow w video DATE OF EXAM: 07/31/2018 COMPARISON: NONE HISTORY: Coughing at bedside TECHNIQUE: Fluoroscopy. FINDINGS: Fluoroscopic guidance was provided for the procedure performed in conjunction with the [facility] pathology department. Please see complete report forthcoming from the Speech Pathology departmen t. Various consistencies from thin liquid to solids were administered. Fluoroscopy time 3 minutes 7 seconds Number of images: 0. No aspiration was evident. There was transient penetration with thin and nectar thick liquids. Note i s made of some pooling within the vallecula with honey thick and solids. This was cleared with thin l iquids. There was normal propulsion of the bolus. IMPRESSION: 1. Transient penetration with thin liquids and nectar thick liquids. 2. Pooling within the vallecula with solids and honey thick liquids
[2018-07-31] MEDS: TAMSULOSIN 0.4 MG CAP.ER.24H PO SCH (17:43)
[2018-07-31 20:12] LABS: Glucose,Whole Blood 179 mg/dL (75-99)
[2018-07-31] MEDS: SENNOSIDES-DOCUSATE SODIUM 1 EACH TAB PO SCH (22:12)
[2018-08-01 06:00] LABS: Glucose,Whole Blood 127 mg/dL (75-99)
[2018-08-01] MEDS: INSULIN ASPART 100 UNIT/ML 1 ML 10 ML VIAL SQ SCH ×4 (06:10→21:19)
[2018-08-01] MEDS: FERROUS SULFATE 325 MG TAB PO SCH ×2 (06:23→15:46)
[2018-08-01] MEDS: ASCORBIC ACID 500 MG TAB PO SCH ×2 (06:23→15:46)
[2018-08-01] MEDS: PANTOPRAZOLE 40 MG TABLET PO SCH (06:23)
[2018-08-01 08:12] LABS: Basophils # (A) 0.1 k/uL (0-0.2); Basophils % (A) 0 %; Eosinophils # (A) 0.4 k/uL (0-0.7); Eosinophils % (A) 3 %; HCT 24.9 % (39.0-53.0); HGB 7.7 gm/dL (13.0-17.5); Hypochromasia Moderate; Lymphocytes # (A) 2.1 k/uL (1.0-4.8); Lymphocytes % (A) 15 %; MCH 31.5 pg (25.0-35.0); MCHC 31.1 g/dL (31.0-37.0); MCV 101.3 fL (80.0-100.0); Macrocytosis Slight; Mean Platelet Volume 7.8; Monocytes # (A) 0.6 k/uL (0-1.0); Monocytes % (A) 4 %; Neutrophils # (A) 10.8 k/uL (1.3-7.7); Neutrophils % (A) 77 %; Platelet Count 261 k/uL (150-450); RBC 2.46 m/uL (4.30-5.90); RDW 14.5 % (11.5-15.5); WBC 14.1 k/uL (3.8-10.6)
[2018-08-01] MEDS: ASPIRIN 325 MG TAB PO SCH (08:34)
[2018-08-01] MEDS: MUPIROCIN 2% OINT 22 GM TUBE NASAL SCH ×2 (08:34→20:20)
[2018-08-01] MEDS: HEPARIN SODIUM,PORCINE 5,000 UNIT/ML 1 ML VIAL SQ SCH ×3 (08:34→23:39)
[2018-08-01] MEDS: OXYBUTYNIN CHLORIDE 5 MG TAB PO SCH (08:34)
[2018-08-01] MEDS: CLOPIDOGREL 75 MG TAB PO SCH (08:34)
[2018-08-01] MEDS: METOPROLOL TARTRATE 25 MG TAB PO SCH ×2 (08:34→20:20)
[2018-08-01 08:35] LABS: ALT 110 U/L (21-72); AST 333 U/L (17-59); Alkaline Phosphatase 59 U/L (38-126); Anion Gap 7 mmol/L; Blood Urea Nitrogen 31 mg/dL (9-20); Calcium 8.1 mg/dL (8.4-10.2); Carbon Dioxide 25 mmol/L (22-30); Chloride 112 mmol/L (98-107); Glucose 114 mg/dL (74-99); Magnesium 2.9 mg/dL (1.6-2.3); Potassium 4.1 mmol/L (3.5-5.1); Sodium 144 mmol/L (137-145); Total Bilirubin 0.6 mg/dL (0.2-1.3); Total Protein 5.8 g/dL (6.3-8.2)
[2018-08-01] MEDS: IPRATROPIUM-ALBUTEROL 3 ML NEB INHALATION SCH ×4 (08:38→20:57)
[2018-08-01 08:49] LABS: Ionized Calcium 4.6 mg/dL (4.5-5.3)
--- NOTE | 2018-08-01 08:50 | XR ---
EXAMINATION TYPE: XR chest 1V portable DATE OF EXAM: 08/01/2018 CLINICAL HISTORY: Difficulty breathing progress study. Post open cardiac surgery. TECHNIQUE: Single AP portable upright view of the chest is obtained. COMPARISON: Chest x-ray from one day earlier and older studies. FINDINGS: Exam slightly suboptimal due to portable technique and patient's large body habitus. Overl steve sternal wires are present. There is cardiomegaly identified. There are small bilateral pleural e ffusions. There is persistent left basilar opacity. There is left apical pleural thickening or pleura l-based opacity again seen. Persistent silhouetting of left hemidiaphragm is noted. Osseous structure s are intact. IMPRESSION: There is persistent cardiomegaly with left basilar acute atelectasis and/or infiltrate an d suspected small left pleural effusion or fluid collection not completely layering dependently as ap ical density is new from older x-rays, other possibility would be segmental atelectasis left upper lo be. Consider contrast-enhanced CT follow-up.
--- NOTE | 2018-08-01 09:08 | P.PN ---
Subjective Progress Note Date: 08/01/18 78-year-old male with a past medical history significant for hypertension, osteoarthritis, sleep apnea, TIA, and obesity who underwent CABG x 4 on 07/25/[address] Acharya after undergoing recent cardiac cath revealing triple vessel disease. Dr. Fuchs was consulted for medical management. 07/26/2018 The patient was seen and examined postoperatively in the intensive care unit. Patient was extubated during the night. He is on NC with oxygen saturations greater than 92%. He remains sleepy this morning but is easily arousable to verbal stimuli. He is on primacor, low dose levophed, and an insulin drip. Blood sugars are in the 110s. Chest tubes x 2 intact. He is hemodynamically stable. Reports his pain is tolerable this morning. WBC 13.3. Hemoglobin 8.1. Potassium 4.1. 07/27/2018 Patient examined at the bedside with Dr. Fuchs. Apparently patient became very combative and agitated last night. He was given Haldol at 0212 in the morning. The patient is currently extremely lethargic and difficult to arouse. He responds to painful stimuli and will say one or two words, although garbled and hard to understand. Patient will not open his eyes. He remains on an insulin drip. It is currently paused. However, nursing reports when it is infusing he is requiring 8-9 units an hour. Blood sugars are 85, 94, 104, 108. 07/28/18 Patient examined at the bedside with Dr. Fuchs. Patient remains confused this morning, although improved since yesterday. He remains sleepy, but improved since yesterday. Patient had difficulty yesterday evening swallowing pills. Speech eval is to be completed today. He remains on insulin drip. Currently paused. Blood sugars 110, 115, 113, 122. 07/31/2018 Patient examined at the bedside. He has been moved to the selective care unit. Patient is much more awake today in comparison to last evaluation. He is on thickened liquids and is complaining that he would like to have regular liquids. Will ask speech to re-eval patient today. He is on novolog sliding scale. Blood sugars are 141, 99, 136, 121, 128. 08/01/2018 Patient examined this morning with Dr. Fuchs. Patient is sitting up in the chair. He is scheduled for US this morning. Patient underwent modified barium swallow yesterday. He was changed from honey thickened liquids to clear liquids. No straws. Level 3 dysphagia: chopped. WBC 14.1. Hemoglobin 7.7. Blood sugars have been 114, 127, 179, 135, 135. Recommend decreasing the amount of juices and other high sugar content items that are delivered to patient. PHYSICAL EXAM: GENERAL: This is a 78-year-old male who is in no active distress at the time of examination. HEENT: Head is atraumatic, normocephalic. Pupils are equal, round, and reactive to light. Sclerae anicteric. Conjunctivae are clear. Mucus membranes of the mouth are moist. Neck is supple. RESPIRATORY: Diminished, coarse. No wheezes, rales, or rhonchi. No use of accessory muscles. Patient maintaining oxygen saturation greater than 92%. Pleural chest tube noted. CARDIOVASCULAR: Regular rate and rhythm. S1 and S2 noted. No systolic or diastolic murmur auscultated. No JVD noted. No S3 or S4 noted. GASTROINTESTINAL: No distention noted. Abdomen soft and round. Bowel sounds auscultated x 4 quadrants. No pain or tenderness noted upon palpation. INTEGUMENTARY: No cyanosis. No jaundice. No rashes noted. No cellulitis noted. EXTREMITIES: 2+ peripheral pulses. Trace bilateral lower extremity edema. NEUROLOGIC: Cranial nerves II-XII grossly intact. PSYCHIATRIC: Awake and alert. Mentation has improved. ASSESSMENT: Coronary artery disease, s/p CABG x 4 Acute blood loss, an expected outcome of surgery Lethargy, may be secondary to haldol administration, improving Elevated liver enzymes Hypertension History of TIA Sleep apnea Aortic stenosis Osteoarthritis BPH History of lap-band Nicotine dependence, in remission Morbid obesity: BMI 49.4 PLAN: Continue post op care per Dr. Acharya Continue Novolog sliding scale Recommend decreasing the amount of juices and other high sugar content items that are delivered to patient. Diet changed to thin liquids. Dysphagia 3 as recommended per speech. Will add consistent carbohydrate to diet order to limit high sugar content items. Pain control Activity as tolerated Monitor labs Monitor vital signs and address as appropriate Further recommendations pending patient's course Nurse practitioner note has been reviewed by physician. Signing provider agrees with the documented findings, assessment, and plan of care. Objective - Vital Signs Vital signs: Vital Signs Temp 97.6 F 08/01/18 03:15 Pulse 72 08/01/18 08:50 Resp 18 08/01/18 04:00 BP 125/66 08/01/18 03:15 Pulse Ox 95 08/01/18 03:15 Intake & Output 07/31/18 08/01/18 08/01/18 18:59 06:59 18:59 Intake Total 675 480 Output Total 254 Balance 421 480 Weight 157.5 kg 159 kg Intake: Intake, IV Titration 100 Amount Calcium Chloride 1,000 mg 100 In Sodium Chloride 0.9% 100 ml @ 100 mls/hr IV ONCE ONE Rx#:[id number] Oral 575 480 Output: Urine 250 Stool 4 Other: Voiding Method Urinal Urinal Diaper Diaper # Voids 1 1 ABP, PAP, CO, CI - Last Documented Arterial Blood Pressure 130/50 Pulmonary Artery Pressure 44/8 Cardiac Output 7.2 Cardiac Index 2.8 - Labs CBC & Chem 7: 08/01/18 07:11 08/01/18 07:11 Labs: Abnormal Lab Results - Last 24 Hours (Table) 07/31/18 07/31/18 07/31/18 Range/Units 11:46 16:18 20:10 WBC (3.8-10.6) k/uL RBC (4.30-5.90) m/uL Hgb (13.0-17.5) gm/dL Hct (39.0-53.0) % MCV (80.0-100.0) fL Neutrophils # (1.3-7.7) k/uL Chloride (98-107) mmol/L BUN (9-20) mg/dL Glucose (74-99) mg/dL POC Glucose (mg/dL) 135 H 135 H 179 H (75-99) mg/dL Calcium (8.4-10.2) mg/dL Magnesium (1.6-2.3) mg/dL AST (17-59) U/L ALT (21-72) U/L Total Protein (6.3-8.2) g/dL Albumin (3.5-5.0) g/dL 08/01/18 08/01/18 08/01/18 Range/Units 05:58 07:11 07:11 WBC 14.1 H (3.8-10.6) k/uL RBC 2.46 L (4.30-5.90) m/uL Hgb 7.7 L (13.0-17.5) gm/dL Hct 24.9 L (39.0-53.0) % MCV 101.3 H (80.0-100.0) fL Neutrophils # 10.8 H (1.3-7.7) k/uL Chloride 112 H (98-107) mmol/L BUN 31 H (9-20) mg/dL Glucose 114 H (74-99) mg/dL POC Glucose (mg/dL) 127 H (75-99) mg/dL Calcium 8.1 L (8.4-10.2) mg/dL Magnesium 2.9 H (1.6-2.3) mg/dL AST 333 H (17-59) U/L ALT 110 H (21-72) U/L Total Protein 5.8 L (6.3-8.2) g/dL Albumin 3.0 L (3.5-5.0) g/dL
[2018-08-01] MEDS ORDERED: MODAFINIL 100 MG TAB PO SCH (10:45)
[2018-08-01 11:43] LABS: Glucose,Whole Blood 220 mg/dL (75-99)
--- NOTE | 2018-08-01 13:01 | PN ---
PROGRESS NOTE Mr. Justice is in sinus rhythm. This gentleman is morbidly obese, has sleep apnea syndrome had bypass surgery. He seems to have some daytime somnolence and may benefit from some agents like Provigil and I will request Dr. Fuchs to look into this thought or seek a pulmonary evaluation. Vitals are stable. S1, S2 heard normally but distantly. Lungs reveal improved air entry. Abdomen and lower extremity exam unchanged. Plan is to continue incentive spirometer, pulmonary toilet, increase activity. MMODL / IJN: [id number] /
--- NOTE | 2018-08-01 13:11 | P.PN ---
Subjective Progress Note Date: 08/01/18 Principal diagnosis: Symptomatic multivessel coronary artery disease, status post four-vessel bypass with MATT to LAD, SVG to the PLB, SVG to the diagonal and OM 1, postop day 1 This is 78-year-old white male patient of Dr. Fuchs, who we met on 07/20/2018 for preop pulmonary evaluation for coronary artery bypass grafting. Patient has been having progressive dyspnea, he was referred to cardiology, had a cardiac catheterization which revealed severe multivessel coronary artery disease and moderate aortic stenosis. Patient had a 90% stenosis of his RCA, 80 % stenosis of his circumflex, 95% stenosis of his mid LAD. Aortic valve surface area was 1.2 patient is afebrile, hemodynamically stable,. Other medical history includes previous history of CVA, hypertension, osteoarthritis, and 9 prostatic hypertrophy, sleep apnea syndrome, previous history of bariatric surgery, morbid obesity, and remote history of tobacco use. His preop bedside spirometry showed FEV1 of 86% of predicted, FVC of 71% of predicted, mild restriction. Patient was deferred to cardiothoracic surgery, and was recommended a surgical intervention, today on 07/25/2018 patient underwent four-vessel coronary artery bypass grafting, with MATT to LAD, SVG to the PLB, SVG to the diagonal, and SVG to the OM 1. Patient is seen in the intensive care unit, he is sedated, on mechanical ventilator, currently SIMV mode of ventilation with a rate of 12, tidal volume of 580, FiO2 100%, and PEEP of 10. Chest x-ray showed ET tube, chest tubes, right IJ PA catheter in appropriate positions, lungs are clear of consolidation, no heart failure. Patient is in sinus rhythm, his maintenance IV fluids of LR at 50, milrinone at 0.5 mics/per kilo per minute, Levaquin fed at 2 mics per minute, insulin at 2 units per hour, Diprivan at 15 mics per kilo per minute, and nitro at 5 mics/ min. Blood work showed WBC of 15.2, hemoglobin of 7.9, INR 1.5, choice and renal profile were within normal limits, blood gas showed pO2 of 174, pCO2 48, and pH is 7.3. Patient has 2 mediastinal chest tubes, left pleural chest tube, and there has been a 300 mL of sanguinous output in the mediastinal chest tube, and 10 mL in the left pleural. Hemodynamically patient is stable, cardiac output and index are 5.6 and 2.2 respectively, PA pressures 35/21. On 07/26/2018 patient seen in follow-up in the intensive care unit. This morning he is extubated, sitting up in the chair position in bed, he was extubated at about 1:30 in the morning. Currently on 6 L per nasal cannula, his pulse ox is 96%, he is awake and alert, acute distress, sinus rhythm on the monitor. Today's chest x-ray has been reviewed by Dr. Rose and showed stable bibasilar opacities and pleural effusions. Hemodynamically patient is stable. Levo has been off since 9:00 this morning, maintenance IV fluids is LR at 50 ML per hour, insulin drip is at 5 units per hour, no other drips. Cardiac output and index of 6.2 and 2.4 respectively. Today's lab work has been reviewed, WBCs 13.3, hemoglobin is 8.1, with recent blood gas prior to extubation showed pO2 of 72, pCO2 of 40%, and pH of 7.37, this was done and FiO2 40%, BMP was all within normal limits. Patient has underlying sleep apnea , on CPAP therapy. Patient may require some BiPAP support at night and is needed during the day. We'll continue to monitor, currently in no distress, he is awake and alert and responding to questions appropriately. 2 mediastinal and left pleural chest tubes are draining serosanguineous output. Mediastinal chest tube output is 560 over the last 24 hours, left pleural chest tube output is 378 in the last 24 hours. Smith catheter is present, draining urine in order of 30-45 ML per hour. We'll encourage incentive spirometry, we'll try to mobilize the patient, and set him up at the bedside. On 07/27/2018 patient seen in follow-up in the intensive care unit. This morning he is lethargic, mumbling, patient was apparently confused, agitated and delirious last night, received a dose of Haldol after which he became lethargic, hypotensive, and required albumin and levofed for blood pressure support. This morning he is off the levofed infusion. Blood gas was done, which showed pO2 of 75, pCO2 of 35, and pH of 7.47 as was done on FiO2 of 55%. There is some blood work was reviewed, WBCs 13.7, hemoglobin is 7.1, sodium is 140, potassium is 4.2, chloride is 109, B1 is 28 and creatinine 1.13. On 9 L per high flow nasal cannula, and his pulse ox is 96%, patient is afebrile, blood pressure is 150/64, PA pressure is 44/8, and cardiac output and index hours 7.2 and 2.8. Patient is mediastinal chest tubes removed, left pleural chest tube remains in place with serosanguineous thin output. Has been 760 mL out of the left pleural and the last 24 hours, and 250 on of the mediastinal chest tubes. Lung sounds are positive for scattered rhonchi, he is somnolent, has a loose nonproductive cough. Today's chest x-ray was reviewed by Dr. Rose, and shows stable cardiomegaly with small to moderate left pleural effusion tracking up to the left apex and possible mild pulmonary vascular congestion, retrocardiac atelectasis. Urinary catheter is in, and his urine output is 2240 ML per hour. Maintenance IV fluid is lactated Ringer's at a rate of 20 ML per hour, no other drips. On 07/28/2018 patient seen in follow-up in the intensive care unit. Patient remains confused, but cooperative. He is in the chair, currently on 2 L per nasal cannula, his pulse ox is 95%, afebrile, hemodynamically stable. Today's lab work has been reviewed, showed WBC of 15.1, hemoglobin of 7.6, platelet count of 131, sodium of 145, potassium is 4.2, chloride is 111, BUN is 33, creatinine 1.03. Chest x-ray showed slight interval worsening mild pulmonary vascular congestion and bibasilar atelectasis. Patient denied any shortness of breath, patient is currently in A. fib RVR, and her beta rodríguez therapy was increased per CT surgery come patient received a dose of IV Lasix. Encourage deep breathing and coughing. On 07/31/2018 patient seen in follow-up in selective care unit, he is resting in bed, in no acute distress, seems much more alert and oriented, she knew where he was, he knew the month and the president. He states he is having some trouble swallowing. Denies any dyspnea, pulse ox on 3 L per nasal cannula is 95 %, respirations are even and nonlabored, lung sounds are positive for a few rales at the left base, IS effort 500-750, chest x-ray showed no cardiopulmonary process. Today's labs showed WBC of 10.4, hemoglobin is 7.6, BMP was essentially unremarkable On 08/01/2018 patient seen in follow-up on selective care unit, he sitting up in the recliner, in no acute distress, agitation or delirium. She is alert and oriented 3, pleasant, cooperative. Pulse oximetry on 2 L per nasal cannula is 98%, vital signs are stable, no fever or chills, and today's chest x-ray has been reviewed by Dr. Velarde, and showed left basilar atelectasis and suspected small left pleural effusion, so showed left apical density that could possibly be related to atelectasis or patient's position during film taking. Lung sounds are diminished, with some limited crackles at the right base. Yesterday patient underwent modified barium swallow which showed transient penetration with thin liquids and pulling in the vallecular with honey thick liquids. Patient is on a modified diet with chopped food and consistent carbohydrate, and aspiration precautions. Labs have been reviewed, WBC 14.1, hemoglobin is 7.7, sodium is 144, potassium is 4.1, chloride is 112, B1 is 31 and creatinine 0.90. Objective - Vital Signs Vital signs: Vital Signs Temp 97.6 F 08/01/18 08:00 Pulse 76 08/01/18 12:13 Resp 18 08/01/18 08:00 BP 116/57 08/01/18 08:00 Pulse Ox 98 08/01/18 08:00 Intake & Output 07/31/18 08/01/18 08/01/18 18:59 06:59 18:59 Intake Total 675 480 Output Total 254 2 Balance 421 480 -2 Weight 157.5 kg 159 kg Intake: Intake, IV Titration 100 Amount Calcium Chloride 1,000 mg 100 In Sodium Chloride 0.9% 100 ml @ 100 mls/hr IV ONCE ONE Rx#:[id number] Oral 575 480 Output: Urine 250 Stool 4 2 Other: Voiding Method Urinal Urinal Urinal Diaper Diaper Diaper # Voids 1 1 ABP, PAP, CO, CI - Last Documented Arterial Blood Pressure 130/50 Pulmonary Artery Pressure 44/8 Cardiac Output 7.2 Cardiac Index 2.8 - Exam GENERAL EXAM: Lethargic, obese 78-year-old white male, currently extubated, on 3 L per nasal cannula, awake and alert, oriented 3, in no acute distress HEAD: Normocephalic/atraumatic. EYES: Normal reaction of pupils, equal size. Conjunctiva pink, sclera white. NOSE: Clear with pink turbinates. THROAT: No erythema or exudates. NECK: No masses, no JVD, no thyroid enlargement, no adenopathy. CHEST: No chest wall deformity. Symmetrical expansion. Sternal incision is clean dry and intact, well approximated, covered with surgical dressing, 2 mediastinal chest tubes have been discontinued and left pleural chest tube has been discontinued as well LUNGS: Equal air entry with him limited left base crackles CVS: Regular rate and rhythm, normal S1 and S2, no gallops, no murmurs, no rubs ABDOMEN: Soft, nontender. No hepatosplenomegaly, normal bowel sounds, no guarding or rigidity. EXTREMITIES: No clubbing, no edema, no cyanosis, 2+ pulses and upper and lower extremities. Bilateral lower extremities are Toni wrapped, there is a MELINA drain in the left lower extremity from saphenous graft site MUSCULOSKELETAL: Muscle strength and tone normal. SPINE: No scoliosis or deformity SKIN: No rashes CENTRAL NERVOUS SYSTEM: Awake and alert and oriented 3 No focal deficits, tone is normal in all 4 extremities. - Labs CBC & Chem 7: 08/01/18 07:11 08/01/18 07:11 Labs: Abnormal Lab Results - Last 24 Hours (Table) 07/31/18 07/31/18 08/01/18 Range/Units 16:18 20:10 05:58 WBC (3.8-10.6) k/uL RBC (4.30-5.90) m/uL Hgb (13.0-17.5) gm/dL Hct (39.0-53.0) % MCV (80.0-100.0) fL Neutrophils # (1.3-7.7) k/uL Chloride (98-107) mmol/L BUN (9-20) mg/dL Glucose (74-99) mg/dL POC Glucose (mg/dL) 135 H 179 H 127 H (75-99) mg/dL Calcium (8.4-10.2) mg/dL Magnesium (1.6-2.3) mg/dL AST (17-59) U/L ALT (21-72) U/L Total Protein (6.3-8.2) g/dL Albumin (3.5-5.0) g/dL 08/01/18 08/01/18 08/01/18 Range/Units 07:11 07:11 11:41 WBC 14.1 H (3.8-10.6) k/uL RBC 2.46 L (4.30-5.90) m/uL Hgb 7.7 L (13.0-17.5) gm/dL Hct 24.9 L (39.0-53.0) % MCV 101.3 H (80.0-100.0) fL Neutrophils # 10.8 H (1.3-7.7) k/uL Chloride 112 H (98-107) mmol/L BUN 31 H (9-20) mg/dL Glucose 114 H (74-99) mg/dL POC Glucose (mg/dL) 220 H (75-99) mg/dL Calcium 8.1 L (8.4-10.2) mg/dL Magnesium 2.9 H (1.6-2.3) mg/dL AST 333 H (17-59) U/L ALT 110 H (21-72) U/L Total Protein 5.8 L (6.3-8.2) g/dL Albumin 3.0 L (3.5-5.0) g/dL Assessment and Plan Plan: Assessment: #1. Symptomatic multivessel coronary artery disease, status post four-vessel bypass with MATT to LAD, SVG to the PLB, SVG to the diag, and to OM1, stop day 7 #2. Routine postoperative ventilator management, patient was extubated at 1:30 in the morning on 07/26/2018, currently on 6 L per high flow nasal cannula, tolerated extubation well On 07/27/2018 patient is on 9 L per high flow nasal cannula, episode of delirium and agitation last night, requiring a dose of IV Haldol, this morning his lethargic. Patient needs aggressive pulmonary toileting, he is not able to clear secretions. Chest x-ray was reviewed, and showed small to moderate-sized left pleural effusion, mild pulmonary vessel congestion, retrocardiac atelectasis On 07/31/2018 patient is down to 3 L per nasal cannula, doing well, more alert and oriented, no agitation or confusion, no difficulty breathing signs are stable On 08/01/2018 patient is on 2 L per nasal cannula, intermittently on room air, no distress, no dyspnea. Vital signs are stable. Chest x-ray showed left basilar atelectasis and small left pleural effusion, no other acute findings. #3. Confusion, agitation, delirium in the postoperative period, may be related to metabolic encephalopathy, improving #4. A. fib RVR, currently in sinus rhythm #5. Acute blood loss anemia, an expected outcome of bypass grafting surgery #6. Moderate aortic stenosis #7. Hypertension #8. Sleep apnea syndrome on CPAP therapy. Whether the patient uses CPAP on the regular basis is to be further clarified #9. History of CVA #10. Morbid obesity #11. History of bariatric surgery #12. Prostate enlargement #13. DJD Plan: Today's chest x-ray has been reviewed by Dr. Velarde, shows some persistent left basilar atelectasis and small infiltrate, the patient is improving, no dyspnea, vital signs are stable, continue encouraging deep breathing and coughing. Incentive spirometry use. Maintain aspiration precautions. Patient was started on a modified diet. Chest tubes have been discontinued. Encourage ambulation with assistance. Blood sugar control, pain control. Continue to follow I performed a history & physical examination of the patient and discussed their management with my nurse practitioner, Shweta Morejon. I reviewed the nurse practitioner's note and agree with the documented findings and plan of care. Lung sounds are limited left base crackles. The findings and the impression was discussed with the patient. I attest to the documentation by the nurse practitioner. Time with Patient: Less than 30
[2018-08-01] MEDS: LACTATED RINGERS 1,000 ML IV SCH (13:37)
[2018-08-01] MEDS: LISINOPRIL 10 MG TAB PO SCH (13:44)
[2018-08-01] MEDS: MODAFINIL 100 MG TAB PO SCH (13:45)
--- NOTE | 2018-08-01 15:29 | US ---
EXAMINATION TYPE: US abdomen limited DATE OF EXAM: 08/01/2018 COMPARISON: NONE CLINICAL HISTORY: elevated liver enzymes. Morbidly obese patient. Open heart surgery 1 week ago- sutu res/bandages extend down into epigastric area. Extremely limited exam due to patient's body habitus. Patient scanned laying in chair, unable to ambulate to bed per patient. EXAM MEASUREMENTS: Liver Length: 20.1 cm Gallbladder Wall: 0.2 cm CBD: Unable to visualize with certainty Right Kidney: 9.5 x 5.3 x 5.4 cm Pancreas: Obscured by bowel gas Liver: Limited visualization. Enlarged, echogenic Gallbladder: Stones visualized Evidence for sonographic Carias's sign: No CBD: Not visualized with certainty Right Kidney: No hydronephrosis or masses seen as visualized Exam noted suboptimal due to patient's large body habitus and extensive overlying sutures and bandage s due to open heart surgery one week ago as well as patient's limited mobility, patient is unable to ambulate. Pancreas is suboptimally seen on images saved. Shadowing mobile gallstone is noted in gallb ladder. No surrounding fluid or abnormal wall thickening is seen. Limited images right kidney show no gross hydronephrosis. Visualized portion of liver is heterogeneous, evaluation for focal masses is s uboptimal due to the heterogeneity. IMPRESSION: Markedly suboptimal study, suspect diffuse fatty infiltration of liver. Underlying hepato cellular disease is not excluded.
[2018-08-01] MEDS: TAMSULOSIN 0.4 MG CAP.ER.24H PO SCH (15:46)
[2018-08-01 16:42] LABS: Glucose,Whole Blood 174 mg/dL (75-99)
--- NOTE | 2018-08-01 16:47 | P.PN ---
Subjective Progress Note Date: 08/01/18 Principal diagnosis: Coronary artery disease. Previous medical history of hypertension, previous tobacco dependence with preoperative FEV1 86% of predicted, obstructive sleep apnea, TIA, bilateral internal carotid artery stenosis 50-79%, prostate disorder , morbid obesity with history of bariatric surgery, and drop foot on the left leg. POD #7 coronary artery bypass grafting 4 vessels, left internal mammary to the left anterior descending artery, reverse saphenous vein graft to the diagonal artery, reverse saphenous vein graft to the second obtuse marginal artery, reverse saphenous vein graft to the posterior lateral branch of the right coronary artery. Endoscopic vein harvest of bilateral greater saphenous veins. Epi-aortic ultrasound. Intraoperative transesophageal echocardiogram. Closure of the sternum using titanium plating system. Postoperative acute blood loss anemia, expected postsurgical condition secondary to hemodilution and cardiopulmonary bypass pump. Acute confusion, unexpected, possibly from cardiopulmonary bypass pump. Elevation in transaminases, an expected outcome. The patient was sitting up in a recliner this morning in no acute distress. Denies pain, shortness of breath. Patient is more alert and oriented this morning. Ultrasound of the abdomen today which was nondiagnostic as it was suboptimal due to body habitus. Objective - Vital Signs Vital signs: Vital Signs Temp 97.5 F L 08/01/18 16:00 Pulse 72 08/01/18 16:31 Resp 18 08/01/18 16:00 BP 124/55 08/01/18 16:00 Pulse Ox 95 08/01/18 16:00 Intake & Output 07/31/18 08/01/18 08/01/18 18:59 06:59 18:59 Intake Total 675 480 Output Total 254 6 Balance 421 480 -6 Weight 157.5 kg 159 kg Intake: Intake, IV Titration 100 Amount Calcium Chloride 1,000 mg 100 In Sodium Chloride 0.9% 100 ml @ 100 mls/hr IV ONCE ONE Rx#:[id number] Oral 575 480 Output: Urine 250 Stool 4 6 Other: Voiding Method Urinal Urinal Urinal Diaper Diaper Diaper # Voids 1 1 2 ABP, PAP, CO, CI - Last Documented Arterial Blood Pressure 130/50 Pulmonary Artery Pressure 44/8 Cardiac Output 7.2 Cardiac Index 2.8 - Constitutional General appearance: Present: cooperative, morbidly obese, no acute distress - Respiratory Details: Lungs sounds diminished bilaterally. Respirations even, nonlabored. Currently on 2 L nasal cannula with oxygen saturation 95%. Only able to achieve 500 mL on his incentive spirometry at this time. Strong, productive cough. - Cardiovascular Details: S1, S2 present. Regular rate and rhythm, sinus rhythm on telemetry. Sternum stable. A/V epicardial pacemaker wires present, grounded. Palpable peripheral pulses bilaterally. Trace generalized edema present. No calf pain or tenderness noted. Heart hugger in place with patient able to demonstrate appropriate use. Antiembolism stockings, SCDs present. - Gastrointestinal Gastrointestinal Comment(s): Abdomen soft, nondistended, nontender, obese. Active bowel sounds present 4 quadrants. Tolerating diet. Positive bowel movement 07/31. - Genitourinary Genitourinary Comment(s): Patient has voided several times but has been incontinent. - Integumentary Integumentary Comment(s): Skin is warm and dry with evidence of good perfusion. Anterior chest incision well approximated, dry intact dressing present. Left lower extremity EVH site well approximated. Left pleural chest tube site draining serous fluid. - Neurologic Neurologic: Present: CNII-XII intact - Musculoskeletal Musculoskeletal: Present: generalized weakness, strength equal bilaterally - Psychiatric Psychiatric Comment(s): Alert and oriented to person and place, states the year is 2008 but does know that its July and does know that he's had heart surgery. Psychiatric: Present: appropriate affect - Allied health notes Allied health notes reviewed: nursing - Labs CBC & Chem 7: 08/01/18 07:11 08/01/18 07:11 Labs: Abnormal Lab Results - Last 24 Hours (Table) 07/31/18 08/01/18 08/01/18 Range/Units 20:10 05:58 07:11 WBC 14.1 H (3.8-10.6) k/uL RBC 2.46 L (4.30-5.90) m/uL Hgb 7.7 L (13.0-17.5) gm/dL Hct 24.9 L (39.0-53.0) % MCV 101.3 H (80.0-100.0) fL Neutrophils # 10.8 H (1.3-7.7) k/uL Chloride (98-107) mmol/L BUN (9-20) mg/dL Glucose (74-99) mg/dL POC Glucose (mg/dL) 179 H 127 H (75-99) mg/dL Calcium (8.4-10.2) mg/dL Magnesium (1.6-2.3) mg/dL AST (17-59) U/L ALT (21-72) U/L Total Protein (6.3-8.2) g/dL Albumin (3.5-5.0) g/dL 08/01/18 08/01/18 Range/Units 07:11 11:41 WBC (3.8-10.6) k/uL RBC (4.30-5.90) m/uL Hgb (13.0-17.5) gm/dL Hct (39.0-53.0) % MCV (80.0-100.0) fL Neutrophils # (1.3-7.7) k/uL Chloride 112 H (98-107) mmol/L BUN 31 H (9-20) mg/dL Glucose 114 H (74-99) mg/dL POC Glucose (mg/dL) 220 H (75-99) mg/dL Calcium 8.1 L (8.4-10.2) mg/dL Magnesium 2.9 H (1.6-2.3) mg/dL AST 333 H (17-59) U/L ALT 110 H (21-72) U/L Total Protein 5.8 L (6.3-8.2) g/dL Albumin 3.0 L (3.5-5.0) g/dL - Imaging and Cardiology Chest x-ray: report reviewed, image reviewed Assessment and Plan (1) Status post aorto-coronary artery bypass graft Current Visit: Yes Status: Acute Code(s): Z95.1 - PRESENCE OF AORTOCORONARY BYPASS GRAFT SNOMED Code(s): 437953599 (2) Aortic valve stenosis Current Visit: Yes Status: Chronic Code(s): I35.0 - NONRHEUMATIC AORTIC ( VALVE) STENOSIS SNOMED Code(s): 76696676 (3) BPH (benign prostatic hyperplasia) Current Visit: Yes Status: Chronic Code(s): N40.0 - BENIGN PROSTATIC HYPERPLASIA WITHOUT LOWER URINRY TRACT SYMP SNOMED Code(s): 899439097 (4) Coronary artery disease Current Visit: Yes Status: Chronic Code(s): I25.10 - ATHSCL HEART DISEASE OF [place] CORONARY ARTERY W/O ANG PCTRS SNOMED Code(s): 76668525 (5) Foot drop, left Current Visit: Yes Status: Chronic Code(s): M21.372 - FOOT DROP, LEFT FOOT SNOMED Code(s): 0976356 (6) Hypertension Current Visit: Yes Status: Chronic Code(s): I10 - ESSENTIAL (PRIMARY) HYPERTENSION SNOMED Code(s): 90141896 (7) Morbid obesity with BMI of 45.0-49.9, adult Current Visit: Yes Status: Chronic Code(s): E66.01 - MORBID (SEVERE) OBESITY DUE TO EXCESS CALORIES; Z68.42 - BODY MASS INDEX (BMI) 45.0-49.9, ADULT SNOMED Code(s): 992245418 (8) Nicotine dependence in remission Current Visit: No Status: Resolved Code(s): F17.201 - NICOTINE DEPENDENCE, UNSPECIFIED, IN REMISSION SNOMED Code(s): 84979925 (9) Obstructive sleep apnea Current Visit: Yes Status: Chronic Code(s): G47.33 - OBSTRUCTIVE SLEEP APNEA (ADULT) (PEDIATRIC) SNOMED Code(s): 49351731 (10) Osteoarthritis Current Visit: Yes Status: Chronic Code(s): M19.90 - UNSPECIFIED OSTEOARTHRITIS, UNSPECIFIED SITE SNOMED Code(s): 234930598 Plan: 1. Continue aspirin, Plavix, BEATRIZ inhibitor, beta rodríguez therapy, will increase beta rodríguez therapy as tolerated. Statin on hold secondary to elevation in liver enzymes. 2. Wean O2 as tolerated. Encourage incentive spirometry use 10 times every hour while awake. 3. Increase activity as tolerated. PT/OT/cardiac rehab following. Patient should wear boot for ambulation on left leg. 4. Bronchodilators per pulmonology. 5. Will monitor daily labs and x-rays. No transfusion. 6. GI prophylaxis with Protonix. DVT prophylaxis with subcu heparin, SCDs. 7. Pain control with current medication regimen. Avoid narcotics. 8. Reorient patient as needed. 9. Insulin management per primary care service. 10. Discharge planning in progress. Anticipate discharge to subacute rehab in the next 24-48 hours. 11. Will consult social work for insurance authorization as patient is going to need rehab upon discharge. 12. More recommendations to follow. Time with Patient: Greater than 30
[2018-08-01] MEDS: SENNOSIDES-DOCUSATE SODIUM 1 EACH TAB PO SCH (20:20)
[2018-08-01 21:16] LABS: Glucose,Whole Blood 133 mg/dL (75-99)
[2018-08-02 06:03] LABS: Glucose,Whole Blood 133 mg/dL (75-99)
[2018-08-02] MEDS: INSULIN ASPART 100 UNIT/ML 1 ML 10 ML VIAL SQ SCH ×4 (06:04→21:15)
[2018-08-02] MEDS: FERROUS SULFATE 325 MG TAB PO SCH ×2 (06:40→18:00)
[2018-08-02] MEDS: PANTOPRAZOLE 40 MG TABLET PO SCH (06:40)
[2018-08-02] MEDS: ASCORBIC ACID 500 MG TAB PO SCH ×2 (06:40→18:00)
[2018-08-02] MEDS: IPRATROPIUM-ALBUTEROL 3 ML NEB INHALATION SCH ×4 (08:09→20:45)
[2018-08-02 08:14] LABS: Basophils % (A) 0 %; Eosinophils # (A) 0.2 k/uL (0-0.7); Eosinophils % (A) 1 %; HCT 25.4 % (39.0-53.0); HGB 7.9 gm/dL (13.0-17.5); Hypochromasia Moderate; Lymphocytes # (A) 1.6 k/uL (1.0-4.8); Lymphocytes % (A) 13 %; MCH 31.3 pg (25.0-35.0); MCHC 31.2 g/dL (31.0-37.0); MCV 100.1 fL (80.0-100.0); Macrocytosis Slight; Mean Platelet Volume 7.4; Monocytes # (A) 0.6 k/uL (0-1.0); Monocytes % (A) 4 %; Neutrophils # (A) 10.1 k/uL (1.3-7.7); Neutrophils % (A) 80 %; Platelet Count 307 k/uL (150-450); RBC 2.54 m/uL (4.30-5.90); RDW 14.3 % (11.5-15.5); WBC 12.6 k/uL (3.8-10.6)
[2018-08-02 08:16] LABS: ALT 96 U/L (21-72); AST 195 U/L (17-59); Albumin 3.1 g/dL (3.5-5.0); Alkaline Phosphatase 57 U/L (38-126); Anion Gap 7 mmol/L; Blood Urea Nitrogen 25 mg/dL (9-20); Calcium 8.1 mg/dL (8.4-10.2); Carbon Dioxide 25 mmol/L (22-30); Chloride 109 mmol/L (98-107); Glucose 136 mg/dL (74-99); Potassium 4.4 mmol/L (3.5-5.1); Sodium 141 mmol/L (137-145); Total Bilirubin 0.7 mg/dL (0.2-1.3)
[2018-08-02] MEDS: ASPIRIN 325 MG TAB PO SCH (09:57)
[2018-08-02] MEDS: CLOPIDOGREL 75 MG TAB PO SCH (09:57)
[2018-08-02] MEDS: METOPROLOL TARTRATE 25 MG TAB PO SCH ×2 (09:57→21:15)
[2018-08-02] MEDS: OXYBUTYNIN CHLORIDE 5 MG TAB PO SCH (09:58)
[2018-08-02] MEDS: MODAFINIL 100 MG TAB PO SCH (09:58)
[2018-08-02] MEDS: MUPIROCIN 2% OINT 22 GM TUBE NASAL SCH ×2 (09:59→22:26)
[2018-08-02] MEDS: HEPARIN SODIUM,PORCINE 5,000 UNIT/ML 1 ML VIAL SQ SCH ×3 (10:00→22:26)
[2018-08-02] MEDS ORDERED: FUROSEMIDE 10 MG/ML 2 ML VIAL IV ONE (10:30)
[2018-08-02 11:29] LABS: Glucose,Whole Blood 221 mg/dL (75-99)
[2018-08-02] MEDS: LISINOPRIL 10 MG TAB PO SCH (12:43)
[2018-08-02] MEDS: LACTATED RINGERS 1,000 ML IV SCH (12:44)
--- NOTE | 2018-08-02 13:37 | P.PN ---
Subjective Progress Note Date: 08/02/18 Principal diagnosis: Symptomatic multivessel coronary artery disease, status post four-vessel bypass with MATT to LAD, SVG to the PLB, SVG to the diagonal and OM 1, postop day 1 This is 78-year-old white male patient of Dr. Fuchs, who we met on 07/20/2018 for preop pulmonary evaluation for coronary artery bypass grafting. Patient has been having progressive dyspnea, he was referred to cardiology, had a cardiac catheterization which revealed severe multivessel coronary artery disease and moderate aortic stenosis. Patient had a 90% stenosis of his RCA, 80 % stenosis of his circumflex, 95% stenosis of his mid LAD. Aortic valve surface area was 1.2 patient is afebrile, hemodynamically stable,. Other medical history includes previous history of CVA, hypertension, osteoarthritis, and 9 prostatic hypertrophy, sleep apnea syndrome, previous history of bariatric surgery, morbid obesity, and remote history of tobacco use. His preop bedside spirometry showed FEV1 of 86% of predicted, FVC of 71% of predicted, mild restriction. Patient was deferred to cardiothoracic surgery, and was recommended a surgical intervention, today on 07/25/2018 patient underwent four-vessel coronary artery bypass grafting, with MATT to LAD, SVG to the PLB, SVG to the diagonal, and SVG to the OM 1. Patient is seen in the intensive care unit, he is sedated, on mechanical ventilator, currently SIMV mode of ventilation with a rate of 12, tidal volume of 580, FiO2 100%, and PEEP of 10. Chest x-ray showed ET tube, chest tubes, right IJ PA catheter in appropriate positions, lungs are clear of consolidation, no heart failure. Patient is in sinus rhythm, his maintenance IV fluids of LR at 50, milrinone at 0.5 mics/per kilo per minute, Levaquin fed at 2 mics per minute, insulin at 2 units per hour, Diprivan at 15 mics per kilo per minute, and nitro at 5 mics/ min. Blood work showed WBC of 15.2, hemoglobin of 7.9, INR 1.5, choice and renal profile were within normal limits, blood gas showed pO2 of 174, pCO2 48, and pH is 7.3. Patient has 2 mediastinal chest tubes, left pleural chest tube, and there has been a 300 mL of sanguinous output in the mediastinal chest tube, and 10 mL in the left pleural. Hemodynamically patient is stable, cardiac output and index are 5.6 and 2.2 respectively, PA pressures 35/21. On 07/26/2018 patient seen in follow-up in the intensive care unit. This morning he is extubated, sitting up in the chair position in bed, he was extubated at about 1:30 in the morning. Currently on 6 L per nasal cannula, his pulse ox is 96%, he is awake and alert, acute distress, sinus rhythm on the monitor. Today's chest x-ray has been reviewed by Dr. Rose and showed stable bibasilar opacities and pleural effusions. Hemodynamically patient is stable. Levo has been off since 9:00 this morning, maintenance IV fluids is LR at 50 ML per hour, insulin drip is at 5 units per hour, no other drips. Cardiac output and index of 6.2 and 2.4 respectively. Today's lab work has been reviewed, WBCs 13.3, hemoglobin is 8.1, with recent blood gas prior to extubation showed pO2 of 72, pCO2 of 40%, and pH of 7.37, this was done and FiO2 40%, BMP was all within normal limits. Patient has underlying sleep apnea , on CPAP therapy. Patient may require some BiPAP support at night and is needed during the day. We'll continue to monitor, currently in no distress, he is awake and alert and responding to questions appropriately. 2 mediastinal and left pleural chest tubes are draining serosanguineous output. Mediastinal chest tube output is 560 over the last 24 hours, left pleural chest tube output is 378 in the last 24 hours. Smith catheter is present, draining urine in order of 30-45 ML per hour. We'll encourage incentive spirometry, we'll try to mobilize the patient, and set him up at the bedside. On 07/27/2018 patient seen in follow-up in the intensive care unit. This morning he is lethargic, mumbling, patient was apparently confused, agitated and delirious last night, received a dose of Haldol after which he became lethargic, hypotensive, and required albumin and levofed for blood pressure support. This morning he is off the levofed infusion. Blood gas was done, which showed pO2 of 75, pCO2 of 35, and pH of 7.47 as was done on FiO2 of 55%. There is some blood work was reviewed, WBCs 13.7, hemoglobin is 7.1, sodium is 140, potassium is 4.2, chloride is 109, B1 is 28 and creatinine 1.13. On 9 L per high flow nasal cannula, and his pulse ox is 96%, patient is afebrile, blood pressure is 150/64, PA pressure is 44/8, and cardiac output and index hours 7.2 and 2.8. Patient is mediastinal chest tubes removed, left pleural chest tube remains in place with serosanguineous thin output. Has been 760 mL out of the left pleural and the last 24 hours, and 250 on of the mediastinal chest tubes. Lung sounds are positive for scattered rhonchi, he is somnolent, has a loose nonproductive cough. Today's chest x-ray was reviewed by Dr. Rose, and shows stable cardiomegaly with small to moderate left pleural effusion tracking up to the left apex and possible mild pulmonary vascular congestion, retrocardiac atelectasis. Urinary catheter is in, and his urine output is 2240 ML per hour. Maintenance IV fluid is lactated Ringer's at a rate of 20 ML per hour, no other drips. On 07/28/2018 patient seen in follow-up in the intensive care unit. Patient remains confused, but cooperative. He is in the chair, currently on 2 L per nasal cannula, his pulse ox is 95%, afebrile, hemodynamically stable. Today's lab work has been reviewed, showed WBC of 15.1, hemoglobin of 7.6, platelet count of 131, sodium of 145, potassium is 4.2, chloride is 111, BUN is 33, creatinine 1.03. Chest x-ray showed slight interval worsening mild pulmonary vascular congestion and bibasilar atelectasis. Patient denied any shortness of breath, patient is currently in A. fib RVR, and her beta rodríguez therapy was increased per CT surgery come patient received a dose of IV Lasix. Encourage deep breathing and coughing. On 07/31/2018 patient seen in follow-up in selective care unit, he is resting in bed, in no acute distress, seems much more alert and oriented, she knew where he was, he knew the month and the president. He states he is having some trouble swallowing. Denies any dyspnea, pulse ox on 3 L per nasal cannula is 95 %, respirations are even and nonlabored, lung sounds are positive for a few rales at the left base, IS effort 500-750, chest x-ray showed no cardiopulmonary process. Today's labs showed WBC of 10.4, hemoglobin is 7.6, BMP was essentially unremarkable On 08/01/2018 patient seen in follow-up on selective care unit, he sitting up in the recliner, in no acute distress, agitation or delirium. She is alert and oriented 3, pleasant, cooperative. Pulse oximetry on 2 L per nasal cannula is 98%, vital signs are stable, no fever or chills, and today's chest x-ray has been reviewed by Dr. Velarde, and showed left basilar atelectasis and suspected small left pleural effusion, so showed left apical density that could possibly be related to atelectasis or patient's position during film taking. Lung sounds are diminished, with some limited crackles at the right base. Yesterday patient underwent modified barium swallow which showed transient penetration with thin liquids and pulling in the vallecular with honey thick liquids. Patient is on a modified diet with chopped food and consistent carbohydrate, and aspiration precautions. Labs have been reviewed, WBC 14.1, hemoglobin is 7.7, sodium is 144, potassium is 4.1, chloride is 112, BUN is 31 and creatinine 0.90. On 08/02/2018 patient seen in follow-up on selective care unit. He is awake and alert, oriented 3. He states he had a fall this morning when he got up unassisted and started walking to the bathroom. No apparent injury. Room air pulse ox was 94% this morning , now patient is on supplemental oxygen currently at 4 L per nasal cannula. No orsening dyspnea, lung sounds are diminished. No crackles or rhonchi, incentive spirometry effort is 500-750. New chest x-rays, today's labs have been reviewed , WBC is 12.6, hemoglobin 7.9, but he was 141, but potassium is 4.4 chloride is 109, was 25 and creatinine 0.85. No new chest x-ray today Objective - Vital Signs Vital signs: Vital Signs Temp 97.8 F 08/02/18 04:00 Pulse 88 08/02/18 12:12 Resp 26 H 08/02/18 09:46 BP 111/45 08/02/18 09:46 Pulse Ox 94 L 08/02/18 09:46 Intake & Output 08/01/18 08/02/18 08/02/18 18:59 06:59 18:59 Intake Total 360 Output Total 6 6 Balance -6 -6 360 Weight 159 kg Intake: Oral 360 Output: Stool 6 6 Other: Voiding Method Urinal Urinal Diaper Diaper # Voids 2 1 ABP, PAP, CO, CI - Last Documented Arterial Blood Pressure 130/50 Pulmonary Artery Pressure 44/8 Cardiac Output 7.2 Cardiac Index 2.8 - Exam GENERAL EXAM: Lethargic, obese 78-year-old white male, currently extubated, on 3 L per nasal cannula, awake and alert, oriented 3, in no acute distress HEAD: Normocephalic/atraumatic. EYES: Normal reaction of pupils, equal size. Conjunctiva pink, sclera white. NOSE: Clear with pink turbinates. THROAT: No erythema or exudates. NECK: No masses, no JVD, no thyroid enlargement, no adenopathy. CHEST: No chest wall deformity. Symmetrical expansion. Sternal incision is clean dry and intact, well approximated, covered with surgical dressing, 2 mediastinal chest tubes have been discontinued and left pleural chest tube has been discontinued as well LUNGS: Equal air entry with him limited left base crackles CVS: Regular rate and rhythm, normal S1 and S2, no gallops, no murmurs, no rubs ABDOMEN: Soft, nontender. No hepatosplenomegaly, normal bowel sounds, no guarding or rigidity. EXTREMITIES: No clubbing, no edema, no cyanosis, 2+ pulses and upper and lower extremities. Bilateral lower extremities are Toni wrapped, there is a MELINA drain in the left lower extremity from saphenous graft site MUSCULOSKELETAL: Muscle strength and tone normal. SPINE: No scoliosis or deformity SKIN: No rashes CENTRAL NERVOUS SYSTEM: Awake and alert and oriented 3 No focal deficits, tone is normal in all 4 extremities. - Labs CBC & Chem 7: 08/02/18 07:45 08/02/18 07:45 Labs: Abnormal Lab Results - Last 24 Hours (Table) 08/01/18 08/01/18 08/02/18 Range/Units 16:40 21:14 06:01 WBC (3.8-10.6) k/uL RBC (4.30-5.90) m/uL Hgb (13.0-17.5) gm/dL Hct (39.0-53.0) % MCV (80.0-100.0) fL Neutrophils # (1.3-7.7) k/uL Chloride (98-107) mmol/L BUN (9-20) mg/dL Glucose (74-99) mg/dL POC Glucose (mg/dL) 174 H 133 H 133 H (75-99) mg/dL Calcium (8.4-10.2) mg/dL AST (17-59) U/L ALT (21-72) U/L Total Protein (6.3-8.2) g/dL Albumin (3.5-5.0) g/dL 08/02/18 08/02/18 08/02/18 Range/Units 07:45 07:45 11:22 WBC 12.6 H (3.8-10.6) k/uL RBC 2.54 L (4.30-5.90) m/uL Hgb 7.9 L (13.0-17.5) gm/dL Hct 25.4 L (39.0-53.0) % MCV 100.1 H (80.0-100.0) fL Neutrophils # 10.1 H (1.3-7.7) k/uL Chloride 109 H (98-107) mmol/L BUN 25 H (9-20) mg/dL Glucose 136 H (74-99) mg/dL POC Glucose (mg/dL) 221 H (75-99) mg/dL Calcium 8.1 L (8.4-10.2) mg/dL AST 195 H (17-59) U/L ALT 96 H (21-72) U/L Total Protein 6.0 L (6.3-8.2) g/dL Albumin 3.1 L (3.5-5.0) g/dL Assessment and Plan Plan: Assessment: #1. Symptomatic multivessel coronary artery disease, status post four-vessel bypass with MATT to LAD, SVG to the PLB, SVG to the diag, and to OM1, stop day 7 #2. Routine postoperative ventilator management, patient was extubated at 1:30 in the morning on 07/26/2018, currently on 4 L per high flow nasal cannula, tolerated extubation well On 07/27/2018 patient is on 9 L per high flow nasal cannula, episode of delirium and agitation last night, requiring a dose of IV Haldol, this morning his lethargic. Patient needs aggressive pulmonary toileting, he is not able to clear secretions. Chest x-ray was reviewed, and showed small to moderate-sized left pleural effusion, mild pulmonary vessel congestion, retrocardiac atelectasis On 07/31/2018 patient is down to 3 L per nasal cannula, doing well, more alert and oriented, no agitation or confusion, no difficulty breathing signs are stable On 08/01/2018 patient is on 2 L per nasal cannula, intermittently on room air, no distress, no dyspnea. Vital signs are stable. Chest x-ray showed left basilar atelectasis and small left pleural effusion, no other acute findings. #3. Confusion, agitation, delirium in the postoperative period, may be related to metabolic encephalopathy, improved #4. A. fib RVR, currently in sinus rhythm #5. Acute blood loss anemia, an expected outcome of bypass grafting surgery #6. Moderate aortic stenosis #7. Hypertension #8. Sleep apnea syndrome on CPAP therapy. Whether the patient uses CPAP on the regular basis is to be further clarified #9. History of CVA #10. Morbid obesity #11. History of bariatric surgery #12. Prostate enlargement #13. DJD Plan: Continue encouraging deep breathing and coughing, maintain precautions, including fall precautions. no worsening dyspnea, vital signs are stable. No new chest x-ray to review, discharge planning is in progress for subacute rehab , when cleared by CT surgery I performed a history & physical examination of the patient and discussed their management with my nurse practitioner, Shweta Morejon. I reviewed the nurse practitioner's note and agree with the documented findings and plan of care. Lung sounds are diminished. The findings and the impression was discussed with the patient. I attest to the documentation by the nurse practitioner. Time with Patient: Less than 30
--- NOTE | 2018-08-02 14:16 | P.PN ---
Subjective Progress Note Date: 08/02/18 Principal diagnosis: Coronary artery disease. Previous medical history of hypertension, previous tobacco dependence with preoperative FEV1 86% of predicted, obstructive sleep apnea, TIA, bilateral internal carotid artery stenosis 50-79%, prostate disorder , morbid obesity with history of bariatric surgery, and drop foot on the left leg. POD #8 coronary artery bypass grafting 4 vessels, left internal mammary to the left anterior descending artery, reverse saphenous vein graft to the diagonal artery, reverse saphenous vein graft to the second obtuse marginal artery, reverse saphenous vein graft to the posterior lateral branch of the right coronary artery. Endoscopic vein harvest of bilateral greater saphenous veins. Epi-aortic ultrasound. Intraoperative transesophageal echocardiogram. Closure of the sternum using titanium plating system. Postoperative acute blood loss anemia, expected postsurgical condition secondary to hemodilution and cardiopulmonary bypass pump. Acute confusion, unexpected, possibly from cardiopulmonary bypass pump. Elevation in transaminases, an expected outcome. Fall without injury, unexpected. The patient was sitting up in a recliner this morning in no acute distress. Denies pain, shortness of breath. Patient is more alert and oriented this morning. Patient got up by himself and ambulated to the bathroom without assistance and fell in the bathroom unwitnessed. Objective - Vital Signs Vital signs: Vital Signs Temp 97.8 F 08/02/18 04:00 Pulse 88 08/02/18 12:12 Resp 26 H 08/02/18 09:46 BP 111/45 08/02/18 09:46 Pulse Ox 94 L 08/02/18 09:46 Intake & Output 08/01/18 08/02/18 08/02/18 18:59 06:59 18:59 Intake Total 360 Output Total 6 6 Balance -6 -6 360 Weight 159 kg Intake: Oral 360 Output: Stool 6 6 Other: Voiding Method Urinal Urinal Diaper Diaper # Voids 2 1 ABP, PAP, CO, CI - Last Documented Arterial Blood Pressure 130/50 Pulmonary Artery Pressure 44/8 Cardiac Output 7.2 Cardiac Index 2.8 - Constitutional General appearance: Present: cooperative, morbidly obese, no acute distress - Respiratory Details: Lungs sounds diminished bilaterally. Respirations even, nonlabored. Currently on 4 L nasal cannula with oxygen saturation 99%. Only able to achieve 500 mL on his incentive spirometry at this time. Strong, productive cough. - Cardiovascular Details: S1, S2 present. Regular rate and rhythm, sinus rhythm on telemetry. Sternum stable. A/V epicardial pacemaker wires present, grounded. Palpable peripheral pulses bilaterally. Trace generalized edema present. No calf pain or tenderness noted. Heart hugger in place with patient able to demonstrate appropriate use. Antiembolism stockings, SCDs present. - Gastrointestinal Gastrointestinal Comment(s): Abdomen soft, nondistended, nontender, obese. Active bowel sounds present 4 quadrants. Tolerating diet. Positive bowel movement 07/31. - Genitourinary Genitourinary Comment(s): Patient has voided several times but has been incontinent. - Integumentary Integumentary Comment(s): Skin is warm and dry with evidence of good perfusion. Anterior chest incision well approximated, dry intact dressing present. Left lower extremity EVH site well approximated. Left pleural chest tube site draining serous fluid. - Neurologic Neurologic: Present: CNII-XII intact - Musculoskeletal Musculoskeletal: Present: generalized weakness, strength equal bilaterally - Psychiatric Psychiatric Comment(s): Patient is somewhat forgetful. Psychiatric: Present: A&O x's 3, appropriate affect - Allied health notes Allied health notes reviewed: nursing - Labs CBC & Chem 7: 08/02/18 07:45 08/02/18 07:45 Labs: Abnormal Lab Results - Last 24 Hours (Table) 08/01/18 08/01/18 08/02/18 Range/Units 16:40 21:14 06:01 WBC (3.8-10.6) k/uL RBC (4.30-5.90) m/uL Hgb (13.0-17.5) gm/dL Hct (39.0-53.0) % MCV (80.0-100.0) fL Neutrophils # (1.3-7.7) k/uL Chloride (98-107) mmol/L BUN (9-20) mg/dL Glucose (74-99) mg/dL POC Glucose (mg/dL) 174 H 133 H 133 H (75-99) mg/dL Calcium (8.4-10.2) mg/dL AST (17-59) U/L ALT (21-72) U/L Total Protein (6.3-8.2) g/dL Albumin (3.5-5.0) g/dL 08/02/18 08/02/18 08/02/18 Range/Units 07:45 07:45 11:22 WBC 12.6 H (3.8-10.6) k/uL RBC 2.54 L (4.30-5.90) m/uL Hgb 7.9 L (13.0-17.5) gm/dL Hct 25.4 L (39.0-53.0) % MCV 100.1 H (80.0-100.0) fL Neutrophils # 10.1 H (1.3-7.7) k/uL Chloride 109 H (98-107) mmol/L BUN 25 H (9-20) mg/dL Glucose 136 H (74-99) mg/dL POC Glucose (mg/dL) 221 H (75-99) mg/dL Calcium 8.1 L (8.4-10.2) mg/dL AST 195 H (17-59) U/L ALT 96 H (21-72) U/L Total Protein 6.0 L (6.3-8.2) g/dL Albumin 3.1 L (3.5-5.0) g/dL Assessment and Plan (1) Status post aorto-coronary artery bypass graft Current Visit: Yes Status: Acute Code(s): Z95.1 - PRESENCE OF AORTOCORONARY BYPASS GRAFT SNOMED Code(s): 463753218 (2) Aortic valve stenosis Current Visit: Yes Status: Chronic Code(s): I35.0 - NONRHEUMATIC AORTIC ( VALVE) STENOSIS SNOMED Code(s): 89657194 (3) BPH (benign prostatic hyperplasia) Current Visit: Yes Status: Chronic Code(s): N40.0 - BENIGN PROSTATIC HYPERPLASIA WITHOUT LOWER URINRY TRACT SYMP SNOMED Code(s): 659498913 (4) Coronary artery disease Current Visit: Yes Status: Chronic Code(s): I25.10 - ATHSCL HEART DISEASE OF [place] CORONARY ARTERY W/O ANG PCTRS SNOMED Code(s): 33339230 (5) Foot drop, left Current Visit: Yes Status: Chronic Code(s): M21.372 - FOOT DROP, LEFT FOOT SNOMED Code(s): 1292088 (6) Hypertension Current Visit: Yes Status: Chronic Code(s): I10 - ESSENTIAL (PRIMARY) HYPERTENSION SNOMED Code(s): 25433451 (7) Morbid obesity with BMI of 45.0-49.9, adult Current Visit: Yes Status: Chronic Code(s): E66.01 - MORBID (SEVERE) OBESITY DUE TO EXCESS CALORIES; Z68.42 - BODY MASS INDEX (BMI) 45.0-49.9, ADULT SNOMED Code(s): 872386954 (8) Nicotine dependence in remission Current Visit: No Status: Resolved Code(s): F17.201 - NICOTINE DEPENDENCE, UNSPECIFIED, IN REMISSION SNOMED Code(s): 74789788 (9) Obstructive sleep apnea Current Visit: Yes Status: Chronic Code(s): G47.33 - OBSTRUCTIVE SLEEP APNEA (ADULT) (PEDIATRIC) SNOMED Code(s): 28339747 (10) Osteoarthritis Current Visit: Yes Status: Chronic Code(s): M19.90 - UNSPECIFIED OSTEOARTHRITIS, UNSPECIFIED SITE SNOMED Code(s): 011753327 Plan: 1. Continue aspirin, Plavix, BEATRIZ inhibitor, beta rodríguez therapy, will increase beta rodríguez therapy as tolerated. Statin on hold secondary to elevation in liver enzymes. 2. Wean O2 as tolerated. Encourage incentive spirometry use 10 times every hour while awake. 3. Increase activity as tolerated. PT/OT/cardiac rehab following. Patient should wear boot for ambulation on left leg. 4. Bronchodilators per pulmonology. 5. Will monitor daily labs and x-rays. No transfusion. 6. GI prophylaxis with Protonix. DVT prophylaxis with subcu heparin, SCDs. 7. Pain control with current medication regimen. Avoid narcotics. 8. Reorient patient as needed. 9. Insulin management per primary care service. 10. Discharge planning in progress. Anticipate discharge to subacute rehab tomorrow. 11. Social work consult for insurance authorization as patient is going to need rehab upon discharge. 12. Epicardial pacemaker wires discontinued without incident. 13. Fall precautions. 14. More recommendations to follow. Time with Patient: Greater than 30
--- NOTE | 2018-08-02 14:25 | P.PN ---
Subjective Progress Note Date: 08/02/18 78-year-old male with a past medical history significant for hypertension, osteoarthritis, sleep apnea, TIA, and obesity who underwent CABG x 4 on 07/25/[address] Acharya after undergoing recent cardiac cath revealing triple vessel disease. Dr. Fuchs was consulted for medical management. 07/26/2018 The patient was seen and examined postoperatively in the intensive care unit. Patient was extubated during the night. He is on NC with oxygen saturations greater than 92%. He remains sleepy this morning but is easily arousable to verbal stimuli. He is on primacor, low dose levophed, and an insulin drip. Blood sugars are in the 110s. Chest tubes x 2 intact. He is hemodynamically stable. Reports his pain is tolerable this morning. WBC 13.3. Hemoglobin 8.1. Potassium 4.1. 07/27/2018 Patient examined at the bedside with Dr. Fuchs. Apparently patient became very combative and agitated last night. He was given Haldol at 0212 in the morning. The patient is currently extremely lethargic and difficult to arouse. He responds to painful stimuli and will say one or two words, although garbled and hard to understand. Patient will not open his eyes. He remains on an insulin drip. It is currently paused. However, nursing reports when it is infusing he is requiring 8-9 units an hour. Blood sugars are 85, 94, 104, 108. 07/28/18 Patient examined at the bedside with Dr. Fuchs. Patient remains confused this morning, although improved since yesterday. He remains sleepy, but improved since yesterday. Patient had difficulty yesterday evening swallowing pills. Speech eval is to be completed today. He remains on insulin drip. Currently paused. Blood sugars 110, 115, 113, 122. 07/31/2018 Patient examined at the bedside. He has been moved to the selective care unit. Patient is much more awake today in comparison to last evaluation. He is on thickened liquids and is complaining that he would like to have regular liquids. Will ask speech to re-eval patient today. He is on novolog sliding scale. Blood sugars are 141, 99, 136, 121, 128. 08/01/2018 Patient examined this morning with Dr. Fuchs. Patient is sitting up in the chair. He is scheduled for US this morning. Patient underwent modified barium swallow yesterday. He was changed from honey thickened liquids to clear liquids. No straws. Level 3 dysphagia: chopped. WBC 14.1. Hemoglobin 7.7. Blood sugars have been 114, 127, 179, 135, 135. Recommend decreasing the amount of juices and other high sugar content items that are delivered to patient. 08/02/2018 Patient examined this morning with Dr. Fuchs. Patient sitting up in the chair. Eating breakfast. Remains on novolog sliding scale coverage. Patient did have an elevated blood sugar yesterday of 220. Patient states his family member went to [employer] and brought the patient a grape juice and an apple juice. Blood sugar this morning is 133. PHYSICAL EXAM: GENERAL: This is a 78-year-old male who is in no active distress at the time of examination. HEENT: Head is atraumatic, normocephalic. Pupils are equal, round, and reactive to light. Sclerae anicteric. Conjunctivae are clear. Mucus membranes of the mouth are moist. Neck is supple. RESPIRATORY: Diminished. No wheezes, rales, or rhonchi. No use of accessory muscles. Patient maintaining oxygen saturation greater than 92%. Pleural chest tube noted. CARDIOVASCULAR: Regular rate and rhythm. S1 and S2 noted. No systolic or diastolic murmur auscultated. No JVD noted. No S3 or S4 noted. GASTROINTESTINAL: No distention noted. Abdomen soft and round. Bowel sounds auscultated x 4 quadrants. No pain or tenderness noted upon palpation. INTEGUMENTARY: No cyanosis. No jaundice. No rashes noted. No cellulitis noted. EXTREMITIES: 2+ peripheral pulses. Trace bilateral lower extremity edema. NEUROLOGIC: Cranial nerves II-XII grossly intact. PSYCHIATRIC: Awake and alert. Mentation has improved. ASSESSMENT: Coronary artery disease, s/p CABG x 4 Acute blood loss, an expected outcome of surgery Postoperative confusion and delirium, may be related to metabolic encephalopathy , improving Lethargy, may be secondary to haldol administration, improving Elevated liver enzymes Hypertension History of TIA Sleep apnea Aortic stenosis Osteoarthritis BPH History of lap-band Nicotine dependence, in remission Morbid obesity: BMI 49.4 PLAN: Continue post op care per Dr. Acharya Continue Novolog sliding scale Recommend decreasing the amount of juices and other high sugar content items that are delivered to patient. Diet changed to thin liquids. Dysphagia 3 as recommended per speech. Consistent carbohydrate added to diet order to limit high sugar content items. Pain control Activity as tolerated Monitor labs Monitor vital signs and address as appropriate Further recommendations pending patient's course Nurse practitioner note has been reviewed by physician. Signing provider agrees with the documented findings, assessment, and plan of care. Objective - Vital Signs Vital signs: Vital Signs Temp 97.8 F 08/02/18 04:00 Pulse 88 08/02/18 09:46 Resp 26 H 08/02/18 09:46 BP 111/45 08/02/18 09:46 Pulse Ox 94 L 08/02/18 09:46 Intake & Output 08/01/18 08/02/18 08/02/18 18:59 06:59 18:59 Intake Total 360 Output Total 6 6 Balance -6 -6 360 Weight 159 kg Intake: Oral 360 Output: Stool 6 6 Other: Voiding Method Urinal Urinal Diaper Diaper # Voids 2 1 ABP, PAP, CO, CI - Last Documented Arterial Blood Pressure 130/50 Pulmonary Artery Pressure 44/8 Cardiac Output 7.2 Cardiac Index 2.8 - Labs CBC & Chem 7: 08/02/18 07:45 08/02/18 07:45 Labs: Abnormal Lab Results - Last 24 Hours (Table) 08/01/18 08/01/18 08/01/18 Range/Units 11:41 16:40 21:14 WBC (3.8-10.6) k/uL RBC (4.30-5.90) m/uL Hgb (13.0-17.5) gm/dL Hct (39.0-53.0) % MCV (80.0-100.0) fL Neutrophils # (1.3-7.7) k/uL Chloride (98-107) mmol/L BUN (9-20) mg/dL Glucose (74-99) mg/dL POC Glucose (mg/dL) 220 H 174 H 133 H (75-99) mg/dL Calcium (8.4-10.2) mg/dL AST (17-59) U/L ALT (21-72) U/L Total Protein (6.3-8.2) g/dL Albumin (3.5-5.0) g/dL 12/12/18 12/12/18 12/12/18 Range/Units 06:01 07:45 07:45 WBC 12.6 H (3.8-10.6) k/uL RBC 2.54 L (4.30-5.90) m/uL Hgb 7.9 L (13.0-17.5) gm/dL Hct 25.4 L (39.0-53.0) % MCV 100.1 H (80.0-100.0) fL Neutrophils # 10.1 H (1.3-7.7) k/uL Chloride 109 H (98-107) mmol/L BUN 25 H (9-20) mg/dL Glucose 136 H (74-99) mg/dL POC Glucose (mg/dL) 133 H (75-99) mg/dL Calcium 8.1 L (8.4-10.2) mg/dL AST 195 H (17-59) U/L ALT 96 H (21-72) U/L Total Protein 6.0 L (6.3-8.2) g/dL Albumin 3.1 L (3.5-5.0) g/dL
[2018-08-02 17:10] LABS: Glucose,Whole Blood 172 mg/dL (75-99)
[2018-08-02] MEDS: TAMSULOSIN 0.4 MG CAP.ER.24H PO SCH (18:01)
[2018-08-02 21:00] LABS: Glucose,Whole Blood 165 mg/dL (75-99)
--- NOTE | 2018-08-02 21:11 | PN ---
PROGRESS NOTE HISTORY: Mr. Justice is status post bypass surgery. This gentleman had a slip and fall, but no big injuries. He was resting comfortably when I evaluated him. His vital signs are stable. He is breathing little bit better now. He is able to take more deep breaths. PHYSICAL EXAM: Vital signs is stable. He is in sinus rhythm. S1, S2 heard normally. Short systolic murmur noted. Lungs reveal improved air entry. Abdomen and lower extremity exam unchanged. PLAN: Continue current medications and increase activity. I have advised him not to get out of the bed on his own but seek help. MMODL / IJN: [id number] /
[2018-08-02] MEDS: SENNOSIDES-DOCUSATE SODIUM 1 EACH TAB PO SCH (21:15)
[2018-08-03 02:13] LABS: Glucose,Whole Blood 138 mg/dL (75-99)
[2018-08-03 05:58] LABS: Glucose,Whole Blood 135 mg/dL (75-99)
[2018-08-03] MEDS: INSULIN ASPART 100 UNIT/ML 1 ML 10 ML VIAL SQ SCH ×4 (06:06→20:38)
[2018-08-03] MEDS: FERROUS SULFATE 325 MG TAB PO SCH ×2 (06:20→16:56)
[2018-08-03] MEDS: ASCORBIC ACID 500 MG TAB PO SCH ×2 (06:20→16:56)
[2018-08-03] MEDS: PANTOPRAZOLE 40 MG TABLET PO SCH (06:20)
[2018-08-03 06:53] LABS: Basophils # (A) 0.1 k/uL (0-0.2); Basophils % (A) 0 %; Eosinophils # (A) 0.1 k/uL (0-0.7); Eosinophils % (A) 0 %; HGB 8.1 gm/dL (13.0-17.5); Hypochromasia Marked; Lymphocytes # (A) 1.7 k/uL (1.0-4.8); Lymphocytes % (A) 10 %; MCH 30.6 pg (25.0-35.0); MCHC 30.2 g/dL (31.0-37.0); MCV 101.3 fL (80.0-100.0); Macrocytosis Slight; Mean Platelet Volume 7.5; Monocytes # (A) 0.9 k/uL (0-1.0); Monocytes % (A) 5 %; Neutrophils # (A) 14.3 k/uL (1.3-7.7); Neutrophils % (A) 83 %; Platelet Count 389 k/uL (150-450); Poikilocytosis Slight; RBC 2.66 m/uL (4.30-5.90); WBC 17.2 k/uL (3.8-10.6)
[2018-08-03] MEDS: IPRATROPIUM-ALBUTEROL 3 ML NEB INHALATION SCH ×4 (07:17→18:45)
[2018-08-03 07:25] LABS: Calcium 8.2 mg/dL (8.4-10.2); Potassium 4.6 mmol/L (3.5-5.1); Total Bilirubin 0.9 mg/dL (0.2-1.3)
[2018-08-03] MEDS ORDERED: ATORVASTATIN 40 MG TAB PO SCH (09:00)
[2018-08-03] MEDS ORDERED: FUROSEMIDE 10 MG/ML 2 ML VIAL IV STA (09:23)
--- NOTE | 2018-08-03 09:23 | P.PN ---
Subjective Progress Note Date: 08/03/18 78-year-old male with a past medical history significant for hypertension, osteoarthritis, sleep apnea, TIA, and obesity who underwent CABG x 4 on 07/25/[address] Acharya after undergoing recent cardiac cath revealing triple vessel disease. Dr. Fuchs was consulted for medical management. 07/26/2018 The patient was seen and examined postoperatively in the intensive care unit. Patient was extubated during the night. He is on NC with oxygen saturations greater than 92%. He remains sleepy this morning but is easily arousable to verbal stimuli. He is on primacor, low dose levophed, and an insulin drip. Blood sugars are in the 110s. Chest tubes x 2 intact. He is hemodynamically stable. Reports his pain is tolerable this morning. WBC 13.3. Hemoglobin 8.1. Potassium 4.1. 07/27/2018 Patient examined at the bedside with Dr. Fuchs. Apparently patient became very combative and agitated last night. He was given Haldol at 0212 in the morning. The patient is currently extremely lethargic and difficult to arouse. He responds to painful stimuli and will say one or two words, although garbled and hard to understand. Patient will not open his eyes. He remains on an insulin drip. It is currently paused. However, nursing reports when it is infusing he is requiring 8-9 units an hour. Blood sugars are 85, 94, 104, 108. 07/28/18 Patient examined at the bedside with Dr. Fuchs. Patient remains confused this morning, although improved since yesterday. He remains sleepy, but improved since yesterday. Patient had difficulty yesterday evening swallowing pills. Speech eval is to be completed today. He remains on insulin drip. Currently paused. Blood sugars 110, 115, 113, 122. 07/31/2018 Patient examined at the bedside. He has been moved to the selective care unit. Patient is much more awake today in comparison to last evaluation. He is on thickened liquids and is complaining that he would like to have regular liquids. Will ask speech to re-eval patient today. He is on novolog sliding scale. Blood sugars are 141, 99, 136, 121, 128. 08/01/2018 Patient examined this morning with Dr. Fuchs. Patient is sitting up in the chair. He is scheduled for US this morning. Patient underwent modified barium swallow yesterday. He was changed from honey thickened liquids to clear liquids. No straws. Level 3 dysphagia: chopped. WBC 14.1. Hemoglobin 7.7. Blood sugars have been 114, 127, 179, 135, 135. Recommend decreasing the amount of juices and other high sugar content items that are delivered to patient. 08/02/2018 Patient examined this morning with Dr. Fuchs. Patient sitting up in the chair. Eating breakfast. Remains on novolog sliding scale coverage. Patient did have an elevated blood sugar yesterday of 220. Patient states his family member went to [employer] and brought the patient a grape juice and an apple juice. Blood sugar this morning is 133. 08/03/2018 Patient examined this morning at the bedside. Patient got up to the bathroom yesterday unassisted and fell. No apparent injuries. Patient is more lethargic this morning. Patient has not been using his incentive spirometer. He remains on novolog sliding scale. PHYSICAL EXAM: GENERAL: This is a 78-year-old male who is more lethargic today compared to yesterday and appears to be mildly short of breath at the time of examination. HEENT: Head is atraumatic, normocephalic. Pupils are equal, round, and reactive to light. Sclerae anicteric. Conjunctivae are clear. Mucus membranes of the mouth are moist. Neck is supple. RESPIRATORY: Diminished. Upper airway congestion. Wheezing noted. Increased work of breathing noted. No use of accessory muscles. Patient maintaining oxygen saturation greater than 92%. CARDIOVASCULAR: Regular rate and rhythm. S1 and S2 noted. No systolic or diastolic murmur auscultated. No JVD noted. No S3 or S4 noted. GASTROINTESTINAL: No distention noted. Abdomen soft and round. Bowel sounds auscultated x 4 quadrants. No pain or tenderness noted upon palpation. INTEGUMENTARY: No cyanosis. No jaundice. No rashes noted. No cellulitis noted. EXTREMITIES: 2+ peripheral pulses. Trace bilateral lower extremity edema. NEUROLOGIC: Cranial nerves II-XII grossly intact. PSYCHIATRIC: Patient more lethargic today compared to yesterday. A/O x 1. Cooperative. ASSESSMENT: Coronary artery disease, s/p CABG x 4 Acute blood loss, an expected outcome of surgery Postoperative confusion and delirium, may be related to metabolic encephalopathy , improving Fall from standing, no injury Elevated liver enzymes Hypertension History of TIA Sleep apnea Aortic stenosis Osteoarthritis BPH History of lap-band Nicotine dependence, in remission Morbid obesity: BMI 49.4 PLAN: Continue post op care per Dr. Acharya CXR ordered. await results Continue Novolog sliding scale Aggressive pulmonary toileting Increase activity. Patient should be up to chair for meals and ambulating with assistance throughout the day. Pain control Activity as tolerated Monitor labs Monitor vital signs and address as appropriate Further recommendations pending patient's course Nurse practitioner note has been reviewed by physician. Signing provider agrees with the documented findings, assessment, and plan of care. Objective - Vital Signs Vital signs: Vital Signs Temp 98 F 08/03/18 04:00 Pulse 88 08/03/18 07:28 Resp 20 08/03/18 04:00 BP 132/64 08/03/18 04:00 Pulse Ox 94 L 08/03/18 04:00 Intake & Output 08/02/18 08/03/18 08/03/18 18:59 06:59 18:59 Intake Total 658 Output Total 2 Balance 656 Weight 159 kg Intake: Oral 658 Output: Stool 2 Other: Voiding Method Urinal Urinal Diaper Diaper # Voids 3 1 ABP, PAP, CO, CI - Last Documented Arterial Blood Pressure 130/50 Pulmonary Artery Pressure 44/8 Cardiac Output 7.2 Cardiac Index 2.8 - Labs CBC & Chem 7: 08/03/18 06:03 08/03/18 06:03 Labs: Abnormal Lab Results - Last 24 Hours (Table) 08/02/18 08/02/18 08/02/18 Range/Units 11:22 17:08 20:57 WBC (3.8-10.6) k/uL RBC (4.30-5.90) m/uL Hgb (13.0-17.5) gm/dL Hct (39.0-53.0) % MCV (80.0-100.0) fL MCHC (31.0-37.0) g/dL Neutrophils # (1.3-7.7) k/uL Chloride (98-107) mmol/L BUN (9-20) mg/dL Glucose (74-99) mg/dL POC Glucose (mg/dL) 221 H 172 H 165 H (75-99) mg/dL Calcium (8.4-10.2) mg/dL AST (17-59) U/L ALT (21-72) U/L Total Protein (6.3-8.2) g/dL Albumin (3.5-5.0) g/dL 08/03/18 08/03/18 08/03/18 Range/Units 02:11 05:54 06:03 WBC 17.2 H (3.8-10.6) k/uL RBC 2.66 L (4.30-5.90) m/uL Hgb 8.1 L (13.0-17.5) gm/dL Hct 27.0 L (39.0-53.0) % MCV 101.3 H (80.0-100.0) fL MCHC 30.2 L (31.0-37.0) g/dL Neutrophils # 14.3 H (1.3-7.7) k/uL Chloride (98-107) mmol/L BUN (9-20) mg/dL Glucose (74-99) mg/dL POC Glucose (mg/dL) 138 H 135 H (75-99) mg/dL Calcium (8.4-10.2) mg/dL AST (17-59) U/L ALT (21-72) U/L Total Protein (6.3-8.2) g/dL Albumin (3.5-5.0) g/dL 08/03/18 Range/Units 06:03 WBC (3.8-10.6) k/uL RBC (4.30-5.90) m/uL Hgb (13.0-17.5) gm/dL Hct (39.0-53.0) % MCV (80.0-100.0) fL MCHC (31.0-37.0) g/dL Neutrophils # (1.3-7.7) k/uL Chloride 110 H (98-107) mmol/L BUN 27 H (9-20) mg/dL Glucose 125 H (74-99) mg/dL POC Glucose (mg/dL) (75-99) mg/dL Calcium 8.2 L (8.4-10.2) mg/dL AST 140 H (17-59) U/L ALT 94 H (21-72) U/L Total Protein 6.0 L (6.3-8.2) g/dL Albumin 3.0 L (3.5-5.0) g/dL
--- NOTE | 2018-08-03 09:37 | P.PN ---
Subjective Progress Note Date: 08/03/18 Principal diagnosis: Coronary artery disease. Previous medical history of hypertension, previous tobacco dependence with preoperative FEV1 86% of predicted, obstructive sleep apnea, TIA, bilateral internal carotid artery stenosis 50-79%, prostate disorder , morbid obesity with history of bariatric surgery, and drop foot on the left leg. POD #9 coronary artery bypass grafting 4 vessels, left internal mammary to the left anterior descending artery, reverse saphenous vein graft to the diagonal artery, reverse saphenous vein graft to the second obtuse marginal artery, reverse saphenous vein graft to the posterior lateral branch of the right coronary artery. Endoscopic vein harvest of bilateral greater saphenous veins. Epi-aortic ultrasound. Intraoperative transesophageal echocardiogram. Closure of the sternum using titanium plating system. Postoperative acute blood loss anemia, expected postsurgical condition secondary to hemodilution and cardiopulmonary bypass pump. Acute confusion, unexpected, possibly from cardiopulmonary bypass pump. Elevation in transaminases, an expected outcome. Fall without injury, unexpected. The patient was sitting up in this morning with breathing slightly more labored than yesterday. Denies pain. Patient is sleepy again this morning but does open his eyes to command. He is oriented to person and place but thinks it is September 2008 or 1998. He fell yesterday when getting up unassisted to walk from the recliner to the bathroom, and unfortunately has been in bed ever since. He does have episodes where he is trying to pull off his telemetry monitors and his IVs. Objective - Vital Signs Vital signs: Vital Signs Temp 98 F 08/03/18 04:00 Pulse 88 08/03/18 07:28 Resp 20 08/03/18 04:00 BP 132/64 08/03/18 04:00 Pulse Ox 94 L 08/03/18 04:00 Intake & Output 08/02/18 08/03/18 08/03/18 18:59 06:59 18:59 Intake Total 658 Output Total 2 Balance 656 Weight 159 kg Intake: Oral 658 Output: Stool 2 Other: Voiding Method Urinal Urinal Diaper Diaper # Voids 3 1 ABP, PAP, CO, CI - Last Documented Arterial Blood Pressure 130/50 Pulmonary Artery Pressure 44/8 Cardiac Output 7.2 Cardiac Index 2.8 - Constitutional General appearance: Present: mild distress, morbidly obese - Respiratory Details: Lungs sounds diminished bilaterally, coarse in the left base. Respirations even , slightly more labored than yesterday. He was on 4 L nasal cannula this morning with oxygen saturation 94%, turned down to 2 L nasal cannula. Only able to achieve about 300 mL on his incentive spirometry at this time. Strong, productive cough. - Cardiovascular Details: S1, S2 present. Regular rate and rhythm, sinus rhythm to sinus tach on telemetry with heart rate in the high 90s to low 100s on telemetry. Sternum stable. Palpable peripheral pulses bilaterally. Trace generalized edema present. No calf pain or tenderness noted. Heart hugger currently off with patient unable to demonstrate appropriate use. Antiembolism stockings, SCDs present. - Gastrointestinal Gastrointestinal Comment(s): Abdomen soft, nondistended, nontender, obese. Active bowel sounds present 4 quadrants. Tolerating diet. Positive bowel movement 07/31. - Genitourinary Genitourinary Comment(s): Patient has voided several times but has been incontinent. - Integumentary Integumentary Comment(s): Skin is warm and dry with evidence of good perfusion. Anterior chest incision well approximated, dry intact dressing present. Left lower extremity EVH site well approximated. - Neurologic Neurologic: Present: CNII-XII intact - Musculoskeletal Musculoskeletal: Present: generalized weakness, strength equal bilaterally - Psychiatric Psychiatric Comment(s): Patient is forgetful, more sleepy than yesterday, alert and oriented to person and place as well as situation but thinks it is September 2008 or 1998. - Allied health notes Allied health notes reviewed: nursing - Labs CBC & Chem 7: 08/03/18 06:03 08/03/18 06:03 Labs: Abnormal Lab Results - Last 24 Hours (Table) 08/02/18 08/02/18 08/02/18 Range/Units 11:22 17:08 20:57 WBC (3.8-10.6) k/uL RBC (4.30-5.90) m/uL Hgb (13.0-17.5) gm/dL Hct (39.0-53.0) % MCV (80.0-100.0) fL MCHC (31.0-37.0) g/dL Neutrophils # (1.3-7.7) k/uL Chloride (98-107) mmol/L BUN (9-20) mg/dL Glucose (74-99) mg/dL POC Glucose (mg/dL) 221 H 172 H 165 H (75-99) mg/dL Calcium (8.4-10.2) mg/dL AST (17-59) U/L ALT (21-72) U/L Total Protein (6.3-8.2) g/dL Albumin (3.5-5.0) g/dL 08/03/18 08/03/18 08/03/18 Range/Units 02:11 05:54 06:03 WBC 17.2 H (3.8-10.6) k/uL RBC 2.66 L (4.30-5.90) m/uL Hgb 8.1 L (13.0-17.5) gm/dL Hct 27.0 L (39.0-53.0) % MCV 101.3 H (80.0-100.0) fL MCHC 30.2 L (31.0-37.0) g/dL Neutrophils # 14.3 H (1.3-7.7) k/uL Chloride (98-107) mmol/L BUN (9-20) mg/dL Glucose (74-99) mg/dL POC Glucose (mg/dL) 138 H 135 H (75-99) mg/dL Calcium (8.4-10.2) mg/dL AST (17-59) U/L ALT (21-72) U/L Total Protein (6.3-8.2) g/dL Albumin (3.5-5.0) g/dL 08/03/18 Range/Units 06:03 WBC (3.8-10.6) k/uL RBC (4.30-5.90) m/uL Hgb (13.0-17.5) gm/dL Hct (39.0-53.0) % MCV (80.0-100.0) fL MCHC (31.0-37.0) g/dL Neutrophils # (1.3-7.7) k/uL Chloride 110 H (98-107) mmol/L BUN 27 H (9-20) mg/dL Glucose 125 H (74-99) mg/dL POC Glucose (mg/dL) (75-99) mg/dL Calcium 8.2 L (8.4-10.2) mg/dL AST 140 H (17-59) U/L ALT 94 H (21-72) U/L Total Protein 6.0 L (6.3-8.2) g/dL Albumin 3.0 L (3.5-5.0) g/dL - Imaging and Cardiology Chest x-ray: image reviewed Assessment and Plan (1) Status post aorto-coronary artery bypass graft Current Visit: Yes Status: Acute Code(s): Z95.1 - PRESENCE OF AORTOCORONARY BYPASS GRAFT SNOMED Code(s): 789529951 (2) Aortic valve stenosis Current Visit: Yes Status: Chronic Code(s): I35.0 - NONRHEUMATIC AORTIC ( VALVE) STENOSIS SNOMED Code(s): 63403579 (3) BPH (benign prostatic hyperplasia) Current Visit: Yes Status: Chronic Code(s): N40.0 - BENIGN PROSTATIC HYPERPLASIA WITHOUT LOWER URINRY TRACT SYMP SNOMED Code(s): 611889445 (4) Coronary artery disease Current Visit: Yes Status: Chronic Code(s): I25.10 - ATHSCL HEART DISEASE OF [place] CORONARY ARTERY W/O ANG PCTRS SNOMED Code(s): 63416081 (5) Foot drop, left Current Visit: Yes Status: Chronic Code(s): M21.372 - FOOT DROP, LEFT FOOT SNOMED Code(s): 9097804 (6) Hypertension Current Visit: Yes Status: Chronic Code(s): I10 - ESSENTIAL (PRIMARY) HYPERTENSION SNOMED Code(s): 07672682 (7) Morbid obesity with BMI of 45.0-49.9, adult Current Visit: Yes Status: Chronic Code(s): E66.01 - MORBID (SEVERE) OBESITY DUE TO EXCESS CALORIES; Z68.42 - BODY MASS INDEX (BMI) 45.0-49.9, ADULT SNOMED Code(s): 336356308 (8) Nicotine dependence in remission Current Visit: No Status: Resolved Code(s): F17.201 - NICOTINE DEPENDENCE, UNSPECIFIED, IN REMISSION SNOMED Code(s): 17351611 (9) Obstructive sleep apnea Current Visit: Yes Status: Chronic Code(s): G47.33 - OBSTRUCTIVE SLEEP APNEA (ADULT) (PEDIATRIC) SNOMED Code(s): 08765893 (10) Osteoarthritis Current Visit: Yes Status: Chronic Code(s): M19.90 - UNSPECIFIED OSTEOARTHRITIS, UNSPECIFIED SITE SNOMED Code(s): 730588928 Plan: 1. Continue aspirin, Plavix, BEATRIZ inhibitor, beta rodríguez therapy, will increase beta rodríguez therapy as tolerated. Statin restarted. 2. Wean O2 as tolerated. Encourage incentive spirometry use 10 times every hour while awake. 3. Increase activity as tolerated. PT/OT/cardiac rehab following. Patient should wear boot for ambulation on left leg. Patient needs to be up in the chair for all meals and needs to get into the shower with assistance. 4. Bronchodilators per pulmonology. 5. Will monitor daily labs and x-rays. No transfusion. Will obtain urinalysis with culture. 6. GI prophylaxis with Protonix. DVT prophylaxis with subcu heparin, SCDs. 7. Pain control with current medication regimen. Avoid narcotics. 8. Reorient patient as needed. 9. Insulin management per primary care service. 10. Discharge planning in progress. Anticipate discharge to subacute rehab in the next 24-48 hours. 11. Social work consult for insurance authorization as patient is going to need rehab upon discharge. 12. Fall precautions. 13. More recommendations to follow. Time with Patient: Greater than 30
--- NOTE | 2018-08-03 09:39 | XR ---
EXAMINATION TYPE: XR chest 1V portable DATE OF EXAM: 08/03/2018 CLINICAL HISTORY: Difficulty breathing progress study. TECHNIQUE: Single AP portable upright view of the chest is obtained. COMPARISON: Chest x-ray from 2 days earlier FINDINGS: Gross cardiomegaly is redemonstrated. Overlying sternal wires are again seen. Exam is subo ptimal due to portable technique and patient's large body habitus. Small right pleural effusion is hernandez spected. Diffuse left lung opacity is again seen including apical pleural thickening redemonstrated. Degenerative change right shoulder is noted. Persistent silhouetting left heart border and hemidiaphr agm is again seen. IMPRESSION: Overall stable findings from most recent x-ray, cardiomegaly with diffuse left lung atele ctasis and/or infiltrate and probable small to moderate left-sided pleural fluid collection not compl etely layering dependently versus obstructive atelectatic change. Consider contrast-enhanced CT follo w-up.
[2018-08-03] MEDS: HEPARIN SODIUM,PORCINE 5,000 UNIT/ML 1 ML VIAL SQ SCH ×2 (10:18→16:17)
[2018-08-03] MEDS: ASPIRIN 325 MG TAB PO SCH (10:18)
[2018-08-03] MEDS: OXYBUTYNIN CHLORIDE 5 MG TAB PO SCH (10:41)
[2018-08-03] MEDS: CLOPIDOGREL 75 MG TAB PO SCH (10:41)
[2018-08-03] MEDS: MUPIROCIN 2% OINT 22 GM TUBE NASAL SCH (10:42)
[2018-08-03] MEDS: METOPROLOL TARTRATE 25 MG TAB PO SCH (10:42)
[2018-08-03] MEDS: MODAFINIL 100 MG TAB PO SCH (10:42)
[2018-08-03 11:08] LABS: ABG Base Excess -2.6 mmol/L; ABG HCO3 21 mmol/L (21-25); ABG Oxygen Saturation 95.5 % (94-97); ABG PCO2 27 mmHg (35-45); ABG PO2 69 mmHg (83-108); ABG TCO2 22 mmol/L (19-24)
[2018-08-03 11:27] LABS: Glucose,Whole Blood 215 mg/dL (75-99)
[2018-08-03] MEDS: LISINOPRIL 10 MG TAB PO SCH (12:47)
[2018-08-03 13:48] LABS: Appearance,Urine Clear (Clear); Bacteria,Urine Rare /hpf; Bilirubin,Urine Negative (Negative); Blood,Urine Trace (Negative); Color,Urine Yellow; Glucose,Urine (UA) Negative (Negative); Ketones,Urine Negative (Negative); Leukocyte Esterase,Urine Negative (Negative); Mucus,Urine Rare /hpf; Nitrite,Urine Negative (Negative); PH, Urine 5.5 (5.0-8.0); Protein,Urine Trace (Negative); Specific Gravity,Urine 1.015 (1.001-1.035); Urobilinogen,Urine <2.0 mg/dL (<2.0); WBC,Urine <1 /hpf (0-5)
--- NOTE | 2018-08-03 13:49 | US ---
EXAMINATION TYPE: US chest DATE OF EXAM: 08/03/2018 COMPARISON: CXR earlier today. CLINICAL HISTORY: Markings for thoracentesis by pulmonary staff. Pleural effusion TECHNIQUE: Targeted ultrasound of the posterior lower bilateral hemithoraces Severely, morbidly obese pt, difficult to scan EXAM MEASUREMENTS: Right Pleural Effusion pocket size: No fluid visualized Left Pleural Effusion pocket size: 7.3 cm Left skin surface to fluid distance: 6.7 cm Right side NOT marked for possible thoracentesis outside the dept. Left side marked for possible thoracentesis outside the dept. Pulmonologists are able to review the images in the patient?s EMR. IMPRESSIONS: Small left pleural effusion is confirmed which correlates with recent chest x-ray. No si gnificant right effusion is noted.
[2018-08-03 15:07] LABS: Glucose,Whole Blood 159 mg/dL (75-99)
--- NOTE | 2018-08-03 15:38 | P.PN ---
Subjective Progress Note Date: 08/03/18 Principal diagnosis: Symptomatic multivessel coronary artery disease, status post four-vessel bypass with MATT to LAD, SVG to the PLB, SVG to the diagonal and OM 1, postop day 1 This is 78-year-old white male patient of Dr. Fuchs, who we met on 07/20/2018 for preop pulmonary evaluation for coronary artery bypass grafting. Patient has been having progressive dyspnea, he was referred to cardiology, had a cardiac catheterization which revealed severe multivessel coronary artery disease and moderate aortic stenosis. Patient had a 90% stenosis of his RCA, 80 % stenosis of his circumflex, 95% stenosis of his mid LAD. Aortic valve surface area was 1.2 patient is afebrile, hemodynamically stable,. Other medical history includes previous history of CVA, hypertension, osteoarthritis, and 9 prostatic hypertrophy, sleep apnea syndrome, previous history of bariatric surgery, morbid obesity, and remote history of tobacco use. His preop bedside spirometry showed FEV1 of 86% of predicted, FVC of 71% of predicted, mild restriction. Patient was deferred to cardiothoracic surgery, and was recommended a surgical intervention, today on 07/25/2018 patient underwent four-vessel coronary artery bypass grafting, with MATT to LAD, SVG to the PLB, SVG to the diagonal, and SVG to the OM 1. Patient is seen in the intensive care unit, he is sedated, on mechanical ventilator, currently SIMV mode of ventilation with a rate of 12, tidal volume of 580, FiO2 100%, and PEEP of 10. Chest x-ray showed ET tube, chest tubes, right IJ PA catheter in appropriate positions, lungs are clear of consolidation, no heart failure. Patient is in sinus rhythm, his maintenance IV fluids of LR at 50, milrinone at 0.5 mics/per kilo per minute, Levaquin fed at 2 mics per minute, insulin at 2 units per hour, Diprivan at 15 mics per kilo per minute, and nitro at 5 mics/ min. Blood work showed WBC of 15.2, hemoglobin of 7.9, INR 1.5, choice and renal profile were within normal limits, blood gas showed pO2 of 174, pCO2 48, and pH is 7.3. Patient has 2 mediastinal chest tubes, left pleural chest tube, and there has been a 300 mL of sanguinous output in the mediastinal chest tube, and 10 mL in the left pleural. Hemodynamically patient is stable, cardiac output and index are 5.6 and 2.2 respectively, PA pressures 35/21. On 07/26/2018 patient seen in follow-up in the intensive care unit. This morning he is extubated, sitting up in the chair position in bed, he was extubated at about 1:30 in the morning. Currently on 6 L per nasal cannula, his pulse ox is 96%, he is awake and alert, acute distress, sinus rhythm on the monitor. Today's chest x-ray has been reviewed by Dr. Rose and showed stable bibasilar opacities and pleural effusions. Hemodynamically patient is stable. Levo has been off since 9:00 this morning, maintenance IV fluids is LR at 50 ML per hour, insulin drip is at 5 units per hour, no other drips. Cardiac output and index of 6.2 and 2.4 respectively. Today's lab work has been reviewed, WBCs 13.3, hemoglobin is 8.1, with recent blood gas prior to extubation showed pO2 of 72, pCO2 of 40%, and pH of 7.37, this was done and FiO2 40%, BMP was all within normal limits. Patient has underlying sleep apnea , on CPAP therapy. Patient may require some BiPAP support at night and is needed during the day. We'll continue to monitor, currently in no distress, he is awake and alert and responding to questions appropriately. 2 mediastinal and left pleural chest tubes are draining serosanguineous output. Mediastinal chest tube output is 560 over the last 24 hours, left pleural chest tube output is 378 in the last 24 hours. Smith catheter is present, draining urine in order of 30-45 ML per hour. We'll encourage incentive spirometry, we'll try to mobilize the patient, and set him up at the bedside. On 07/27/2018 patient seen in follow-up in the intensive care unit. This morning he is lethargic, mumbling, patient was apparently confused, agitated and delirious last night, received a dose of Haldol after which he became lethargic, hypotensive, and required albumin and levofed for blood pressure support. This morning he is off the levofed infusion. Blood gas was done, which showed pO2 of 75, pCO2 of 35, and pH of 7.47 as was done on FiO2 of 55%. There is some blood work was reviewed, WBCs 13.7, hemoglobin is 7.1, sodium is 140, potassium is 4.2, chloride is 109, B1 is 28 and creatinine 1.13. On 9 L per high flow nasal cannula, and his pulse ox is 96%, patient is afebrile, blood pressure is 150/64, PA pressure is 44/8, and cardiac output and index hours 7.2 and 2.8. Patient is mediastinal chest tubes removed, left pleural chest tube remains in place with serosanguineous thin output. Has been 760 mL out of the left pleural and the last 24 hours, and 250 on of the mediastinal chest tubes. Lung sounds are positive for scattered rhonchi, he is somnolent, has a loose nonproductive cough. Today's chest x-ray was reviewed by Dr. Rose, and shows stable cardiomegaly with small to moderate left pleural effusion tracking up to the left apex and possible mild pulmonary vascular congestion, retrocardiac atelectasis. Urinary catheter is in, and his urine output is 2240 ML per hour. Maintenance IV fluid is lactated Ringer's at a rate of 20 ML per hour, no other drips. On 07/28/2018 patient seen in follow-up in the intensive care unit. Patient remains confused, but cooperative. He is in the chair, currently on 2 L per nasal cannula, his pulse ox is 95%, afebrile, hemodynamically stable. Today's lab work has been reviewed, showed WBC of 15.1, hemoglobin of 7.6, platelet count of 131, sodium of 145, potassium is 4.2, chloride is 111, BUN is 33, creatinine 1.03. Chest x-ray showed slight interval worsening mild pulmonary vascular congestion and bibasilar atelectasis. Patient denied any shortness of breath, patient is currently in A. fib RVR, and her beta rodríguez therapy was increased per CT surgery come patient received a dose of IV Lasix. Encourage deep breathing and coughing. On 07/31/2018 patient seen in follow-up in selective care unit, he is resting in bed, in no acute distress, seems much more alert and oriented, she knew where he was, he knew the month and the president. He states he is having some trouble swallowing. Denies any dyspnea, pulse ox on 3 L per nasal cannula is 95 %, respirations are even and nonlabored, lung sounds are positive for a few rales at the left base, IS effort 500-750, chest x-ray showed no cardiopulmonary process. Today's labs showed WBC of 10.4, hemoglobin is 7.6, BMP was essentially unremarkable On 08/01/2018 patient seen in follow-up on selective care unit, he sitting up in the recliner, in no acute distress, agitation or delirium. She is alert and oriented 3, pleasant, cooperative. Pulse oximetry on 2 L per nasal cannula is 98%, vital signs are stable, no fever or chills, and today's chest x-ray has been reviewed by Dr. Velarde, and showed left basilar atelectasis and suspected small left pleural effusion, so showed left apical density that could possibly be related to atelectasis or patient's position during film taking. Lung sounds are diminished, with some limited crackles at the right base. Yesterday patient underwent modified barium swallow which showed transient penetration with thin liquids and pulling in the vallecular with honey thick liquids. Patient is on a modified diet with chopped food and consistent carbohydrate, and aspiration precautions. Labs have been reviewed, WBC 14.1, hemoglobin is 7.7, sodium is 144, potassium is 4.1, chloride is 112, BUN is 31 and creatinine 0.90. On 08/02/2018 patient seen in follow-up on selective care unit. He is awake and alert, oriented 3. He states he had a fall this morning when he got up unassisted and started walking to the bathroom. No apparent injury. Room air pulse ox was 94% this morning , now patient is on supplemental oxygen currently at 4 L per nasal cannula. No orsening dyspnea, lung sounds are diminished. No crackles or rhonchi, incentive spirometry effort is 500-750. New chest x-rays, today's labs have been reviewed , WBC is 12.6, hemoglobin 7.9, but he was 141, but potassium is 4.4 chloride is 109, was 25 and creatinine 0.85. No new chest x-ray today On 08/03/2018 patient seen in follow-up on selective care unit. He confused, increased from yesterday, quite congested, tachypneic. Cough is weak,oral membranes are quite dry, and there is food residue oral secretions in his mouth. His respiratory rate is in the upper 30s, was unable to do his incentive spirometer, x-ray was reviewed and showed diffuse left lung atelectasis. Blood gas was obtained and showed pO2 of 69, pCO2 of 27, and pH of 7.50, respiratory alkalosis and hypoxemia. Patient was then placed on BiPAP support, is actually tolerating it quite well, he is resting, possibility of left pleural effusion is not excluded, so we will obtain a ultrasound of the left chest with markings. We will transfer the patient to the intensive care unit for closer monitoring. Labs have been reviewed, increased white count noted, WBC 17.2, hemoglobin is 8.1, sodium is 143, potassium is 4.6, chloride is 110, B1 is 27 creatinine 1.05. Urinalysis was completed, showed some rare bacteria and mucus, with trace protein blood, does not look infected, culture was also sent. Objective - Vital Signs Vital signs: Vital Signs Temp 97.5 F L 08/03/18 11:00 Pulse 90 08/03/18 11:50 Resp 28 H 08/03/18 11:00 BP 124/73 08/03/18 11:00 Pulse Ox 96 08/03/18 11:00 Intake & Output 08/02/18 08/03/18 08/03/18 18:59 06:59 18:59 Intake Total 658 Output Total 2 975 Balance 656 -975 Weight 159 kg 159 kg Intake: Oral 658 Output: Urine 975 Stool 2 Other: Voiding Method Urinal Urinal Urinal Diaper Diaper Diaper # Voids 3 1 ABP, PAP, CO, CI - Last Documented Arterial Blood Pressure 130/50 Pulmonary Artery Pressure 44/8 Cardiac Output 7.2 Cardiac Index 2.8 - Exam GENERAL EXAM: Lethargic, obese 78-year-old white male, lethargic, tachypneic, currently on 4 liters per nasal cannula, HEAD: Normocephalic/atraumatic. EYES: Normal reaction of pupils, equal size. Conjunctiva pink, sclera white. NOSE: Clear with pink turbinates. THROAT: No erythema or exudates. NECK: No masses, no JVD, no thyroid enlargement, no adenopathy. CHEST: No chest wall deformity. Symmetrical expansion. Sternal incision is clean dry and intact, well approximated, covered with surgical dressing, 2 mediastinal chest tubes have been discontinued and left pleural chest tube has been discontinued as well LUNGS: Equal air entry with diffuse rhonchi CVS: Regular rate and rhythm, normal S1 and S2, no gallops, no murmurs, no rubs ABDOMEN: Soft, nontender. No hepatosplenomegaly, normal bowel sounds, no guarding or rigidity. EXTREMITIES: No clubbing, no edema, no cyanosis, 2+ pulses and upper and lower extremities. Bilateral lower extremities are Toni wrapped, MUSCULOSKELETAL: Muscle strength and tone normal. SPINE: No scoliosis or deformity SKIN: No rashes CENTRAL NERVOUS SYSTEM: Awake and alert and oriented 1 No focal deficits, tone is normal in all 4 extremities. - Labs CBC & Chem 7: 08/03/18 06:03 08/03/18 06:03 Labs: Abnormal Lab Results - Last 24 Hours (Table) 08/02/18 08/02/18 08/03/18 Range/Units 17:08 20:57 02:11 WBC (3.8-10.6) k/uL RBC (4.30-5.90) m/uL Hgb (13.0-17.5) gm/dL Hct (39.0-53.0) % MCV (80.0-100.0) fL MCHC (31.0-37.0) g/dL Neutrophils # (1.3-7.7) k/uL ABG pH (7.35-7.45) ABG pCO2 (35-45) mmHg ABG pO2 (83-108) mmHg Chloride (98-107) mmol/L BUN (9-20) mg/dL Glucose (74-99) mg/dL POC Glucose (mg/dL) 172 H 165 H 138 H (75-99) mg/dL Calcium (8.4-10.2) mg/dL AST (17-59) U/L ALT (21-72) U/L Total Protein (6.3-8.2) g/dL Albumin (3.5-5.0) g/dL Urine Protein (Negative) Urine Blood (Negative) Urine Bacteria (None) /hpf Urine Mucus (None) /hpf 08/03/18 08/03/18 08/03/18 Range/Units 05:54 06:03 06:03 WBC 17.2 H (3.8-10.6) k/uL RBC 2.66 L (4.30-5.90) m/uL Hgb 8.1 L (13.0-17.5) gm/dL Hct 27.0 L (39.0-53.0) % MCV 101.3 H (80.0-100.0) fL MCHC 30.2 L (31.0-37.0) g/dL Neutrophils # 14.3 H (1.3-7.7) k/uL ABG pH (7.35-7.45) ABG pCO2 (35-45) mmHg ABG pO2 (83-108) mmHg Chloride 110 H (98-107) mmol/L BUN 27 H (9-20) mg/dL Glucose 125 H (74-99) mg/dL POC Glucose (mg/dL) 135 H (75-99) mg/dL Calcium 8.2 L (8.4-10.2) mg/dL AST 140 H (17-59) U/L ALT 94 H (21-72) U/L Total Protein 6.0 L (6.3-8.2) g/dL Albumin 3.0 L (3.5-5.0) g/dL Urine Protein (Negative) Urine Blood (Negative) Urine Bacteria (None) /hpf Urine Mucus (None) /hpf 08/03/18 08/03/18 08/03/18 Range/Units 11:02 11:25 13:15 WBC (3.8-10.6) k/uL RBC (4.30-5.90) m/uL Hgb (13.0-17.5) gm/dL Hct (39.0-53.0) % MCV (80.0-100.0) fL MCHC (31.0-37.0) g/dL Neutrophils # (1.3-7.7) k/uL ABG pH 7.50 H (7.35-7.45) ABG pCO2 27 L (35-45) mmHg ABG pO2 69 L (83-108) mmHg Chloride (98-107) mmol/L BUN (9-20) mg/dL Glucose (74-99) mg/dL POC Glucose (mg/dL) 215 H (75-99) mg/dL Calcium (8.4-10.2) mg/dL AST (17-59) U/L ALT (21-72) U/L Total Protein (6.3-8.2) g/dL Albumin (3.5-5.0) g/dL Urine Protein Trace H (Negative) Urine Blood Trace H (Negative) Urine Bacteria Rare H (None) /hpf Urine Mucus Rare H (None) /hpf 08/03/18 Range/Units 15:04 WBC (3.8-10.6) k/uL RBC (4.30-5.90) m/uL Hgb (13.0-17.5) gm/dL Hct (39.0-53.0) % MCV (80.0-100.0) fL MCHC (31.0-37.0) g/dL Neutrophils # (1.3-7.7) k/uL ABG pH (7.35-7.45) ABG pCO2 (35-45) mmHg ABG pO2 (83-108) mmHg Chloride (98-107) mmol/L BUN (9-20) mg/dL Glucose (74-99) mg/dL POC Glucose (mg/dL) 159 H (75-99) mg/dL Calcium (8.4-10.2) mg/dL AST (17-59) U/L ALT (21-72) U/L Total Protein (6.3-8.2) g/dL Albumin (3.5-5.0) g/dL Urine Protein (Negative) Urine Blood (Negative) Urine Bacteria (None) /hpf Urine Mucus (None) /hpf Assessment and Plan Plan: Assessment: #1. Acute hypoxic respiratory failure related to atelectasis in the left lung, and possibility of left pleural effusion could not be totally excluded, we will obtain ultrasound of the chest #2. Symptomatic multivessel coronary artery disease, status post four-vessel bypass with MATT to LAD, SVG to the PLB, SVG to the diag, and to OM1, stop day 8 On 07/27/2018 patient is on 9 L per high flow nasal cannula, episode of delirium and agitation last night, requiring a dose of IV Haldol, this morning his lethargic. Patient needs aggressive pulmonary toileting, he is not able to clear secretions. Chest x-ray was reviewed, and showed small to moderate-sized left pleural effusion, mild pulmonary vessel congestion, retrocardiac atelectasis On 07/31/2018 patient is down to 3 L per nasal cannula, doing well, more alert and oriented, no agitation or confusion, no difficulty breathing signs are stable On 08/01/2018 patient is on 2 L per nasal cannula, intermittently on room air, no distress, no dyspnea. Vital signs are stable. Chest x-ray showed left basilar atelectasis and small left pleural effusion, no other acute findings. On 08/03/2018 ration is noted to be increasingly more short of breath, tachypneic, worsening findings of the chest x-ray noted on the left side, with extensive atelectasis and possible left pleural effusion, we'll obtain ultrasound of the chest, and is more confused, patient was placed on BiPAP support, blood gas was obtained acute hypoxemic respiratory failure with respiratory alkalosis. Patient will be transferred to the intensive care unit #3. Confusion, agitation, delirium in the postoperative period, may be related to metabolic encephalopathy #4. A. fib RVR, currently in sinus rhythm #5. Acute blood loss anemia, an expected outcome of bypass grafting surgery #6. Moderate aortic stenosis #7. Hypertension #8. Sleep apnea syndrome on CPAP therapy. Whether the patient uses CPAP on the regular basis is to be further clarified #9. History of CVA #10. Morbid obesity #11. History of bariatric surgery #12. Prostate enlargement #13. DJD Plan: Blood gas, today's chest x-ray was reviewed by Dr. Velarde, the patient showed worsening of his mentation, and respiratory status, more congested, unable to clear any secretions, today's chest x-rays noted excessive atelectasis in the left lung, and possible left pleural effusion, obtain ultrasound of the chest, patient was placed on BiPAP support is 12/ and Fio2 O2 to keep O2 sat at 92%. We'll transfer the patient to the intensive care unit, case was discussed with CT surgery. I performed a history & physical examination of the patient and discussed their management with my nurse practitioner, Shweta Morejon. I reviewed the nurse practitioner's note and agree with the documented findings and plan of care. Lung sounds are diminished. The findings and the impression was discussed with the patient. I attest to the documentation by the nurse practitioner. Time with Patient: Greater than 30
[2018-08-03] MEDS ORDERED: ACETAMINOPHEN IV (For NPO) 1,000 MG in EMPTY BAG 1 BAG IVPB PRN (16:16)
[2018-08-03] MEDS: LACTATED RINGERS 1,000 ML IV SCH ×2 (16:18→18:53)
[2018-08-03] MEDS ORDERED: VANCOMYCIN IV PER PHARMACY 1 EACH MISC MISCELLANE PRN (16:34)
[2018-08-03] MEDS: VANCOMYCIN 2,250 MG in SODIUM CHLORIDE 0.9% 500 ML 500 ML IVPB SCH (17:24)
[2018-08-03] MEDS: TAMSULOSIN 0.4 MG CAP.ER.24H PO SCH (17:30)
[2018-08-03 17:35] LABS: Glucose,Whole Blood 151 mg/dL (75-99)
[2018-08-03] MEDS ORDERED: SODIUM CHLORIDE 0.9% 500 ML 500 ML IV ONE (18:32)
--- NOTE | 2018-08-03 18:44 | PN ---
PROGRESS NOTE Mr. Justice is status post bypass surgery. He is still recovering slowly. He is not very motivated. He is sitting up in the chair but is not taking deep breaths. I am requesting the respirator therapist to work with him from an incentive spirometry standpoint. Patient has probably Sleep Apnea and daytime somnolescence. His vitals are stable. He is in sinus tachycardia. S1, S2 heard normally. Short systolic murmur. Lungs reveal diminished air entry with diminished breath sounds in both bases. Abdomen and lower extremity exam is unchanged. Plan is to continue incentive spirometry, pulmonary toilet. The patient requires a lot of motivation to increase his breathing. He is sitting up in a chair for the first time. Plan is to continue supportive care and incentive spirometry. MMODL / IJN: [id number] / ELISABETH
[2018-08-03] MEDS: METOPROLOL TARTRATE 5 MG/5 ML VIAL IVP SCH (18:52)
[2018-08-03] MEDS: NOREPINEPHRINE 4 MG in SODIUM CHLORIDE 0.9% 250 ML IV SCH (20:00)
[2018-08-03 20:26] LABS: Glucose,Whole Blood 134 mg/dL (75-99)
[2018-08-03] MEDS: SENNOSIDES-DOCUSATE SODIUM 1 EACH TAB PO SCH (20:41)
[2018-08-03] MEDS ORDERED: LORazepam 2 MG/ML INJ IV PRN ×2 (23:11)
[2018-08-03] MEDS: PROPOFOL 1,000 MG in EMPTY BAG 1 BAG IV SCH (23:30)
[2018-08-03] MEDS: CHLORHEXIDINE GLUCONATE 15 ML CUP MUCOUS MEM SCH (23:30)
[2018-08-03] MEDS: SODIUM CHLORIDE 0.9% 500 ML 500 ML IV SCH (23:50)
--- NOTE | 2018-08-04 00:22 | XR ---
EXAMINATION TYPE: XR chest 1V portable DATE OF EXAM: 08/04/2018 COMPARISON: Today HISTORY: Cardiac surgery TECHNIQUE: Single frontal view of the chest is obtained. FINDINGS: Heart is enlarged. There is endotracheal tube with the tip 4.5 cm from the antoni. There i s nasogastric tube. There are chest leads. There is no heart failure. Exam is limited by the patient' s size and portable technique. IMPRESSION: No heart failure. Endotracheal tube is in fairly good position. This probably some atele ctasis in the left lower lobe unchanged.
[2018-08-04] MEDS: SODIUM CHLORIDE 0.9% 500 ML 500 ML IV SCH ×2 (00:30)
[2018-08-04] MEDS: METOPROLOL TARTRATE 5 MG/5 ML VIAL IVP SCH ×4 (00:30→18:40)
[2018-08-04 00:31] LABS: Troponin I 2.82 ng/mL (0.000-0.034)
[2018-08-04 00:35] LABS: INR 1.2 (<1.2); Prothrombin Time 12.6 sec (9.0-12.0)
[2018-08-04] MEDS: NOREPINEPHRINE 4 MG in SODIUM CHLORIDE 0.9% 250 ML IV SCH ×4 (00:35→08:41)
[2018-08-04] MEDS: PIPERACILLIN-TAZOBACTAM 3.375 GM in SODIUM CHLORIDE 0.9% 100 ML IVPB SCH ×3 (01:05→16:24)
[2018-08-04] MEDS: DEXTROSE 5% IN WATER 100 ML with AMIODARONE 150 MG IV PRN (01:18)
[2018-08-04] MEDS: AMIODARONE 450 MG in DEXTROSE 5% IN WATER 250 ML IV PRN ×2 (01:29)
[2018-08-04 02:01] LABS: Partial Thromboplastin Time 21.3 sec (22.0-30.0)
[2018-08-04] MEDS: PROPOFOL 1,000 MG in EMPTY BAG 1 BAG IV SCH ×4 (03:42→21:30)
--- NOTE | 2018-08-04 05:34 | CT ---
INDICATION: Change in mental status after fall 08/02 TECHNIQUE: CT acquisition is performed through the brain. Sagittal and coronal reformatted images are provided. No IV contrast is administered. DOSE INFORMATION: CTDIvol 49.1 mGy; DLP 1239.4 mGy-cm. One or more of the following dose reduction techniques were used: automated exposure control, adjustment of the mA and/or kV according to patient size, use of iterative reconstruction technique. COMPARISON: None. FINDINGS: The patient is intubated. The calvarium is intact. The visualized paranasal sinuses and mastoid air cells are clear. There is no evidence of acute intracranial hemorrhage or abnormal extra- axial fluid collection. There is no mass effect or midline shift. There is parenchymal volume loss with symmetric prominence of the sulci, ventricles, and basal cisterns. Low-attenuation in the periventricular and deep cerebral white matter is compatible with chronic small vessel ischemic disease. The jean-white matter differentiation is preserved. IMPRESSION: 1. Involutional and chronic small vessel ischemic changes. 2. No CT evidence of acute intracranial process.
[2018-08-04 06:07] LABS: Albumin 2.7 g/dL (3.5-5.0); Calcium 7.4 mg/dL (8.4-10.2); Magnesium 2.8 mg/dL (1.6-2.3); Phosphorus 5.9 mg/dL (2.5-4.5); Potassium 4.9 mmol/L (3.5-5.1); Total Bilirubin 1.4 mg/dL (0.2-1.3); Total Protein 5.5 g/dL (6.3-8.2)
[2018-08-04 06:16] LABS: HCT 25.5 % (39.0-53.0); HGB 7.8 gm/dL (13.0-17.5); Hypochromasia Marked; MCH 30.7 pg (25.0-35.0); MCHC 30.6 g/dL (31.0-37.0); MCV 100.1 fL (80.0-100.0); Macrocytosis Slight; Mean Platelet Volume 7.6; Platelet Count 524 k/uL (150-450); Poikilocytosis Slight; RBC 2.55 m/uL (4.30-5.90); RDW 15.2 % (11.5-15.5); WBC 32.1 k/uL (3.8-10.6)
[2018-08-04 06:32] LABS: Creatine Kinase MB 12.2 ng/mL (0.0-2.4)
[2018-08-04 06:38] LABS: Troponin I 2.72 ng/mL (0.000-0.034)
[2018-08-04 07:03] LABS: ABG Base Excess -5.6 mmol/L; ABG HCO3 19 mmol/L (21-25); ABG Oxygen Saturation 95.5 % (94-97); ABG PCO2 32 mmHg (35-45); ABG PH 7.39 (7.35-7.45); ABG PO2 77 mmHg (83-108); ABG TCO2 20 mmol/L (19-24)
[2018-08-04] MEDS: MUPIROCIN 2% OINT 22 GM TUBE NASAL SCH ×3 (07:16→22:01)
[2018-08-04] MEDS: IPRATROPIUM-ALBUTEROL 3 ML NEB INHALATION SCH ×4 (07:23→19:54)
[2018-08-04] MEDS: HEPARIN SODIUM,PORCINE 5,000 UNIT/ML 1 ML VIAL SQ SCH ×3 (07:35→16:24)
[2018-08-04 08:12] LABS: Band Neutrophils % 1 %; Lymphocytes # (M) 3.85 k/uL (1.0-4.8); Monocytes # (M) 1.28 k/uL (0-1.0); Neutrophils % (M) 83 %; Nucleated Red Blood Cells 0 /100 WBC (0-0); Total Cells Counted 100
[2018-08-04 08:13] LABS: Polychromasia Present
[2018-08-04 08:18] LABS: Glucose,Whole Blood 166 mg/dL (75-99)
--- NOTE | 2018-08-04 08:19 | PN ---
PROGRESS NOTE Mr. Justice is a very obese gentleman with probable underlying sleep apnea syndrome, underwent bypass surgery. Yesterday, he seemed to be working hard to take some deep breaths and was in sinus tachycardia. However, during the day, he developed more shortness of breath and eventually has been intubated, placed on a ventilator. His white count is up to 30,000 and there is also a decubital ulcer which may be a offending agent. He has had a septic workup performed. He is on a ventilator on high doses of Levophed. He is also having very little urine output and his creatinine has gone up to 2. I am recommending a nephrology evaluation for this patient as well. Prognosis remains guarded. His septic workup has been performed. Possibility of sepsis as a contributing factor to his illness should be considered. He received IV fluids and his lactate level is down to 1.7. Rhythm is sinus, S1-S2 heard normally but distantly. Lungs reveal diminished air entry. Abdomen exam is soft. No organomegaly. Rest of physical examination was not performed. Prognosis remains poor. We will continue antibiotics, septic workup, supportive care. Prognosis remains poor. MMODL / IJN: [id number] /
--- NOTE | 2018-08-04 08:26 | P.PN ---
Subjective Progress Note Date: 08/04/18 Principal diagnosis: Coronary artery disease. Previous medical history of hypertension, previous tobacco dependence with preoperative FEV1 86% of predicted, obstructive sleep apnea, TIA, bilateral internal carotid artery stenosis 50-79%, prostate disorder , morbid obesity with history of bariatric surgery, and drop foot on the left leg. POD #10 coronary artery bypass grafting 4 vessels, left internal mammary to the left anterior descending artery, reverse saphenous vein graft to the diagonal artery, reverse saphenous vein graft to the second obtuse marginal artery, reverse saphenous vein graft to the posterior lateral branch of the right coronary artery. Endoscopic vein harvest of bilateral greater saphenous veins. Epi-aortic ultrasound. Intraoperative transesophageal echocardiogram. Closure of the sternum using titanium plating system. Postoperative acute blood loss anemia, expected postsurgical condition secondary to hemodilution and cardiopulmonary bypass pump. Acute confusion, unexpected, possibly from cardiopulmonary bypass pump. Elevation in transaminases, an expected outcome. Fall without injury, unexpected. Leukocytosis, positive SIRS criteria, possible sepsis, lactic acid 1.7, unexpected outcome. The patient had an unfortunate negative turn of events last night. Yesterday afternoon the patient was more lethargic on the stepdown unit and increasingly confused with increased work of breathing. Was placed on BiPAP and transferred back to intensive care unit. He spiked a temperature 101.5F. Urine culture had been drawn due to leukocytosis with white count 17.2 yesterday. Once he became febrile blood cultures and sputum cultures were ordered and patient was started on IV antibiotics. He became more obtunded and Dr. Garrison was called and the decision was made to intubate the patient. He required levo for hypotension. His urine output decreased to 10 mL per hour. He went into A. fib RVR and required initiation of amiodarone drip with return to normal sinus rhythm. CT of the brain was completed this morning secondary to fall couple days ago with decreased mental status, results demonstrate no acute process. 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 His creatinine jumped 2.02 from 1.05 yesterday. Liver enzymes had been downtrending but are elevated again this morning. Cortisol level was drawn, resulted 54. Objective - Vital Signs Vital signs: Vital Signs Temp 98.3 F 08/04/18 04:30 Pulse 87 08/04/18 07:56 Resp 23 08/04/18 07:00 BP 114/37 08/04/18 07:00 Pulse Ox 98 08/04/18 07:00 Intake & Output 08/03/18 08/04/18 08/04/18 18:59 06:59 18:59 Intake Total 994 3265.444 531.907 Output Total 1000 423 47 Balance -6 2842.444 484.907 Weight 159 kg 152.5 kg Intake: IV 600 2446 98 ACETAMINOPHEN IV (For NPO 100 ) 1,000 mg In Empty Bag 1 bag @ 400 mls/hr IVPB Q6HR PRN Rx#:[id number] Lactated Ringers 1,000 ml 825 75 @ 75 mls/hr IV .[id number] [facility] Rx#:[id number] Piperacillin-Tazobactam 3 100 .375 gm In Sodium Chloride 0.9% 100 ml @ 25 mls/hr IVPB Q8HR [facility] Rx# :[id number] Sodium Chloride 0.9% 198 109 7144 20 ml 500 ml @ 999 mls/hr IV .Q31M [facility] Rx#:[id number] pressure bags 21 3 Intake, IV Titration 394 819.444 433.907 Amount Amiodarone 450 mg In 208.907 Dextrose 5% in Water 250 ml @ 1 MG/MIN 34.53 mls/ hr IV .Q7H31M PRN Rx#: [id number] Lactated Ringers 1,000 ml 60 @ 20 mls/hr IV .Q24H [facility] Rx#:[id number] Norepinephrine 4 mg In 740.563 225 Sodium Chloride 0.9% 250 ml @ Titrate IV .Q0M [facility] Rx#:[id number] Propofol 1,000 mg In 78.881 Empty Bag 1 bag @ Titrate IV .Q0M [facility] Rx#: [id number] Vancomycin 2,250 mg In 334 Sodium Chloride 0.9% 500 ml 500 ml @ 167 mls/hr IVPB Q16H [facility] Rx#: [id number] Output: Gastric Drainage 150 Urine 1000 273 47 Other: Voiding Method Indwelling Catheter ABP, PAP, CO, CI - Last Documented Arterial Blood Pressure 150/58 Pulmonary Artery Pressure 44/8 Cardiac Output 7.2 Cardiac Index 2.8 - Constitutional General appearance: Present: morbidly obese, no acute distress - Respiratory Details: Lungs sounds diminished bilaterally. Respirations even, nonlabored on mechanical ventilation. Current settings volume-controlled mode, FiO2 50%, tidal volume 100, respiratory rate 20, PEEP 5. ABGs this morning on those settings 7.39/32/77/19/95%/-5.6. 8.0 ET tube present, 25 at the lip. Thick yellow sputum being suctioned from ET tube. - Cardiovascular Details: S1, S2 present. Regular rate and rhythm, sinus rhythm on telemetry. Sternum stable. Generalized edema. Doppler lower extremity pulses present. Right radial arterial line present. Heart hugger, antiembolism stockings, SCDs present. - Gastrointestinal Gastrointestinal Comment(s): Abdomen soft, nondistended, obese. Active bowel sounds present 4 quadrants. OG tube present to low intermittent suction. 150 mL green drainage overnight. Patient has been incontinent of stool. - Genitourinary Genitourinary Comment(s): Smith present draining concentrated yellow urine. Output down to 10 mL per hour , now picking back up to 45 mL per hour for the last couple of hours. - Integumentary Integumentary Comment(s): Skin is warm and dry. Anterior chest incision well approximated with dry intact dressing present. Left lower extremity EVH site well approximated, positive serous drainage. Per nursing patient has unstageable ulcer with no drainage in the crack of his buttocks. - Psychiatric Psychiatric Comment(s): Sedated with propofol on mechanical ventilation. - Allied health notes Allied health notes reviewed: nursing - Labs CBC & Chem 7: 08/04/18 05:43 08/04/18 05:43 Labs: Abnormal Lab Results - Last 24 Hours (Table) 08/03/18 08/03/18 08/03/18 Range/Units 11:02 11:25 13:15 WBC (3.8-10.6) k/uL RBC (4.30-5.90) m/uL Hgb (13.0-17.5) gm/dL Hct (39.0-53.0) % MCV (80.0-100.0) fL MCHC (31.0-37.0) g/dL Plt Count (150-450) k/uL PT (9.0-12.0) sec INR (<1.2) APTT (22.0-30.0) sec ABG pH 7.50 H (7.35-7.45) ABG pCO2 27 L (35-45) mmHg ABG pO2 69 L (83-108) mmHg ABG HCO3 (21-25) mmol/L Chloride (98-107) mmol/L Carbon Dioxide (22-30) mmol/L BUN (9-20) mg/dL Creatinine (0.66-1.25) mg/dL Glucose (74-99) mg/dL POC Glucose (mg/dL) 215 H (75-99) mg/dL Calcium (8.4-10.2) mg/dL Phosphorus (2.5-4.5) mg/dL Magnesium (1.6-2.3) mg/dL Total Bilirubin (0.2-1.3) mg/dL AST (17-59) U/L ALT (21-72) U/L Total Creatine Kinase (55-170) U/L CK-MB (CK-2) (0.0-2.4) ng/mL Troponin I (0.000-0.034) ng/mL Total Protein (6.3-8.2) g/dL Albumin (3.5-5.0) g/dL Urine Protein Trace H (Negative) Urine Blood Trace H (Negative) Urine Bacteria Rare H (None) /hpf Urine Mucus Rare H (None) /hpf 08/03/18 08/03/18 08/03/18 Range/Units 15:04 17:33 20:24 WBC (3.8-10.6) k/uL RBC (4.30-5.90) m/uL Hgb (13.0-17.5) gm/dL Hct (39.0-53.0) % MCV (80.0-100.0) fL MCHC (31.0-37.0) g/dL Plt Count (150-450) k/uL PT (9.0-12.0) sec INR (<1.2) APTT (22.0-30.0) sec ABG pH (7.35-7.45) ABG pCO2 (35-45) mmHg ABG pO2 (83-108) mmHg ABG HCO3 (21-25) mmol/L Chloride (98-107) mmol/L Carbon Dioxide (22-30) mmol/L BUN (9-20) mg/dL Creatinine (0.66-1.25) mg/dL Glucose (74-99) mg/dL POC Glucose (mg/dL) 159 H 151 H 134 H (75-99) mg/dL Calcium (8.4-10.2) mg/dL Phosphorus (2.5-4.5) mg/dL Magnesium (1.6-2.3) mg/dL Total Bilirubin (0.2-1.3) mg/dL AST (17-59) U/L ALT (21-72) U/L Total Creatine Kinase (55-170) U/L CK-MB (CK-2) (0.0-2.4) ng/mL Troponin I (0.000-0.034) ng/mL Total Protein (6.3-8.2) g/dL Albumin (3.5-5.0) g/dL Urine Protein (Negative) Urine Blood (Negative) Urine Bacteria (None) /hpf Urine Mucus (None) /hpf 08/03/18 08/03/18 08/04/18 Range/Units 23:17 23:17 05:43 WBC (3.8-10.6) k/uL RBC (4.30-5.90) m/uL Hgb (13.0-17.5) gm/dL Hct (39.0-53.0) % MCV (80.0-100.0) fL MCHC (31.0-37.0) g/dL Plt Count (150-450) k/uL PT 12.6 H (9.0-12.0) sec INR 1.2 H (<1.2) APTT 21.3 L (22.0-30.0) sec ABG pH (7.35-7.45) ABG pCO2 (35-45) mmHg ABG pO2 (83-108) mmHg ABG HCO3 (21-25) mmol/L Chloride (98-107) mmol/L Carbon Dioxide (22-30) mmol/L BUN (9-20) mg/dL Creatinine (0.66-1.25) mg/dL Glucose (74-99) mg/dL POC Glucose (mg/dL) (75-99) mg/dL Calcium (8.4-10.2) mg/dL Phosphorus (2.5-4.5) mg/dL Magnesium (1.6-2.3) mg/dL Total Bilirubin (0.2-1.3) mg/dL AST (17-59) U/L ALT (21-72) U/L Total Creatine Kinase 2069 H* 4060 H* (55-170) U/L CK-MB (CK-2) 12.2 H (0.0-2.4) ng/mL Troponin I 2.820 H* 2.720 H* (0.000-0.034) ng/mL Total Protein (6.3-8.2) g/dL Albumin (3.5-5.0) g/dL Urine Protein (Negative) Urine Blood (Negative) Urine Bacteria (None) /hpf Urine Mucus (None) /hpf 08/04/18 08/04/18 08/04/18 Range/Units 05:43 05:43 06:59 WBC 32.1 H (3.8-10.6) k/uL RBC 2.55 L (4.30-5.90) m/uL Hgb 7.8 L (13.0-17.5) gm/dL Hct 25.5 L (39.0-53.0) % MCV 100.1 H (80.0-100.0) fL MCHC 30.6 L (31.0-37.0) g/dL Plt Count 524 H (150-450) k/uL PT (9.0-12.0) sec INR (<1.2) APTT (22.0-30.0) sec ABG pH (7.35-7.45) ABG pCO2 32 L (35-45) mmHg ABG pO2 77 L (83-108) mmHg ABG HCO3 19 L (21-25) mmol/L Chloride 110 H (98-107) mmol/L Carbon Dioxide 19 L (22-30) mmol/L BUN 44 H (9-20) mg/dL Creatinine 2.02 H (0.66-1.25) mg/dL Glucose 167 H (74-99) mg/dL POC Glucose (mg/dL) (75-99) mg/dL Calcium 7.4 L (8.4-10.2) mg/dL Phosphorus 5.9 H (2.5-4.5) mg/dL Magnesium 2.8 H (1.6-2.3) mg/dL Total Bilirubin 1.4 H (0.2-1.3) mg/dL AST 446 H (17-59) U/L ALT 236 H (21-72) U/L Total Creatine Kinase (55-170) U/L CK-MB (CK-2) (0.0-2.4) ng/mL Troponin I (0.000-0.034) ng/mL Total Protein 5.5 L (6.3-8.2) g/dL Albumin 2.7 L (3.5-5.0) g/dL Urine Protein (Negative) Urine Blood (Negative) Urine Bacteria (None) /hpf Urine Mucus (None) /hpf Microbiology - Last 24 Hours (Table) 08/03/18 13:15 Urine Culture - Preliminary Urine,Catheterized - Imaging and Cardiology Chest x-ray: report reviewed, image reviewed Assessment and Plan (1) Status post aorto-coronary artery bypass graft Current Visit: Yes Status: Acute Code(s): Z95.1 - PRESENCE OF AORTOCORONARY BYPASS GRAFT SNOMED Code(s): 997231380 (2) Aortic valve stenosis Current Visit: Yes Status: Chronic Code(s): I35.0 - NONRHEUMATIC AORTIC ( VALVE) STENOSIS SNOMED Code(s): 36289377 (3) BPH (benign prostatic hyperplasia) Current Visit: Yes Status: Chronic Code(s): N40.0 - BENIGN PROSTATIC HYPERPLASIA WITHOUT LOWER URINRY TRACT SYMP SNOMED Code(s): 241667746 (4) Coronary artery disease Current Visit: Yes Status: Chronic Code(s): I25.10 - ATHSCL HEART DISEASE OF [place] CORONARY ARTERY W/O ANG PCTRS SNOMED Code(s): 49352247 (5) Foot drop, left Current Visit: Yes Status: Chronic Code(s): M21.372 - FOOT DROP, LEFT FOOT SNOMED Code(s): 0939409 (6) Hypertension Current Visit: Yes Status: Chronic Code(s): I10 - ESSENTIAL (PRIMARY) HYPERTENSION SNOMED Code(s): 76340027 (7) Morbid obesity with BMI of 45.0-49.9, adult Current Visit: Yes Status: Chronic Code(s): E66.01 - MORBID (SEVERE) OBESITY DUE TO EXCESS CALORIES; Z68.42 - BODY MASS INDEX (BMI) 45.0-49.9, ADULT SNOMED Code(s): 930051560 (8) Nicotine dependence in remission Current Visit: No Status: Resolved Code(s): F17.201 - NICOTINE DEPENDENCE, UNSPECIFIED, IN REMISSION SNOMED Code(s): 26648332 (9) Obstructive sleep apnea Current Visit: Yes Status: Chronic Code(s): G47.33 - OBSTRUCTIVE SLEEP APNEA (ADULT) (PEDIATRIC) SNOMED Code(s): 20560039 (10) Osteoarthritis Current Visit: Yes Status: Chronic Code(s): M19.90 - UNSPECIFIED OSTEOARTHRITIS, UNSPECIFIED SITE SNOMED Code(s): 362042754 Plan: 1. Continue aspirin, Plavix, BEATRIZ inhibitor, beta rodríguez therapy. Wean levo as tolerated.. 2. Continue amiodarone for A. fib prophylaxis. No need for anticoagulation unless patient is in A. fib for greater than 24 hours. 3. Mechanical ventilator management per pulmonology. Wean as tolerated. 4. Bronchodilators per pulmonology. 5. Will monitor daily labs and x-rays. No transfusion. Urine, sputum, blood cultures ordered, await results. 6. GI prophylaxis with Protonix. DVT prophylaxis with subcu heparin, SCDs. 7. Pain control with current medication regimen. Avoid narcotics. 8. CT of the brain negative for acute process. 9. Patient started on IV vancomycin and Zosyn. Dr. Giraldo consulted from infectious disease, appreciate recommendations. 10. Insulin management per primary care service. 11. Social work consult for insurance authorization as patient is going to need rehab upon discharge. 12. Dietitian ordered to start enteral nutrition. 13. More recommendations to follow. Time with Patient: Greater than 30
[2018-08-04] MEDS: FERROUS SULFATE 325 MG TAB PO SCH ×2 (08:27→16:55)
[2018-08-04] MEDS: OXYBUTYNIN CHLORIDE 5 MG TAB PO SCH (08:27)
[2018-08-04] MEDS: ASCORBIC ACID 500 MG TAB PO SCH ×2 (08:27→16:55)
[2018-08-04] MEDS: PANTOPRAZOLE 40 MG/10 ML VIAL IVP SCH (08:27)
[2018-08-04] MEDS: CHLORHEXIDINE GLUCONATE 15 ML CUP MUCOUS MEM SCH ×2 (08:31→20:18)
[2018-08-04] MEDS: INSULIN ASPART 100 UNIT/ML 1 ML 10 ML VIAL SQ SCH ×4 (08:37→22:02)
[2018-08-04] MEDS: MODAFINIL 100 MG TAB PO SCH (08:57)
--- NOTE | 2018-08-04 09:46 | XR ---
EXAMINATION TYPE: XR chest 1V portable DATE OF EXAM: 08/04/2018 COMPARISON: 08/03/2018 INDICATION: Post cardiac surgery TECHNIQUE: Single frontal view of the chest is obtained. FINDINGS: The heart size is enlarged. The pulmonary vasculature is normal. There is slight increased opacification over the left lung. Minimal effusion may be present. Endotracheal tube tip remains above the antoni. Nasogastric tube transverses the [id number]. IMPRESSION: 1. Mild increased opacity over the left lung could be a small pleural effusion. Some thickening at th e left apex is present. 2. Lines and catheters discussed above. 3. Continued follow-up is recommended.
--- NOTE | 2018-08-04 09:54 | P.CONS ---
History of Present Illness - Reason for Consult Consult date: 08/04/18 Leukocytosis status post CABG - History of Present Illness This is a 78-year-old underwent coronary artery bypass grafting for 4 vessels on July 25. Patient did have some postoperative confusion but was transferred out of the selective care unit. He apparently had a fall a few days ago when he is trying to get to the bathroom and then he spent the rest of the day in bed. Irritated apparently takes for people to get him out of bed and he has been on a Arlene lift. Yesterday, patient was more lethargic with labored breathing and was placed on a BiPAP and patient was transferred back into the intensive care unit. He was able to follow commands but was weak. During the night he had decreased level of consciousness, developed A. fib with RVR and hypotension. He had a Smith catheter placed as he had no urine output for couple hours. He was given IV fluids of 2 L and started on levo fed currently at 25 mics. He was subsequently intubated and placed on mechanical ventilation. Temperature max yesterday was 101.5, white count 32.1 which has been gradually climbing since July 31. CK is 4060, troponins 2.8-0 and 2.7- 0, creatinine 2.0 to. Urine blood and sputum cultures were obtained yesterday. Patient was placed on amiodarone drip and has converted to sinus rhythm with frequent PACs. Patient was found to have a necrotic tissue at gluteal cleft. Unclear how long patient has had this. He has not had a bowel movement from July 31 until last night. At home, patient is normally not very active and sits most the time. He does drive his significant other to the grocery store but sits in the car. The patient was straight cath yesterday for 970 mL out. He currently has a Smith catheter in and urine output has been between 15 and 45 ML's per hour. Tube feeding to start today. Review of Systems ROS unobtainable: due to mental status Past Medical History Past Medical History: Chest Pain / Angina, CVA/TIA, Hypertension, Osteoarthritis (OA), Prostate Disorder, Sleep Apnea/CPAP/BIPAP Additional Past Medical History / Comment(s): hx TIA, heart murmur, no cpap used , drop foot left leg History of Any Multi-Drug Resistant Organisms: None Reported Past Surgical History: Back Surgery, Bariatric Surgery, Hernia Repair, Joint Replacement Additional Past Surgical History / Comment(s): lap band surgery, left knee replacement, ashley cataracts Past Anesthesia/Blood Transfusion Reactions: No Reported Reaction Smoking Status: Former smoker - Past Family History Father Family Medical History: Cancer Medications and Allergies Home Medications Medication Instructions Recorded Confirmed Type Aspirin [Adult Low Dose Aspirin EC] 162 mg PO QAM 07/11/18 07/25/18 History Isosorbide Mononitrate [Isosorbide 30 mg PO DAILY 07/11/18 07/25/18 History Mononitrate ER] Lisinopril 20 mg PO DAILY 07/11/18 07/25/18 History Oxybutynin Chloride 5 mg PO QAM 07/11/18 07/25/18 History Tamsulosin HCl [Flomax] 0.4 mg PO QAM 07/11/18 07/25/18 History Atorvastatin [Lipitor] 40 mg PO DAILY #90 tab 07/21/18 07/25/18 Rx Metoprolol Tartrate 12.5 mg PO DAILY 07/24/18 07/25/18 History Allergies Allergy/AdvReac Type Severity Reaction Status Date / Time No Known Allergies Allergy Verified 07/25/18 15:47 Physical Exam Vitals: Vital Signs Temp Pulse Pulse Resp BP BP Pulse Ox 08/04/18 08:00 99.4 F 75 24 104/43 98 08/04/18 07:56 87 08/04/18 07:30 51 L 15 92/42 100 08/04/18 07:28 60 08/04/18 07:00 66 23 114/37 98 08/04/18 06:30 68 28 H 100/44 96 08/04/18 06:00 70 22 118/68 98 08/04/18 05:30 66 24 97 08/04/18 05:00 62 18 93/79 99 08/04/18 04:30 98.3 F 66 23 98/65 99 08/04/18 04:00 67 25 H 84/44 98 08/04/18 03:30 67 25 H 102/47 99 08/04/18 03:00 67 22 106/55 94 L 08/04/18 02:30 68 25 H 109/38 98 08/04/18 02:00 70 23 114/42 98 12/14/18 01:30 68 25 H 86/43 93 L 1418 01:00 72 24 109/35 100 14 00:30 78 29 H 93/58 100 14 00:15 76 25 H 80/25 100 1418 00:00 86 18 81/54 99 08/03/18 23:45 70 23 88/52 100 18 23:30 82 26 H 114/49 100 08/03/18 23:15 89 27 H 103/60 95 18 23:00 78 25 H 107/56 97 18 22:45 77 23 107/55 94 L 08/03/18 22:30 75 25 H 90/54 97 08/03/18 22:15 77 27 H 100/54 98 08/03/18 22:00 67 18 92/56 96 08/03/18 21:45 75 25 H 98/52 98 08/03/18 21:30 66 25 H 92/52 98 08/03/18 21:15 72 27 H 96/56 96 08/03/18 21:00 73 25 H 99/54 96 08/03/18 20:45 75 28 H 89/56 96 18 20:30 75 28 H 97/49 95 08/03/18 20:15 76 29 H 83/49 93 L 08/03/18 20:00 99.8 F H 75 29 H 81/53 94 L 18 19:30 77 29 H 86/49 93 L 18 19:15 75 34 H 90/44 95 1318 19:00 80 31 H 90/44 95 13/18 18:59 79 13/18 18:45 80 18 18:30 87 34 H 92/62 95 13/18 18:00 100.6 F H 93 31 H 90/62 98 13/18 17:30 90 30 H 109/68 97 08/03/18 17:00 94 34 H 93/54 97 08/03/18 16:30 93 34 H 93/54 97 08/03/18 16:00 101.5 F H 92 33 H 99/60 96 08/03/18 15:20 101.5 F H 93 27 H 126/54 98 12/13/18 11:50 90 12/13/18 11:40 94 08/03/18 11:00 97.5 F L 113 H 28 H 124/73 96 Intake and Output 08/03/18 08/04/18 08/04/18 22:59 06:59 14:59 Intake Total 8985.491 3668.506 634.907 Output Total 85 363 67 Balance 8106.551 6321.506 567.907 Intake: IV 825 2221 176 ACETAMINOPHEN IV (For NPO 100 ) 1,000 mg In Empty Bag 1 bag @ 400 mls/hr IVPB Q6HR PRN Rx#:[id number] Lactated Ringers 1,000 ml 225 600 150 @ 75 mls/hr IV .[id number] [facility] Rx#:[id number] Piperacillin-Tazobactam 3 100 .375 gm In Sodium Chloride 0.9% 100 ml @ 25 mls/hr IVPB Q8HR [facility] Rx# :[id number] Sodium Chloride 0.9% 995 393 3780 20 ml 500 ml @ 999 mls/hr IV .Q31M [facility] Rx#:[id number] pressure bags 21 6 Intake, IV Titration 418.938 794.506 458.907 Amount Amiodarone 450 mg In 208.907 Dextrose 5% in Water 250 ml @ 1 MG/MIN 34.53 mls/ hr IV .Q7H31M PRN Rx#: [id number] Lactated Ringers 1,000 ml 60 @ 20 mls/hr IV .Q24H [facility] Rx#:[id number] Norepinephrine 4 mg In 24.938 715.625 250 Sodium Chloride 0.9% 250 ml @ Titrate IV .Q0M [facility] Rx#:[id number] Propofol 1,000 mg In 78.881 Empty Bag 1 bag @ Titrate IV .Q0M [facility] Rx#: [id number] Vancomycin 2,250 mg In 334 Sodium Chloride 0.9% 500 ml 500 ml @ 167 mls/hr IVPB Q16H [facility] Rx#: [id number] Output: Gastric Drainage 150 Urine 85 213 67 Other: Voiding Method Indwelling Catheter Indwelling Catheter # Bowel Movements 1 Weight 159 kg 152.5 kg ABP, PAP, CO, CI - Last 8 Hours Arterial Blood Pressure 130/47 Arterial Blood Pressure 112/47 Arterial Blood Pressure 150/58 Arterial Blood Pressure 142/56 Arterial Blood Pressure 140/65 Arterial Blood Pressure 137/58 Arterial Blood Pressure 138/45 Arterial Blood Pressure 114/46 Arterial Blood Pressure 112/46 Arterial Blood Pressure 132/52 Arterial Blood Pressure 130/54 Arterial Blood Pressure 131/51 Arterial Blood Pressure 136/53 Gen: This is a morbidly obese 78-year-old male. He is currently in the intensive care unit, intubated and on mechanical ventilation. Patient appears to be comfortable and in no acute distress. HEENT: Head is atraumatic, normocephalic. Pupils equal, round. Sclerae is anicteric. Conjunctiva pale. Mucous membranes of the mouth are dry. Oral ET and orogastric tube in place. NECK: Supple. No JVD. No lymphadenopathy. No thyromegaly. LUNGS: Diminished with scattered rhonchi. No intercostal retractions. HEART: Regular rate and rhythm. No murmur. Sternal incision has a dressing in place that is showing no breakthrough bleeding or drainage. ABDOMEN: Morbidly obese, soft. Bowel sounds are present. No masses. No tenderness. Lapband is palpated in the left upper quadrant. EXTREMITIES: Maverick hose bilaterally. trace bilateral pedal edema. Left lower extremity wounds show no significant erythema or drainage. NEUROLOGICAL: Patient is sedated on mechanical ventilation. Results Results: Laboratory Results WBC 32.1 k/uL (3.8-10.6) H 08/04/18 05:43 RBC 2.55 m/uL (4.30-5.90) L 08/04/18 05:43 Hgb 7.8 gm/dL (13.0-17.5) L 08/04/18 05:43 Hct 25.5 % (39.0-53.0) L 08/04/18 05:43 MCV 100.1 fL (80.0-100.0) H 08/04/18 05:43 MCH 30.7 pg (25.0-35.0) 08/04/18 05:43 MCHC 30.6 g/dL (31.0-37.0) L 08/04/18 05:43 RDW 15.2 % (11.5-15.5) 08/04/18 05:43 Plt Count 524 k/uL (150-450) H 08/04/18 05:43 Neutrophils % 83 % 12/13/18 06:03 Neutrophils % (Manual) 83 % 08/04/18 05:43 Band Neutrophils % 1 % 08/04/18 05:43 Lymphocytes % 10 % 08/03/18 06:03 Lymphocytes % (Manual) 12 % 08/04/18 05:43 Monocytes % 5 % 08/03/18 06:03 Monocytes % (Manual) 4 % 08/04/18 05:43 Eosinophils % 0 % 08/03/18 06:03 Basophils % 0 % 08/03/18 06:03 Neutrophils # 14.3 k/uL (1.3-7.7) H 08/03/18 06:03 Neutrophils # (Manual) 26.90 k/uL (1.3-7.7) H 08/04/18 05:43 Lymphocytes # 1.7 k/uL (1.0-4.8) 08/03/18 06:03 Lymphocytes # (Manual) 3.85 k/uL (1.0-4.8) 08/04/18 05:43 Monocytes # 0.9 k/uL (0-1.0) 08/03/18 06:03 Monocytes # (Manual) 1.28 k/uL (0-1.0) H 08/04/18 05:43 Eosinophils # 0.1 k/uL (0-0.7) 08/03/18 06:03 Basophils # 0.1 k/uL (0-0.2) 08/03/18 06:03 Nucleated RBCs 0 /100 WBC (0-0) 08/04/18 05:43 Manual Slide Review Performed 08/04/18 05:43 Polychromasia Present 08/04/18 05:43 Hypochromasia Marked 08/04/18 05:43 Poikilocytosis Slight 08/04/18 05:43 Macrocytosis Slight 08/04/18 05:43 PT 12.6 sec (9.0-12.0) H 08/03/18 23:17 INR 1.2 (<1.2) H 08/03/18 23:17 APTT 21.3 sec (22.0-30.0) L 08/03/18 23:17 Fibrinogen 112 mg/dL (200-500) L 07/25/18 16:30 Sample Site waite 08/04/18 06:59 ABG pH 7.39 (7.35-7.45) 08/04/18 06:59 ABG pCO2 32 mmHg (35-45) L 08/04/18 06:59 ABG pO2 77 mmHg (83-108) L 08/04/18 06:59 ABG HCO3 19 mmol/L (21-25) L 08/04/18 06:59 ABG Total CO2 20 mmol/L (19-24) 08/04/18 06:59 ABG O2 Saturation 95.5 % (94-97) 08/04/18 06:59 ABG Base Excess -5.6 mmol/L 08/04/18 06:59 ABG Hematocrit 30 % (34.0-46.0) L 07/25/18 14:36 José Test no 08/04/18 06:59 ABG Sodium 139 mmol/L (135-146) 07/25/18 14:36 ABG Potassium 4.5 mmol/L (3.4-4.5) 07/25/18 14:36 ABG Ionized Calcium 3.9 mg/dL (4.5-5.3) L 07/25/18 14:36 ABG Glucose 151 mg/dL (75-99) H 07/25/18 14:36 ABG Lactic Acid 3.7 mmol/L (0.5-1.6) H* 07/25/18 14:36 Hemoglobin 9.8 gm/dL (13.0-17.5) L 07/25/18 14:36 FiO2 50 % 08/04/18 06:59 Sodium 141 mmol/L (137-145) 08/04/18 05:43 Potassium 4.9 mmol/L (3.5-5.1) 08/04/18 05:43 Chloride 110 mmol/L (98-107) H 08/04/18 05:43 Carbon Dioxide 19 mmol/L (22-30) L 08/04/18 05:43 Anion Gap 12 mmol/L 08/04/18 05:43 BUN 44 mg/dL (9-20) H 08/04/18 05:43 Creatinine 2.02 mg/dL (0.66-1.25) H 08/04/18 05:43 Est GFR (CKD-EPI)AfAm 36 (>60 ml/min/1.73 sqM) 08/04/18 05:43 Est GFR (CKD-EPI)NonAf 31 (>60 ml/min/1.73 sqM) 08/04/18 05:43 Glucose 167 mg/dL (74-99) H 08/04/18 05:43 POC Glucose (mg/dL) 155 mg/dL (75-99) H 08/04/18 12:06 POC Glu Shipping And Receiving Material Handler ID Day, Fadia 08/04/18 12:06 Plasma Lactic Acid Glenn 1.7 mmol/L (0.7-2.0) 08/03/18 23:17 Calcium 7.4 mg/dL (8.4-10.2) L 08/04/18 05:43 Ionized Calcium Gianluca 4.6 mg/dL (4.5-5.3) 08/01/18 07:11 Phosphorus 5.9 mg/dL (2.5-4.5) H 08/04/18 05:43 Magnesium 2.8 mg/dL (1.6-2.3) H 08/04/18 05:43 Total Bilirubin 1.4 mg/dL (0.2-1.3) H 08/04/18 05:43 AST 446 U/L (17-59) H 08/04/18 05:43 ALT 236 U/L (21-72) H 08/04/18 05:43 Alkaline Phosphatase 83 U/L (38-126) 08/04/18 05:43 Total Creatine Kinase 4060 U/L (55-170) H* 08/04/18 05:43 CK-MB (CK-2) 12.2 ng/mL (0.0-2.4) H 08/04/18 05:43 CK-MB (CK-2) Rel Index 08/04/18 05:43 Troponin I 2.720 ng/mL (0.000-0.034) H* 08/04/18 05:43 Total Protein 5.5 g/dL (6.3-8.2) L 08/04/18 05:43 Albumin 2.7 g/dL (3.5-5.0) L 08/04/18 05:43 Amylase <30 U/L (30-110) L 07/28/18 04:42 Lipase 83 U/L (23-300) 07/28/18 04:42 Cortisol 54 ug/dL 08/03/18 23:17 Arterial Blood Potassium 4.5 mmol/L (3.4-4.5) 07/25/18 14:36 Arterial Blood Glucose 151 mg/dL (75-99) H 07/25/18 14:36 Urine Color Yellow 08/03/18 13:15 Urine Appearance Clear (Clear) 08/03/18 13:15 Urine pH 5.5 (5.0-8.0) 08/03/18 13:15 Ur Specific Pyatt 1.015 (1.001-1.035) 08/03/18 13:15 Urine Protein Trace (Negative) H 08/03/18 13:15 Urine Glucose (UA) Negative (Negative) 08/03/18 13:15 Urine Ketones Negative (Negative) 08/03/18 13:15 Urine Blood Trace (Negative) H 08/03/18 13:15 Urine Nitrite Negative (Negative) 08/03/18 13:15 Urine Bilirubin Negative (Negative) 08/03/18 13:15 Urine Urobilinogen <2.0 mg/dL (<2.0) 08/03/18 13:15 Ur Leukocyte Esterase Negative (Negative) 08/03/18 13:15 Urine WBC <1 /hpf (0-5) 08/03/18 13:15 Urine Bacteria Rare /hpf (None) H 08/03/18 13:15 Urine Mucus Rare /hpf (None) H 08/03/18 13:15 Blood Type A Positive 07/24/18 12:40 Blood Type Confirm A Positive 07/25/18 09:10 Blood Type Recheck CABO Indicated 07/24/18 12:40 Antibody Screen NEGATIVE 07/24/18 12:40 Crossmatch See Detail 07/24/18 12:40 Transfuse Platelets 07/25/18 07/24/18 12:40 Spec Expiration Date 07/27/2018 - 6060 07/24/18 12:40 CBC & Chem 7: 08/06/18 05:30 08/06/18 05:30 Labs: Abnormal Lab Results - Last 24 Hours (Table) 08/03/18 08/03/18 08/03/18 Range/Units 11:02 11:25 13:15 WBC (3.8-10.6) k/uL RBC (4.30-5.90) m/uL Hgb (13.0-17.5) gm/dL Hct (39.0-53.0) % MCV (80.0-100.0) fL MCHC (31.0-37.0) g/dL Plt Count (150-450) k/uL Neutrophils # (Manual) (1.3-7.7) k/uL Monocytes # (Manual) (0-1.0) k/uL PT (9.0-12.0) sec INR (<1.2) APTT (22.0-30.0) sec ABG pH 7.50 H (7.35-7.45) ABG pCO2 27 L (35-45) mmHg ABG pO2 69 L (83-108) mmHg ABG HCO3 (21-25) mmol/L Chloride (98-107) mmol/L Carbon Dioxide (22-30) mmol/L BUN (9-20) mg/dL Creatinine (0.66-1.25) mg/dL Glucose (74-99) mg/dL POC Glucose (mg/dL) 215 H (75-99) mg/dL Calcium (8.4-10.2) mg/dL Phosphorus (2.5-4.5) mg/dL Magnesium (1.6-2.3) mg/dL Total Bilirubin (0.2-1.3) mg/dL AST (17-59) U/L ALT (21-72) U/L Total Creatine Kinase (55-170) U/L CK-MB (CK-2) (0.0-2.4) ng/mL Troponin I (0.000-0.034) ng/mL Total Protein (6.3-8.2) g/dL Albumin (3.5-5.0) g/dL Urine Protein Trace H (Negative) Urine Blood Trace H (Negative) Urine Bacteria Rare H (None) /hpf Urine Mucus Rare H (None) /hpf 08/03/18 08/03/18 08/03/18 Range/Units 15:04 17:33 20:24 WBC (3.8-10.6) k/uL RBC (4.30-5.90) m/uL Hgb (13.0-17.5) gm/dL Hct (39.0-53.0) % MCV (80.0-100.0) fL MCHC (31.0-37.0) g/dL Plt Count (150-450) k/uL Neutrophils # (Manual) (1.3-7.7) k/uL Monocytes # (Manual) (0-1.0) k/uL PT (9.0-12.0) sec INR (<1.2) APTT (22.0-30.0) sec ABG pH (7.35-7.45) ABG pCO2 (35-45) mmHg ABG pO2 (83-108) mmHg ABG HCO3 (21-25) mmol/L Chloride (98-107) mmol/L Carbon Dioxide (22-30) mmol/L BUN (9-20) mg/dL Creatinine (0.66-1.25) mg/dL Glucose (74-99) mg/dL POC Glucose (mg/dL) 159 H 151 H 134 H (75-99) mg/dL Calcium (8.4-10.2) mg/dL Phosphorus (2.5-4.5) mg/dL Magnesium (1.6-2.3) mg/dL Total Bilirubin (0.2-1.3) mg/dL AST (17-59) U/L ALT (21-72) U/L Total Creatine Kinase (55-170) U/L CK-MB (CK-2) (0.0-2.4) ng/mL Troponin I (0.000-0.034) ng/mL Total Protein (6.3-8.2) g/dL Albumin (3.5-5.0) g/dL Urine Protein (Negative) Urine Blood (Negative) Urine Bacteria (None) /hpf Urine Mucus (None) /hpf 08/03/18 08/03/18 08/04/18 Range/Units 23:17 23:17 05:43 WBC (3.8-10.6) k/uL RBC (4.30-5.90) m/uL Hgb (13.0-17.5) gm/dL Hct (39.0-53.0) % MCV (80.0-100.0) fL MCHC (31.0-37.0) g/dL Plt Count (150-450) k/uL Neutrophils # (Manual) (1.3-7.7) k/uL Monocytes # (Manual) (0-1.0) k/uL PT 12.6 H (9.0-12.0) sec INR 1.2 H (<1.2) APTT 21.3 L (22.0-30.0) sec ABG pH (7.35-7.45) ABG pCO2 (35-45) mmHg ABG pO2 (83-108) mmHg ABG HCO3 (21-25) mmol/L Chloride (98-107) mmol/L Carbon Dioxide (22-30) mmol/L BUN (9-20) mg/dL Creatinine (0.66-1.25) mg/dL Glucose (74-99) mg/dL POC Glucose (mg/dL) (75-99) mg/dL Calcium (8.4-10.2) mg/dL Phosphorus (2.5-4.5) mg/dL Magnesium (1.6-2.3) mg/dL Total Bilirubin (0.2-1.3) mg/dL AST (17-59) U/L ALT (21-72) U/L Total Creatine Kinase 2069 H* 4060 H* (55-170) U/L CK-MB (CK-2) 12.2 H (0.0-2.4) ng/mL Troponin I 2.820 H* 2.720 H* (0.000-0.034) ng/mL Total Protein (6.3-8.2) g/dL Albumin (3.5-5.0) g/dL Urine Protein (Negative) Urine Blood (Negative) Urine Bacteria (None) /hpf Urine Mucus (None) /hpf 08/04/18 08/04/18 08/04/18 Range/Units 05:43 05:43 06:59 WBC 32.1 H (3.8-10.6) k/uL RBC 2.55 L (4.30-5.90) m/uL Hgb 7.8 L (13.0-17.5) gm/dL Hct 25.5 L (39.0-53.0) % MCV 100.1 H (80.0-100.0) fL MCHC 30.6 L (31.0-37.0) g/dL Plt Count 524 H (150-450) k/uL Neutrophils # (Manual) 26.90 H (1.3-7.7) k/uL Monocytes # (Manual) 1.28 H (0-1.0) k/uL PT (9.0-12.0) sec INR (<1.2) APTT (22.0-30.0) sec ABG pH (7.35-7.45) ABG pCO2 32 L (35-45) mmHg ABG pO2 77 L (83-108) mmHg ABG HCO3 19 L (21-25) mmol/L Chloride 110 H (98-107) mmol/L Carbon Dioxide 19 L (22-30) mmol/L BUN 44 H (9-20) mg/dL Creatinine 2.02 H (0.66-1.25) mg/dL Glucose 167 H (74-99) mg/dL POC Glucose (mg/dL) (75-99) mg/dL Calcium 7.4 L (8.4-10.2) mg/dL Phosphorus 5.9 H (2.5-4.5) mg/dL Magnesium 2.8 H (1.6-2.3) mg/dL Total Bilirubin 1.4 H (0.2-1.3) mg/dL AST 446 H (17-59) U/L ALT 236 H (21-72) U/L Total Creatine Kinase (55-170) U/L CK-MB (CK-2) (0.0-2.4) ng/mL Troponin I (0.000-0.034) ng/mL Total Protein 5.5 L (6.3-8.2) g/dL Albumin 2.7 L (3.5-5.0) g/dL Urine Protein (Negative) Urine Blood (Negative) Urine Bacteria (None) /hpf Urine Mucus (None) /hpf 08/04/18 Range/Units 08:16 WBC (3.8-10.6) k/uL RBC (4.30-5.90) m/uL Hgb (13.0-17.5) gm/dL Hct (39.0-53.0) % MCV (80.0-100.0) fL MCHC (31.0-37.0) g/dL Plt Count (150-450) k/uL Neutrophils # (Manual) (1.3-7.7) k/uL Monocytes # (Manual) (0-1.0) k/uL PT (9.0-12.0) sec INR (<1.2) APTT (22.0-30.0) sec ABG pH (7.35-7.45) ABG pCO2 (35-45) mmHg ABG pO2 (83-108) mmHg ABG HCO3 (21-25) mmol/L Chloride (98-107) mmol/L Carbon Dioxide (22-30) mmol/L BUN (9-20) mg/dL Creatinine (0.66-1.25) mg/dL Glucose (74-99) mg/dL POC Glucose (mg/dL) 166 H (75-99) mg/dL Calcium (8.4-10.2) mg/dL Phosphorus (2.5-4.5) mg/dL Magnesium (1.6-2.3) mg/dL Total Bilirubin (0.2-1.3) mg/dL AST (17-59) U/L ALT (21-72) U/L Total Creatine Kinase (55-170) U/L CK-MB (CK-2) (0.0-2.4) ng/mL Troponin I (0.000-0.034) ng/mL Total Protein (6.3-8.2) g/dL Albumin (3.5-5.0) g/dL Urine Protein (Negative) Urine Blood (Negative) Urine Bacteria (None) /hpf Urine Mucus (None) /hpf Microbiology - Last 24 Hours (Table) 08/03/18 13:15 Urine Culture - Preliminary Urine,Catheterized Assessment and Plan Plan: This is a 78-year-old male status post 4 vessel CABG now with signs of sepsis and septic shock of unclear source with metabolic encephalopathy requiring fluid resuscitation and vasopressors. His course has also been complicated by acute kidney injury, acute rhabdomyolysis atrial fibrillation with RVR. Patient was found to have decubitus ulcers/necrotic tissue in the gluteal cleft. Local wound care will be addressed. Patient is currently on IV antibiotics the form of Zosyn and vancomycin which will be continued. Continue supportive care. Further recommendations as patient progresses. The above dictated assessment and findings were discussed with Dr. Giraldo. The impression and plan of care have been directed as dictated. Yaneth Blum nurse practitioner acting as scribe for Dr. Giraldo.
[2018-08-04] MEDS: LACTATED RINGERS 1,000 ML IV SCH (09:59)
[2018-08-04] MEDS: VANCOMYCIN 2,250 MG in SODIUM CHLORIDE 0.9% 500 ML 500 ML IVPB SCH (10:01)
[2018-08-04 10:19] VITALS: BMI 48.2
--- NOTE | 2018-08-04 11:40 | XR ---
EXAMINATION TYPE: XR chest 1V confirm line [facility] DATE OF EXAM: 08/04/2018 COMPARISON: 08/04/2018 INDICATION: Central line TECHNIQUE: Single frontal view of the chest is obtained. FINDINGS: The heart size is enlarged. The pulmonary vasculature is normal. Mild infiltrate is at the left base. A left central venous catheter is present, the tip is difficult to identify but appears to be in the proximal superior vena cava region. Endotracheal tube is present with the tip above the antoni. Nasog astric tube transverses the thorax. No pneumothorax is present post line placement. Thickening at th e left apex is again evident. IMPRESSION: 1. No pneumothorax post central line placement. Tip appears to be within the proximal superior vena c adalgisa region. 2. Additional lines and catheters stable in position. 3. Left lower lobe infiltrate. 4. Cardiomegaly
[2018-08-04] MEDS: CLOPIDOGREL 75 MG TAB PO SCH (11:52)
[2018-08-04] MEDS: ASPIRIN 300 MG SUPP RECTAL SCH (11:53)
[2018-08-04 12:09] LABS: Glucose,Whole Blood 155 mg/dL (75-99)
[2018-08-04] MEDS: NOREPINEPHRINE 16 MG in SODIUM CHLORIDE 0.9% 250 ML IV SCH (12:19)
--- NOTE | 2018-08-04 12:20 | P.PN ---
Subjective Progress Note Date: 08/04/18 78-year-old male with a past medical history significant for hypertension, osteoarthritis, sleep apnea, TIA, and obesity who underwent CABG x 4 on 07/25/[address] Acharya after undergoing recent cardiac cath revealing triple vessel disease. Dr. Fuchs was consulted for medical management. 07/26/2018 The patient was seen and examined postoperatively in the intensive care unit. Patient was extubated during the night. He is on NC with oxygen saturations greater than 92%. He remains sleepy this morning but is easily arousable to verbal stimuli. He is on primacor, low dose levophed, and an insulin drip. Blood sugars are in the 110s. Chest tubes x 2 intact. He is hemodynamically stable. Reports his pain is tolerable this morning. WBC 13.3. Hemoglobin 8.1. Potassium 4.1. 07/27/2018 Patient examined at the bedside with Dr. Fuchs. Apparently patient became very combative and agitated last night. He was given Haldol at 0212 in the morning. The patient is currently extremely lethargic and difficult to arouse. He responds to painful stimuli and will say one or two words, although garbled and hard to understand. Patient will not open his eyes. He remains on an insulin drip. It is currently paused. However, nursing reports when it is infusing he is requiring 8-9 units an hour. Blood sugars are 85, 94, 104, 108. 07/28/18 Patient examined at the bedside with Dr. Fuchs. Patient remains confused this morning, although improved since yesterday. He remains sleepy, but improved since yesterday. Patient had difficulty yesterday evening swallowing pills. Speech eval is to be completed today. He remains on insulin drip. Currently paused. Blood sugars 110, 115, 113, 122. 07/31/2018 Patient examined at the bedside. He has been moved to the selective care unit. Patient is much more awake today in comparison to last evaluation. He is on thickened liquids and is complaining that he would like to have regular liquids. Will ask speech to re-eval patient today. He is on novolog sliding scale. Blood sugars are 141, 99, 136, 121, 128. 08/01/2018 Patient examined this morning with Dr. Fuchs. Patient is sitting up in the chair. He is scheduled for US this morning. Patient underwent modified barium swallow yesterday. He was changed from honey thickened liquids to clear liquids. No straws. Level 3 dysphagia: chopped. WBC 14.1. Hemoglobin 7.7. Blood sugars have been 114, 127, 179, 135, 135. Recommend decreasing the amount of juices and other high sugar content items that are delivered to patient. 08/02/2018 Patient examined this morning with Dr. Fuchs. Patient sitting up in the chair. Eating breakfast. Remains on novolog sliding scale coverage. Patient did have an elevated blood sugar yesterday of 220. Patient states his family member went to [employer] and brought the patient a grape juice and an apple juice. Blood sugar this morning is 133. 08/03/2018 Patient examined this morning at the bedside. Patient got up to the bathroom yesterday unassisted and fell. No apparent injuries. Patient is more lethargic this morning. Patient has not been using his incentive spirometer. He remains on novolog sliding scale. 08/04/2018 Patient continued to deteriorate yesterday. He was placed on a BiPAP and transferred to the intensive care unit. He was intubated and placed on mechanical ventilation. Currently on FiO2 of 50%. The patient was started on Levophed for hypotension. Indwelling urinary catheter was inserted. Patient had decreased urinary output overnight. He was bolused with 2 L normal saline. Patient went into A. fib with RVR overnight and was started on amiodarone. He has since converted to sinus rhythm. Patient was febrile overnight. White count today is 32.1. Urine and sputum cultures are currently pending. Infectious disease has been consulted. Tube feedings are to be started today. Blood sugars are increased: 134, 166, 167. PHYSICAL EXAM: GENERAL: This is a 78-year-old male who is sedated and intubated on mechanical ventilation HEENT: ET tube present. Head is atraumatic, normocephalic. Pupils are equal, round, and reactive to light. Sclerae anicteric. Conjunctivae are clear. Mucus membranes of the mouth are moist. Neck is supple. RESPIRATORY: Diminished. Patient maintaining oxygen saturation greater than 92% on mechanical ventilation. CARDIOVASCULAR: Regular rate and rhythm. S1 and S2 noted. No systolic or diastolic murmur auscultated. No JVD noted. No S3 or S4 noted. GASTROINTESTINAL: Obese. No distention noted. Abdomen soft and round. Bowel sounds auscultated x 4 quadrants. No pain or tenderness noted upon palpation. INTEGUMENTARY: No cyanosis. No jaundice. No rashes noted. No cellulitis noted. EXTREMITIES: 2+ peripheral pulses. Trace bilateral lower extremity edema. NEUROLOGIC: Unable to assess due to continuous sedation and mechanical ventilation PSYCHIATRIC: Unable to assess due to continuous sedation and mechanical ventilation ASSESSMENT: Coronary artery disease, s/p CABG x 4 Acute blood loss, an expected outcome of surgery Acute hypoxic respiratory failure requiring mechanical ventilation Paroxysmal atrial fibrillation with RVR, converted to sinus rhythm with amiodarone Hypotension requiring vasopressor support Acute kidney injury Fall from standing, no injury Elevated liver enzymes Hypertension History of TIA Sleep apnea Aortic stenosis Osteoarthritis BPH History of lap-band Nicotine dependence, in remission Morbid obesity: BMI 49.4 PLAN: Continue post op care per Dr. Acharya Continue Novolog sliding scale. Change to every 4 hours as patient is on mechanical ventilation Begin Levemir 30 units at bedtime due to hyperglycemia Tube feeding to be started today. Will monitor blood sugars and make adjustments to insulin regimen as needed Activity as tolerated Monitor labs Monitor vital signs and address as appropriate Further recommendations pending patient's course Nurse practitioner note has been reviewed by physician. Signing provider agrees with the documented findings, assessment, and plan of care. Objective - Vital Signs Vital signs: Vital Signs Temp 99.4 F 08/04/18 08:00 Pulse 75 08/04/18 11:45 Resp 29 H 08/04/18 10:00 BP 98/45 08/04/18 10:00 Pulse Ox 92 L 08/04/18 10:00 Intake & Output 08/03/18 08/04/18 08/04/18 18:59 06:59 18:59 Intake Total 994 3265.444 1390.907 Output Total 1000 423 152 Balance -6 2842.444 1238.907 Weight 159 kg 152.5 kg 152.5 kg Intake: IV 600 2446 832 0.9NS 500 ACETAMINOPHEN IV (For NPO 100 ) 1,000 mg In Empty Bag 1 bag @ 400 mls/hr IVPB Q6HR PRN Rx#:[id number] Lactated Ringers 1,000 ml 825 300 @ 75 mls/hr IV .[id number] [facility] Rx#:[id number] Piperacillin-Tazobactam 3 100 .375 gm In Sodium Chloride 0.9% 100 ml @ 25 mls/hr IVPB Q8HR [facility] Rx# :[id number] Sodium Chloride 0.9% 148 415 5831 20 ml 500 ml @ 999 mls/hr IV .Q31M [facility] Rx#:[id number] pressure bags 21 12 Intake, IV Titration 394 819.444 558.907 Amount Amiodarone 450 mg In 208.907 Dextrose 5% in Water 250 ml @ 1 MG/MIN 34.53 mls/ hr IV .Q7H31M PRN Rx#: [id number] Lactated Ringers 1,000 ml 60 @ 20 mls/hr IV .Q24H [facility] Rx#:[id number] Norepinephrine 4 mg In 740.563 250 Sodium Chloride 0.9% 250 ml @ Titrate IV .Q0M [facility] Rx#:[id number] Propofol 1,000 mg In 78.881 100 Empty Bag 1 bag @ Titrate IV .Q0M [facility] Rx#: [id number] Vancomycin 2,250 mg In 334 Sodium Chloride 0.9% 500 ml 500 ml @ 167 mls/hr IVPB Q16H [facility] Rx#: [id number] Output: Gastric Drainage 150 Urine 1000 273 152 Other: Voiding Method Indwelling Catheter Indwelling Catheter # Bowel Movements 1 ABP, PAP, CO, CI - Last Documented Arterial Blood Pressure 106/51 Pulmonary Artery Pressure 44/8 Cardiac Output 7.2 Cardiac Index 2.8 - Labs CBC & Chem 7: 08/04/18 05:43 08/04/18 05:43 Labs: Abnormal Lab Results - Last 24 Hours (Table) 08/03/18 08/03/18 08/03/18 Range/Units 13:15 15:04 17:33 WBC (3.8-10.6) k/uL RBC (4.30-5.90) m/uL Hgb (13.0-17.5) gm/dL Hct (39.0-53.0) % MCV (80.0-100.0) fL MCHC (31.0-37.0) g/dL Plt Count (150-450) k/uL Neutrophils # (Manual) (1.3-7.7) k/uL Monocytes # (Manual) (0-1.0) k/uL PT (9.0-12.0) sec INR (<1.2) APTT (22.0-30.0) sec ABG pCO2 (35-45) mmHg ABG pO2 (83-108) mmHg ABG HCO3 (21-25) mmol/L Chloride (98-107) mmol/L Carbon Dioxide (22-30) mmol/L BUN (9-20) mg/dL Creatinine (0.66-1.25) mg/dL Glucose (74-99) mg/dL POC Glucose (mg/dL) 159 H 151 H (75-99) mg/dL Calcium (8.4-10.2) mg/dL Phosphorus (2.5-4.5) mg/dL Magnesium (1.6-2.3) mg/dL Total Bilirubin (0.2-1.3) mg/dL AST (17-59) U/L ALT (21-72) U/L Total Creatine Kinase (55-170) U/L CK-MB (CK-2) (0.0-2.4) ng/mL Troponin I (0.000-0.034) ng/mL Total Protein (6.3-8.2) g/dL Albumin (3.5-5.0) g/dL Urine Protein Trace H (Negative) Urine Blood Trace H (Negative) Urine Bacteria Rare H (None) /hpf Urine Mucus Rare H (None) /hpf 08/03/18 08/03/18 08/03/18 Range/Units 20:24 23:17 23:17 WBC (3.8-10.6) k/uL RBC (4.30-5.90) m/uL Hgb (13.0-17.5) gm/dL Hct (39.0-53.0) % MCV (80.0-100.0) fL MCHC (31.0-37.0) g/dL Plt Count (150-450) k/uL Neutrophils # (Manual) (1.3-7.7) k/uL Monocytes # (Manual) (0-1.0) k/uL PT 12.6 H (9.0-12.0) sec INR 1.2 H (<1.2) APTT 21.3 L (22.0-30.0) sec ABG pCO2 (35-45) mmHg ABG pO2 (83-108) mmHg ABG HCO3 (21-25) mmol/L Chloride (98-107) mmol/L Carbon Dioxide (22-30) mmol/L BUN (9-20) mg/dL Creatinine (0.66-1.25) mg/dL Glucose (74-99) mg/dL POC Glucose (mg/dL) 134 H (75-99) mg/dL Calcium (8.4-10.2) mg/dL Phosphorus (2.5-4.5) mg/dL Magnesium (1.6-2.3) mg/dL Total Bilirubin (0.2-1.3) mg/dL AST (17-59) U/L ALT (21-72) U/L Total Creatine Kinase 2069 H* (55-170) U/L CK-MB (CK-2) (0.0-2.4) ng/mL Troponin I 2.820 H* (0.000-0.034) ng/mL Total Protein (6.3-8.2) g/dL Albumin (3.5-5.0) g/dL Urine Protein (Negative) Urine Blood (Negative) Urine Bacteria (None) /hpf Urine Mucus (None) /hpf 08/04/18 08/04/18 08/04/18 Range/Units 05:43 05:43 05:43 WBC 32.1 H (3.8-10.6) k/uL RBC 2.55 L (4.30-5.90) m/uL Hgb 7.8 L (13.0-17.5) gm/dL Hct 25.5 L (39.0-53.0) % MCV 100.1 H (80.0-100.0) fL MCHC 30.6 L (31.0-37.0) g/dL Plt Count 524 H (150-450) k/uL Neutrophils # (Manual) 26.90 H (1.3-7.7) k/uL Monocytes # (Manual) 1.28 H (0-1.0) k/uL PT (9.0-12.0) sec INR (<1.2) APTT (22.0-30.0) sec ABG pCO2 (35-45) mmHg ABG pO2 (83-108) mmHg ABG HCO3 (21-25) mmol/L Chloride 110 H (98-107) mmol/L Carbon Dioxide 19 L (22-30) mmol/L BUN 44 H (9-20) mg/dL Creatinine 2.02 H (0.66-1.25) mg/dL Glucose 167 H (74-99) mg/dL POC Glucose (mg/dL) (75-99) mg/dL Calcium 7.4 L (8.4-10.2) mg/dL Phosphorus 5.9 H (2.5-4.5) mg/dL Magnesium 2.8 H (1.6-2.3) mg/dL Total Bilirubin 1.4 H (0.2-1.3) mg/dL AST 446 H (17-59) U/L ALT 236 H (21-72) U/L Total Creatine Kinase 4060 H* (55-170) U/L CK-MB (CK-2) 12.2 H (0.0-2.4) ng/mL Troponin I 2.720 H* (0.000-0.034) ng/mL Total Protein 5.5 L (6.3-8.2) g/dL Albumin 2.7 L (3.5-5.0) g/dL Urine Protein (Negative) Urine Blood (Negative) Urine Bacteria (None) /hpf Urine Mucus (None) /hpf 08/04/18 08/04/18 Range/Units 06:59 08:16 WBC (3.8-10.6) k/uL RBC (4.30-5.90) m/uL Hgb (13.0-17.5) gm/dL Hct (39.0-53.0) % MCV (80.0-100.0) fL MCHC (31.0-37.0) g/dL Plt Count (150-450) k/uL Neutrophils # (Manual) (1.3-7.7) k/uL Monocytes # (Manual) (0-1.0) k/uL PT (9.0-12.0) sec INR (<1.2) APTT (22.0-30.0) sec ABG pCO2 32 L (35-45) mmHg ABG pO2 77 L (83-108) mmHg ABG HCO3 19 L (21-25) mmol/L Chloride (98-107) mmol/L Carbon Dioxide (22-30) mmol/L BUN (9-20) mg/dL Creatinine (0.66-1.25) mg/dL Glucose (74-99) mg/dL POC Glucose (mg/dL) 166 H (75-99) mg/dL Calcium (8.4-10.2) mg/dL Phosphorus (2.5-4.5) mg/dL Magnesium (1.6-2.3) mg/dL Total Bilirubin (0.2-1.3) mg/dL AST (17-59) U/L ALT (21-72) U/L Total Creatine Kinase (55-170) U/L CK-MB (CK-2) (0.0-2.4) ng/mL Troponin I (0.000-0.034) ng/mL Total Protein (6.3-8.2) g/dL Albumin (3.5-5.0) g/dL Urine Protein (Negative) Urine Blood (Negative) Urine Bacteria (None) /hpf Urine Mucus (None) /hpf Microbiology - Last 24 Hours (Table) 08/04/18 00:02 Sputum Culture - Preliminary Sputum 08/03/18 13:15 Urine Culture - Preliminary Urine,Catheterized
--- NOTE | 2018-08-04 12:39 | P.PN ---
Subjective Progress Note Date: 08/04/18 Principal diagnosis: Acute hypoxic respiratory failure, acute septic shock. This is 78-year-old white male patient of Dr. Fuchs, who we met on 07/20/2018 for preop pulmonary evaluation for coronary artery bypass grafting. Patient has been having progressive dyspnea, he was referred to cardiology, had a cardiac catheterization which revealed severe multivessel coronary artery disease and moderate aortic stenosis. Patient had a 90% stenosis of his RCA, 80 % stenosis of his circumflex, 95% stenosis of his mid LAD. Aortic valve surface area was 1.2 patient is afebrile, hemodynamically stable,. Other medical history includes previous history of CVA, hypertension, osteoarthritis, and 9 prostatic hypertrophy, sleep apnea syndrome, previous history of bariatric surgery, morbid obesity, and remote history of tobacco use. His preop bedside spirometry showed FEV1 of 86% of predicted, FVC of 71% of predicted, mild restriction. Patient was deferred to cardiothoracic surgery, and was recommended a surgical intervention, today on 07/25/2018 patient underwent four-vessel coronary artery bypass grafting, with MATT to LAD, SVG to the PLB, SVG to the diagonal, and SVG to the OM 1. Patient is seen in the intensive care unit, he is sedated, on mechanical ventilator, currently SIMV mode of ventilation with a rate of 12, tidal volume of 580, FiO2 100%, and PEEP of 10. Chest x-ray showed ET tube, chest tubes, right IJ PA catheter in appropriate positions, lungs are clear of consolidation, no heart failure. Patient is in sinus rhythm, his maintenance IV fluids of LR at 50, milrinone at 0.5 mics/per kilo per minute, Levaquin fed at 2 mics per minute, insulin at 2 units per hour, Diprivan at 15 mics per kilo per minute, and nitro at 5 mics/ min. Blood work showed WBC of 15.2, hemoglobin of 7.9, INR 1.5, choice and renal profile were within normal limits, blood gas showed pO2 of 174, pCO2 48, and pH is 7.3. Patient has 2 mediastinal chest tubes, left pleural chest tube, and there has been a 300 mL of sanguinous output in the mediastinal chest tube, and 10 mL in the left pleural. Hemodynamically patient is stable, cardiac output and index are 5.6 and 2.2 respectively, PA pressures 35/21. On 07/26/2018 patient seen in follow-up in the intensive care unit. This morning he is extubated, sitting up in the chair position in bed, he was extubated at about 1:30 in the morning. Currently on 6 L per nasal cannula, his pulse ox is 96%, he is awake and alert, acute distress, sinus rhythm on the monitor. Today's chest x-ray has been reviewed by Dr. Rose and showed stable bibasilar opacities and pleural effusions. Hemodynamically patient is stable. Levo has been off since 9:00 this morning, maintenance IV fluids is LR at 50 ML per hour, insulin drip is at 5 units per hour, no other drips. Cardiac output and index of 6.2 and 2.4 respectively. Today's lab work has been reviewed, WBCs 13.3, hemoglobin is 8.1, with recent blood gas prior to extubation showed pO2 of 72, pCO2 of 40%, and pH of 7.37, this was done and FiO2 40%, BMP was all within normal limits. Patient has underlying sleep apnea , on CPAP therapy. Patient may require some BiPAP support at night and is needed during the day. We'll continue to monitor, currently in no distress, he is awake and alert and responding to questions appropriately. 2 mediastinal and left pleural chest tubes are draining serosanguineous output. Mediastinal chest tube output is 560 over the last 24 hours, left pleural chest tube output is 378 in the last 24 hours. Smith catheter is present, draining urine in order of 30-45 ML per hour. We'll encourage incentive spirometry, we'll try to mobilize the patient, and set him up at the bedside. On 07/27/2018 patient seen in follow-up in the intensive care unit. This morning he is lethargic, mumbling, patient was apparently confused, agitated and delirious last night, received a dose of Haldol after which he became lethargic, hypotensive, and required albumin and levofed for blood pressure support. This morning he is off the levofed infusion. Blood gas was done, which showed pO2 of 75, pCO2 of 35, and pH of 7.47 as was done on FiO2 of 55%. There is some blood work was reviewed, WBCs 13.7, hemoglobin is 7.1, sodium is 140, potassium is 4.2, chloride is 109, B1 is 28 and creatinine 1.13. On 9 L per high flow nasal cannula, and his pulse ox is 96%, patient is afebrile, blood pressure is 150/64, PA pressure is 44/8, and cardiac output and index hours 7.2 and 2.8. Patient is mediastinal chest tubes removed, left pleural chest tube remains in place with serosanguineous thin output. Has been 760 mL out of the left pleural and the last 24 hours, and 250 on of the mediastinal chest tubes. Lung sounds are positive for scattered rhonchi, he is somnolent, has a loose nonproductive cough. Today's chest x-ray was reviewed by Dr. Rose, and shows stable cardiomegaly with small to moderate left pleural effusion tracking up to the left apex and possible mild pulmonary vascular congestion, retrocardiac atelectasis. Urinary catheter is in, and his urine output is 2240 ML per hour. Maintenance IV fluid is lactated Ringer's at a rate of 20 ML per hour, no other drips. On 07/28/2018 patient seen in follow-up in the intensive care unit. Patient remains confused, but cooperative. He is in the chair, currently on 2 L per nasal cannula, his pulse ox is 95%, afebrile, hemodynamically stable. Today's lab work has been reviewed, showed WBC of 15.1, hemoglobin of 7.6, platelet count of 131, sodium of 145, potassium is 4.2, chloride is 111, BUN is 33, creatinine 1.03. Chest x-ray showed slight interval worsening mild pulmonary vascular congestion and bibasilar atelectasis. Patient denied any shortness of breath, patient is currently in A. fib RVR, and her beta rodríguez therapy was increased per CT surgery come patient received a dose of IV Lasix. Encourage deep breathing and coughing. On 07/31/2018 patient seen in follow-up in selective care unit, he is resting in bed, in no acute distress, seems much more alert and oriented, she knew where he was, he knew the month and the president. He states he is having some trouble swallowing. Denies any dyspnea, pulse ox on 3 L per nasal cannula is 95 %, respirations are even and nonlabored, lung sounds are positive for a few rales at the left base, IS effort 500-750, chest x-ray showed no cardiopulmonary process. Today's labs showed WBC of 10.4, hemoglobin is 7.6, BMP was essentially unremarkable On 08/01/2018 patient seen in follow-up on selective care unit, he sitting up in the recliner, in no acute distress, agitation or delirium. She is alert and oriented 3, pleasant, cooperative. Pulse oximetry on 2 L per nasal cannula is 98%, vital signs are stable, no fever or chills, and today's chest x-ray has been reviewed by Dr. Velarde, and showed left basilar atelectasis and suspected small left pleural effusion, so showed left apical density that could possibly be related to atelectasis or patient's position during film taking. Lung sounds are diminished, with some limited crackles at the right base. Yesterday patient underwent modified barium swallow which showed transient penetration with thin liquids and pulling in the vallecular with honey thick liquids. Patient is on a modified diet with chopped food and consistent carbohydrate, and aspiration precautions. Labs have been reviewed, WBC 14.1, hemoglobin is 7.7, sodium is 144, potassium is 4.1, chloride is 112, BUN is 31 and creatinine 0.90. On 08/02/2018 patient seen in follow-up on selective care unit. He is awake and alert, oriented 3. He states he had a fall this morning when he got up unassisted and started walking to the bathroom. No apparent injury. Room air pulse ox was 94% this morning , now patient is on supplemental oxygen currently at 4 L per nasal cannula. No orsening dyspnea, lung sounds are diminished. No crackles or rhonchi, incentive spirometry effort is 500-750. New chest x-rays, today's labs have been reviewed , WBC is 12.6, hemoglobin 7.9, but he was 141, but potassium is 4.4 chloride is 109, was 25 and creatinine 0.85. No new chest x-ray today On 08/03/2018 patient seen in follow-up on selective care unit. He confused, increased from yesterday, quite congested, tachypneic. Cough is weak,oral membranes are quite dry, and there is food residue oral secretions in his mouth. His respiratory rate is in the upper 30s, was unable to do his incentive spirometer, x-ray was reviewed and showed diffuse left lung atelectasis. Blood gas was obtained and showed pO2 of 69, pCO2 of 27, and pH of 7.50, respiratory alkalosis and hypoxemia. Patient was then placed on BiPAP support, is actually tolerating it quite well, he is resting, possibility of left pleural effusion is not excluded, so we will obtain a ultrasound of the left chest with markings. We will transfer the patient to the intensive care unit for closer monitoring. Labs have been reviewed, increased white count noted, WBC 17.2, hemoglobin is 8.1, sodium is 143, potassium is 4.6, chloride is 110, B1 is 27 creatinine 1.05. Urinalysis was completed, showed some rare bacteria and mucus, with trace protein blood, does not look infected, culture was also sent. On 08/04/2018, patient was transferred yesterday after I evaluated the patient on the floor to the intensive care unit. Later in the evening, patient was noted to have hardly any urine output, he was becoming more and more hypotensive requiring levo fed, and his mental status was even getting worse. Patient was noted to hypoventilate, and was not doing well. Patient was noted to be unable to protect his airways, and his mental status was getting worse. Hence I recommended immediate intubation, I also recommended CT of the brain to be done as soon as possible which was done. Patient is being evaluated this morning. He is now on mechanical ventilation, assist control rate of 20 tidal volume of 500 FiO2 of 50% PEEP of 5. Patient is on 25 g of norepinephrine per minute, he is on amiodarone drip 0.5 mg/m, he is also on propofol at 25 mcg/kg/m , and he is on broad-spectrum antibiotics. Patient was cultured, results are pending. Empirically started on antibiotics yesterday including Zosyn and vancomycin. He was given fluid boluses last night, and his urine output picked up late in the evening with the support of norepinephrine and with fluid boluses. His CBC showed significant leukocytosis with WBC count of 32.1 hemoglobin is 7.8. ABG this morning showed a pO2 of 77 pCO2 of 32 pH of 7.39. Electrolytes were noted to be normal bicarb is a bit low at 19 BUN is 44 creatinine 2.02. His creatinine yesterday was 1.05. Apparently the patient sustained a fall yesterday while he was on the medical floor, he tried to move on his own to go to the bathroom, and normally takes 4 people to ambulate the patient. Or assist him and walking. Patient apparently fell, and today I have noted that his CPK is up to 4060, his troponin is 2.72, his liver enzymes also were noted to be elevated. Obviously the patient developed significant facial injury, and hopefully fluids will improve his renal status and improve his ongoing rhabdomyolysis. Considering the patient is on high dose of norepinephrine, I went ahead and placed a left internal jugular central line and the patient. Objective - Vital Signs Vital signs: Vital Signs Temp 99.4 F 08/04/18 08:00 Pulse 75 08/04/18 11:45 Resp 29 H 08/04/18 11:30 BP 112/60 08/04/18 11:00 Pulse Ox 97 08/04/18 11:30 Intake & Output 08/03/18 08/04/18 08/04/18 18:59 06:59 18:59 Intake Total 994 3265.444 1469.220 Output Total 1000 423 207 Balance -6 2842.444 1262.220 Weight 159 kg 152.5 kg 152.5 kg Intake: IV 600 2446 910 0.9NS 500 ACETAMINOPHEN IV (For NPO 100 ) 1,000 mg In Empty Bag 1 bag @ 400 mls/hr IVPB Q6HR PRN Rx#:[id number] Lactated Ringers 1,000 ml 825 375 @ 75 mls/hr IV .[id number] [facility] Rx#:[id number] Piperacillin-Tazobactam 3 100 .375 gm In Sodium Chloride 0.9% 100 ml @ 25 mls/hr IVPB Q8HR [facility] Rx# :[id number] Sodium Chloride 0.9% 883 702 2943 20 ml 500 ml @ 999 mls/hr IV .Q31M [facility] Rx#:[id number] pressure bags 21 15 Intake, IV Titration 394 819.444 559.220 Amount Amiodarone 450 mg In 208.907 Dextrose 5% in Water 250 ml @ 1 MG/MIN 34.53 mls/ hr IV .Q7H31M PRN Rx#: [id number] Lactated Ringers 1,000 ml 60 @ 20 mls/hr IV .Q24H [facility] Rx#:[id number] Norepinephrine 16 mg In 0.313 Sodium Chloride 0.9% 250 ml @ Titrate IV .Q0M [facility] Rx#:[id number] Norepinephrine 4 mg In 740.563 250 Sodium Chloride 0.9% 250 ml @ Titrate IV .Q0M [facility] Rx#:[id number] Propofol 1,000 mg In 78.881 100 Empty Bag 1 bag @ Titrate IV .Q0M [facility] Rx#: [id number] Vancomycin 2,250 mg In 334 Sodium Chloride 0.9% 500 ml 500 ml @ 167 mls/hr IVPB Q16H [facility] Rx#: [id number] Output: Gastric Drainage 150 Urine 1000 273 207 Other: Voiding Method Indwelling Catheter Indwelling Catheter # Bowel Movements 1 ABP, PAP, CO, CI - Last Documented Arterial Blood Pressure 112/58 Pulmonary Artery Pressure 44/8 Cardiac Output 7.2 Cardiac Index 2.8 - Exam GENERAL EXAM: Revealed a 78-year-old white male, obese, sedated, on propofol, on mechanical ventilation, in no distress. HEENT: PERRLA, EOMI, no icterus, endotracheal tube and orogastric tube are intact. No JVD, no neck masses, no stridor, no carotid bruits. CHEST: No chest wall deformity. Symmetrical expansion. Sternal incision is clean dry and intact, well approximated, covered with surgical dressing, LUNGS: Equal air entry with diffuse rhonchi CVS: Distant S1 and S2, no gallops, no murmurs, no rubs ABDOMEN: Morbidly obese, Soft, nontender. No hepatosplenomegaly, normal bowel sounds, no guarding or rigidity. EXTREMITIES: No clubbing, no edema, no cyanosis, 2+ pulses and upper and lower extremities. Bilateral lower extremities are Toni wrapped, MUSCULOSKELETAL: Muscle strength cannot be assessed SPINE: No scoliosis or deformity SKIN: Significant tissue damage and ulceration in the buttocks area, between the folds, and that being addressed by infectious disease on the case. - Labs CBC & Chem 7: 08/04/18 05:43 08/04/18 05:43 Labs: Abnormal Lab Results - Last 24 Hours (Table) 08/03/18 08/03/18 08/03/18 Range/Units 13:15 15:04 17:33 WBC (3.8-10.6) k/uL RBC (4.30-5.90) m/uL Hgb (13.0-17.5) gm/dL Hct (39.0-53.0) % MCV (80.0-100.0) fL MCHC (31.0-37.0) g/dL Plt Count (150-450) k/uL Neutrophils # (Manual) (1.3-7.7) k/uL Monocytes # (Manual) (0-1.0) k/uL PT (9.0-12.0) sec INR (<1.2) APTT (22.0-30.0) sec ABG pCO2 (35-45) mmHg ABG pO2 (83-108) mmHg ABG HCO3 (21-25) mmol/L Chloride (98-107) mmol/L Carbon Dioxide (22-30) mmol/L BUN (9-20) mg/dL Creatinine (0.66-1.25) mg/dL Glucose (74-99) mg/dL POC Glucose (mg/dL) 159 H 151 H (75-99) mg/dL Calcium (8.4-10.2) mg/dL Phosphorus (2.5-4.5) mg/dL Magnesium (1.6-2.3) mg/dL Total Bilirubin (0.2-1.3) mg/dL AST (17-59) U/L ALT (21-72) U/L Total Creatine Kinase (55-170) U/L CK-MB (CK-2) (0.0-2.4) ng/mL Troponin I (0.000-0.034) ng/mL Total Protein (6.3-8.2) g/dL Albumin (3.5-5.0) g/dL Urine Protein Trace H (Negative) Urine Blood Trace H (Negative) Urine Bacteria Rare H (None) /hpf Urine Mucus Rare H (None) /hpf 08/03/18 08/03/18 08/03/18 Range/Units 20:24 23:17 23:17 WBC (3.8-10.6) k/uL RBC (4.30-5.90) m/uL Hgb (13.0-17.5) gm/dL Hct (39.0-53.0) % MCV (80.0-100.0) fL MCHC (31.0-37.0) g/dL Plt Count (150-450) k/uL Neutrophils # (Manual) (1.3-7.7) k/uL Monocytes # (Manual) (0-1.0) k/uL PT 12.6 H (9.0-12.0) sec INR 1.2 H (<1.2) APTT 21.3 L (22.0-30.0) sec ABG pCO2 (35-45) mmHg ABG pO2 (83-108) mmHg ABG HCO3 (21-25) mmol/L Chloride (98-107) mmol/L Carbon Dioxide (22-30) mmol/L BUN (9-20) mg/dL Creatinine (0.66-1.25) mg/dL Glucose (74-99) mg/dL POC Glucose (mg/dL) 134 H (75-99) mg/dL Calcium (8.4-10.2) mg/dL Phosphorus (2.5-4.5) mg/dL Magnesium (1.6-2.3) mg/dL Total Bilirubin (0.2-1.3) mg/dL AST (17-59) U/L ALT (21-72) U/L Total Creatine Kinase 2069 H* (55-170) U/L CK-MB (CK-2) (0.0-2.4) ng/mL Troponin I 2.820 H* (0.000-0.034) ng/mL Total Protein (6.3-8.2) g/dL Albumin (3.5-5.0) g/dL Urine Protein (Negative) Urine Blood (Negative) Urine Bacteria (None) /hpf Urine Mucus (None) /hpf 08/04/18 08/04/18 08/04/18 Range/Units 05:43 05:43 05:43 WBC 32.1 H (3.8-10.6) k/uL RBC 2.55 L (4.30-5.90) m/uL Hgb 7.8 L (13.0-17.5) gm/dL Hct 25.5 L (39.0-53.0) % MCV 100.1 H (80.0-100.0) fL MCHC 30.6 L (31.0-37.0) g/dL Plt Count 524 H (150-450) k/uL Neutrophils # (Manual) 26.90 H (1.3-7.7) k/uL Monocytes # (Manual) 1.28 H (0-1.0) k/uL PT (9.0-12.0) sec INR (<1.2) APTT (22.0-30.0) sec ABG pCO2 (35-45) mmHg ABG pO2 (83-108) mmHg ABG HCO3 (21-25) mmol/L Chloride 110 H (98-107) mmol/L Carbon Dioxide 19 L (22-30) mmol/L BUN 44 H (9-20) mg/dL Creatinine 2.02 H (0.66-1.25) mg/dL Glucose 167 H (74-99) mg/dL POC Glucose (mg/dL) (75-99) mg/dL Calcium 7.4 L (8.4-10.2) mg/dL Phosphorus 5.9 H (2.5-4.5) mg/dL Magnesium 2.8 H (1.6-2.3) mg/dL Total Bilirubin 1.4 H (0.2-1.3) mg/dL AST 446 H (17-59) U/L ALT 236 H (21-72) U/L Total Creatine Kinase 4060 H* (55-170) U/L CK-MB (CK-2) 12.2 H (0.0-2.4) ng/mL Troponin I 2.720 H* (0.000-0.034) ng/mL Total Protein 5.5 L (6.3-8.2) g/dL Albumin 2.7 L (3.5-5.0) g/dL Urine Protein (Negative) Urine Blood (Negative) Urine Bacteria (None) /hpf Urine Mucus (None) /hpf 08/04/18 08/04/18 08/04/18 Range/Units 06:59 08:16 12:06 WBC (3.8-10.6) k/uL RBC (4.30-5.90) m/uL Hgb (13.0-17.5) gm/dL Hct (39.0-53.0) % MCV (80.0-100.0) fL MCHC (31.0-37.0) g/dL Plt Count (150-450) k/uL Neutrophils # (Manual) (1.3-7.7) k/uL Monocytes # (Manual) (0-1.0) k/uL PT (9.0-12.0) sec INR (<1.2) APTT (22.0-30.0) sec ABG pCO2 32 L (35-45) mmHg ABG pO2 77 L (83-108) mmHg ABG HCO3 19 L (21-25) mmol/L Chloride (98-107) mmol/L Carbon Dioxide (22-30) mmol/L BUN (9-20) mg/dL Creatinine (0.66-1.25) mg/dL Glucose (74-99) mg/dL POC Glucose (mg/dL) 166 H 155 H (75-99) mg/dL Calcium (8.4-10.2) mg/dL Phosphorus (2.5-4.5) mg/dL Magnesium (1.6-2.3) mg/dL Total Bilirubin (0.2-1.3) mg/dL AST (17-59) U/L ALT (21-72) U/L Total Creatine Kinase (55-170) U/L CK-MB (CK-2) (0.0-2.4) ng/mL Troponin I (0.000-0.034) ng/mL Total Protein (6.3-8.2) g/dL Albumin (3.5-5.0) g/dL Urine Protein (Negative) Urine Blood (Negative) Urine Bacteria (None) /hpf Urine Mucus (None) /hpf Microbiology - Last 24 Hours (Table) 08/04/18 00:02 Sputum Culture - Preliminary Sputum 08/03/18 13:15 Urine Culture - Preliminary Urine,Catheterized Assessment and Plan Assessment: #1. Acute hypoxic respiratory failure related to atelectasis in the left lung, suspect ongoing sepsis and septic shock. Source is to be identified, hence the patient will be started on empiric broad-spectrum antibiotics. Infectious disease consultation was initiated. #2. Symptomatic multivessel coronary artery disease, status post four-vessel bypass with MATT to LAD, SVG to the PLB, SVG to the diag, and to OM1, #3. Confusion, agitation, delirium in the postoperative period, may be related to metabolic encephalopathy #4. A. fib RVR, currently in sinus rhythm #5. Acute blood loss anemia, an expected outcome of bypass grafting surgery #6. Moderate aortic stenosis #7. Hypertension #8. Obstructive Sleep apnea syndrome on CPAP therapy. #9. History of CVA #10. Morbid obesity #11. History of bariatric surgery #12. Prostate enlargement #13. DJD #14 acute rhabdomyolysis secondary to fall #15 acute kidney injury related to hypotension could also be related to his acute rhabdomyolysis as noted above. #16 decubitus ulcer, being addressed by infectious disease. #17 hypotension, most likely secondary to sepsis and septic shock requiring norepinephrine. Recommendation: Patient will be kept on mechanical ventilation, continue hemodynamic support, nutritional support, fluids, antibiotics empirically, continue amiodarone, GI and DVT prophylaxis, left IJ central line was placed today for levo fed infusion. We will discuss his condition with the different consultants on the case, his overall prognosis is extremely poor and guarded. Patient is definitely critically ill. And he would likely be seen by different consultants for different issues. Critical care time is 40 minutes not including the time spent on procedures. Discussed his condition with his earlier today. Time with Patient: Greater than 30
--- NOTE | 2018-08-04 12:58 | PCN ---
PROCEDURE NOTE PROCEDURE: Placement of the left internal jugular central line. PREOPERATIVE DIAGNOSIS: Acute hypoxic respiratory failure and pulmonary edema, possible sepsis. POSTOPERATIVE DIAGNOSIS: Acute hypoxic respiratory failure and pulmonary edema, possible sepsis. Patient required a central line placement for norepinephrine infusion. ANESTHESIA USED: Two mL of 1% lidocaine. PROCEDURE DESCRIPTION: Patient was placed in a Trendelenburg position, the area of the left cervical region was prepared in a sterile fashion and drapes were applied. The area behind the posterior belly of the sternocleidomastoid was locally anesthetized with lidocaine. Then, a 26-gauge needle was inserted using the posterior approach, and I was able to cannulate easily the left internal jugular vein. Then, the needle was changed to a standard triple-lumen catheter needle, and this was advanced at the same site into the area behind the posterior belly of the sternocleidomastoid, and I was able to cannulate the left internal jugular vein again. A guidewire was placed, the area around the guidewire was dilated using a dilator. Then a triple-lumen catheter was inserted over the guidewire, and the guidewire was removed. Good blood flow was noted in the three different ports. Line was secured using 3.0 silk sutures and chest x-ray showed no evidence of any immediate complications. Procedure was well tolerated. MMODL / IJN: [id number] /
[2018-08-04 13:02] LABS: Creatine Kinase MB 9.7 ng/mL (0.0-2.4)
[2018-08-04 13:09] LABS: Troponin I 2.04 ng/mL (0.000-0.034)
[2018-08-04] MEDS ORDERED: SODIUM CHLORIDE 0.9% 500 ML 500 ML IV ONE (15:20)
[2018-08-04 16:50] LABS: Glucose,Whole Blood 149 mg/dL (75-99)
[2018-08-04] MEDS: TAMSULOSIN 0.4 MG CAP.ER.24H PO SCH (18:40)
[2018-08-04 20:02] LABS: Glucose,Whole Blood 92 mg/dL (75-99)
[2018-08-04] MEDS: INSULIN DETEMIR 100 UNIT/ML 10 ML VIAL SQ SCH (22:02)
[2018-08-04] MEDS: SENNOSIDES-DOCUSATE SODIUM 1 EACH TAB PO SCH (22:02)
[2018-08-04] MEDS: IOPAMIDOL-300 CONTRAST 30 ML VIAL (ORAL USE) PO PRN ×2 (22:04→23:17)
[2018-08-04] MEDS: IPRATROPIUM-ALBUTEROL 3 ML NEB INHALATION PRN (22:50)
[2018-08-04 23:20] LABS: Hemoglobin A1C 5.6 % (4.0-6.0)
--- NOTE | 2018-08-04 23:48 | P.CON ---
Consult Note - . Consult date: 08/04/18 Assessment/Plan:: This is a 78-year-old underwent coronary artery bypass grafting for 4 vessels on July 25. Patient did have some postoperative confusion but was transferred out of the selective care unit. He apparently had a fall a few days ago when he is trying to get to the bathroom and then he spent the rest of the day in bed. Irritated apparently takes for people to get him out of bed and he has been on a Arlene lift. Yesterday, patient was more lethargic with labored breathing and was placed on a BiPAP and patient was transferred back into the intensive care unit. He was able to follow commands but was weak. During the night he had decreased level of consciousness, developed A. fib with RVR and hypotension. He had a Smith catheter placed as he had no urine output for couple hours. He was given IV fluids of 2 L and started on levo fed currently at 25 mics. He was subsequently intubated and placed on mechanical ventilation. Temperature max yesterday was 101.5, white count 32.1 which has been gradually climbing since July 31. CK is 4060, troponins 2.8-0 and 2.7- 0, creatinine 2.0 to. Urine blood and sputum cultures were obtained yesterday. Patient was placed on amiodarone drip and has converted to sinus rhythm with frequent PACs. Patient was found to have a necrotic tissue at gluteal cleft. Unclear how long patient has had this. He has not had a bowel movement from July 31 until last night. At home, patient is normally not very active and sits most the time. He does drive his significant other to the grocery store but sits in the car. The patient was straight cath yesterday for 970 mL out. He currently has a Smith catheter in and urine output has been between 15 and 45 ML's per hour. Tube feeding to start today. Please see the counselor is dictated by nurse practitioner Mrs. Yaneth Blum. This 78-year-old male has a very complex past medical history regarding his severe coronary disease requiring the coronary artery bypass grafting procedure which was performed on July 25. He actually has had some improvement and had been without a selective care where he continues to have great difficulties. The patient has significant obesity and poor performance status. He probably suffered a fall related to toileting. He has significant decline in his status since that point in time with fever altered mental status hypotension and respiratory failure requiring reintubation, mechanical ventilation and vasopressor support. Is now with the significant changes the infectious diseases consultation was requested. On exam the patient does have evidence of a necrotic area on his coccyx which is concerning to a deeper infection and constantly imaging studies have been requested. The patient is also been evaluated by surgery with concerns to cholelithiasis and at the time of the computed tomography scan will also further evaluate the biliary tract and the gallbladder bed. Antimicrobial therapy with Zosyn and vancomycin is being utilized for now which would provide coverage for cholecystitis as well as a skin and soft tissue infection. The patient may require surgical intervention depending on these findings including the potential for debridement of the coccyx if there is necrotic tissue in this region. Continue aggressive supportive care cultures in process and we will monitor. I with evaluation, assessment and plan a 62 by nurse practitioner Mrs. Yaneth Blum.
[2018-08-04 23:54] LABS: Glucose,Whole Blood 159 mg/dL (75-99)
[2018-08-05] MEDS: METOPROLOL TARTRATE 5 MG/5 ML VIAL IVP SCH ×4 (00:30→17:01)
[2018-08-05] MEDS: INSULIN ASPART 100 UNIT/ML 1 ML 10 ML VIAL SQ SCH ×6 (00:30→20:51)
[2018-08-05] MEDS ORDERED: ACETAMINOPHEN IV (For NPO) 1,000 MG in EMPTY BAG 1 BAG IVPB PRN ×2 (01:00→21:18)
--- NOTE | 2018-08-05 01:18 | CT ---
EXAMINATION TYPE: CT abdomen pelvis wo con DATE OF EXAM: 08/05/2018 COMPARISON: None HISTORY: abscess, cholecystitis CT DLP: 2383 mGycm Automated exposure control for dose reduction was used. TECHNIQUE: Helical acquisition of images was performed from the lung bases through the pelvis. FINDINGS: There is oral contrast. There are bilateral pleural effusions. There is moderate pericardial effusion. Heart is slightly enla rged. There is patchy basilar pulmonary atelectasis and infiltrate. There is subcutaneous fluid and e taylor over the right lateral abdomen. There is epigastric hernia that contains fluid, this measures 6 x 2.5 cm. There is a gastric sling noted. Liver shows no focal defect. Bile ducts are not dilated. Gallbladder has normal size. I see no dilate d gallbladder. Spleen appears normal. There is no evidence of pancreatic mass. There is no adrenal mass. There is 5 mm nonobstructing calculus in the lateral left kidney. There is no hydronephrosis. Ureters are not dilated. There is no retroperitoneal adenopathy. Abdominal aorta i s atheromatous. There is multilevel posterior lumbar spine fusion surgery. There is no compression fr acture. There is no sign of free air. There is no evidence of a bowel obstruction. There is some free fluid in the right paracolic gutter. There is some fluid also in the presacral region that measures up to 1 cm in thickness There is minimal fluid in the left paracolic gutter. There is subcutaneous ed george around the abdomen. Bladder is empty. There is no inguinal hernia. There is moderately severe L4- 5 bony spinal stenosis. I see no oral contrast extravasation. There is no evidence of a bowel obstruc tion. IMPRESSION: BILATERAL LOWER LOBE PNEUMONIA WITH PLEURAL EFFUSIONS AND PERICARDIAL EFFUSION. CARDIOMEGALY. SUBCUTANEOUS FLUID AND EDEMA OVER THE RIGHT LATERAL ABDOMEN IS INCOMPLETELY EVALUATED IN THIS LARGE P ATIENT. SUBCUTANEOUS EDEMA AROUND THE ENTIRE ABDOMEN. L4-5 BONY SPINAL STENOSIS. MILD FLUID IN THE RIGHT SIDE PERITONEAL CAVITY. THERE IS SOME FLUID DENSIT Y IN THE PRESACRAL SPACE THAT COULD RELATE TO INFLAMMATORY PROCESS AND PRESACRAL ABSCESS. NO BONE WALDO TRUCTION SEEN TO SUGGEST OSTEOMYELITIS.
[2018-08-05] MEDS: PIPERACILLIN-TAZOBACTAM 3.375 GM in SODIUM CHLORIDE 0.9% 100 ML IVPB SCH ×2 (01:20→09:01)
[2018-08-05] MEDS: LACTATED RINGERS 1,000 ML IV SCH (01:38)
[2018-08-05] MEDS: AMIODARONE 450 MG in DEXTROSE 5% IN WATER 250 ML IV PRN ×2 (02:00)
[2018-08-05] MEDS: DEXTROSE 5% IN WATER 100 ML with AMIODARONE 150 MG IV PRN (02:33)
[2018-08-05] MEDS: PROPOFOL 1,000 MG in EMPTY BAG 1 BAG IV SCH ×5 (02:57→22:40)
[2018-08-05] MEDS: IPRATROPIUM-ALBUTEROL 3 ML NEB INHALATION PRN ×2 (03:03→23:27)
[2018-08-05 04:17] LABS: Glucose,Whole Blood 166 mg/dL (75-99)
[2018-08-05] MEDS: NOREPINEPHRINE 16 MG in SODIUM CHLORIDE 0.9% 250 ML IV SCH ×2 (04:40→15:35)
[2018-08-05 04:46] LABS: Glucose,Whole Blood 182 mg/dL (75-99)
[2018-08-05] MEDS: HEPARIN SODIUM,PORCINE 5,000 UNIT/ML 1 ML VIAL SQ SCH ×4 (05:13→23:32)
[2018-08-05 05:16] LABS: Basophils # (A) 0.1 k/uL (0-0.2); Basophils % (A) 0 %; Eosinophils % (A) 0 %; HCT 25.4 % (39.0-53.0); HGB 7.7 gm/dL (13.0-17.5); Hypochromasia Marked; Lymphocytes # (A) 1.5 k/uL (1.0-4.8); Lymphocytes % (A) 5 %; MCH 30.9 pg (25.0-35.0); MCHC 30.5 g/dL (31.0-37.0); MCV 101.4 fL (80.0-100.0); Macrocytosis Slight; Mean Platelet Volume 7.7; Monocytes # (A) 0.6 k/uL (0-1.0); Monocytes % (A) 2 %; Neutrophils # (A) 29.4 k/uL (1.3-7.7); Neutrophils % (A) 92 %; Platelet Count 444 k/uL (150-450); Poikilocytosis Slight; RBC 2.51 m/uL (4.30-5.90); RDW 15.1 % (11.5-15.5); WBC 31.8 k/uL (3.8-10.6)
[2018-08-05 05:29] LABS: Albumin 2.4 g/dL (3.5-5.0); Magnesium 2.6 mg/dL (1.6-2.3); Phosphorus 5.6 mg/dL (2.5-4.5); Total Bilirubin 2.1 mg/dL (0.2-1.3); Total Protein 5.1 g/dL (6.3-8.2)
[2018-08-05 05:34] LABS: Vancomycin,Random 16.2 ug/mL
--- NOTE | 2018-08-05 06:14 | XR ---
EXAMINATION TYPE: XR chest 1V portable DATE OF EXAM: 08/05/2018 HISTORY: resp failure. REFERENCE: Previous study dated 08/04/2018. FINDINGS: There has been a midline sternotomy. The patient's ET tube, NG tube and left internal jugular catheter remain in place, unchanged in appea bert. The heart is enlarged. There is bibasilar airspace disease, worse on the left than the right. There a re small, bilateral effusions, worse on the left than the right. IMPRESSION: 1. CARDIOMEGALY. 2. BIBASILAR AIRSPACE DISEASE. 3. BILATERAL PLEURAL EFFUSIONS.
[2018-08-05] MEDS: IPRATROPIUM-ALBUTEROL 3 ML NEB INHALATION SCH ×4 (07:47→20:19)
[2018-08-05] MEDS ORDERED: VANCOMYCIN 2,250 MG in SODIUM CHLORIDE 0.9% 500 ML 500 ML IVPB ONE (08:00)
[2018-08-05] MEDS ORDERED: SODIUM BICARB 8.4% 50 ML SYR (1 MEQ/ML) IV ONE (08:07)
[2018-08-05] MEDS: DILTIAZEM 50 MG in SODIUM CHLORIDE 0.9% 40 ML IV SCH ×3 (08:32→20:41)
[2018-08-05] MEDS ORDERED: FUROSEMIDE 10 MG/ML 4 ML VIAL IV STA (08:57)
[2018-08-05] MEDS: CLOPIDOGREL 75 MG TAB PO SCH (09:01)
[2018-08-05] MEDS: CHLORHEXIDINE GLUCONATE 15 ML CUP MUCOUS MEM SCH ×2 (09:02→20:50)
[2018-08-05] MEDS: PANTOPRAZOLE 40 MG/10 ML VIAL IVP SCH (09:02)
[2018-08-05] MEDS: FERROUS SULFATE 325 MG TAB PO SCH ×2 (09:02→17:01)
[2018-08-05] MEDS: ASCORBIC ACID 500 MG TAB PO SCH ×2 (09:02→17:01)
[2018-08-05] MEDS: OXYBUTYNIN CHLORIDE 5 MG TAB PO SCH (09:03)
[2018-08-05] MEDS: SODIUM CHLORIDE 0.9% 1,000 ML IV SCH ×2 (09:05→23:30)
[2018-08-05] MEDS: MUPIROCIN 2% OINT 22 GM TUBE NASAL SCH ×2 (09:06→20:51)
[2018-08-05] MEDS: MODAFINIL 100 MG TAB PO SCH (09:06)
--- NOTE | 2018-08-05 09:11 | PN ---
PROGRESS NOTE Mr. Justice is still on a ventilator. He is having intermittent atrial fibrillation. His liver functions are quite elevated. I am recommending that we not pursue the amiodarone drip and since he is in sinus, if he goes into atrial fibrillation, we will try rate control with Cardizem. Because of abnormal liver function tests, amiodarone is probably not the best choice. He is hemodynamically unstable, he is still nearly 25- 30 mics of levo. Blood pressure is in the 125 range. We will make weaning efforts slowly. There is a presacral abscess over his decubital ulcer area which may also be a source of infection. His blood cultures are not growing anything yet. Overall prognosis for this man is quite poor. The blood pressure is 124/70 on 25-30 mics of Levophed. Heart rate is 70s and sinus. S1-S2 heard normally. Lungs reveal fair air entry with the ventilator assisted breaths. Abdomen is distended. Lower extremities with diminished pulses. Prognosis remains guarded. We will continue supportive care and use Cardizem for IV and gradually wean off the of the Levophed if possible. Prognosis remains overall very guarded for this patient who has multiple comorbid conditions and now seems to have an active infection. MMODL / IJN: [id number] /
[2018-08-05 09:18] LABS: Glucose,Whole Blood 178 mg/dL (75-99)
[2018-08-05] MEDS: DEXTROSE 5% IN WATER 1,000 ML with SODIUM BICARB (1 MEQ/ML) 150 ML IV SCH (09:58)
[2018-08-05 10:33] LABS: ABG Base Excess -9.2 mmol/L; ABG HCO3 17 mmol/L (21-25); ABG Oxygen Saturation 89.5 % (94-97); ABG PCO2 34 mmHg (35-45); ABG PH 7.31 (7.35-7.45); ABG PO2 64 mmHg (83-108); ABG TCO2 18 mmol/L (19-24)
[2018-08-05] MEDS ORDERED: CALCIUM CHLORIDE 100 MG/ML 10 ML SYRINGE IVP STA (10:49)
--- NOTE | 2018-08-05 10:49 | P.PN ---
Subjective Progress Note Date: 08/05/18 Principal diagnosis: Coronary artery disease. Previous medical history of hypertension, previous tobacco dependence with preoperative FEV1 86% of predicted, obstructive sleep apnea, TIA, bilateral internal carotid artery stenosis 50-79%, prostate disorder , morbid obesity with history of bariatric surgery, and drop foot on the left leg. POD #11 coronary artery bypass grafting 4 vessels, left internal mammary to the left anterior descending artery, reverse saphenous vein graft to the diagonal artery, reverse saphenous vein graft to the second obtuse marginal artery, reverse saphenous vein graft to the posterior lateral branch of the right coronary artery. Endoscopic vein harvest of bilateral greater saphenous veins. Epi-aortic ultrasound. Intraoperative transesophageal echocardiogram. Closure of the sternum using titanium plating system. Postoperative acute blood loss anemia, expected postsurgical condition secondary to hemodilution and cardiopulmonary bypass pump. Acute confusion, unexpected, possibly from cardiopulmonary bypass pump. Elevation in transaminases, an expected outcome. Fall without injury, unexpected. Leukocytosis, positive SIRS criteria, possible sepsis, lactic acid 1.7, unexpected outcome. Acute hypoxic respiratory failure requiring reintubation, prolonged mechanical ventilation, unexpected outcome. Patient remains intubated on sedation in the intensive care unit. Requiring levo 25-30 mics to maintain blood pressure. Patient has had episodes of A. fib with RVR, especially with movement. He does not seem to tolerate any movement without becoming tachycardic. CT of the abdomen and pelvis was completed yesterday per infectious disease, demonstrates bilateral lower lobe infiltrates , subcu fluid over the right lateral abdomen, and questionable presacral abscess without any evidence of mild osteomyelitis. Urine culture remains negative. Blood culture remains negative 24 hours. Sputum culture demonstrates gram-negative and gram-positive organisms preliminarily. Continues on vancomycin and IV and Zosyn per infectious disease. Liver enzymes continue to elevate, patient to be taken off amiodarone and trialed on Cardizem per cardiology recommendations. White blood cell count 31.8 this morning, Tmax 103.1F overnight, creatinine down to 1.89, urine output 30-48 hour overnight. Patient remains critical. Objective - Vital Signs Vital signs: Vital Signs Temp 99.6 F 08/05/18 07:00 Pulse 74 08/05/18 10:00 Resp 26 H 08/05/18 10:00 BP 116/49 08/05/18 09:00 Pulse Ox 93 L 12/15/18 10:00 Intake & Output 08/04/18 08/05/18 08/05/18 18:59 06:59 18:59 Intake Total 3385.202 3655.830 1203.795 Output Total 627 550 315 Balance 2758.202 3105.830 888.795 Weight 152.5 kg 158.6 kg Intake: IV 2453 1946 914 0.9NS 1000 220 140 ACETAMINOPHEN IV (For NPO 100 ) 1,000 mg In Empty Bag 1 bag @ 400 mls/hr IVPB Q6HR PRN Rx#:[id number] Lactated Ringers 1,000 ml 900 900 150 @ 75 mls/hr IV .[id number] [facility] Rx#:[id number] Piperacillin-Tazobactam 3 175 100 .375 gm In Sodium Chloride 0.9% 100 ml @ 25 mls/hr IVPB Q8HR [facility] Rx# :[id number] Sodium Chloride 0.9% 500 520 500 ml 500 ml @ 999 mls/hr IV .Q31M [facility] Rx#:[id number] Vancomycin 2,250 mg In 500 Sodium Chloride 0.9% 500 ml 500 ml @ 167 mls/hr IVPB Q16H [facility] Rx#: [id number] pressure bags 33 51 24 Intake, IV Titration 802.202 339.830 209.795 Amount Amiodarone 450 mg In 259.000 Dextrose 5% in Water 250 ml @ 1 MG/MIN 34.53 mls/ hr IV .Q7H31M PRN Rx#: [id number] Norepinephrine 16 mg In 77.008 172.992 117.171 Sodium Chloride 0.9% 250 ml @ Titrate IV .Q0M [facility] Rx#:[id number] Norepinephrine 4 mg In 250 Sodium Chloride 0.9% 250 ml @ Titrate IV .Q0M [facility] Rx#:[id number] Propofol 1,000 mg In 216.194 166.838 92.624 Empty Bag 1 bag @ Titrate IV .Q0M [facility] Rx#: [id number] Tube Feeding 100 140 80 Other 30 1230 Output: Urine 627 550 315 Other: Voiding Method Indwelling Catheter Indwelling Catheter ABP, PAP, CO, CI - Last Documented Arterial Blood Pressure 135/53 Pulmonary Artery Pressure 44/8 Cardiac Output 7.2 Cardiac Index 2.8 - Constitutional General appearance: Present: morbidly obese, no acute distress - Respiratory Details: Lungs sounds diminished bilaterally. Respirations even, nonlabored on mechanical ventilation. Current settings volume-controlled mode, FiO2 90%, tidal volume 500, respiratory rate 20, PEEP 5. ABGs this morning 7.3/34/63/17/ 95%/-9.2 on 70% FiO2, increased to 90%. 8.0 ET tube present, 25 at the lip. Thick tannish white sputum being suctioned from ET tube. - Cardiovascular Details: S1, S2 present. Regular rate and rhythm, sinus rhythm on telemetry, had paroxysmal episodes of A. fib with RVR last night. Sternum stable. Generalized edema. Doppler lower extremity pulses present. Right radial arterial line present. Heart hugger, antiembolism stockings, SCDs present. - Gastrointestinal Gastrointestinal Comment(s): Abdomen soft, nondistended, obese. Active bowel sounds present 4 quadrants. OG tube present, tube feeding infusing at 20 mL/h. - Genitourinary Genitourinary Comment(s): Smith present draining clear yellow urine. Output 30-40 mL/h overnight. - Integumentary Integumentary Comment(s): Skin is warm and dry. Anterior chest incision well approximated with dry intact dressing present. Left lower extremity EVH site well approximated, positive serous drainage. Patient has unstageable ulcer with no drainage in the gluteal fold. - Psychiatric Psychiatric Comment(s): Sedated with propofol on mechanical ventilation. - Labs CBC & Chem 7: 08/05/18 04:45 08/05/18 04:45 Labs: Abnormal Lab Results - Last 24 Hours (Table) 08/04/18 08/04/18 08/04/18 Range/Units 12:06 12:08 16:48 WBC (3.8-10.6) k/uL RBC (4.30-5.90) m/uL Hgb (13.0-17.5) gm/dL Hct (39.0-53.0) % MCV (80.0-100.0) fL MCHC (31.0-37.0) g/dL Neutrophils # (1.3-7.7) k/uL Chloride (98-107) mmol/L Carbon Dioxide (22-30) mmol/L BUN (9-20) mg/dL Creatinine (0.66-1.25) mg/dL Glucose (74-99) mg/dL POC Glucose (mg/dL) 155 H 149 H (75-99) mg/dL Calcium (8.4-10.2) mg/dL Phosphorus (2.5-4.5) mg/dL Magnesium (1.6-2.3) mg/dL Total Bilirubin (0.2-1.3) mg/dL AST (17-59) U/L ALT (21-72) U/L Alkaline Phosphatase (38-126) U/L Total Creatine Kinase 2793 H* (55-170) U/L CK-MB (CK-2) 9.7 H (0.0-2.4) ng/mL Troponin I 2.040 H* (0.000-0.034) ng/mL Total Protein (6.3-8.2) g/dL Albumin (3.5-5.0) g/dL 08/04/18 08/05/18 08/05/18 Range/Units 23:52 04:16 04:44 WBC (3.8-10.6) k/uL RBC (4.30-5.90) m/uL Hgb (13.0-17.5) gm/dL Hct (39.0-53.0) % MCV (80.0-100.0) fL MCHC (31.0-37.0) g/dL Neutrophils # (1.3-7.7) k/uL Chloride (98-107) mmol/L Carbon Dioxide (22-30) mmol/L BUN (9-20) mg/dL Creatinine (0.66-1.25) mg/dL Glucose (74-99) mg/dL POC Glucose (mg/dL) 159 H 166 H 182 H (75-99) mg/dL Calcium (8.4-10.2) mg/dL Phosphorus (2.5-4.5) mg/dL Magnesium (1.6-2.3) mg/dL Total Bilirubin (0.2-1.3) mg/dL AST (17-59) U/L ALT (21-72) U/L Alkaline Phosphatase (38-126) U/L Total Creatine Kinase (55-170) U/L CK-MB (CK-2) (0.0-2.4) ng/mL Troponin I (0.000-0.034) ng/mL Total Protein (6.3-8.2) g/dL Albumin (3.5-5.0) g/dL 08/05/18 08/05/18 08/05/18 Range/Units 04:45 04:45 09:16 WBC 31.8 H (3.8-10.6) k/uL RBC 2.51 L (4.30-5.90) m/uL Hgb 7.7 L (13.0-17.5) gm/dL Hct 25.4 L (39.0-53.0) % MCV 101.4 H (80.0-100.0) fL MCHC 30.5 L (31.0-37.0) g/dL Neutrophils # 29.4 H (1.3-7.7) k/uL Chloride 111 H (98-107) mmol/L Carbon Dioxide 17 L (22-30) mmol/L BUN 48 H (9-20) mg/dL Creatinine 1.89 H (0.66-1.25) mg/dL Glucose 159 H (74-99) mg/dL POC Glucose (mg/dL) 178 H (75-99) mg/dL Calcium 7.0 L (8.4-10.2) mg/dL Phosphorus 5.6 H (2.5-4.5) mg/dL Magnesium 2.6 H (1.6-2.3) mg/dL Total Bilirubin 2.1 H (0.2-1.3) mg/dL AST 848 H (17-59) U/L ALT 487 H (21-72) U/L Alkaline Phosphatase 195 H (38-126) U/L Total Creatine Kinase (55-170) U/L CK-MB (CK-2) (0.0-2.4) ng/mL Troponin I (0.000-0.034) ng/mL Total Protein 5.1 L (6.3-8.2) g/dL Albumin 2.4 L (3.5-5.0) g/dL Microbiology - Last 24 Hours (Table) 08/03/18 13:15 Urine Culture - Final Urine,Catheterized 08/03/18 16:34 Blood Culture - Preliminary Blood No Growth after 24 hours 08/04/18 00:02 Gram Stain - Preliminary Sputum Sputum Culture - Preliminary - Imaging and Cardiology Chest x-ray: report reviewed, image reviewed CT scan - abdomen: report reviewed, image reviewed CT scan - pelvis: report reviewed, image reviewed Assessment and Plan (1) Status post aorto-coronary artery bypass graft Current Visit: Yes Status: Acute Code(s): Z95.1 - PRESENCE OF AORTOCORONARY BYPASS GRAFT SNOMED Code(s): 914686544 (2) Aortic valve stenosis Current Visit: Yes Status: Chronic Code(s): I35.0 - NONRHEUMATIC AORTIC ( VALVE) STENOSIS SNOMED Code(s): 06586998 (3) BPH (benign prostatic hyperplasia) Current Visit: Yes Status: Chronic Code(s): N40.0 - BENIGN PROSTATIC HYPERPLASIA WITHOUT LOWER URINRY TRACT SYMP SNOMED Code(s): 893869529 (4) Coronary artery disease Current Visit: Yes Status: Chronic Code(s): I25.10 - ATHSCL HEART DISEASE OF [place] CORONARY ARTERY W/O ANG PCTRS SNOMED Code(s): 00604927 (5) Foot drop, left Current Visit: Yes Status: Chronic Code(s): M21.372 - FOOT DROP, LEFT FOOT SNOMED Code(s): 4379092 (6) Hypertension Current Visit: Yes Status: Chronic Code(s): I10 - ESSENTIAL (PRIMARY) HYPERTENSION SNOMED Code(s): 22267335 (7) Morbid obesity with BMI of 45.0-49.9, adult Current Visit: Yes Status: Chronic Code(s): E66.01 - MORBID (SEVERE) OBESITY DUE TO EXCESS CALORIES; Z68.42 - BODY MASS INDEX (BMI) 45.0-49.9, ADULT SNOMED Code(s): 760492122 (8) Nicotine dependence in remission Current Visit: No Status: Resolved Code(s): F17.201 - NICOTINE DEPENDENCE, UNSPECIFIED, IN REMISSION SNOMED Code(s): 68167837 (9) Obstructive sleep apnea Current Visit: Yes Status: Chronic Code(s): G47.33 - OBSTRUCTIVE SLEEP APNEA (ADULT) (PEDIATRIC) SNOMED Code(s): 75958787 (10) Osteoarthritis Current Visit: Yes Status: Chronic Code(s): M19.90 - UNSPECIFIED OSTEOARTHRITIS, UNSPECIFIED SITE SNOMED Code(s): 518009650 Plan: 1. Continue aspirin, Plavix. Wean levo as tolerated. Will add back in beta rodríguez therapy when able. 2. Amiodarone discontinued secondary to elevated liver enzymes. IV Cardizem for A. fib prophylaxis. 3. Mechanical ventilator management per pulmonology. Wean as tolerated. 4. Bronchodilators per pulmonology. 5. Will monitor daily labs and x-rays. No transfusion. Urine, sputum, blood cultures ordered, await final results. Avoid nephrotoxic agents. 6. GI prophylaxis with Protonix. DVT prophylaxis with subcu heparin, SCDs. 7. Pain control with current medication regimen. Avoid narcotics. 8. CT of the abdomen and pelvis reviewed. 9. Continue IV vancomycin and Zosyn. Dr. Giraldo consulted from infectious disease, appreciate recommendations. 10. Insulin management per primary care service. 11. Continue enteral tube feeding per dietitian orders. 12. Bicarb drip and IV Lasix given her pulmonology. 13. More recommendations to follow. Time with Patient: Greater than 30
[2018-08-05] MEDS: ASPIRIN 300 MG SUPP RECTAL SCH (11:09)
--- NOTE | 2018-08-05 11:46 | P.PN ---
Subjective Progress Note Date: 08/05/18 Principal diagnosis: Acute hypoxic respiratory failure, acute septic shock. This is 78-year-old white male patient of Dr. Fuchs, who we met on 07/20/2018 for preop pulmonary evaluation for coronary artery bypass grafting. Patient has been having progressive dyspnea, he was referred to cardiology, had a cardiac catheterization which revealed severe multivessel coronary artery disease and moderate aortic stenosis. Patient had a 90% stenosis of his RCA, 80 % stenosis of his circumflex, 95% stenosis of his mid LAD. Aortic valve surface area was 1.2 patient is afebrile, hemodynamically stable,. Other medical history includes previous history of CVA, hypertension, osteoarthritis, and 9 prostatic hypertrophy, sleep apnea syndrome, previous history of bariatric surgery, morbid obesity, and remote history of tobacco use. His preop bedside spirometry showed FEV1 of 86% of predicted, FVC of 71% of predicted, mild restriction. Patient was deferred to cardiothoracic surgery, and was recommended a surgical intervention, today on 07/25/2018 patient underwent four-vessel coronary artery bypass grafting, with MATT to LAD, SVG to the PLB, SVG to the diagonal, and SVG to the OM 1. Patient is seen in the intensive care unit, he is sedated, on mechanical ventilator, currently SIMV mode of ventilation with a rate of 12, tidal volume of 580, FiO2 100%, and PEEP of 10. Chest x-ray showed ET tube, chest tubes, right IJ PA catheter in appropriate positions, lungs are clear of consolidation, no heart failure. Patient is in sinus rhythm, his maintenance IV fluids of LR at 50, milrinone at 0.5 mics/per kilo per minute, Levaquin fed at 2 mics per minute, insulin at 2 units per hour, Diprivan at 15 mics per kilo per minute, and nitro at 5 mics/ min. Blood work showed WBC of 15.2, hemoglobin of 7.9, INR 1.5, choice and renal profile were within normal limits, blood gas showed pO2 of 174, pCO2 48, and pH is 7.3. Patient has 2 mediastinal chest tubes, left pleural chest tube, and there has been a 300 mL of sanguinous output in the mediastinal chest tube, and 10 mL in the left pleural. Hemodynamically patient is stable, cardiac output and index are 5.6 and 2.2 respectively, PA pressures 35/21. On 07/26/2018 patient seen in follow-up in the intensive care unit. This morning he is extubated, sitting up in the chair position in bed, he was extubated at about 1:30 in the morning. Currently on 6 L per nasal cannula, his pulse ox is 96%, he is awake and alert, acute distress, sinus rhythm on the monitor. Today's chest x-ray has been reviewed by Dr. Rose and showed stable bibasilar opacities and pleural effusions. Hemodynamically patient is stable. Levo has been off since 9:00 this morning, maintenance IV fluids is LR at 50 ML per hour, insulin drip is at 5 units per hour, no other drips. Cardiac output and index of 6.2 and 2.4 respectively. Today's lab work has been reviewed, WBCs 13.3, hemoglobin is 8.1, with recent blood gas prior to extubation showed pO2 of 72, pCO2 of 40%, and pH of 7.37, this was done and FiO2 40%, BMP was all within normal limits. Patient has underlying sleep apnea , on CPAP therapy. Patient may require some BiPAP support at night and is needed during the day. We'll continue to monitor, currently in no distress, he is awake and alert and responding to questions appropriately. 2 mediastinal and left pleural chest tubes are draining serosanguineous output. Mediastinal chest tube output is 560 over the last 24 hours, left pleural chest tube output is 378 in the last 24 hours. Smith catheter is present, draining urine in order of 30-45 ML per hour. We'll encourage incentive spirometry, we'll try to mobilize the patient, and set him up at the bedside. On 07/27/2018 patient seen in follow-up in the intensive care unit. This morning he is lethargic, mumbling, patient was apparently confused, agitated and delirious last night, received a dose of Haldol after which he became lethargic, hypotensive, and required albumin and levofed for blood pressure support. This morning he is off the levofed infusion. Blood gas was done, which showed pO2 of 75, pCO2 of 35, and pH of 7.47 as was done on FiO2 of 55%. There is some blood work was reviewed, WBCs 13.7, hemoglobin is 7.1, sodium is 140, potassium is 4.2, chloride is 109, B1 is 28 and creatinine 1.13. On 9 L per high flow nasal cannula, and his pulse ox is 96%, patient is afebrile, blood pressure is 150/64, PA pressure is 44/8, and cardiac output and index hours 7.2 and 2.8. Patient is mediastinal chest tubes removed, left pleural chest tube remains in place with serosanguineous thin output. Has been 760 mL out of the left pleural and the last 24 hours, and 250 on of the mediastinal chest tubes. Lung sounds are positive for scattered rhonchi, he is somnolent, has a loose nonproductive cough. Today's chest x-ray was reviewed by Dr. Rose, and shows stable cardiomegaly with small to moderate left pleural effusion tracking up to the left apex and possible mild pulmonary vascular congestion, retrocardiac atelectasis. Urinary catheter is in, and his urine output is 2240 ML per hour. Maintenance IV fluid is lactated Ringer's at a rate of 20 ML per hour, no other drips. On 07/28/2018 patient seen in follow-up in the intensive care unit. Patient remains confused, but cooperative. He is in the chair, currently on 2 L per nasal cannula, his pulse ox is 95%, afebrile, hemodynamically stable. Today's lab work has been reviewed, showed WBC of 15.1, hemoglobin of 7.6, platelet count of 131, sodium of 145, potassium is 4.2, chloride is 111, BUN is 33, creatinine 1.03. Chest x-ray showed slight interval worsening mild pulmonary vascular congestion and bibasilar atelectasis. Patient denied any shortness of breath, patient is currently in A. fib RVR, and her beta rodríguez therapy was increased per CT surgery come patient received a dose of IV Lasix. Encourage deep breathing and coughing. On 07/31/2018 patient seen in follow-up in selective care unit, he is resting in bed, in no acute distress, seems much more alert and oriented, she knew where he was, he knew the month and the president. He states he is having some trouble swallowing. Denies any dyspnea, pulse ox on 3 L per nasal cannula is 95 %, respirations are even and nonlabored, lung sounds are positive for a few rales at the left base, IS effort 500-750, chest x-ray showed no cardiopulmonary process. Today's labs showed WBC of 10.4, hemoglobin is 7.6, BMP was essentially unremarkable On 08/01/2018 patient seen in follow-up on selective care unit, he sitting up in the recliner, in no acute distress, agitation or delirium. She is alert and oriented 3, pleasant, cooperative. Pulse oximetry on 2 L per nasal cannula is 98%, vital signs are stable, no fever or chills, and today's chest x-ray has been reviewed by Dr. Velarde, and showed left basilar atelectasis and suspected small left pleural effusion, so showed left apical density that could possibly be related to atelectasis or patient's position during film taking. Lung sounds are diminished, with some limited crackles at the right base. Yesterday patient underwent modified barium swallow which showed transient penetration with thin liquids and pulling in the vallecular with honey thick liquids. Patient is on a modified diet with chopped food and consistent carbohydrate, and aspiration precautions. Labs have been reviewed, WBC 14.1, hemoglobin is 7.7, sodium is 144, potassium is 4.1, chloride is 112, BUN is 31 and creatinine 0.90. On 08/02/2018 patient seen in follow-up on selective care unit. He is awake and alert, oriented 3. He states he had a fall this morning when he got up unassisted and started walking to the bathroom. No apparent injury. Room air pulse ox was 94% this morning , now patient is on supplemental oxygen currently at 4 L per nasal cannula. No orsening dyspnea, lung sounds are diminished. No crackles or rhonchi, incentive spirometry effort is 500-750. New chest x-rays, today's labs have been reviewed , WBC is 12.6, hemoglobin 7.9, but he was 141, but potassium is 4.4 chloride is 109, was 25 and creatinine 0.85. No new chest x-ray today On 08/03/2018 patient seen in follow-up on selective care unit. He confused, increased from yesterday, quite congested, tachypneic. Cough is weak,oral membranes are quite dry, and there is food residue oral secretions in his mouth. His respiratory rate is in the upper 30s, was unable to do his incentive spirometer, x-ray was reviewed and showed diffuse left lung atelectasis. Blood gas was obtained and showed pO2 of 69, pCO2 of 27, and pH of 7.50, respiratory alkalosis and hypoxemia. Patient was then placed on BiPAP support, is actually tolerating it quite well, he is resting, possibility of left pleural effusion is not excluded, so we will obtain a ultrasound of the left chest with markings. We will transfer the patient to the intensive care unit for closer monitoring. Labs have been reviewed, increased white count noted, WBC 17.2, hemoglobin is 8.1, sodium is 143, potassium is 4.6, chloride is 110, B1 is 27 creatinine 1.05. Urinalysis was completed, showed some rare bacteria and mucus, with trace protein blood, does not look infected, culture was also sent. On 08/04/2018, patient was transferred yesterday after I evaluated the patient on the floor to the intensive care unit. Later in the evening, patient was noted to have hardly any urine output, he was becoming more and more hypotensive requiring levo fed, and his mental status was even getting worse. Patient was noted to hypoventilate, and was not doing well. Patient was noted to be unable to protect his airways, and his mental status was getting worse. Hence I recommended immediate intubation, I also recommended CT of the brain to be done as soon as possible which was done. Patient is being evaluated this morning. He is now on mechanical ventilation, assist control rate of 20 tidal volume of 500 FiO2 of 50% PEEP of 5. Patient is on 25 g of norepinephrine per minute, he is on amiodarone drip 0.5 mg/m, he is also on propofol at 25 mcg/kg/m , and he is on broad-spectrum antibiotics. Patient was cultured, results are pending. Empirically started on antibiotics yesterday including Zosyn and vancomycin. He was given fluid boluses last night, and his urine output picked up late in the evening with the support of norepinephrine and with fluid boluses. His CBC showed significant leukocytosis with WBC count of 32.1 hemoglobin is 7.8. ABG this morning showed a pO2 of 77 pCO2 of 32 pH of 7.39. Electrolytes were noted to be normal bicarb is a bit low at 19 BUN is 44 creatinine 2.02. His creatinine yesterday was 1.05. Apparently the patient sustained a fall yesterday while he was on the medical floor, he tried to move on his own to go to the bathroom, and normally takes 4 people to ambulate the patient. Or assist him and walking. Patient apparently fell, and today I have noted that his CPK is up to 4060, his troponin is 2.72, his liver enzymes also were noted to be elevated. Obviously the patient developed significant facial injury, and hopefully fluids will improve his renal status and improve his ongoing rhabdomyolysis. Considering the patient is on high dose of norepinephrine, I went ahead and placed a left internal jugular central line and the patient. Patient was reevaluated today on 08/05/2018, remains in the ICU, on mechanical ventilation. Remains on pressors, he is requiring at least 25 g of levo fed per minute. Remains on propofol, the dose is 20 mcg/kg/m, he is also on Cardizem at 7.5 g/h. Patient was on amiodarone, however because of his liver enzymes taking a rise, this was discontinued and he is now on Cardizem. Remains on antibiotics in the form of vancomycin and Zosyn, being followed by infectious disease, and a CT of the abdomen and pelvis done yesterday questioned a sacral decub ulcer and abscess. Hence general surgery was consulted. In the meantime the patient remains on antibiotics. Cultures of the sputum blood and urine, remain negative so far. Patient has been noted overnight to have significant amount of endotracheal tube secretions, and these were sent for cultures again. Patient remains sedated, and his chest x-ray is consistent with some component of fluid overload, CVP is about 16, hence I recommended a dose of Lasix 40 mg IV push 1, his urine output is about 40-50 mL per hour. He is definitely in positive fluid balance, lots of fluids were given for his initial episode of hypotension and septic shock presentation. Remains on enteral feedings. ABG this morning showed a pO2 of 64 pCO2 of 54 pH of 7.31, and his ventilator settings are assist control rate of 20, tidal volume of 500, PEEP was increased to 10, and FiO2 is now 80%. Hopefully the Lasix will help the patient oxygenated better. Patient does have small bilateral effusions on the chest x-ray and on his recent CT of the abdomen and pelvis these were noted. There is also a moderate amount of pericardial effusion, hence I recommended ultrasound/echocardiogram to be done today. Objective - Vital Signs Vital signs: Vital Signs Temp 99.6 F 08/05/18 07:00 Pulse 77 08/05/18 11:07 Resp 28 H 08/05/18 11:00 BP 116/49 08/05/18 09:00 Pulse Ox 98 08/05/18 11:00 Intake & Output 08/04/18 08/05/18 08/05/18 18:59 06:59 18:59 Intake Total 3385.202 3655.830 1437.109 Output Total 627 550 415 Balance 2758.202 3105.830 1022.109 Weight 152.5 kg 158.6 kg Intake: IV 2453 1946 945 0.9NS 1000 220 165 ACETAMINOPHEN IV (For NPO 100 ) 1,000 mg In Empty Bag 1 bag @ 400 mls/hr IVPB Q6HR PRN Rx#:[id number] Lactated Ringers 1,000 ml 900 900 150 @ 75 mls/hr IV .[id number] [facility] Rx#:[id number] Piperacillin-Tazobactam 3 175 100 .375 gm In Sodium Chloride 0.9% 100 ml @ 25 mls/hr IVPB Q8HR [facility] Rx# :[id number] Sodium Chloride 0.9% 500 520 500 ml 500 ml @ 999 mls/hr IV .Q31M ONE Rx#:[id number] Vancomycin 2,250 mg In 500 Sodium Chloride 0.9% 500 ml 500 ml @ 167 mls/hr IVPB Q16H [facility] Rx#: [id number] pressure bags 33 51 30 Intake, IV Titration 802.202 339.830 342.109 Amount Amiodarone 450 mg In 259.000 Dextrose 5% in Water 250 ml @ 1 MG/MIN 34.53 mls/ hr IV .Q7H31M PRN Rx#: [id number] Dextrose 5% in Water 1, 75 000 ml @ 75 mls/hr IV . [id number] [place] with Sodium Bicarb (1 Meq/ml) 150 ml Rx#:[id number] Norepinephrine 16 mg In 77.008 172.992 159.619 Sodium Chloride 0.9% 250 ml @ Titrate IV .Q0M [facility] Rx#:[id number] Norepinephrine 4 mg In 250 Sodium Chloride 0.9% 250 ml @ Titrate IV .Q0M [facility] Rx#:[id number] Propofol 1,000 mg In 216.194 166.838 107.490 Empty Bag 1 bag @ Titrate IV .Q0M [place] Rx#: [id number] Tube Feeding 100 140 120 Other 30 1230 30 Output: Urine 627 550 415 Other: Voiding Method Indwelling Catheter Indwelling Catheter ABP, PAP, CO, CI - Last Documented Arterial Blood Pressure 109/48 Pulmonary Artery Pressure 44/8 Cardiac Output 7.2 Cardiac Index 2.8 - Exam GENERAL EXAM: Revealed a 78-year-old white male, obese, sedated, on propofol, on mechanical ventilation, in no distress. HEENT: PERRLA, EOMI, no icterus, endotracheal tube and orogastric tube are intact. No JVD, no neck masses, no stridor, no carotid bruits. Left internal jugular central line is intact. CHEST: No chest wall deformity. Symmetrical expansion. Sternal incision is clean dry and intact, well approximated, covered with surgical dressing, LUNGS: Equal air entry with diffuse rhonchi CVS: Distant S1 and S2, no gallops, 3/6 systolic murmur thought the precordium. ABDOMEN: Morbidly obese, Soft, nontender. No hepatosplenomegaly, normal bowel sounds, no guarding or rigidity. EXTREMITIES: No clubbing, 1+ bipedal edema, no cyanosis, 2+ pulses and upper and lower extremities. Bilateral lower extremities are Toni wrapped, MUSCULOSKELETAL: Muscle strength cannot be assessed SPINE: No scoliosis or deformity SKIN: Significant tissue damage and ulceration in the buttocks area, between the folds, and that being addressed by infectious disease on the case. - Labs CBC & Chem 7: 08/05/18 04:45 08/05/18 04:45 Labs: Abnormal Lab Results - Last 24 Hours (Table) 08/04/18 08/04/18 08/04/18 Range/Units 12:06 12:08 16:48 WBC (3.8-10.6) k/uL RBC (4.30-5.90) m/uL Hgb (13.0-17.5) gm/dL Hct (39.0-53.0) % MCV (80.0-100.0) fL MCHC (31.0-37.0) g/dL Neutrophils # (1.3-7.7) k/uL ABG pH (7.35-7.45) ABG pCO2 (35-45) mmHg ABG pO2 (83-108) mmHg ABG HCO3 (21-25) mmol/L ABG Total CO2 (19-24) mmol/L ABG O2 Saturation (94-97) % Chloride (98-107) mmol/L Carbon Dioxide (22-30) mmol/L BUN (9-20) mg/dL Creatinine (0.66-1.25) mg/dL Glucose (74-99) mg/dL POC Glucose (mg/dL) 155 H 149 H (75-99) mg/dL Calcium (8.4-10.2) mg/dL Phosphorus (2.5-4.5) mg/dL Magnesium (1.6-2.3) mg/dL Total Bilirubin (0.2-1.3) mg/dL AST (17-59) U/L ALT (21-72) U/L Alkaline Phosphatase (38-126) U/L Total Creatine Kinase 2793 H* (55-170) U/L CK-MB (CK-2) 9.7 H (0.0-2.4) ng/mL Troponin I 2.040 H* (0.000-0.034) ng/mL Total Protein (6.3-8.2) g/dL Albumin (3.5-5.0) g/dL 08/04/18 08/05/18 08/05/18 Range/Units 23:52 04:16 04:44 WBC (3.8-10.6) k/uL RBC (4.30-5.90) m/uL Hgb (13.0-17.5) gm/dL Hct (39.0-53.0) % MCV (80.0-100.0) fL MCHC (31.0-37.0) g/dL Neutrophils # (1.3-7.7) k/uL ABG pH (7.35-7.45) ABG pCO2 (35-45) mmHg ABG pO2 (83-108) mmHg ABG HCO3 (21-25) mmol/L ABG Total CO2 (19-24) mmol/L ABG O2 Saturation (94-97) % Chloride (98-107) mmol/L Carbon Dioxide (22-30) mmol/L BUN (9-20) mg/dL Creatinine (0.66-1.25) mg/dL Glucose (74-99) mg/dL POC Glucose (mg/dL) 159 H 166 H 182 H (75-99) mg/dL Calcium (8.4-10.2) mg/dL Phosphorus (2.5-4.5) mg/dL Magnesium (1.6-2.3) mg/dL Total Bilirubin (0.2-1.3) mg/dL AST (17-59) U/L ALT (21-72) U/L Alkaline Phosphatase (38-126) U/L Total Creatine Kinase (55-170) U/L CK-MB (CK-2) (0.0-2.4) ng/mL Troponin I (0.000-0.034) ng/mL Total Protein (6.3-8.2) g/dL Albumin (3.5-5.0) g/dL 08/05/18 08/05/18 08/05/18 Range/Units 04:45 04:45 07:41 WBC 31.8 H (3.8-10.6) k/uL RBC 2.51 L (4.30-5.90) m/uL Hgb 7.7 L (13.0-17.5) gm/dL Hct 25.4 L (39.0-53.0) % MCV 101.4 H (80.0-100.0) fL MCHC 30.5 L (31.0-37.0) g/dL Neutrophils # 29.4 H (1.3-7.7) k/uL ABG pH 7.31 L (7.35-7.45) ABG pCO2 34 L (35-45) mmHg ABG pO2 64 L (83-108) mmHg ABG HCO3 17 L (21-25) mmol/L ABG Total CO2 18 L (19-24) mmol/L ABG O2 Saturation 89.5 L (94-97) % Chloride 111 H (98-107) mmol/L Carbon Dioxide 17 L (22-30) mmol/L BUN 48 H (9-20) mg/dL Creatinine 1.89 H (0.66-1.25) mg/dL Glucose 159 H (74-99) mg/dL POC Glucose (mg/dL) (75-99) mg/dL Calcium 7.0 L (8.4-10.2) mg/dL Phosphorus 5.6 H (2.5-4.5) mg/dL Magnesium 2.6 H (1.6-2.3) mg/dL Total Bilirubin 2.1 H (0.2-1.3) mg/dL AST 848 H (17-59) U/L ALT 487 H (21-72) U/L Alkaline Phosphatase 195 H (38-126) U/L Total Creatine Kinase (55-170) U/L CK-MB (CK-2) (0.0-2.4) ng/mL Troponin I (0.000-0.034) ng/mL Total Protein 5.1 L (6.3-8.2) g/dL Albumin 2.4 L (3.5-5.0) g/dL 08/05/18 Range/Units 09:16 WBC (3.8-10.6) k/uL RBC (4.30-5.90) m/uL Hgb (13.0-17.5) gm/dL Hct (39.0-53.0) % MCV (80.0-100.0) fL MCHC (31.0-37.0) g/dL Neutrophils # (1.3-7.7) k/uL ABG pH (7.35-7.45) ABG pCO2 (35-45) mmHg ABG pO2 (83-108) mmHg ABG HCO3 (21-25) mmol/L ABG Total CO2 (19-24) mmol/L ABG O2 Saturation (94-97) % Chloride (98-107) mmol/L Carbon Dioxide (22-30) mmol/L BUN (9-20) mg/dL Creatinine (0.66-1.25) mg/dL Glucose (74-99) mg/dL POC Glucose (mg/dL) 178 H (75-99) mg/dL Calcium (8.4-10.2) mg/dL Phosphorus (2.5-4.5) mg/dL Magnesium (1.6-2.3) mg/dL Total Bilirubin (0.2-1.3) mg/dL AST (17-59) U/L ALT (21-72) U/L Alkaline Phosphatase (38-126) U/L Total Creatine Kinase (55-170) U/L CK-MB (CK-2) (0.0-2.4) ng/mL Troponin I (0.000-0.034) ng/mL Total Protein (6.3-8.2) g/dL Albumin (3.5-5.0) g/dL Microbiology - Last 24 Hours (Table) 08/03/18 13:15 Urine Culture - Final Urine,Catheterized 08/03/18 16:34 Blood Culture - Preliminary Blood No Growth after 24 hours 08/04/18 00:02 Gram Stain - Preliminary Sputum Sputum Culture - Preliminary Assessment and Plan Assessment: #1. Acute hypoxic respiratory failure related to atelectasis in the left lung, suspect ongoing sepsis and septic shock. Source is to be identified, at this point, I believe the source of his sepsis is from his sacral ulcer, and possible abscess in the lower sacral spine area. The radiologist raised the possibility of fluid density in the presacral space that could be related to inflammatory process or possibly presacral abscess. No bone destruction was noted. #2. Symptomatic multivessel coronary artery disease, status post four-vessel bypass with MATT to LAD, SVG to the PLB, SVG to the diag, and to OM1, #3. Confusion, agitation, delirium in the postoperative period, may be related to metabolic encephalopathy #4. A. fib RVR, currently in sinus rhythm #5. Acute blood loss anemia, an expected outcome of bypass grafting surgery #6. Moderate aortic stenosis #7. Hypertension #8. Obstructive Sleep apnea syndrome on CPAP therapy. #9. History of CVA #10. Morbid obesity #11. History of bariatric surgery #12. Prostate enlargement #13. DJD #14 acute rhabdomyolysis secondary to fall #15 acute kidney injury related to hypotension could also be related to his acute rhabdomyolysis as noted above. #16 decubitus ulcer, being addressed by infectious disease. #17 hypotension, most likely secondary to sepsis and septic shock requiring norepinephrine. Dose is being titrated accordingly to maintain a mean arterial pressure of 65 or higher. Recommendation: Patient will be kept on mechanical ventilation, continue hemodynamic support, nutritional support, fluids, antibiotics empirically, continue Cardizem drip instead of amiodarone because of his liver enzymes. GI and DVT prophylaxis, at this point in time, the patient is critically ill, he is not in any shape of weaning, hence I don't plan to hold sedation today, patient was supposedly appropriate last night and he was following instructions. Continue present treatment plan, will discuss his condition with different consultants on a daily basis. Critical care time is 36 minutes Time with Patient: Greater than 30
[2018-08-05 12:01] LABS: Glucose,Whole Blood 199 mg/dL (75-99)
[2018-08-05 14:06] LABS: ABG Base Excess -6.6 mmol/L; ABG HCO3 19 mmol/L (21-25); ABG PCO2 35 mmHg (35-45); ABG PH 7.35 (7.35-7.45); ABG PO2 77 mmHg (83-108); ABG TCO2 20 mmol/L (19-24)
[2018-08-05] MEDS ORDERED: FUROSEMIDE 10 MG/ML 10 ML VIAL IV STA ×2 (14:15→22:31)
--- NOTE | 2018-08-05 15:31 | P.PN ---
Subjective Progress Note Date: 08/05/18 This is a 78-year-old underwent coronary artery bypass grafting for 4 vessels on July 25. Patient did have some postoperative confusion but was transferred out of the selective care unit. He apparently had a fall a few days ago when he is trying to get to the bathroom and then he spent the rest of the day in bed. Irritated apparently takes for people to get him out of bed and he has been on a Arlene lift. Yesterday, patient was more lethargic with labored breathing and was placed on a BiPAP and patient was transferred back into the intensive care unit. He was able to follow commands but was weak. During the night he had decreased level of consciousness, developed A. fib with RVR and hypotension. He had a Smith catheter placed as he had no urine output for couple hours. He was given IV fluids of 2 L and started on levo fed currently at 25 mics. He was subsequently intubated and placed on mechanical ventilation. Temperature max yesterday was 101.5, white count 32.1 which has been gradually climbing since July 31. CK is 4060, troponins 2.8-0 and 2.7- 0, creatinine 2.0 to. Urine blood and sputum cultures were obtained yesterday. Patient was placed on amiodarone drip and has converted to sinus rhythm with frequent PACs. Patient was found to have a necrotic tissue at gluteal cleft. Unclear how long patient has had this. He has not had a bowel movement from July 31 until last night. At home, patient is normally not very active and sits most the time. He does drive his significant other to the grocery store but sits in the car. The patient was straight cath yesterday for 970 mL out. He currently has a Smith catheter in and urine output has been between 15 and 45 ML's per hour. Tube feeding to start today. 08/05/2018 the patient remains in intensive care unit intubated sedated and mechanically ventilated on vasopressor therapy. Evaluations have been undertaken and the computed tomography scan reveals evidence of bibasilar pneumonia with evidence the potential for edema but no stephanie abscess to the pre- sacral area, evidence of osteomyelitis or of gas in tissue. The abdominal component revealed no acute cholecystitis. The patient received some Lasix today has had some fluid output continues to have difficulties with volume overload and his poor respiratory status with high FiO2 requirements. Objective - Vital Signs Vital signs: Vital Signs Temp 99.4 F 08/05/18 12:00 Pulse 68 08/05/18 15:00 Resp 27 H 08/05/18 15:00 BP 106/47 08/05/18 12:00 Pulse Ox 95 08/05/18 15:00 Intake & Output 08/04/18 08/05/18 08/05/18 18:59 06:59 18:59 Intake Total 3385.202 3655.830 2072.095 Output Total 627 550 485 Balance 2758.202 3105.830 1587.095 Weight 152.5 kg 158.6 kg 158.6 kg Intake: IV 2453 1946 1083.0 0.9NS 1000 220 240 ACETAMINOPHEN IV (For NPO 100 ) 1,000 mg In Empty Bag 1 bag @ 400 mls/hr IVPB Q6HR PRN Rx#:[id number] Diltiazem 50 mg In Sodium 45.0 Chloride 0.9% 40 ml @ 7. 5 MG/HR 7.5 mls/hr IV . Q6H40M [facility] Rx#:[id number] Lactated Ringers 1,000 ml 900 900 150 @ 75 mls/hr IV .[id number] [facility] Rx#:[id number] Piperacillin-Tazobactam 3 175 100 .375 gm In Sodium Chloride 0.9% 100 ml @ 25 mls/hr IVPB Q8HR [facility] Rx# :[id number] Sodium Chloride 0.9% 500 520 500 ml 500 ml @ 999 mls/hr IV .Q31M ONE Rx#:[id number] Vancomycin 2,250 mg In 500 Sodium Chloride 0.9% 500 ml 500 ml @ 167 mls/hr IVPB Q16H [facility] Rx#: [id number] pressure bags 33 51 48 Intake, IV Titration 802.202 339.830 669.095 Amount Amiodarone 450 mg In 259.000 Dextrose 5% in Water 250 ml @ 1 MG/MIN 34.53 mls/ hr IV .Q7H31M PRN Rx#: [id number] Dextrose 5% in Water 1, 225 000 ml @ 75 mls/hr IV . [id number] [facility] with Sodium Bicarb (1 Meq/ml) 150 ml Rx#:[id number] Diltiazem 50 mg In Sodium 31.125 Chloride 0.9% 40 ml @ 7. 5 MG/HR 7.5 mls/hr IV . Q6H40M [facility] Rx#:[id number] Norepinephrine 16 mg In 77.008 172.992 220.346 Sodium Chloride 0.9% 250 ml @ Titrate IV .Q0M [facility] Rx#:[id number] Norepinephrine 4 mg In 250 Sodium Chloride 0.9% 250 ml @ Titrate IV .Q0M [facility] Rx#:[id number] Propofol 1,000 mg In 216.194 166.838 192.624 Empty Bag 1 bag @ Titrate IV .Q0M [facility] Rx#: [id number] Tube Feeding 100 140 260 Other 30 1230 60 Output: Urine 627 550 485 Other: Voiding Method Indwelling Catheter Indwelling Catheter Indwelling Catheter ABP, PAP, CO, CI - Last Documented Arterial Blood Pressure 110/48 Pulmonary Artery Pressure 44/8 Cardiac Output 7.2 Cardiac Index 2.8 - Exam Gen: This is a morbidly obese 78-year-old male. He is currently in the intensive care unit, intubated and on mechanical ventilation. Patient appears to be comfortable and in no acute distress. HEENT: Head is atraumatic, normocephalic. Pupils equal, round. Sclerae is anicteric. Conjunctiva pale. Mucous membranes of the mouth are dry. Oral ET and orogastric tube in place. NECK: Supple. No JVD. No lymphadenopathy. No thyromegaly. LUNGS: Diminished with scattered rhonchi. No intercostal retractions. HEART: Regular rate and rhythm. No murmur. Sternal incision has a dressing in place that is showing no breakthrough bleeding or drainage. ABDOMEN: Morbidly obese, soft. Bowel sounds are present. No masses. No tenderness. Lapband is palpated in the left upper quadrant. EXTREMITIES: Maverick hose bilaterally. trace bilateral pedal edema. Left lower extremity wounds show no significant erythema or drainage. Skin reveals evidence of the injury to the coccyx area no significant drainage, foam dressing is into place. NEUROLOGICAL: Patient is sedated on mechanical ventilation. - Labs CBC & Chem 7: 08/05/18 04:45 08/05/18 04:45 Labs: Abnormal Lab Results - Last 24 Hours (Table) 08/04/18 08/04/1818 Range/Units 16:48 23:52 04:16 WBC (3.8-10.6) k/uL RBC (4.30-5.90) m/uL Hgb (13.0-17.5) gm/dL Hct (39.0-53.0) % MCV (80.0-100.0) fL MCHC (31.0-37.0) g/dL Neutrophils # (1.3-7.7) k/uL ABG pH (7.35-7.45) ABG pCO2 (35-45) mmHg ABG pO2 (83-108) mmHg ABG HCO3 (21-25) mmol/L ABG Total CO2 (19-24) mmol/L ABG O2 Saturation (94-97) % Chloride (98-107) mmol/L Carbon Dioxide (22-30) mmol/L BUN (9-20) mg/dL Creatinine (0.66-1.25) mg/dL Glucose (74-99) mg/dL POC Glucose (mg/dL) 149 H 159 H 166 H (75-99) mg/dL Calcium (8.4-10.2) mg/dL Phosphorus (2.5-4.5) mg/dL Magnesium (1.6-2.3) mg/dL Total Bilirubin (0.2-1.3) mg/dL AST (17-59) U/L ALT (21-72) U/L Alkaline Phosphatase (38-126) U/L Total Protein (6.3-8.2) g/dL Albumin (3.5-5.0) g/dL 08/05/18 08/05/18 08/05/18 Range/Units 04:44 04:45 04:45 WBC 31.8 H (3.8-10.6) k/uL RBC 2.51 L (4.30-5.90) m/uL Hgb 7.7 L (13.0-17.5) gm/dL Hct 25.4 L (39.0-53.0) % MCV 101.4 H (80.0-100.0) fL MCHC 30.5 L (31.0-37.0) g/dL Neutrophils # 29.4 H (1.3-7.7) k/uL ABG pH (7.35-7.45) ABG pCO2 (35-45) mmHg ABG pO2 (83-108) mmHg ABG HCO3 (21-25) mmol/L ABG Total CO2 (19-24) mmol/L ABG O2 Saturation (94-97) % Chloride 111 H (98-107) mmol/L Carbon Dioxide 17 L (22-30) mmol/L BUN 48 H (9-20) mg/dL Creatinine 1.89 H (0.66-1.25) mg/dL Glucose 159 H (74-99) mg/dL POC Glucose (mg/dL) 182 H (75-99) mg/dL Calcium 7.0 L (8.4-10.2) mg/dL Phosphorus 5.6 H (2.5-4.5) mg/dL Magnesium 2.6 H (1.6-2.3) mg/dL Total Bilirubin 2.1 H (0.2-1.3) mg/dL AST 848 H (17-59) U/L ALT 487 H (21-72) U/L Alkaline Phosphatase 195 H (38-126) U/L Total Protein 5.1 L (6.3-8.2) g/dL Albumin 2.4 L (3.5-5.0) g/dL 08/05/18 08/05/18 08/05/18 Range/Units 07:41 09:16 11:59 WBC (3.8-10.6) k/uL RBC (4.30-5.90) m/uL Hgb (13.0-17.5) gm/dL Hct (39.0-53.0) % MCV (80.0-100.0) fL MCHC (31.0-37.0) g/dL Neutrophils # (1.3-7.7) k/uL ABG pH 7.31 L (7.35-7.45) ABG pCO2 34 L (35-45) mmHg ABG pO2 64 L (83-108) mmHg ABG HCO3 17 L (21-25) mmol/L ABG Total CO2 18 L (19-24) mmol/L ABG O2 Saturation 89.5 L (94-97) % Chloride (98-107) mmol/L Carbon Dioxide (22-30) mmol/L BUN (9-20) mg/dL Creatinine (0.66-1.25) mg/dL Glucose (74-99) mg/dL POC Glucose (mg/dL) 178 H 199 H (75-99) mg/dL Calcium (8.4-10.2) mg/dL Phosphorus (2.5-4.5) mg/dL Magnesium (1.6-2.3) mg/dL Total Bilirubin (0.2-1.3) mg/dL AST (17-59) U/L ALT (21-72) U/L Alkaline Phosphatase (38-126) U/L Total Protein (6.3-8.2) g/dL Albumin (3.5-5.0) g/dL 08/05/18 Range/Units 14:04 WBC (3.8-10.6) k/uL RBC (4.30-5.90) m/uL Hgb (13.0-17.5) gm/dL Hct (39.0-53.0) % MCV (80.0-100.0) fL MCHC (31.0-37.0) g/dL Neutrophils # (1.3-7.7) k/uL ABG pH (7.35-7.45) ABG pCO2 (35-45) mmHg ABG pO2 77 L (83-108) mmHg ABG HCO3 19 L (21-25) mmol/L ABG Total CO2 (19-24) mmol/L ABG O2 Saturation (94-97) % Chloride (98-107) mmol/L Carbon Dioxide (22-30) mmol/L BUN (9-20) mg/dL Creatinine (0.66-1.25) mg/dL Glucose (74-99) mg/dL POC Glucose (mg/dL) (75-99) mg/dL Calcium (8.4-10.2) mg/dL Phosphorus (2.5-4.5) mg/dL Magnesium (1.6-2.3) mg/dL Total Bilirubin (0.2-1.3) mg/dL AST (17-59) U/L ALT (21-72) U/L Alkaline Phosphatase (38-126) U/L Total Protein (6.3-8.2) g/dL Albumin (3.5-5.0) g/dL Microbiology - Last 24 Hours (Table) 08/04/18 00:02 Gram Stain - Preliminary Sputum Sputum Culture - Preliminary Gram Neg Bacilli Gram Neg Bacilli#2 08/03/18 13:15 Urine Culture - Final Urine,Catheterized 08/03/18 16:34 Blood Culture - Preliminary Blood No Growth after 24 hours Laboratory Results WBC 31.8 k/uL (3.8-10.6) H 08/05/18 04:45 RBC 2.51 m/uL (4.30-5.90) L 08/05/18 04:45 Hgb 7.7 gm/dL (13.0-17.5) L 08/05/18 04:45 Hct 25.4 % (39.0-53.0) L 08/05/18 04:45 MCV 101.4 fL (80.0-100.0) H 08/05/18 04:45 MCH 30.9 pg (25.0-35.0) 08/05/18 04:45 MCHC 30.5 g/dL (31.0-37.0) L 08/05/18 04:45 RDW 15.1 % (11.5-15.5) 08/05/18 04:45 Plt Count 444 k/uL (150-450) 08/05/18 04:45 Neutrophils % 92 % 08/05/18 04:45 Neutrophils % (Manual) 83 % 08/04/18 05:43 Band Neutrophils % 1 % 08/04/18 05:43 Lymphocytes % 5 % 08/05/18 04:45 Lymphocytes % (Manual) 12 % 08/04/18 05:43 Monocytes % 2 % 08/05/18 04:45 Monocytes % (Manual) 4 % 08/04/18 05:43 Eosinophils % 0 % 08/05/18 04:45 Basophils % 0 % 08/05/18 04:45 Neutrophils # 29.4 k/uL (1.3-7.7) H 08/05/18 04:45 Neutrophils # (Manual) 26.90 k/uL (1.3-7.7) H 08/04/18 05:43 Lymphocytes # 1.5 k/uL (1.0-4.8) 08/05/18 04:45 Lymphocytes # (Manual) 3.85 k/uL (1.0-4.8) 08/04/18 05:43 Monocytes # 0.6 k/uL (0-1.0) 08/05/18 04:45 Monocytes # (Manual) 1.28 k/uL (0-1.0) H 08/04/18 05:43 Eosinophils # 0.0 k/uL (0-0.7) 08/05/18 04:45 Basophils # 0.1 k/uL (0-0.2) 08/05/18 04:45 Nucleated RBCs 0 /100 WBC (0-0) 08/04/18 05:43 Manual Slide Review Performed 08/04/18 05:43 Polychromasia Present 08/04/18 05:43 Hypochromasia Marked 08/05/18 04:45 Poikilocytosis Slight 08/05/18 04:45 Macrocytosis Slight 08/05/18 04:45 PT 12.6 sec (9.0-12.0) H 08/03/18 23:17 INR 1.2 (<1.2) H 08/03/18 23:17 APTT 21.3 sec (22.0-30.0) L 08/03/18 23:17 Fibrinogen 112 mg/dL (200-500) L 07/25/18 16:30 Sample Site kate 08/05/18 14:04 ABG pH 7.35 (7.35-7.45) 08/05/18 14:04 ABG pCO2 35 mmHg (35-45) 08/05/18 14:04 ABG pO2 77 mmHg (83-108) L 08/05/18 14:04 ABG HCO3 19 mmol/L (21-25) L 08/05/18 14:04 ABG Total CO2 20 mmol/L (19-24) 08/05/18 14:04 ABG O2 Saturation 95.0 % (94-97) 08/05/18 14:04 ABG Base Excess -6.6 mmol/L 08/05/18 14:04 ABG Hematocrit 30 % (34.0-46.0) L 07/25/18 14:36 José Test no 08/05/18 14:04 ABG Sodium 139 mmol/L (135-146) 07/25/18 14:36 ABG Potassium 4.5 mmol/L (3.4-4.5) 07/25/18 14:36 ABG Ionized Calcium 3.9 mg/dL (4.5-5.3) L 07/25/18 14:36 ABG Glucose 151 mg/dL (75-99) H 07/25/18 14:36 ABG Lactic Acid 3.7 mmol/L (0.5-1.6) H* 07/25/18 14:36 Hemoglobin 9.8 gm/dL (13.0-17.5) L 07/25/18 14:36 FiO2 70 % 08/05/18 14:04 Sodium 140 mmol/L (137-145) 08/05/18 04:45 Potassium 5.0 mmol/L (3.5-5.1) 08/05/18 04:45 Chloride 111 mmol/L (98-107) H 08/05/18 04:45 Carbon Dioxide 17 mmol/L (22-30) L 08/05/18 04:45 Anion Gap 12 mmol/L 08/05/18 04:45 BUN 48 mg/dL (9-20) H 08/05/18 04:45 Creatinine 1.89 mg/dL (0.66-1.25) H 08/05/18 04:45 Est GFR (CKD-EPI)AfAm 39 (>60 ml/min/1.73 sqM) 08/05/18 04:45 Est GFR (CKD-EPI)NonAf 34 (>60 ml/min/1.73 sqM) 08/05/18 04:45 Glucose 159 mg/dL (74-99) H 08/05/18 04:45 POC Glucose (mg/dL) 199 mg/dL (75-99) H 08/05/18 11:59 POC Glu [employer] KAILA Fadia Wilburn 08/05/18 11:[address] Glu mg/dL 114 08/04/18 06:03 Hemoglobin A1c 5.6 % (4.0-6.0) 08/04/18 06:03 Plasma Lactic Acid Glenn 1.7 mmol/L (0.7-2.0) 08/03/18 23:17 Calcium 7.0 mg/dL (8.4-10.2) L 08/05/18 04:45 Ionized Calcium Gianluca 4.6 mg/dL (4.5-5.3) 08/01/18 07:11 Phosphorus 5.6 mg/dL (2.5-4.5) H 08/05/18 04:45 Magnesium 2.6 mg/dL (1.6-2.3) H 08/05/18 04:45 Total Bilirubin 2.1 mg/dL (0.2-1.3) H 08/05/18 04:45 AST 848 U/L (17-59) H 08/05/18 04:45 ALT 487 U/L (21-72) H 08/05/18 04:45 Alkaline Phosphatase 195 U/L (38-126) H 08/05/18 04:45 Total Creatine Kinase 2793 U/L (55-170) H* 08/04/18 12:08 CK-MB (CK-2) 9.7 ng/mL (0.0-2.4) H 08/04/18 12:08 CK-MB (CK-2) Rel Index 08/04/18 12:08 Troponin I 2.040 ng/mL (0.000-0.034) H* 08/04/18 12:08 Total Protein 5.1 g/dL (6.3-8.2) L 08/05/18 04:45 Albumin 2.4 g/dL (3.5-5.0) L 08/05/18 04:45 Amylase <30 U/L (30-110) L 07/28/18 04:42 Lipase 83 U/L (23-300) 07/28/18 04:42 Cortisol 54 ug/dL 08/03/18 23:17 Arterial Blood Potassium 4.5 mmol/L (3.4-4.5) 07/25/18 14:36 Arterial Blood Glucose 151 mg/dL (75-99) H 07/25/18 14:36 Urine Color Yellow 08/03/18 13:15 Urine Appearance Clear (Clear) 08/03/18 13:15 Urine pH 5.5 (5.0-8.0) 08/03/18 13:15 Ur Specific [place] 1.015 (1.001-1.035) 08/03/18 13:15 Urine Protein Trace (Negative) H 08/03/18 13:15 Urine Glucose (UA) Negative (Negative) 08/03/18 13:15 Urine Ketones Negative (Negative) 08/03/18 13:15 Urine Blood Trace (Negative) H 08/03/18 13:15 Urine Nitrite Negative (Negative) 08/03/18 13:15 Urine Bilirubin Negative (Negative) 08/03/18 13:15 Urine Urobilinogen <2.0 mg/dL (<2.0) 08/03/18 13:15 Ur Leukocyte Esterase Negative (Negative) 08/03/18 13:15 Urine WBC <1 /hpf (0-5) 08/03/18 13:15 Urine Bacteria Rare /hpf (None) H 08/03/18 13:15 Urine Mucus Rare /hpf (None) H 08/03/18 13:15 Random Vancomycin 16.2 ug/mL 08/05/18 04:45 Blood Type A Positive 07/24/18 12:40 Blood Type Confirm A Positive 07/25/18 09:10 Blood Type Recheck CABO Indicated 07/24/18 12:40 Antibody Screen NEGATIVE 07/24/18 12:40 Crossmatch See Detail 07/24/18 12:40 Transfuse Platelets 07/25/18 07/24/18 12:40 Spec Expiration Date 07/27/2018 - 233907/24/18 12:40 Microbiology 08/04/18 00:02 Sputum Gram Stain - Preliminary 08/04/18 00:02 Sputum Sputum Culture - Preliminary Gram Neg Bacilli Gram Neg Bacilli#2 08/03/18 13:15 Urine,Catheterized Urine Culture - Final 08/03/18 16:34 Blood Blood Culture - Preliminary No Growth after 24 hours Assessment and Plan Assessment: This 78-year-old male has a very complex past medical history regarding his severe coronary disease requiring the coronary artery bypass grafting procedure which was performed on July 25. He actually has had some improvement and had been without a selective care where he continues to have great difficulties. The patient has significant obesity and poor performance status. He probably suffered a fall related to toileting. He has significant decline in his status since that point in time with fever altered mental status hypotension and respiratory failure requiring reintubation, mechanical ventilation and vasopressor support. Is now with the significant changes the infectious diseases consultation was requested. On exam the patient does have evidence of a necrotic area on his coccyx which is concerning to a deeper infection and constantly imaging studies have been requested. The patient is also been evaluated by surgery with concerns to cholelithiasis and at the time of the computed tomography scan will also further evaluate the biliary tract and the gallbladder bed. Antimicrobial therapy with Zosyn and vancomycin is being utilized for now which would provide coverage for cholecystitis as well as a skin and soft tissue infection. The patient may require surgical intervention depending on these findings including the potential for debridement of the coccyx if there is necrotic tissue in this region. Continue aggressive supportive care cultures in process and we will monitor. 08/05/2018 patient remains in intensive care unit intubated sedated and mechanically ventilated on vasopressor therapy. Continues to have significant difficulties with his oxygenation and is on PEEP and high FiO2. Computed tomography scan reveals evidence the bibasilar infiltrates consistent with pneumonia and sputum culture is no evidence of gram-negative bacilli being seen at the time of his intubation. Given the long-term nature of his stay in the gram-negative bacilli being found we will transition the piperacillin tazobactam to meropenem pending further culture results. Blood cultures negative so far. Gen. surgical evaluate the coccyx to ensure no debridement is needed
--- NOTE | 2018-08-05 15:40 | P.GSCN ---
History of Present Illness Consult date: 08/05/18 History of present illness: CHIEF COMPLAINT: Abscess HISTORY OF PRESENT ILLNESS: The patient is a 78-year-old male with history including open-heart bypass. He has multiple comorbidities including BMI of 50. Per discussion with the nurse the patient was taken to selective care and had fallen. Infectious disease was consulted for progressive leukocytosis including finding of early soft tissue necrosis along the gluteal cleft. Patient is in ICU with pneumonia, acute renal failure, early liver failure, respiratory failure, and currently on pressors. CODE STATUS is yet to be addressed. White count is now elevated over 30,000. He had a CT of the abdomen and pelvis demonstrating minimal inflammation along the presacral space hence general surgery is consulted PAST MEDICAL HISTORY: See list. PAST SURGICAL HISTORY: See list. MEDICATIONS: See list. ALLERGIES: See list. SOCIAL HISTORY: No illicit drug use FAMILY HISTORY: No reports of Crohn's disease or inflammatory bowel disease REVIEW OF ORGAN SYSTEMS: CONSTITUTIONAL: Recent fevers over 103 in the last 24 hours. Over 100+ pounds overweight. HEENT: No troubles with vision or hearing. No reports of dysphagia. ENDOCRINE: No reports of thyroid disorders. No diabetes. CARDIOVASCULAR: History of cardiomyopathy and recent open heart bypass RESPIRATORY: Currently has pneumonia. On full ventilatory support GASTROINTESTINAL: No reports of recent blood in stools. Liver enzymes now elevated NEURO: No reports of stroke or seizure disorders. Overall decreased mentation since hospitalization. PSYCH: No depression or suicidal ideation HEMATOLOGIC: Currently on Plavix GENITOURINARY: History obstructive uropathy MUSCULOSKELETAL: History of back pain, stiffness and joint arthritis. SKIN: No skin cancer or rash. PHYSICAL EXAM: VITAL SIGNS: GENERAL: Well-developed in no acute distress. HEENT: No sclera icterus. Extraocular movements grossly intact. Moist buccal mucosa. Head is atraumatic, normocephalic. Hears conversational speech. No nasal drainage. NECK: Supple without lymphadenopathy. CHEST: Non-labored respirations and equal bilateral excursions. CARDIOVASCULAR: Palpable 2+ radial pulses. ABDOMEN: No peritonitis. Moderate protuberant abdomen with pannus to knees. MUSCULOSKELETAL: No clubbing NEUROLOGIC: Currently sedated. No focal signs. PSYCH: Sedated. Not alert and oriented to person place or time. SKIN: Cool extremities. Imaging reviewed consistent with gluteal cleft hyperemia and superficial skin necrosis LABS: Reviewed ASSESSMENT: 1. Sepsis due to multiple etiology 2. Pneumonia 3. Liver failure 4. Acute kidney failure 5. Status post coronary bypass graft on pressor support 6. Altered mentation 7. Abnormal computed tomography scan with presacral edema PLAN: 1. He has multiple current comorbidities and early multisystem organ failure. Recommend addressing CODE STATUS. 2. He is on Plavix and bedside debridement contraindicated for high risk of bleeding with current anemia 3. Recommend adjustment in bed to decrease worsening of pressure decubiti ulcer 4. Computed tomography scan personally reviewed without finding of crepitus or gas-forming organism as cause of soft tissue sepsis 5. Agree with antibiotics in the interim 6. Overall any surgical debridement extremely high risk for complications Thank you for this kind consultation. Past Medical History Past Medical History: Chest Pain / Angina, CVA/TIA, Hypertension, Osteoarthritis (OA), Prostate Disorder, Sleep Apnea/CPAP/BIPAP Additional Past Medical History / Comment(s): hx TIA, heart murmur, no cpap used , drop foot left leg History of Any Multi-Drug Resistant Organisms: None Reported Past Surgical History: Back Surgery, Bariatric Surgery, Hernia Repair, Joint Replacement Additional Past Surgical History / Comment(s): lap band surgery, left knee replacement, ashley cataracts Past Anesthesia/Blood Transfusion Reactions: No Reported Reaction Smoking Status: Former smoker - Past Family History Father Family Medical History: Cancer Medications and Allergies Home Medications Medication Instructions Recorded Confirmed Type Aspirin [Adult Low Dose Aspirin EC] 162 mg PO QAM 07/11/18 07/25/18 History Isosorbide Mononitrate [Isosorbide 30 mg PO DAILY 07/11/18 07/25/18 History Mononitrate ER] Lisinopril 20 mg PO DAILY 07/11/18 07/25/18 History Oxybutynin Chloride 5 mg PO QAM 07/11/18 07/25/18 History Tamsulosin HCl [Flomax] 0.4 mg PO QAM 07/11/18 07/25/18 History Atorvastatin [Lipitor] 40 mg PO DAILY #90 tab 07/21/18 07/25/18 Rx Metoprolol Tartrate 12.5 mg PO DAILY 07/24/18 07/25/18 History Allergies Allergy/AdvReac Type Severity Reaction Status Date / Time No Known Allergies Allergy Verified 07/25/18 15:47 Surgical - Exam Vital Signs Temp Pulse Resp BP Pulse Ox 97.9 F 71 16 187/88 94 L 07/25/18 06:06 07/25/18 06:06 07/25/18 06:06 07/25/18 06:06 07/25/18 06:06 Results - Labs 08/05/18 04:45 08/05/18 04:45 Abnormal Lab Results - Last 24 Hours (Table) 08/04/18 08/04/18 08/05/18 Range/Units 16:48 23:52 04:16 WBC (3.8-10.6) k/uL RBC (4.30-5.90) m/uL Hgb (13.0-17.5) gm/dL Hct (39.0-53.0) % MCV (80.0-100.0) fL MCHC (31.0-37.0) g/dL Neutrophils # (1.3-7.7) k/uL ABG pH (7.35-7.45) ABG pCO2 (35-45) mmHg ABG pO2 (83-108) mmHg ABG HCO3 (21-25) mmol/L ABG Total CO2 (19-24) mmol/L ABG O2 Saturation (94-97) % Chloride (98-107) mmol/L Carbon Dioxide (22-30) mmol/L BUN (9-20) mg/dL Creatinine (0.66-1.25) mg/dL Glucose (74-99) mg/dL POC Glucose (mg/dL) 149 H 159 H 166 H (75-99) mg/dL Calcium (8.4-10.2) mg/dL Phosphorus (2.5-4.5) mg/dL Magnesium (1.6-2.3) mg/dL Total Bilirubin (0.2-1.3) mg/dL AST (17-59) U/L ALT (21-72) U/L Alkaline Phosphatase (38-126) U/L Total Protein (6.3-8.2) g/dL Albumin (3.5-5.0) g/dL 08/05/18 08/05/18 08/05/18 Range/Units 04:44 04:45 04:45 WBC 31.8 H (3.8-10.6) k/uL RBC 2.51 L (4.30-5.90) m/uL Hgb 7.7 L (13.0-17.5) gm/dL Hct 25.4 L (39.0-53.0) % MCV 101.4 H (80.0-100.0) fL MCHC 30.5 L (31.0-37.0) g/dL Neutrophils # 29.4 H (1.3-7.7) k/uL ABG pH (7.35-7.45) ABG pCO2 (35-45) mmHg ABG pO2 (83-108) mmHg ABG HCO3 (21-25) mmol/L ABG Total CO2 (19-24) mmol/L ABG O2 Saturation (94-97) % Chloride 111 H (98-107) mmol/L Carbon Dioxide 17 L (22-30) mmol/L BUN 48 H (9-20) mg/dL Creatinine 1.89 H (0.66-1.25) mg/dL Glucose 159 H (74-99) mg/dL POC Glucose (mg/dL) 182 H (75-99) mg/dL Calcium 7.0 L (8.4-10.2) mg/dL Phosphorus 5.6 H (2.5-4.5) mg/dL Magnesium 2.6 H (1.6-2.3) mg/dL Total Bilirubin 2.1 H (0.2-1.3) mg/dL AST 848 H (17-59) U/L ALT 487 H (21-72) U/L Alkaline Phosphatase 195 H (38-126) U/L Total Protein 5.1 L (6.3-8.2) g/dL Albumin 2.4 L (3.5-5.0) g/dL 08/05/18 08/05/18 08/05/18 Range/Units 07:41 09:16 11:59 WBC (3.8-10.6) k/uL RBC (4.30-5.90) m/uL Hgb (13.0-17.5) gm/dL Hct (39.0-53.0) % MCV (80.0-100.0) fL MCHC (31.0-37.0) g/dL Neutrophils # (1.3-7.7) k/uL ABG pH 7.31 L (7.35-7.45) ABG pCO2 34 L (35-45) mmHg ABG pO2 64 L (83-108) mmHg ABG HCO3 17 L (21-25) mmol/L ABG Total CO2 18 L (19-24) mmol/L ABG O2 Saturation 89.5 L (94-97) % Chloride (98-107) mmol/L Carbon Dioxide (22-30) mmol/L BUN (9-20) mg/dL Creatinine (0.66-1.25) mg/dL Glucose (74-99) mg/dL POC Glucose (mg/dL) 178 H 199 H (75-99) mg/dL Calcium (8.4-10.2) mg/dL Phosphorus (2.5-4.5) mg/dL Magnesium (1.6-2.3) mg/dL Total Bilirubin (0.2-1.3) mg/dL AST (17-59) U/L ALT (21-72) U/L Alkaline Phosphatase (38-126) U/L Total Protein (6.3-8.2) g/dL Albumin (3.5-5.0) g/dL 08/05/18 Range/Units 14:04 WBC (3.8-10.6) k/uL RBC (4.30-5.90) m/uL Hgb (13.0-17.5) gm/dL Hct (39.0-53.0) % MCV (80.0-100.0) fL MCHC (31.0-37.0) g/dL Neutrophils # (1.3-7.7) k/uL ABG pH (7.35-7.45) ABG pCO2 (35-45) mmHg ABG pO2 77 L (83-108) mmHg ABG HCO3 19 L (21-25) mmol/L ABG Total CO2 (19-24) mmol/L ABG O2 Saturation (94-97) % Chloride (98-107) mmol/L Carbon Dioxide (22-30) mmol/L BUN (9-20) mg/dL Creatinine (0.66-1.25) mg/dL Glucose (74-99) mg/dL POC Glucose (mg/dL) (75-99) mg/dL Calcium (8.4-10.2) mg/dL Phosphorus (2.5-4.5) mg/dL Magnesium (1.6-2.3) mg/dL Total Bilirubin (0.2-1.3) mg/dL AST (17-59) U/L ALT (21-72) U/L Alkaline Phosphatase (38-126) U/L Total Protein (6.3-8.2) g/dL Albumin (3.5-5.0) g/dL Microbiology - Last 24 Hours (Table) 08/04/18 00:02 Gram Stain - Preliminary Sputum Sputum Culture - Preliminary Gram Neg Bacilli Gram Neg Bacilli#2 08/03/18 13:15 Urine Culture - Final Urine,Catheterized 08/03/18 16:34 Blood Culture - Preliminary Blood No Growth after 24 hours Diabetes panel 08/04/18 08/05/18 Range/Units 06:03 04:45 Sodium 140 (137-145) mmol/L Potassium 5.0 (3.5-5.1) mmol/L Chloride 111 H (98-107) mmol/L Carbon Dioxide 17 L (22-30) mmol/L BUN 48 H (9-20) mg/dL Creatinine 1.89 H (0.66-1.25) mg/dL Glucose 159 H (74-99) mg/dL Hemoglobin A1c 5.6 (4.0-6.0) % Calcium 7.0 L (8.4-10.2) mg/dL AST 848 H (17-59) U/L ALT 487 H (21-72) U/L Alkaline Phosphatase 195 H (38-126) U/L Total Protein 5.1 L (6.3-8.2) g/dL Albumin 2.4 L (3.5-5.0) g/dL Calcium panel 08/05/18 Range/Units 04:45 Calcium 7.0 L (8.4-10.2) mg/dL Phosphorus 5.6 H (2.5-4.5) mg/dL Albumin 2.4 L (3.5-5.0) g/dL Pituitary panel 08/05/18 Range/Units 04:45 Sodium 140 (137-145) mmol/L Potassium 5.0 (3.5-5.1) mmol/L Chloride 111 H (98-107) mmol/L Carbon Dioxide 17 L (22-30) mmol/L BUN 48 H (9-20) mg/dL Creatinine 1.89 H (0.66-1.25) mg/dL Glucose 159 H (74-99) mg/dL Calcium 7.0 L (8.4-10.2) mg/dL Adrenal panel 08/05/18 Range/Units 04:45 Sodium 140 (137-145) mmol/L Potassium 5.0 (3.5-5.1) mmol/L Chloride 111 H (98-107) mmol/L Carbon Dioxide 17 L (22-30) mmol/L BUN 48 H (9-20) mg/dL Creatinine 1.89 H (0.66-1.25) mg/dL Glucose 159 H (74-99) mg/dL Calcium 7.0 L (8.4-10.2) mg/dL Total Bilirubin 2.1 H (0.2-1.3) mg/dL AST 848 H (17-59) U/L ALT 487 H (21-72) U/L Alkaline Phosphatase 195 H (38-126) U/L Total Protein 5.1 L (6.3-8.2) g/dL Albumin 2.4 L (3.5-5.0) g/dL - Imaging CT scan - abdomen: report reviewed, image reviewed CT scan - pelvis: report reviewed, image reviewed (Findings consistent with soft tissue edema presacral. No crepitus identified) Assessment and Plan (1) BMI 50.0-59.9, adult Current Visit: Yes Status: Acute Code(s): Z68.43 - BODY MASS INDEX (BMI) 50- 59.9, ADULT SNOMED Code(s): 753092417 (2) Acute liver failure Current Visit: Yes Status: Acute Code(s): K72.00 - ACUTE AND SUBACUTE HEPATIC FAILURE WITHOUT COMA SNOMED Code(s): 899695013 (3) Acute kidney failure Current Visit: Yes Status: Acute Code(s): N17.9 - ACUTE KIDNEY FAILURE, UNSPECIFIED SNOMED Code(s): 29253447 (4) Pneumonia Current Visit: Yes Status: Acute Code(s): J18.9 - PNEUMONIA, UNSPECIFIED ORGANISM SNOMED Code(s): 568760434 (5) Acute respiratory failure Current Visit: Yes Status: Acute Code(s): J96.00 - ACUTE RESPIRATORY FAILURE , UNSP W HYPOXIA OR HYPERCAPNIA SNOMED Code(s): 59117845 (6) Sepsis Current Visit: Yes Status: Acute Code(s): A41.9 - SEPSIS, UNSPECIFIED ORGANISM SNOMED Code(s): 73024604 (7) Status post aorto-coronary artery bypass graft Current Visit: Yes Status: Acute Code(s): Z95.1 - PRESENCE OF AORTOCORONARY BYPASS GRAFT SNOMED Code(s): 671587044 (8) Coronary artery disease Current Visit: Yes Status: Chronic Code(s): I25.10 - ATHSCL HEART DISEASE OF [place] CORONARY ARTERY W/O ANG PCTRS SNOMED Code(s): 04613502 (9) Obstructive sleep apnea Current Visit: Yes Status: Chronic Code(s): G47.33 - OBSTRUCTIVE SLEEP APNEA (ADULT) (PEDIATRIC) SNOMED Code(s): 11718414 (10) Elevated hemoglobin A1c measurement Current Visit: No Status: Acute Code(s): R73.09 - OTHER ABNORMAL GLUCOSE SNOMED Code(s): 214549532 (11) Abscess, sacrum Current Visit: Yes Status: Acute Code(s): M46.28 - OSTEOMYELITIS OF [place] , SACRAL AND SACROCOCCYGEAL REGION SNOMED Code(s): 334920389
[2018-08-05] MEDS: TAMSULOSIN 0.4 MG CAP.ER.24H PO SCH (17:01)
[2018-08-05] MEDS: MEROPENEM 2 GM in SODIUM CHLORIDE 0.9% 100 ML IVPB SCH ×2 (17:05→23:49)
[2018-08-05 17:09] LABS: Glucose,Whole Blood 193 mg/dL (75-99)
[2018-08-05] MEDS ORDERED: DILTIAZEM DRIP BOLUS FROM BAG 1 MG SOLN IV ONE (18:27)
--- NOTE | 2018-08-05 19:53 | PN ---
PROGRESS NOTE I am covering for Dr. Fuchs. DATE OF SERVICE: 08/05/2018 HISTORY OF PRESENT ILLNESS: This 78-year-old gentleman who was admitted with CAD, CABG also had multiple medical problems including acute hypoxic respiratory failure. Patient is on mechanical ventilation. Patient also had paroxysmal atrial fibrillation. The patient also had abdomen and pelvis CAT scan yesterday which showed bilateral lower lobe pneumonia with pleural effusion and as well as pericardial effusion, cardiomegaly and subcutaneous edema and possibly right lateral abdomen and as well as L5-S1 bony spinal stenosis and presacral cellulitis or abscess also. Surgical evaluation is in progress at this time. PAST MEDICAL HISTORY: Reviewed. REVIEW OF SYMPTOMS: Could not be taken because of the patient being mechanically ventilated and sedated. CURRENT MEDICATIONS ARE: Reviewed and include: 1. DuoNeb q.i.d. and p.r.n. 2. Vitamin C 500 mg p.o. b.i.d. 3. Aspirin 320 mg. 5. Peridex. 6. Plavix. 7. Diltiazem. 8. Iron sulfate. 9. Heparin. 10.Apresoline. 11.NovoLog. 12.Levemir. 13.Ativan. 14.Milk of Magnesia. 15.Lopressor. 16.P.r.n. medications. 17.Bactroban. 18.Ditropan. 19.Protonix. 20.Zosyn 3.375 IV q.8h. 21.Multivitamins 1 p.o. daily. 22.Flomax 0.4 daily. PHYSICAL EXAM: Patient is mechanically ventilated and sedated. Pulse 76, blood pressure 118/80 , respiration 28, temperature is normal. Pulse ox 98% on 70% mechanical ventilation. Vent settings are noted. HEENT: Conjunctivae normal. Oral mucosa moist. Neck is no jugular venous distention. No carotid bruit. No lymph node enlargement. Cardiovascular: S1, S2 muffled. Respirations: Breath sounds diminished in the bases. A few scattered rhonchi and crackles. ABDOMEN: Soft, obese, nontender. No mass palpable. LEGS: No edema. No swelling. CENTRAL NERVOUS SYSTEM: The patient is mechanically ventilated and sedated. SKIN as mentioned earlier. LAB STUDIES: At this time shows WBC 31.8, hemoglobin 11.7, and ABG 7.31. Magnesium is 2.6. AST is 848, ALT is 487, albumin is 2.4. ASSESSMENT: 1. Coronary artery disease status post coronary artery bypass grafting. 2. Acute blood loss anemia as well as expected outcome from surgery. 3. Elevated LFTs. 4. Acute hypoxic respiratory failure requiring mechanical ventilation. 5. Paroxysmal atrial fibrillation with rapid ventricular rate converted to normal sinus rhythm with Amiodarone. 6. Hypotension requiring vasopressor treatment. 7. Acute kidney injury. 8. Possibly presacral abscess cellulitis with possible sepsis. 9. Fall from standing, no injury. 10.Elevated LFTs. 11.Hypertension. 12.History of transient ischemic attack. 13.History of aortic stenosis. 14.History of degenerative joint disease. 15.History of benign prostatic hypertrophy. 16.History of lap band surgery. 17.History of nicotine dependence. 18.Morbid obesity, BMI 49.4. RECOMMENDATIONS AND DISCUSSION: In this 78-year-old gentleman who presented with multiple complications, we will monitor the patient closely, continue the current medications, management and symptomatic treatment. 3 elevated LFTs. Guarded prognosis. Further recommendations to follow. Otherwise continue with IV antibiotics. Currently the patient is on Zosyn IV. Infection Disease is following the patient closely. We will check the sputum cultures showing gram-negative bacilli. We will obtain surgical consultation. Overall prognosis guarded because of multiple complex medical issues. Discussed with family and discussed with staff. Further recommendations to follow. MMODL / IJN: [id number] / MTDOlegario
[2018-08-05 20:07] LABS: Glucose,Whole Blood 188 mg/dL (75-99)
[2018-08-05] MEDS: SENNOSIDES-DOCUSATE SODIUM 1 EACH TAB PO SCH (20:51)
[2018-08-05] MEDS: INSULIN DETEMIR 100 UNIT/ML 10 ML VIAL SQ SCH (20:51)
[2018-08-05] MEDS ORDERED: SODIUM CHLORIDE 0.9% IVP SCH (21:30)
[2018-08-05] MEDS ORDERED: FUROSEMIDE IVP SCH (21:30)
[2018-08-06] MEDS ORDERED: DILTIAZEM DRIP BOLUS FROM BAG 1 MG SOLN IV ONE ×2 (01:50→08:58)
[2018-08-06] MEDS: DEXTROSE 5% IN WATER 1,000 ML with SODIUM BICARB (1 MEQ/ML) 150 ML IV SCH (02:00)
[2018-08-06] MEDS: METOPROLOL TARTRATE 5 MG/5 ML VIAL IVP SCH (02:02)
[2018-08-06] MEDS: INSULIN ASPART 100 UNIT/ML 1 ML 10 ML VIAL SQ SCH ×5 (02:15→18:52)
[2018-08-06 02:17] LABS: Glucose,Whole Blood 186 mg/dL (75-99)
[2018-08-06] MEDS: IPRATROPIUM-ALBUTEROL 3 ML NEB INHALATION PRN (03:05)
[2018-08-06 04:05] LABS: Glucose,Whole Blood 161 mg/dL (75-99)
[2018-08-06] MEDS: PROPOFOL 1,000 MG in EMPTY BAG 1 BAG IV SCH ×4 (04:15→18:46)
[2018-08-06 06:16] VITALS: BP 92/39
--- NOTE | 2018-08-06 06:28 | XR ---
EXAMINATION TYPE: XR chest 1V portable DATE OF EXAM: 08/06/2018 HISTORY: resp failure. REFERENCE: Previous study dated 08/05/2018. FINDINGS: The patient has had a midline sternotomy. The patient is ET tube, NG tube and left internal jugular catheter remain in place, unchanged in appearance. The heart is fairly markedly enlarged. There is bibasilar airspace disease, worse on the left than th e right. There are bilateral effusions. The overall appearance does not appear to have changed signif icantly. IMPRESSION: NO SIGNIFICANT INTERVAL CHANGE IN THE APPEARANCE OF THE CHEST.
[2018-08-06 06:36] LABS: Albumin 2.2 g/dL (3.5-5.0); Calcium 6.9 mg/dL (8.4-10.2); Magnesium 2.5 mg/dL (1.6-2.3); Phosphorus 5.9 mg/dL (2.5-4.5); Potassium 4.4 mmol/L (3.5-5.1); Total Bilirubin 2.2 mg/dL (0.2-1.3)
[2018-08-06 06:41] LABS: Vancomycin,Random 19.8 ug/mL
[2018-08-06 06:49] LABS: Basophils # (A) 0.1 k/uL (0-0.2); Basophils % (A) 0 %; Eosinophils % (A) 0 %; HCT 26.1 % (39.0-53.0); HGB 7.9 gm/dL (13.0-17.5); Hypochromasia Marked; Lymphocytes # (A) 1.9 k/uL (1.0-4.8); Lymphocytes % (A) 7 %; MCH 30.6 pg (25.0-35.0); MCHC 30.2 g/dL (31.0-37.0); MCV 101.3 fL (80.0-100.0); Macrocytosis Slight; Mean Platelet Volume 7.7; Monocytes # (A) 0.7 k/uL (0-1.0); Monocytes % (A) 3 %; Neutrophils # (A) 22.1 k/uL (1.3-7.7); Neutrophils % (A) 88 %; Platelet Count 406 k/uL (150-450); Poikilocytosis Slight; RBC 2.57 m/uL (4.30-5.90); RDW 14.8 % (11.5-15.5)
[2018-08-06] MEDS ORDERED: CALCIUM CHLORIDE 2,000 MG in SODIUM CHLORIDE 0.9% 100 ML IVPB STA (07:05)
[2018-08-06 07:12] LABS: ABG Base Excess -3.3 mmol/L; ABG HCO3 22 mmol/L (21-25); ABG Oxygen Saturation 94.7 % (94-97); ABG PCO2 39 mmHg (35-45); ABG PH 7.36 (7.35-7.45); ABG PO2 75 mmHg (83-108); ABG TCO2 23 mmol/L (19-24)
[2018-08-06] MEDS: IPRATROPIUM-ALBUTEROL 3 ML NEB INHALATION SCH ×4 (07:36→20:27)
[2018-08-06] MEDS ORDERED: VANCOMYCIN 2,250 MG in SODIUM CHLORIDE 0.9% 500 ML 500 ML IVPB ONE (08:00)
[2018-08-06] MEDS: HEPARIN SODIUM,PORCINE 5,000 UNIT/ML 1 ML VIAL SQ SCH ×2 (08:26→15:34)
[2018-08-06] MEDS: ASCORBIC ACID 500 MG TAB PO SCH ×2 (08:26→20:27)
[2018-08-06] MEDS: FERROUS SULFATE 325 MG TAB PO SCH ×2 (08:26→20:27)
[2018-08-06] MEDS: CHLORHEXIDINE GLUCONATE 15 ML CUP MUCOUS MEM SCH (08:28)
[2018-08-06] MEDS: PANTOPRAZOLE 40 MG/10 ML VIAL IVP SCH (08:28)
[2018-08-06 08:35] LABS: Glucose,Whole Blood 209 mg/dL (75-99)
[2018-08-06] MEDS: ASPIRIN 300 MG SUPP RECTAL SCH (08:42)
[2018-08-06] MEDS: CLOPIDOGREL 75 MG TAB PO SCH (08:42)
[2018-08-06] MEDS: MEROPENEM 2 GM in SODIUM CHLORIDE 0.9% 100 ML IVPB SCH ×2 (08:42→15:34)
[2018-08-06] MEDS: OXYBUTYNIN CHLORIDE 5 MG TAB PO SCH (08:42)
[2018-08-06] MEDS: DILTIAZEM 50 MG in SODIUM CHLORIDE 0.9% 40 ML IV SCH ×2 (08:57→18:45)
[2018-08-06] MEDS ORDERED: FUROSEMIDE 250 MG in SODIUM CHLORIDE 0.9% 225 ML IVP SCH (09:00)
[2018-08-06] MEDS: NOREPINEPHRINE 16 MG in SODIUM CHLORIDE 0.9% 250 ML IV SCH (09:08)
--- NOTE | 2018-08-06 09:38 | P.NPCON ---
History of Present Illness - Reason for Consult Consult date: 08/06/18 acute renal failure - Chief Complaint Cardiac bypass surgery - History of Present Illness 78-year-old gentleman had 4 vessel cardiac bypass surgery on 07/25/2018. Post surgery he was transferred to the floor and 3 days back transferred back to the unit intubated and currently on 25 mics of Levophed. Nephrology was concentrated for oliguria and worsening renal function. Baseline creatinine is 0.9 MG per DL. Creatinine started creeping on 08/04/2018 and last night was oliguric. There is suspicion for sepsis and he is on antibiotics. Last night Lasix drip was started at 20 mg an hour. He is making around 35 ML's an hour of urine output. He was also acidotic on a bicarb drip. Vent requirements are 10 of PEEP and 80% FiO2. Chest x-ray most consistent with infiltrates more on the right then left the rather than pulmonary vascular congestion. No diarrhea. No recent contrast studies Review of Systems ROS unobtainable: due to endotracheal tube Constitutional: Reports as per HPI Past Medical History Past Medical History: Chest Pain / Angina, CVA/TIA, Hypertension, Osteoarthritis (OA), Prostate Disorder, Sleep Apnea/CPAP/BIPAP Additional Past Medical History / Comment(s): hx TIA, heart murmur, no cpap used , drop foot left leg History of Any Multi-Drug Resistant Organisms: None Reported Past Surgical History: Back Surgery, Bariatric Surgery, Hernia Repair, Joint Replacement Additional Past Surgical History / Comment(s): lap band surgery, left knee replacement, ashley cataracts Past Anesthesia/Blood Transfusion Reactions: No Reported Reaction Smoking Status: Former smoker - Past Family History Father Family Medical History: Cancer Medications and Allergies Home Medications Medication Instructions Recorded Confirmed Type Aspirin [Adult Low Dose Aspirin EC] 162 mg PO QAM 07/11/18 07/25/18 History Isosorbide Mononitrate [Isosorbide 30 mg PO DAILY 07/11/18 07/25/18 History Mononitrate ER] Lisinopril 20 mg PO DAILY 07/11/18 07/25/18 History Oxybutynin Chloride 5 mg PO QAM 07/11/18 07/25/18 History Tamsulosin HCl [Flomax] 0.4 mg PO QAM 07/11/18 07/25/18 History Atorvastatin [Lipitor] 40 mg PO DAILY #90 tab 07/21/18 07/25/18 Rx Metoprolol Tartrate 12.5 mg PO DAILY 07/24/18 07/25/18 History Allergies Allergy/AdvReac Type Severity Reaction Status Date / Time No Known Allergies Allergy Verified 07/25/18 15:47 Physical Exam Vitals: Vital Signs Temp Pulse Resp BP Pulse Ox 08/06/18 09:00 98.0 F 90 25 H 93 L 08/06/18 08:30 85 25 H 92 L 08/06/18 08:00 108 H 26 H 92 L 08/06/18 07:54 98 08/06/18 07:41 88 08/06/18 07:30 59 L 24 95 08/06/18 07:00 56 L 25 H 90 L 08/06/18 06:30 98.7 F 63 23 90 L 08/06/18 06:00 57 L 26 H 92/39 94 L 08/06/18 05:30 59 L 26 H 93 L 08/06/18 05:00 98.6 F 56 L 26 H 92/39 94 L 08/06/18 04:30 57 L 23 96 08/06/18 04:00 98.9 F 58 L 26 H 93/37 94 L 08/06/18 03:30 58 L 23 93/37 95 08/06/18 03:21 57 L 08/06/18 03:00 57 L 28 H 93/37 90 L 08/06/18 02:30 57 L 28 H 93/37 91 L 08/06/18 02:00 86 26 H 102/38 92 L 08/06/18 01:30 98.9 F 140 H 25 H 93 L 08/06/18 01:00 67 24 102/38 96 08/06/18 00:30 70 26 H 91 L 08/06/18 00:00 100.9 F H 68 23 115/48 92 L 08/05/18 23:43 65 08/05/18 23:38 65 25 H 93 L 08/05/18 23:30 100.9 F H 70 23 115/48 93 L 08/05/18 23:27 71 08/05/18 23:00 73 23 115/48 98 08/05/18 22:30 73 25 H 115/48 99 08/05/18 22:00 72 28 H 93/44 99 08/05/18 21:30 71 27 H 98 08/05/18 21:00 101.1 F H 67 27 H 93/44 98 08/05/18 20:27 66 08/05/18 20:19 70 08/05/18 20:00 73 26 H 84/44 96 08/05/18 19:00 94 27 H 92 L 08/05/18 18:00 103 H 27 H 95 08/05/18 17:30 71 27 H 93 L 08/05/18 17:00 65 24 94 L 08/05/18 16:30 70 24 93 L 08/05/18 16:00 98.6 F 65 27 H 96 08/05/18 15:34 65 08/05/18 15:30 68 26 H 96 08/05/18 15:26 65 08/05/18 15:00 68 27 H 95 08/05/18 14:30 68 24 92 L 08/05/18 14:00 74 18 97 08/05/18 13:30 73 29 H 96 08/05/18 13:00 77 26 H 96 08/05/18 12:30 76 28 H 96 08/05/18 12:00 99.4 F 74 27 H 106/47 97 08/05/18 11:32 76 08/05/18 11:30 99.4 F 74 26 H 106/47 98 08/05/18 11:07 77 08/05/18 11:00 69 28 H 98 08/05/18 10:30 73 28 H 94 L 08/05/18 10:00 74 26 H 93 L 08/05/18 09:30 73 26 H 94 L Intake and Output 08/05/18 08/06/18 08/06/18 22:59 06:59 14:59 Intake Total 9792.213 7311 1470.298 Output Total 187 219 95 Balance 8139.202 7928 1375.298 Intake: IV 510.5 948 918 0.9NS 195 160 60 Cardizem infusion 15 40 15 Dextrose 5% in Water 1, 225 600 225 000 ml @ 75 mls/hr IV . [id number] [place] with Sodium Bicarb (1 Meq/ml) 150 ml Rx#:[id number] Diltiazem 50 mg In Sodium 27.5 Chloride 0.9% 40 ml @ 5 MG/HR 5 mls/hr IV .Q10H [facility] Rx#:[id number] Meropenem 2 gm In Sodium 100 100 Chloride 0.9% 100 ml @ 200 mls/hr IVPB Q8HR [facility] Rx#:[id number] Vancomycin 2,250 mg In 500 Sodium Chloride 0.9% 500 ml 500 ml @ 167 mls/hr IVPB Q16H [facility] Rx#: [id number] pressure bags 48 48 18 Intake, IV Titration 583.198 100 356.298 Amount Calcium Chloride 2,000 mg 100 In Sodium Chloride 0.9% 100 ml @ 100 mls/hr IVPB ONCE STA Rx#:[id number] Dextrose 5% in Water 1, 225 000 ml @ 75 mls/hr IV . [id number] [place] with Sodium Bicarb (1 Meq/ml) 150 ml Rx#:[id number] Diltiazem 50 mg In Sodium 45.792 Chloride 0.9% 40 ml @ 5 MG/HR 5 mls/hr IV .Q10H [facility] Rx#:[id number] Furosemide 250 mg In 20 Sodium Chloride 0.9% 225 ml @ 20 MG/HR 20 mls/hr IVP .[id number] [facility] Rx#: [id number] Norepinephrine 16 mg In 126.137 153.517 Sodium Chloride 0.9% 250 ml @ Titrate IV .Q0M [facility] Rx#:[id number] Propofol 1,000 mg In 186.269 100 82.781 Empty Bag 1 bag @ Titrate IV .Q0M [facility] Rx#: [id number] Tube Feeding 430 450 166 Other 90 60 30 Output: Urine 187 219 95 Other: Voiding Method Indwelling Catheter Indwelling Catheter Weight 158.6 kg 165.1 kg ABP, PAP, CO, CI - Last 8 Hours Arterial Blood Pressure 120/62 Arterial Blood Pressure 98/51 Arterial Blood Pressure 118/58 Arterial Blood Pressure 112/44 Arterial Blood Pressure 97/40 Arterial Blood Pressure 119/53 Arterial Blood Pressure 108/48 Arterial Blood Pressure 131/54 Arterial Blood Pressure 120/51 Arterial Blood Pressure 111/49 Arterial Blood Pressure 110/49 Arterial Blood Pressure 111/49 Arterial Blood Pressure 89/54 Arterial Blood Pressure 96/46 Arterial Blood Pressure 100/60 Arterial Blood Pressure 103/47 Intubated on a ventilator S1-S2 heard Crackles in the lungs Edema Results - Lab Results Most recent lab results ABG pH 7.36 (7.35-7.45) 08/06/18 07:10 ABG pCO2 39 mmHg (35-45) 08/06/18 07:10 ABG pO2 75 mmHg (83-108) L 08/06/18 07:10 ABG HCO3 22 mmol/L (21-25) 08/06/18 07:10 ABG O2 Saturation 94.7 % (94-97) 08/06/18 07:10 Calcium 6.9 mg/dL (8.4-10.2) L 08/06/18 05:30 Phosphorus 5.9 mg/dL (2.5-4.5) H 08/06/18 05:30 Magnesium 2.5 mg/dL (1.6-2.3) H 08/06/18 05:30 08/06/18 05:30 08/06/18 05:30 Assessment and Plan Assessment: #1 oliguric acute kidney injury secondary to hemodynamic ATN from septic shock. #2 metabolic acidosis on bicarb drip #3 shock on pressors #4 vent-dependent respiratory failure #5 volume overload with anasarca #6 pneumonia on chest x-ray Plan: #1 continue with Lasix drip for now at 20 mg an hour. His urine output is about 30-35 ML's an hour. #2 renal function continued to worsen but no electrolyte changes at this point. #3 as bicarb is better decreased bicarb drip to 25 ML's an hour. #4 check Vanco trough levels and keep levels less than 20. #5 no acute indications for hemodialysis today. Monitor renal function and urine output closely. Plan of care discussed with the nurse and the cardiothoracic team. Thank you very much for this consultation we'll follow along while he is in the hospital.
--- NOTE | 2018-08-06 09:39 | P.PN ---
Subjective Progress Note Date: 18 Principal diagnosis: Coronary artery disease. Previous medical history of hypertension, previous tobacco dependence with preoperative FEV1 86% of predicted, obstructive sleep apnea, TIA, bilateral internal carotid artery stenosis 50-79%, prostate disorder , morbid obesity with history of bariatric surgery, and drop foot on the left leg. POD #12 coronary artery bypass grafting 4 vessels, left internal mammary to the left anterior descending artery, reverse saphenous vein graft to the diagonal artery, reverse saphenous vein graft to the second obtuse marginal artery, reverse saphenous vein graft to the posterior lateral branch of the right coronary artery. Endoscopic vein harvest of bilateral greater saphenous veins. Epi-aortic ultrasound. Intraoperative transesophageal echocardiogram. Closure of the sternum using titanium plating system. Postoperative acute blood loss anemia, expected postsurgical condition secondary to hemodilution and cardiopulmonary bypass pump. Acute confusion, unexpected, possibly from cardiopulmonary bypass pump. Elevation in transaminases, an expected outcome. Fall without injury, unexpected. Septic shock, unknown cardiology at this time, suspect pneumonia versus sacral ulcer, unexpected outcome. Acute hypoxic respiratory failure requiring reintubation, prolonged mechanical ventilation, unexpected outcome. Postoperative atrial fibrillation, unexpected but potential outcome. Acute kidney injury, unexpected. Sacral decubitus ulcer, unexpected but potential outcome secondary to body habitus and lack of movement. Patient remains intubated on sedation in the intensive care unit. Requiring levo 30 mics to maintain blood pressure. Patient has had episodes of A. fib with RVR, especially with movement, amiodarone stopped yesterday, IV Cardizem started and has been titrated per cardiology. He does not seem to tolerate any movement without becoming tachycardic. CT of the abdomen and pelvis was completed, demonstrates bilateral lower lobe infiltrates, subcu fluid over the right lateral abdomen, and questionable presacral abscess without any evidence of mild osteomyelitis, general surgery consulted. Urine culture remains negative. Blood culture remains negative 48 hours. Sputum culture demonstrates gram-negative bacilli and few gram-positive cocci preliminarily. Continues on vancomycin, changed to meropenem per infectious disease. AST/ALT slightly better today. White blood cell count 25.0 this morning, Tmax 101.1F overnight, creatinine increased to 2.16 this morning, urine output 20-30 hour overnight. Patient was given 40 mg then 80 mg of Lasix per pulmonology yesterday, nephrology was consulted, gave another 100 mg IV push Lasix and started patient on Lasix drip at 20 mg per hour. Fluid balance remains positive at this time. Patient also started on bicarb drip yesterday. Patient remains critical. Objective - Vital Signs Vital signs: Vital Signs Temp 98.0 F 08/06/18 09:00 Pulse 90 08/06/18 09:00 Resp 25 H 08/06/18 09:00 BP 92/39 08/06/18 06:00 Pulse Ox 93 L 08/06/18 09:00 Intake & Output 08/05/18 08/06/18 08/06/18 18:59 06:59 18:59 Intake Total 2761.725 2512.068 1470.298 Output Total 625 266 95 Balance 2136.725 2246.068 1375.298 Weight 158.6 kg 165.1 kg Intake: IV 1229.5 1312 918 0.9NS 340 255 60 Cardizem infusion 55 15 Dextrose 5% in Water 1, 825 225 000 ml @ 75 mls/hr IV . [id number] [facility] with Sodium Bicarb (1 Meq/ml) 150 ml Rx#:[id number] Diltiazem 50 mg In Sodium 67.5 5 Chloride 0.9% 40 ml @ 5 MG/HR 5 mls/hr IV .Q10H [facility] Rx#:[id number] Lactated Ringers 1,000 ml 150 @ 75 mls/hr IV .[id number] [facility] Rx#:[id number] Meropenem 2 gm In Sodium 100 100 Chloride 0.9% 100 ml @ 200 mls/hr IVPB Q8HR [facility] Rx#:[id number] Piperacillin-Tazobactam 3 100 .375 gm In Sodium Chloride 0.9% 100 ml @ 25 mls/hr IVPB Q8HR [facility] Rx# :[id number] Vancomycin 2,250 mg In 500 500 Sodium Chloride 0.9% 500 ml 500 ml @ 167 mls/hr IVPB Q16H [facility] Rx#: [id number] pressure bags 72 72 18 Intake, IV Titration 1002.225 350.068 356.298 Amount Calcium Chloride 2,000 mg 100 In Sodium Chloride 0.9% 100 ml @ 100 mls/hr IVPB [facility] Rx#:[id number] Dextrose 5% in Water 1, 375 75 000 ml @ 75 mls/hr IV . [id number] [facility] with Sodium Bicarb (1 Meq/ml) 150 ml Rx#:[id number] Diltiazem 50 mg In Sodium 48.500 28.417 Chloride 0.9% 40 ml @ 5 MG/HR 5 mls/hr IV .Q10H [facility] Rx#:[id number] Furosemide 250 mg In 20 Sodium Chloride 0.9% 225 ml @ 20 MG/HR 20 mls/hr IVP .[id number] [facility] Rx#: [id number] Norepinephrine 16 mg In 299.832 46.651 153.517 Sodium Chloride 0.9% 250 ml @ Titrate IV .Q0M [facility] Rx#:[id number] Propofol 1,000 mg In 278.893 200 82.781 Empty Bag 1 bag @ Titrate IV .Q0M [facility] Rx#: [id number] Tube Feeding 440 730 166 Other 90 120 30 Output: Urine 625 266 95 Other: Voiding Method Indwelling Catheter Indwelling Catheter ABP, PAP, CO, CI - Last Documented Arterial Blood Pressure 120/62 Pulmonary Artery Pressure 44/8 Cardiac Output 7.2 Cardiac Index 2.8 - Constitutional Constitutional Comment(s): Very critical patient remaining intubated on multiple IV medications. General appearance: Present: morbidly obese - Respiratory Details: Lungs sounds diminished bilaterally, coarse in the bases. Respirations even, nonlabored on mechanical ventilation. Current settings volume-controlled mode, FiO2 80%, tidal volume 500, respiratory rate 20, PEEP 10. ABGs this morning 7.36/39/75/22/95%/-3.3 on 80% FiO2. 8.0 ET tube present, 25 at the lip. Thick , tannish white copious amounts of sputum being suctioned from ET tube. - Cardiovascular Details: S1, S2 present. Uncontrolled, irregular rate and rhythm, atrial fibrillation on telemetry. Sternum stable. Generalized edema. Doppler lower extremity pulses present. Right radial arterial line, left internal jugular triple-lumen central line present. Heart hugger, antiembolism stockings, SCDs present. - Gastrointestinal Gastrointestinal Comment(s): Abdomen soft, nondistended, obese. Active bowel sounds present 4 quadrants. OG tube present, tube feeding infusing at 50 mL/h. - Genitourinary Genitourinary Comment(s): Smith present draining clear yellow urine. Output 20-30 mL/h overnight. - Integumentary Integumentary Comment(s): Skin is warm and dry. Anterior chest incision well approximated with dry intact dressing present. Left lower extremity EVH site well approximated, positive serous drainage. Patient has unstageable ulcer with no drainage in the gluteal fold. - Psychiatric Psychiatric Comment(s): Sedated with propofol on mechanical ventilation. - Allied health notes Allied health notes reviewed: nursing - Labs CBC & Chem 7: 08/06/18 05:30 08/06/18 05:30 Labs: Abnormal Lab Results - Last 24 Hours (Table) 08/05/18 08/05/18 08/05/18 Range/Units 07:41 09:16 11:59 WBC (3.8-10.6) k/uL RBC (4.30-5.90) m/uL Hgb (13.0-17.5) gm/dL Hct (39.0-53.0) % MCV (80.0-100.0) fL MCHC (31.0-37.0) g/dL Neutrophils # (1.3-7.7) k/uL ABG pH 7.31 L (7.35-7.45) ABG pCO2 34 L (35-45) mmHg ABG pO2 64 L (83-108) mmHg ABG HCO3 17 L (21-25) mmol/L ABG Total CO2 18 L (19-24) mmol/L ABG O2 Saturation 89.5 L (94-97) % Chloride (98-107) mmol/L Carbon Dioxide (22-30) mmol/L BUN (9-20) mg/dL Creatinine (0.66-1.25) mg/dL Glucose (74-99) mg/dL POC Glucose (mg/dL) 178 H 199 H (75-99) mg/dL Calcium (8.4-10.2) mg/dL Ionized Calcium Gianluca (4.5-5.3) mg/dL Phosphorus (2.5-4.5) mg/dL Magnesium (1.6-2.3) mg/dL Total Bilirubin (0.2-1.3) mg/dL AST (17-59) U/L ALT (21-72) U/L Alkaline Phosphatase (38-126) U/L Total Protein (6.3-8.2) g/dL Albumin (3.5-5.0) g/dL 08/05/18 08/05/18 08/05/18 Range/Units 14:04 17:07 20:06 WBC (3.8-10.6) k/uL RBC (4.30-5.90) m/uL Hgb (13.0-17.5) gm/dL Hct (39.0-53.0) % MCV (80.0-100.0) fL MCHC (31.0-37.0) g/dL Neutrophils # (1.3-7.7) k/uL ABG pH (7.35-7.45) ABG pCO2 (35-45) mmHg ABG pO2 77 L (83-108) mmHg ABG HCO3 19 L (21-25) mmol/L ABG Total CO2 (19-24) mmol/L ABG O2 Saturation (94-97) % Chloride (98-107) mmol/L Carbon Dioxide (22-30) mmol/L BUN (9-20) mg/dL Creatinine (0.66-1.25) mg/dL Glucose (74-99) mg/dL POC Glucose (mg/dL) 193 H 188 H (75-99) mg/dL Calcium (8.4-10.2) mg/dL Ionized Calcium Gianluca (4.5-5.3) mg/dL Phosphorus (2.5-4.5) mg/dL Magnesium (1.6-2.3) mg/dL Total Bilirubin (0.2-1.3) mg/dL AST (17-59) U/L ALT (21-72) U/L Alkaline Phosphatase (38-126) U/L Total Protein (6.3-8.2) g/dL Albumin (3.5-5.0) g/dL 08/06/18 08/06/18 08/06/18 Range/Units 02:07 04:04 05:30 WBC 25.0 H (3.8-10.6) k/uL RBC 2.57 L (4.30-5.90) m/uL Hgb 7.9 L (13.0-17.5) gm/dL Hct 26.1 L (39.0-53.0) % MCV 101.3 H (80.0-100.0) fL MCHC 30.2 L (31.0-37.0) g/dL Neutrophils # 22.1 H (1.3-7.7) k/uL ABG pH (7.35-7.45) ABG pCO2 (35-45) mmHg ABG pO2 (83-108) mmHg ABG HCO3 (21-25) mmol/L ABG Total CO2 (19-24) mmol/L ABG O2 Saturation (94-97) % Chloride (98-107) mmol/L Carbon Dioxide (22-30) mmol/L BUN (9-20) mg/dL Creatinine (0.66-1.25) mg/dL Glucose (74-99) mg/dL POC Glucose (mg/dL) 186 H 161 H (75-99) mg/dL Calcium (8.4-10.2) mg/dL Ionized Calcium Gianluca (4.5-5.3) mg/dL Phosphorus (2.5-4.5) mg/dL Magnesium (1.6-2.3) mg/dL Total Bilirubin (0.2-1.3) mg/dL AST (17-59) U/L ALT (21-72) U/L Alkaline Phosphatase (38-126) U/L Total Protein (6.3-8.2) g/dL Albumin (3.5-5.0) g/dL 08/06/18 08/06/18 08/06/18 Range/Units 05:30 05:30 07:10 WBC (3.8-10.6) k/uL RBC (4.30-5.90) m/uL Hgb (13.0-17.5) gm/dL Hct (39.0-53.0) % MCV (80.0-100.0) fL MCHC (31.0-37.0) g/dL Neutrophils # (1.3-7.7) k/uL ABG pH (7.35-7.45) ABG pCO2 (35-45) mmHg ABG pO2 75 L (83-108) mmHg ABG HCO3 (21-25) mmol/L ABG Total CO2 (19-24) mmol/L ABG O2 Saturation (94-97) % Chloride 110 H (98-107) mmol/L Carbon Dioxide 21 L (22-30) mmol/L BUN 55 H (9-20) mg/dL Creatinine 2.16 H (0.66-1.25) mg/dL Glucose 174 H (74-99) mg/dL POC Glucose (mg/dL) (75-99) mg/dL Calcium 6.9 L (8.4-10.2) mg/dL Ionized Calcium Gianluca 4.3 L (4.5-5.3) mg/dL Phosphorus 5.9 H (2.5-4.5) mg/dL Magnesium 2.5 H (1.6-2.3) mg/dL Total Bilirubin 2.2 H (0.2-1.3) mg/dL AST 611 H (17-59) U/L ALT 468 H (21-72) U/L Alkaline Phosphatase 215 H (38-126) U/L Total Protein 5.0 L (6.3-8.2) g/dL Albumin 2.2 L (3.5-5.0) g/dL 08/06/18 Range/Units 08:32 WBC (3.8-10.6) k/uL RBC (4.30-5.90) m/uL Hgb (13.0-17.5) gm/dL Hct (39.0-53.0) % MCV (80.0-100.0) fL MCHC (31.0-37.0) g/dL Neutrophils # (1.3-7.7) k/uL ABG pH (7.35-7.45) ABG pCO2 (35-45) mmHg ABG pO2 (83-108) mmHg ABG HCO3 (21-25) mmol/L ABG Total CO2 (19-24) mmol/L ABG O2 Saturation (94-97) % Chloride (98-107) mmol/L Carbon Dioxide (22-30) mmol/L BUN (9-20) mg/dL Creatinine (0.66-1.25) mg/dL Glucose (74-99) mg/dL POC Glucose (mg/dL) 209 H (75-99) mg/dL Calcium (8.4-10.2) mg/dL Ionized Calcium Gianluca (4.5-5.3) mg/dL Phosphorus (2.5-4.5) mg/dL Magnesium (1.6-2.3) mg/dL Total Bilirubin (0.2-1.3) mg/dL AST (17-59) U/L ALT (21-72) U/L Alkaline Phosphatase (38-126) U/L Total Protein (6.3-8.2) g/dL Albumin (3.5-5.0) g/dL Microbiology - Last 24 Hours (Table) 08/03/18 16:34 Blood Culture - Preliminary Blood No Growth after 48 hours 08/04/18 00:02 Gram Stain - Preliminary Sputum Sputum Culture - Preliminary Gram Neg Bacilli Gram Neg Bacilli#2 - Imaging and Cardiology Chest x-ray: report reviewed, image reviewed Assessment and Plan (1) Status post aorto-coronary artery bypass graft Current Visit: Yes Status: Acute Code(s): Z95.1 - PRESENCE OF AORTOCORONARY BYPASS GRAFT SNOMED Code(s): 896212110 (2) Aortic valve stenosis Current Visit: Yes Status: Chronic Code(s): I35.0 - NONRHEUMATIC AORTIC ( VALVE) STENOSIS SNOMED Code(s): 24462015 (3) BPH (benign prostatic hyperplasia) Current Visit: Yes Status: Chronic Code(s): N40.0 - BENIGN PROSTATIC HYPERPLASIA WITHOUT LOWER URINRY TRACT SYMP SNOMED Code(s): 838116914 (4) Coronary artery disease Current Visit: Yes Status: Chronic Code(s): I25.10 - ATHSCL HEART DISEASE OF [place] CORONARY ARTERY W/O ANG PCTRS SNOMED Code(s): 20248733 (5) Foot drop, left Current Visit: Yes Status: Chronic Code(s): M21.372 - FOOT DROP, LEFT FOOT SNOMED Code(s): 6053155 (6) Hypertension Current Visit: Yes Status: Chronic Code(s): I10 - ESSENTIAL (PRIMARY) HYPERTENSION SNOMED Code(s): 16706164 (7) Morbid obesity with BMI of 45.0-49.9, adult Current Visit: Yes Status: Chronic Code(s): E66.01 - MORBID (SEVERE) OBESITY DUE TO EXCESS CALORIES; Z68.42 - BODY MASS INDEX (BMI) 45.0-49.9, ADULT SNOMED Code(s): 018947847 (8) Nicotine dependence in remission Current Visit: No Status: Resolved Code(s): F17.201 - NICOTINE DEPENDENCE, UNSPECIFIED, IN REMISSION SNOMED Code(s): 98717721 (9) Obstructive sleep apnea Current Visit: Yes Status: Chronic Code(s): G47.33 - OBSTRUCTIVE SLEEP APNEA (ADULT) (PEDIATRIC) SNOMED Code(s): 70031849 (10) Osteoarthritis Current Visit: Yes Status: Chronic Code(s): M19.90 - UNSPECIFIED OSTEOARTHRITIS, UNSPECIFIED SITE SNOMED Code(s): 123904439 Plan: 1. Continue aspirin, Plavix. Wean levo as tolerated. Hold beta rodríguez. 2. Continue IV Cardizem for A. fib per cardiology recommendations. 3. Mechanical ventilator management per pulmonology. Wean as tolerated. 4. Bronchodilators per pulmonology. 5. Will monitor daily labs and x-rays. No transfusion. Avoid nephrotoxic agents. 6. GI prophylaxis with Protonix. DVT prophylaxis with subcu heparin, SCDs. 7. Pain control with current medication regimen. Avoid narcotics. 8. CT of the abdomen and pelvis reviewed. Appreciate surgery recommendations, no surgical intervention at this time as patient is very high risk they do not feel patient's sepsis is due to gluteal pressure ulcer. 9. Continue IV vancomycin and meropenem. Urine culture, blood culture negative to date. Sputum culture still preliminary, few gram-positive cocci, many gram-negative bacilli. Dr. Giraldo following from infectious disease. 10. Insulin management per primary care service. 11. Continue enteral tube feeding per dietitian orders. 12. Nephrology consulted, appreciate recommendations. Decrease bicarb drip, continue IV Lasix drip. 13. Extensive discussion had with patient's daughter at the bedside regarding need to continue aggressive treatment for another 48-72 hours to see if we can adequately support the patient to get him through his sepsis. The daughter indicated that he wouldn't want extensive treatment and that she would like to withdraw care. She indicated that she would have another discussion this afternoon with the patient's significant other, but felt is likely they would be in agreement to withdraw care. This was discussed with Dr. Colse and Dr. Garrison. 14. More recommendations to follow. Time with Patient: Greater than 30
[2018-08-06] MEDS: SODIUM CHLORIDE 0.9% 99 ML with VASOPRESSIN 20 UNIT IV SCH ×4 (10:55→19:16)
--- NOTE | 2018-08-06 11:48 | PN ---
PROGRESS NOTE This gentleman probably has some sepsis, but organism is not yet growing in the blood. He is on Levophed 30 mics. He is in atrial fib, rate is in the 80-90 range on a small dose of 5 mg of Cardizem drip. Through the night he was up and down with atrial fibrillation, required some bolus but overall rate is well controlled. Blood pressure is better on Levophed 30. His overall prognosis is poor. His urine output has decreased and his creatinine has gone up to more than 2.0. S1, S2 heard normally distantly. Lungs reveal respiratory assisted breath sounds. Abdomen is distended. Lower extremities revealed diminished pulses. Patient has multiple comorbid conditions and sepsis is the major concern. We will continue current medical regimen at this time. MMODL / IJN: [id number] /
[2018-08-06 12:21] LABS: Glucose,Whole Blood 206 mg/dL (75-99)
--- NOTE | 2018-08-06 12:21 | P.PN ---
Subjective Progress Note Date: 08/06/18 Principal diagnosis: Acute hypoxic respiratory failure, acute septic shock. This is 78-year-old white male patient of Dr. Fuchs, who we met on 07/20/2018 for preop pulmonary evaluation for coronary artery bypass grafting. Patient has been having progressive dyspnea, he was referred to cardiology, had a cardiac catheterization which revealed severe multivessel coronary artery disease and moderate aortic stenosis. Patient had a 90% stenosis of his RCA, 80 % stenosis of his circumflex, 95% stenosis of his mid LAD. Aortic valve surface area was 1.2 patient is afebrile, hemodynamically stable,. Other medical history includes previous history of CVA, hypertension, osteoarthritis, and 9 prostatic hypertrophy, sleep apnea syndrome, previous history of bariatric surgery, morbid obesity, and remote history of tobacco use. His preop bedside spirometry showed FEV1 of 86% of predicted, FVC of 71% of predicted, mild restriction. Patient was deferred to cardiothoracic surgery, and was recommended a surgical intervention, today on 07/25/2018 patient underwent four-vessel coronary artery bypass grafting, with MATT to LAD, SVG to the PLB, SVG to the diagonal, and SVG to the OM 1. Patient is seen in the intensive care unit, he is sedated, on mechanical ventilator, currently SIMV mode of ventilation with a rate of 12, tidal volume of 580, FiO2 100%, and PEEP of 10. Chest x-ray showed ET tube, chest tubes, right IJ PA catheter in appropriate positions, lungs are clear of consolidation, no heart failure. Patient is in sinus rhythm, his maintenance IV fluids of LR at 50, milrinone at 0.5 mics/per kilo per minute, Levaquin fed at 2 mics per minute, insulin at 2 units per hour, Diprivan at 15 mics per kilo per minute, and nitro at 5 mics/ min. Blood work showed WBC of 15.2, hemoglobin of 7.9, INR 1.5, choice and renal profile were within normal limits, blood gas showed pO2 of 174, pCO2 48, and pH is 7.3. Patient has 2 mediastinal chest tubes, left pleural chest tube, and there has been a 300 mL of sanguinous output in the mediastinal chest tube, and 10 mL in the left pleural. Hemodynamically patient is stable, cardiac output and index are 5.6 and 2.2 respectively, PA pressures 35/21. On 07/26/2018 patient seen in follow-up in the intensive care unit. This morning he is extubated, sitting up in the chair position in bed, he was extubated at about 1:30 in the morning. Currently on 6 L per nasal cannula, his pulse ox is 96%, he is awake and alert, acute distress, sinus rhythm on the monitor. Today's chest x-ray has been reviewed by Dr. Rose and showed stable bibasilar opacities and pleural effusions. Hemodynamically patient is stable. Levo has been off since 9:00 this morning, maintenance IV fluids is LR at 50 ML per hour, insulin drip is at 5 units per hour, no other drips. Cardiac output and index of 6.2 and 2.4 respectively. Today's lab work has been reviewed, WBCs 13.3, hemoglobin is 8.1, with recent blood gas prior to extubation showed pO2 of 72, pCO2 of 40%, and pH of 7.37, this was done and FiO2 40%, BMP was all within normal limits. Patient has underlying sleep apnea , on CPAP therapy. Patient may require some BiPAP support at night and is needed during the day. We'll continue to monitor, currently in no distress, he is awake and alert and responding to questions appropriately. 2 mediastinal and left pleural chest tubes are draining serosanguineous output. Mediastinal chest tube output is 560 over the last 24 hours, left pleural chest tube output is 378 in the last 24 hours. Smith catheter is present, draining urine in order of 30-45 ML per hour. We'll encourage incentive spirometry, we'll try to mobilize the patient, and set him up at the bedside. On 07/27/2018 patient seen in follow-up in the intensive care unit. This morning he is lethargic, mumbling, patient was apparently confused, agitated and delirious last night, received a dose of Haldol after which he became lethargic, hypotensive, and required albumin and levofed for blood pressure support. This morning he is off the levofed infusion. Blood gas was done, which showed pO2 of 75, pCO2 of 35, and pH of 7.47 as was done on FiO2 of 55%. There is some blood work was reviewed, WBCs 13.7, hemoglobin is 7.1, sodium is 140, potassium is 4.2, chloride is 109, B1 is 28 and creatinine 1.13. On 9 L per high flow nasal cannula, and his pulse ox is 96%, patient is afebrile, blood pressure is 150/64, PA pressure is 44/8, and cardiac output and index hours 7.2 and 2.8. Patient is mediastinal chest tubes removed, left pleural chest tube remains in place with serosanguineous thin output. Has been 760 mL out of the left pleural and the last 24 hours, and 250 on of the mediastinal chest tubes. Lung sounds are positive for scattered rhonchi, he is somnolent, has a loose nonproductive cough. Today's chest x-ray was reviewed by Dr. Rose, and shows stable cardiomegaly with small to moderate left pleural effusion tracking up to the left apex and possible mild pulmonary vascular congestion, retrocardiac atelectasis. Urinary catheter is in, and his urine output is 2240 ML per hour. Maintenance IV fluid is lactated Ringer's at a rate of 20 ML per hour, no other drips. On 07/28/2018 patient seen in follow-up in the intensive care unit. Patient remains confused, but cooperative. He is in the chair, currently on 2 L per nasal cannula, his pulse ox is 95%, afebrile, hemodynamically stable. Today's lab work has been reviewed, showed WBC of 15.1, hemoglobin of 7.6, platelet count of 131, sodium of 145, potassium is 4.2, chloride is 111, BUN is 33, creatinine 1.03. Chest x-ray showed slight interval worsening mild pulmonary vascular congestion and bibasilar atelectasis. Patient denied any shortness of breath, patient is currently in A. fib RVR, and her beta rodríguez therapy was increased per CT surgery come patient received a dose of IV Lasix. Encourage deep breathing and coughing. On 07/31/2018 patient seen in follow-up in selective care unit, he is resting in bed, in no acute distress, seems much more alert and oriented, she knew where he was, he knew the month and the president. He states he is having some trouble swallowing. Denies any dyspnea, pulse ox on 3 L per nasal cannula is 95 %, respirations are even and nonlabored, lung sounds are positive for a few rales at the left base, IS effort 500-750, chest x-ray showed no cardiopulmonary process. Today's labs showed WBC of 10.4, hemoglobin is 7.6, BMP was essentially unremarkable On 08/01/2018 patient seen in follow-up on selective care unit, he sitting up in the recliner, in no acute distress, agitation or delirium. She is alert and oriented 3, pleasant, cooperative. Pulse oximetry on 2 L per nasal cannula is 98%, vital signs are stable, no fever or chills, and today's chest x-ray has been reviewed by Dr. Velarde, and showed left basilar atelectasis and suspected small left pleural effusion, so showed left apical density that could possibly be related to atelectasis or patient's position during film taking. Lung sounds are diminished, with some limited crackles at the right base. Yesterday patient underwent modified barium swallow which showed transient penetration with thin liquids and pulling in the vallecular with honey thick liquids. Patient is on a modified diet with chopped food and consistent carbohydrate, and aspiration precautions. Labs have been reviewed, WBC 14.1, hemoglobin is 7.7, sodium is 144, potassium is 4.1, chloride is 112, BUN is 31 and creatinine 0.90. On 08/02/2018 patient seen in follow-up on selective care unit. He is awake and alert, oriented 3. He states he had a fall this morning when he got up unassisted and started walking to the bathroom. No apparent injury. Room air pulse ox was 94% this morning , now patient is on supplemental oxygen currently at 4 L per nasal cannula. No orsening dyspnea, lung sounds are diminished. No crackles or rhonchi, incentive spirometry effort is 500-750. New chest x-rays, today's labs have been reviewed , WBC is 12.6, hemoglobin 7.9, but he was 141, but potassium is 4.4 chloride is 109, was 25 and creatinine 0.85. No new chest x-ray today On 08/03/2018 patient seen in follow-up on selective care unit. He confused, increased from yesterday, quite congested, tachypneic. Cough is weak,oral membranes are quite dry, and there is food residue oral secretions in his mouth. His respiratory rate is in the upper 30s, was unable to do his incentive spirometer, x-ray was reviewed and showed diffuse left lung atelectasis. Blood gas was obtained and showed pO2 of 69, pCO2 of 27, and pH of 7.50, respiratory alkalosis and hypoxemia. Patient was then placed on BiPAP support, is actually tolerating it quite well, he is resting, possibility of left pleural effusion is not excluded, so we will obtain a ultrasound of the left chest with markings. We will transfer the patient to the intensive care unit for closer monitoring. Labs have been reviewed, increased white count noted, WBC 17.2, hemoglobin is 8.1, sodium is 143, potassium is 4.6, chloride is 110, B1 is 27 creatinine 1.05. Urinalysis was completed, showed some rare bacteria and mucus, with trace protein blood, does not look infected, culture was also sent. On 08/04/2018, patient was transferred yesterday after I evaluated the patient on the floor to the intensive care unit. Later in the evening, patient was noted to have hardly any urine output, he was becoming more and more hypotensive requiring levo fed, and his mental status was even getting worse. Patient was noted to hypoventilate, and was not doing well. Patient was noted to be unable to protect his airways, and his mental status was getting worse. Hence I recommended immediate intubation, I also recommended CT of the brain to be done as soon as possible which was done. Patient is being evaluated this morning. He is now on mechanical ventilation, assist control rate of 20 tidal volume of 500 FiO2 of 50% PEEP of 5. Patient is on 25 g of norepinephrine per minute, he is on amiodarone drip 0.5 mg/m, he is also on propofol at 25 mcg/kg/m , and he is on broad-spectrum antibiotics. Patient was cultured, results are pending. Empirically started on antibiotics yesterday including Zosyn and vancomycin. He was given fluid boluses last night, and his urine output picked up late in the evening with the support of norepinephrine and with fluid boluses. His CBC showed significant leukocytosis with WBC count of 32.1 hemoglobin is 7.8. ABG this morning showed a pO2 of 77 pCO2 of 32 pH of 7.39. Electrolytes were noted to be normal bicarb is a bit low at 19 BUN is 44 creatinine 2.02. His creatinine yesterday was 1.05. Apparently the patient sustained a fall yesterday while he was on the medical floor, he tried to move on his own to go to the bathroom, and normally takes 4 people to ambulate the patient. Or assist him and walking. Patient apparently fell, and today I have noted that his CPK is up to 4060, his troponin is 2.72, his liver enzymes also were noted to be elevated. Obviously the patient developed significant facial injury, and hopefully fluids will improve his renal status and improve his ongoing rhabdomyolysis. Considering the patient is on high dose of norepinephrine, I went ahead and placed a left internal jugular central line and the patient. Patient was reevaluated today on 08/05/2018, remains in the ICU, on mechanical ventilation. Remains on pressors, he is requiring at least 25 g of levo fed per minute. Remains on propofol, the dose is 20 mcg/kg/m, he is also on Cardizem at 7.5 g/h. Patient was on amiodarone, however because of his liver enzymes taking a rise, this was discontinued and he is now on Cardizem. Remains on antibiotics in the form of vancomycin and Zosyn, being followed by infectious disease, and a CT of the abdomen and pelvis done yesterday questioned a sacral decub ulcer and abscess. Hence general surgery was consulted. In the meantime the patient remains on antibiotics. Cultures of the sputum blood and urine, remain negative so far. Patient has been noted overnight to have significant amount of endotracheal tube secretions, and these were sent for cultures again. Patient remains sedated, and his chest x-ray is consistent with some component of fluid overload, CVP is about 16, hence I recommended a dose of Lasix 40 mg IV push 1, his urine output is about 40-50 mL per hour. He is definitely in positive fluid balance, lots of fluids were given for his initial episode of hypotension and septic shock presentation. Remains on enteral feedings. ABG this morning showed a pO2 of 64 pCO2 of 54 pH of 7.31, and his ventilator settings are assist control rate of 20, tidal volume of 500, PEEP was increased to 10, and FiO2 is now 80%. Hopefully the Lasix will help the patient oxygenated better. Patient does have small bilateral effusions on the chest x-ray and on his recent CT of the abdomen and pelvis these were noted. There is also a moderate amount of pericardial effusion, hence I recommended ultrasound/echocardiogram to be done today. Reevaluated today on 08/06/2018, patient remains in the ICU, on mechanical ventilation, remains on pressors, and he is actually on 27 mcg/m of norepinephrine, he is on propofol at 20 mcg/kg/m, his ventilator settings are assist control rate of 24 out of volume of 500 PEEP of 12 and FiO2 of 95%. Chest x-ray is showing worsening pulmonary edema, CVP remains elevated in the high teens, patient is now on Lasix drip at 20 mg per hour, and a urine output is marginal. His urine output is about 30-40 mL per hour. Seen by nephrology on consultation. He was also seen by multiple consultants since readmission to the ICU. Surgery felt that the patient is not stable enough for debridement of his sacral ulcer. ABG this morning showed a pO2 of 75 pCO2 of 39 pH of 7.36. WBC count is down to 25,000, hemoglobin is 7.9. Renal functioning is worse with BUN of 55 creatinine of 2.16. Liver enzymes were noted to be also abnormal transaminases are elevated, but they seem to be trending down compared to yesterday. This is consistent with shock liver. Related to his hypotension and septic shock. Chest x-ray is showing heart is enlarged, bibasilar airspace disease noted worse on the left compared to the right, and small bilateral pleural effusions noted. Not much of a change noted on the chest x-ray compared to yesterday. Patient remains sedated, and on propofol at this point. Family is considering comfort care measures. Objective - Vital Signs Vital signs: Vital Signs Temp 98.0 F 08/06/18 09:00 Pulse 58 L 08/06/18 11:37 Resp 25 H 08/06/18 11:00 BP 92/39 08/06/18 06:00 Pulse Ox 89 L 08/06/18 11:00 Intake & Output 08/05/18 08/06/18 08/06/18 18:59 06:59 18:59 Intake Total 2761.725 2512.068 2092.804 Output Total 625 266 195 Balance 2136.725 2246.068 1897.804 Weight 158.6 kg 165.1 kg Intake: IV 1229.5 1312 1111 0.9NS 340 255 120 Cardizem infusion 55 30 Dextrose 5% in Water 1, 825 325 000 ml @ 25 mls/hr IV . Q24H [place] with Sodium Bicarb (1 Meq/ml) 150 ml Rx#:[id number] Diltiazem 50 mg In Sodium 67.5 5 Chloride 0.9% 40 ml @ 5 MG/HR 5 mls/hr IV .Q10H [facility] Rx#:[id number] Lactated Ringers 1,000 ml 150 @ 75 mls/hr IV .[id number] [facility] Rx#:[id number] Meropenem 2 gm In Sodium 100 100 Chloride 0.9% 100 ml @ 200 mls/hr IVPB Q8HR [facility] Rx#:[id number] Piperacillin-Tazobactam 3 100 .375 gm In Sodium Chloride 0.9% 100 ml @ 25 mls/hr IVPB Q8HR [facility] Rx# :[id number] Vancomycin 2,250 mg In 500 500 Sodium Chloride 0.9% 500 ml 500 ml @ 167 mls/hr IVPB Q16H [facility] Rx#: [id number] pressure bags 72 72 36 Intake, IV Titration 1002.225 350.068 425.804 Amount Calcium Chloride 2,000 mg 100 In Sodium Chloride 0.9% 100 ml @ 100 mls/hr IVPB ONCE [facility] Rx#:[id number] Dextrose 5% in Water 1, 375 75 000 ml @ 25 mls/hr IV . Q24H [place] with Sodium Bicarb (1 Meq/ml) 150 ml Rx#:[id number] Diltiazem 50 mg In Sodium 48.500 28.417 Chloride 0.9% 40 ml @ 5 MG/HR 5 mls/hr IV .Q10H [facility] Rx#:[id number] Furosemide 250 mg In 20 Sodium Chloride 0.9% 225 ml @ 20 MG/HR 20 mls/hr IVP .[id number] [facility] Rx#: [id number] Norepinephrine 16 mg In 299.832 46.651 223.023 Sodium Chloride 0.9% 250 ml @ Titrate IV .Q0M [facility] Rx#:[id number] Propofol 1,000 mg In 278.893 200 82.781 Empty Bag 1 bag @ Titrate IV .Q0M [facility] Rx#: [id number] Tube Feeding 440 730 496 Other 90 120 60 Output: Urine 625 266 195 Other: Voiding Method Indwelling Catheter Indwelling Catheter Indwelling Catheter ABP, PAP, CO, CI - Last Documented Arterial Blood Pressure 92/52 Pulmonary Artery Pressure 44/8 Cardiac Output 7.2 Cardiac Index 2.8 - Exam GENERAL EXAM: Revealed a 78-year-old white male, obese, sedated, on propofol, on mechanical ventilation, synchronous with the ventilator. HEENT: PERRLA, EOMI, no icterus, endotracheal tube and orogastric tube are intact. No JVD, no neck masses, no stridor, no carotid bruits. Left internal jugular central line is intact. CHEST: No chest wall deformity. Symmetrical expansion. Sternal incision is clean dry and intact, well approximated, covered with surgical dressing, LUNGS: Equal air entry diminished at the bases, diffuse rhonchi noted bilaterally. Crackles at the bases noted. CVS: Distant S1 and S2, no gallops, 3/6 systolic murmur thought the precordium. ABDOMEN: Morbidly obese, Soft, nontender. No hepatosplenomegaly, normal bowel sounds, no guarding or rigidity. Significant abdominal wall edema is noted. EXTREMITIES: No clubbing, 2 + bipedal edema, no cyanosis, 2+ pulses and upper and lower extremities. Bilateral lower extremities are Toni wrapped, MUSCULOSKELETAL: Muscle strength cannot be assessed SPINE: No scoliosis or deformity SKIN: Significant tissue damage and ulceration in the buttocks area, between the folds, and that being addressed by infectious disease on the case. Neurologic: Patient is sedated, on propofol, couldn't be assessed. - Labs CBC & Chem 7: 08/06/18 05:30 08/06/18 05:30 Labs: Abnormal Lab Results - Last 24 Hours (Table) 08/05/18 08/05/18 08/05/18 Range/Units 14:04 17:07 20:06 WBC (3.8-10.6) k/uL RBC (4.30-5.90) m/uL Hgb (13.0-17.5) gm/dL Hct (39.0-53.0) % MCV (80.0-100.0) fL MCHC (31.0-37.0) g/dL Neutrophils # (1.3-7.7) k/uL ABG pO2 77 L (83-108) mmHg ABG HCO3 19 L (21-25) mmol/L Chloride (98-107) mmol/L Carbon Dioxide (22-30) mmol/L BUN (9-20) mg/dL Creatinine (0.66-1.25) mg/dL Glucose (74-99) mg/dL POC Glucose (mg/dL) 193 H 188 H (75-99) mg/dL Calcium (8.4-10.2) mg/dL Ionized Calcium Gianluca (4.5-5.3) mg/dL Phosphorus (2.5-4.5) mg/dL Magnesium (1.6-2.3) mg/dL Total Bilirubin (0.2-1.3) mg/dL AST (17-59) U/L ALT (21-72) U/L Alkaline Phosphatase (38-126) U/L Total Protein (6.3-8.2) g/dL Albumin (3.5-5.0) g/dL 08/06/18 08/06/18 08/06/18 Range/Units 02:07 04:04 05:30 WBC 25.0 H (3.8-10.6) k/uL RBC 2.57 L (4.30-5.90) m/uL Hgb 7.9 L (13.0-17.5) gm/dL Hct 26.1 L (39.0-53.0) % MCV 101.3 H (80.0-100.0) fL MCHC 30.2 L (31.0-37.0) g/dL Neutrophils # 22.1 H (1.3-7.7) k/uL ABG pO2 (83-108) mmHg ABG HCO3 (21-25) mmol/L Chloride (98-107) mmol/L Carbon Dioxide (22-30) mmol/L BUN (9-20) mg/dL Creatinine (0.66-1.25) mg/dL Glucose (74-99) mg/dL POC Glucose (mg/dL) 186 H 161 H (75-99) mg/dL Calcium (8.4-10.2) mg/dL Ionized Calcium Gianluca (4.5-5.3) mg/dL Phosphorus (2.5-4.5) mg/dL Magnesium (1.6-2.3) mg/dL Total Bilirubin (0.2-1.3) mg/dL AST (17-59) U/L ALT (21-72) U/L Alkaline Phosphatase (38-126) U/L Total Protein (6.3-8.2) g/dL Albumin (3.5-5.0) g/dL 08/06/18 08/06/18 08/06/18 Range/Units 05:30 05:30 07:10 WBC (3.8-10.6) k/uL RBC (4.30-5.90) m/uL Hgb (13.0-17.5) gm/dL Hct (39.0-53.0) % MCV (80.0-100.0) fL MCHC (31.0-37.0) g/dL Neutrophils # (1.3-7.7) k/uL ABG pO2 75 L (83-108) mmHg ABG HCO3 (21-25) mmol/L Chloride 110 H (98-107) mmol/L Carbon Dioxide 21 L (22-30) mmol/L BUN 55 H (9-20) mg/dL Creatinine 2.16 H (0.66-1.25) mg/dL Glucose 174 H (74-99) mg/dL POC Glucose (mg/dL) (75-99) mg/dL Calcium 6.9 L (8.4-10.2) mg/dL Ionized Calcium Gianluca 4.3 L (4.5-5.3) mg/dL Phosphorus 5.9 H (2.5-4.5) mg/dL Magnesium 2.5 H (1.6-2.3) mg/dL Total Bilirubin 2.2 H (0.2-1.3) mg/dL AST 611 H (17-59) U/L ALT 468 H (21-72) U/L Alkaline Phosphatase 215 H (38-126) U/L Total Protein 5.0 L (6.3-8.2) g/dL Albumin 2.2 L (3.5-5.0) g/dL 08/06/18 Range/Units 08:32 WBC (3.8-10.6) k/uL RBC (4.30-5.90) m/uL Hgb (13.0-17.5) gm/dL Hct (39.0-53.0) % MCV (80.0-100.0) fL MCHC (31.0-37.0) g/dL Neutrophils # (1.3-7.7) k/uL ABG pO2 (83-108) mmHg ABG HCO3 (21-25) mmol/L Chloride (98-107) mmol/L Carbon Dioxide (22-30) mmol/L BUN (9-20) mg/dL Creatinine (0.66-1.25) mg/dL Glucose (74-99) mg/dL POC Glucose (mg/dL) 209 H (75-99) mg/dL Calcium (8.4-10.2) mg/dL Ionized Calcium Gianluca (4.5-5.3) mg/dL Phosphorus (2.5-4.5) mg/dL Magnesium (1.6-2.3) mg/dL Total Bilirubin (0.2-1.3) mg/dL AST (17-59) U/L ALT (21-72) U/L Alkaline Phosphatase (38-126) U/L Total Protein (6.3-8.2) g/dL Albumin (3.5-5.0) g/dL Microbiology - Last 24 Hours (Table) 08/04/18 00:02 Gram Stain - Final Sputum Sputum Culture - Final Serratia marcescens Klebsiella pneumoniae 08/03/18 16:34 Blood Culture - Preliminary Blood No Growth after 48 hours Assessment and Plan Assessment: #1. Acute hypoxic respiratory failure related to atelectasis in the left lung, suspect ongoing sepsis and septic shock. Source is to be identified, at this point, I believe the source of his sepsis is from his sacral ulcer, and possible abscess in the lower sacral spine area. The radiologist raised the possibility of fluid density in the presacral space that could be related to inflammatory process or possibly presacral abscess. No bone destruction was noted. Seem by surgery and felt to be not a good candidate for debridement. #2. Symptomatic multivessel coronary artery disease, status post four-vessel bypass with MATT to LAD, SVG to the PLB, SVG to the diag, and to OM1, #3. Confusion, agitation, delirium in the postoperative period, related to metabolic encephalopathy #4. Paroxysmal atrial fibrillation, patient is in atrial fibrillation at this point with controlled ventricular rate. He is on Cardizem drip. #5. Acute blood loss anemia, an expected outcome of bypass grafting surgery #6. Moderate aortic stenosis #7. Hypertension #8. Obstructive Sleep apnea syndrome on CPAP therapy. #9. History of CVA #10. Morbid obesity #11. History of bariatric surgery #12. Prostate enlargement #13. DJD #14 acute rhabdomyolysis secondary to fall #15 acute kidney injury related to hypotension , secondary to septic shock, could also be related to his acute rhabdomyolysis as noted above. #16 decubitus ulcer, being addressed by infectious disease. [place] to be not a good candidate for surgery. #17 hypotension, most likely secondary to sepsis and septic shock requiring norepinephrine. Today the patient is an 27 mcg/m of norepinephrine. . #18 abnormal liver enzymes secondary to shocked liver. Secondary to septic shock. Recommendation: Patient will be kept on mechanical ventilation, continue hemodynamic support, nutritional support, fluids, antibiotics empirically, continue Cardizem drip . GI and DVT prophylaxis, at this point in time, the patient is critically ill, he is not in any shape of weaning, as a matter of fact I had a discussion on this patient with different consultants including thoracic surgery, and at this point, may have to seriously consider comfort care measures. Prognosis is extremely poor, and the chance of making it through this critical condition is almost 0. Family will be approached, and I will recommend him for care measures at this point. Critical care time is 40 minutes. Time with Patient: Greater than 30
--- NOTE | 2018-08-06 12:44 | P.PN ---
Subjective Progress Note Date: 08/06/18 CHIEF COMPLAINT: Presacral cellulitis HISTORY OF PRESENT ILLNESS: The patient is a 78-year-old male with history including open-heart bypass. He had developed acute respiratory failure including septic shock, liver dysfunction, kidney dysfunction, including presacral cellulitis. Per discussion respiratory therapy, PEEP is now increased. He has worsening pulmonary edema. Overall prognosis is grim. White blood cell count however has improved PHYSICAL EXAM: VITAL SIGNS: Reviewed. GENERAL: Well-developed in no acute distress. HEENT: No sclera icterus. Extraocular movements grossly intact. Moist buccal mucosa. Head is atraumatic, normocephalic. Hears conversational speech. No nasal drainage. Has ET tube. NECK: Supple without lymphadenopathy. CHEST: Non-labored respirations and equal bilateral excursions. CARDIOVASCULAR: Palpable 2+ radial pulses. ABDOMEN: No peritonitis. Moderate protuberant abdomen. MUSCULOSKELETAL: No clubbing. Has 2+ edema lower extremities. NEUROLOGIC: Currently sedated. No focal signs. PSYCH: Sedated. Not alert and oriented to person place or time. SKIN: Cool extremities. Presacral cellulitis. LABS: Reviewed ASSESSMENT: 1. Sepsis due to multiple etiology 2. Pneumonia 3. Acute Liver dysfuntion 4. Acute kidney failure 5. Status post coronary bypass graft on pressor support 6. Altered mentation 7. Abnormal computed tomography scan with presacral edema PLAN: 1. Overall patient's prognosis is grim. 2. Sepsis has improved with WBC from over 30,000 to under 28,000. 3. No surgical intervention for presacral cellulitis as patient is extremely high risk Critical care time 22 minutes Objective - Vital Signs Vital signs: Vital Signs Temp 98.0 F 08/06/18 12:00 Pulse 80 08/06/18 12:00 Resp 25 H 08/06/18 12:00 BP 92/39 08/06/18 06:00 Pulse Ox 92 L 08/06/18 12:00 Intake & Output 08/05/18 08/06/18 08/06/18 18:59 06:59 18:59 Intake Total 2761.725 2512.068 2092.804 Output Total 625 266 195 Balance 2136.725 2246.068 1897.804 Weight 158.6 kg 165.1 kg Intake: IV 1229.5 1312 1111 0.9NS 340 255 120 Cardizem infusion 55 30 Dextrose 5% in Water 1, 825 325 000 ml @ 25 mls/hr IV . Q24H [facility] with Sodium Bicarb (1 Meq/ml) 150 ml Rx#:[id number] Diltiazem 50 mg In Sodium 67.5 5 Chloride 0.9% 40 ml @ 5 MG/HR 5 mls/hr IV .Q10H [facility] Rx#:[id number] Lactated Ringers 1,000 ml 150 @ 75 mls/hr IV .[id number] [facility] Rx#:[id number] Meropenem 2 gm In Sodium 100 100 Chloride 0.9% 100 ml @ 200 mls/hr IVPB Q8HR [facility] Rx#:[id number] Piperacillin-Tazobactam 3 100 .375 gm In Sodium Chloride 0.9% 100 ml @ 25 mls/hr IVPB Q8HR [facility] Rx# :[id number] Vancomycin 2,250 mg In 500 500 Sodium Chloride 0.9% 500 ml 500 ml @ 167 mls/hr IVPB Q16H [facility] Rx#: [id number] pressure bags 72 72 36 Intake, IV Titration 1002.225 350.068 425.804 Amount Calcium Chloride 2,000 mg 100 In Sodium Chloride 0.9% 100 ml @ 100 mls/hr IVPB [facility] Rx#:[id number] Dextrose 5% in Water 1, 375 75 000 ml @ 25 mls/hr IV . Q24H [facility] with Sodium Bicarb (1 Meq/ml) 150 ml Rx#:[id number] Diltiazem 50 mg In Sodium 48.500 28.417 Chloride 0.9% 40 ml @ 5 MG/HR 5 mls/hr IV .Q10H [facility] Rx#:[id number] Furosemide 250 mg In 20 Sodium Chloride 0.9% 225 ml @ 20 MG/HR 20 mls/hr IVP .[id number] [facility] Rx#: [id number] Norepinephrine 16 mg In 299.832 46.651 223.023 Sodium Chloride 0.9% 250 ml @ Titrate IV .Q0M [facility] Rx#:[id number] Propofol 1,000 mg In 278.893 200 82.781 Empty Bag 1 bag @ Titrate IV .Q0M [facility] Rx#: [id number] Tube Feeding 440 730 496 Other 90 120 60 Output: Urine 625 266 195 Other: Voiding Method Indwelling Catheter Indwelling Catheter Indwelling Catheter ABP, PAP, CO, CI - Last Documented Arterial Blood Pressure 104/59 Pulmonary Artery Pressure 44/8 Cardiac Output 7.2 Cardiac Index 2.8 - Labs CBC & Chem 7: 08/06/18 05:30 08/06/18 05:30 Labs: Abnormal Lab Results - Last 24 Hours (Table) 08/05/18 08/05/18 08/05/18 Range/Units 14:04 17:07 20:06 WBC (3.8-10.6) k/uL RBC (4.30-5.90) m/uL Hgb (13.0-17.5) gm/dL Hct (39.0-53.0) % MCV (80.0-100.0) fL MCHC (31.0-37.0) g/dL Neutrophils # (1.3-7.7) k/uL ABG pO2 77 L (83-108) mmHg ABG HCO3 19 L (21-25) mmol/L Chloride (98-107) mmol/L Carbon Dioxide (22-30) mmol/L BUN (9-20) mg/dL Creatinine (0.66-1.25) mg/dL Glucose (74-99) mg/dL POC Glucose (mg/dL) 193 H 188 H (75-99) mg/dL Calcium (8.4-10.2) mg/dL Ionized Calcium Gianluca (4.5-5.3) mg/dL Phosphorus (2.5-4.5) mg/dL Magnesium (1.6-2.3) mg/dL Total Bilirubin (0.2-1.3) mg/dL AST (17-59) U/L ALT (21-72) U/L Alkaline Phosphatase (38-126) U/L Total Protein (6.3-8.2) g/dL Albumin (3.5-5.0) g/dL 08/06/18 08/06/18 08/06/18 Range/Units 02:07 04:04 05:30 WBC 25.0 H (3.8-10.6) k/uL RBC 2.57 L (4.30-5.90) m/uL Hgb 7.9 L (13.0-17.5) gm/dL Hct 26.1 L (39.0-53.0) % MCV 101.3 H (80.0-100.0) fL MCHC 30.2 L (31.0-37.0) g/dL Neutrophils # 22.1 H (1.3-7.7) k/uL ABG pO2 (83-108) mmHg ABG HCO3 (21-25) mmol/L Chloride (98-107) mmol/L Carbon Dioxide (22-30) mmol/L BUN (9-20) mg/dL Creatinine (0.66-1.25) mg/dL Glucose (74-99) mg/dL POC Glucose (mg/dL) 186 H 161 H (75-99) mg/dL Calcium (8.4-10.2) mg/dL Ionized Calcium Gianluca (4.5-5.3) mg/dL Phosphorus (2.5-4.5) mg/dL Magnesium (1.6-2.3) mg/dL Total Bilirubin (0.2-1.3) mg/dL AST (17-59) U/L ALT (21-72) U/L Alkaline Phosphatase (38-126) U/L Total Protein (6.3-8.2) g/dL Albumin (3.5-5.0) g/dL 08/06/18 08/06/18 08/06/18 Range/Units 05:30 05:30 07:10 WBC (3.8-10.6) k/uL RBC (4.30-5.90) m/uL Hgb (13.0-17.5) gm/dL Hct (39.0-53.0) % MCV (80.0-100.0) fL MCHC (31.0-37.0) g/dL Neutrophils # (1.3-7.7) k/uL ABG pO2 75 L (83-108) mmHg ABG HCO3 (21-25) mmol/L Chloride 110 H (98-107) mmol/L Carbon Dioxide 21 L (22-30) mmol/L BUN 55 H (9-20) mg/dL Creatinine 2.16 H (0.66-1.25) mg/dL Glucose 174 H (74-99) mg/dL POC Glucose (mg/dL) (75-99) mg/dL Calcium 6.9 L (8.4-10.2) mg/dL Ionized Calcium Gianluca 4.3 L (4.5-5.3) mg/dL Phosphorus 5.9 H (2.5-4.5) mg/dL Magnesium 2.5 H (1.6-2.3) mg/dL Total Bilirubin 2.2 H (0.2-1.3) mg/dL AST 611 H (17-59) U/L ALT 468 H (21-72) U/L Alkaline Phosphatase 215 H (38-126) U/L Total Protein 5.0 L (6.3-8.2) g/dL Albumin 2.2 L (3.5-5.0) g/dL 08/06/18 08/06/18 Range/Units 08:32 12:19 WBC (3.8-10.6) k/uL RBC (4.30-5.90) m/uL Hgb (13.0-17.5) gm/dL Hct (39.0-53.0) % MCV (80.0-100.0) fL MCHC (31.0-37.0) g/dL Neutrophils # (1.3-7.7) k/uL ABG pO2 (83-108) mmHg ABG HCO3 (21-25) mmol/L Chloride (98-107) mmol/L Carbon Dioxide (22-30) mmol/L BUN (9-20) mg/dL Creatinine (0.66-1.25) mg/dL Glucose (74-99) mg/dL POC Glucose (mg/dL) 209 H 206 H (75-99) mg/dL Calcium (8.4-10.2) mg/dL Ionized Calcium Gianluca (4.5-5.3) mg/dL Phosphorus (2.5-4.5) mg/dL Magnesium (1.6-2.3) mg/dL Total Bilirubin (0.2-1.3) mg/dL AST (17-59) U/L ALT (21-72) U/L Alkaline Phosphatase (38-126) U/L Total Protein (6.3-8.2) g/dL Albumin (3.5-5.0) g/dL Microbiology - Last 24 Hours (Table) 08/04/18 00:02 Gram Stain - Final Sputum Sputum Culture - Final Serratia marcescens Klebsiella pneumoniae 08/03/18 16:34 Blood Culture - Preliminary Blood No Growth after 48 hours Assessment and Plan (1) BMI 50.0-59.9, adult Current Visit: Yes Status: Acute Code(s): Z68.43 - BODY MASS INDEX (BMI) 50- 59.9, ADULT SNOMED Code(s): 681016557 (2) Acute liver failure Current Visit: Yes Status: Acute Code(s): K72.00 - ACUTE AND SUBACUTE HEPATIC FAILURE WITHOUT COMA SNOMED Code(s): 980623134 (3) Acute kidney failure Current Visit: Yes Status: Acute Code(s): N17.9 - ACUTE KIDNEY FAILURE, UNSPECIFIED SNOMED Code(s): 36745244 (4) Pneumonia Current Visit: Yes Status: Acute Code(s): J18.9 - PNEUMONIA, UNSPECIFIED ORGANISM SNOMED Code(s): 589197918 (5) Acute respiratory failure Current Visit: Yes Status: Acute Code(s): J96.00 - ACUTE RESPIRATORY FAILURE , UNSP W HYPOXIA OR HYPERCAPNIA SNOMED Code(s): 36684114 (6) Sepsis Current Visit: Yes Status: Acute Code(s): A41.9 - SEPSIS, UNSPECIFIED ORGANISM SNOMED Code(s): 72078762 (7) Status post aorto-coronary artery bypass graft Current Visit: Yes Status: Acute Code(s): Z95.1 - PRESENCE OF AORTOCORONARY BYPASS GRAFT SNOMED Code(s): 572542065 (8) Coronary artery disease Current Visit: Yes Status: Chronic Code(s): I25.10 - ATHSCL HEART DISEASE OF [place] CORONARY ARTERY W/O ANG PCTRS SNOMED Code(s): 11785180 (9) Obstructive sleep apnea Current Visit: Yes Status: Chronic Code(s): G47.33 - OBSTRUCTIVE SLEEP APNEA (ADULT) (PEDIATRIC) SNOMED Code(s): 81490177 (10) Elevated hemoglobin A1c measurement Current Visit: No Status: Acute Code(s): R73.09 - OTHER ABNORMAL GLUCOSE SNOMED Code(s): 849202665 (11) Abscess, sacrum Current Visit: Yes Status: Acute Code(s): M46.28 - OSTEOMYELITIS OF [place] , SACRAL AND SACROCOCCYGEAL REGION SNOMED Code(s): 659764536
[2018-08-06 15:37] VITALS: TEMP 98.2
--- NOTE | 2018-08-06 18:26 | PN ---
PROGRESS NOTE I am covering for Dr. Fuchs. DATE OF SERVICE: 08/06/2018 This 78-year-old gentleman admitted after CAD, CABG also had significant hypoxia. The patient is desaturating, even turning. The patient requires 80% FiO2 and PEEP of 15. Multiple consultants are following the patient closely. The patient is currently made NO CODE, NO CPR and NO VENT. The patient also had features of septic shock as well. PAST MEDICAL HISTORY: Reviewed. REVIEW OF SYSTEMS: Could not be taken. CURRENT MEDICATIONS ARE: Reviewed and include: 1. Tylenol p.r.n. 2. DuoNeb q.i.d. and p.r.n. 3. Vitamin C 500 daily. 4. Heparin 5000 subcu b.i.d. 5. Aspirin 81 mg. 7. Peridex. 8. Plavix. 9. Lasix drip. 10.NovoLog. 11.Levemir. 12.Ativan. 13.P.r.n. medication doses and schedules are reviewed. PHYSICAL EXAM: Patient is mechanically ventilated and sedated. Vent settings noted. Pulse 54 , blood pressure 109/53. Respiratory rate 23, temperature 98.2. Pulse ox 98% on 70% FiO2. HEENT: Conjunctivae normal. Oral mucosa moist. Neck is no jugular venous distention, no carotid bruit. No lymph node enlargement. Cardiovascular system: S1, S2 muffled. RESPIRATORY: Breath sounds diminished in the bases. A few scattered rhonchi and crackles. ABDOMEN: Soft, nontender. Legs: Bilateral leg edema. Nervous system: Diffusely weak. LABS: WBC 20, hemoglobin 7.9, creatinine is 2.16 and magnesium is 2.5, albumin is 2.2 , AST is 611, ALT is 468. ASSESSMENT: 1. Coronary artery disease status post coronary artery bypass grafting. 2. Acute blood loss anemia as well as expected from the surgery. 3. Elevated LFTs. 4. Acute hypoxic respiratory failure requiring mechanical ventilation. 5. Paroxysmal atrial fibrillation with rapid ventricular rate, converted to normal sinus rhythm with amiodarone. 6. Hypotension requiring vasopressor treatment. 7. Acute kidney injury. 8. Elevated LFTs with possible acute hepatic injury. 9. Possible presacral abscess cellulitis with possible sepsis. 10.Possible multiorgan failure. 11.Fall from standing and no injury. 12.Elevated LFTs and hypertension. 13.History of transient ischemic attack. 14.Aortic stenosis. 15.History of degenerative joint disease. 16.History of benign prostatic hypertrophy. 17.History of lap band surgery. 18.History of nicotine dependence. 19.Morbid obesity, BMI 49.4. RECOMMENDATIONS AND DISCUSSION: Recommend to continue current medications, management and symptomatic treatment. Otherwise, at this time, I would recommend continue the current medications and family has discussed the case at length with multiple consultants at this time. The patient is currently NO CODE, NO CPR and NO VENT and they are also considering the possibility of comfort measures as well. In any case, prognosis extremely guarded because of multiple complex medical issues. Please note the patient has a very high PEEP and as well as FiO2. MMODL / IJN: [id number] / ELISABETH
[2018-08-06 18:51] LABS: Glucose,Whole Blood 213 mg/dL (75-99)
[2018-08-06] MEDS ORDERED: MORPHINE SULFATE 2 MG/ML SYRINGE IV PRN (19:27)
[2018-08-06] MEDS ORDERED: LORazepam 2 MG/ML INJ IV PRN (19:27)
[2018-08-06] MEDS ORDERED: ATROPINE OPHTH SOLN 1% 5ML BTL SUBLINGUAL PRN (19:27)
[2018-08-06] MEDS ORDERED: MORPHINE SULFATE 4 MG/ML SYRINGE IVP ONE (19:27)
[2018-08-06] MEDS ORDERED: MORPHINE SULFATE (100 MG/2 ML) 100 MG in SODIUM CHLORIDE 0.9% 100 ML IV SCH (19:30)
[2018-08-06] MEDS ORDERED: SCOPOLAMINE 1.5MG/72HR PATCH TRANSDERM SCH (19:30)
[2018-08-06 21:57] VITALS: PULSE 0; RESP 0
[2018-08-06] MEDS ORDERED: cefTRIAXone 2,000 MG in SODIUM CHLORIDE 0.9% 100 ML IVPB SCH (22:00)
--- NOTE | 2018-08-11 11:10 | ECHOF ---
Referral Reason:mod pericardial effusion on ct MEASUREMENTS -------- HEIGHT: 182.9 cm WEIGHT: 158.3 kg BP: IVSd: 1.8 cm (0.6 - 1.1) LVIDd: 4.1 cm (3.9 - 5.3) LVPWd: 1.8 cm (0.6 - 1.1) IVSs: 2.1 cm LVIDs: 2.3 cm LVPWs: 1.8 cm Ao Diam: 3.9 cm (2.0 - 3.7) AV Cusp: 1.6 cm (1.5 - 2.6) LA Diam: 4.6 cm (2.7 - 3.8) MV E Bo: 1.22 m/s MV DecT: 206 ms MV A Bo: 1.30 m/s MV E/A Ratio: 0.94 RAP: 5.00 mmHg RVSP: 21.06 mmHg FINDINGS -------- Sinus rhythm. This was a technically difficult study with suboptimal views. The left ventricular size is normal. There is severe concentric left ventricular hypertrophy. Ove rall left ventricular systolic function is normal with, an EF between 55 - 60 %. The RV was not well visualized. The left atrium was not well visualized. The right atrium was not well visualized. 5.0mg of Lumason was utilized for enhancement of images Aortic valve is trileaflet and is mildly thickened. The mitral valve leaflets are mildly thickened. Mild mitral regurgitation is present. Mild tricuspid regurgitation present. The right ventricular systolic pressure, as measured by Doppl er, is 21.06mmHg. The pulmonic valve was not well visualized. The aortic root size is normal. There is a small to moderate generalized pericardial effusion present. RV not well seen CONCLUSIONS -------- 1. Sinus rhythm. 2. This was a technically difficult study with suboptimal views. 3. The left ventricular size is normal. 4. There is severe concentric left ventricular hypertrophy. 5. Overall left ventricular systolic function is normal with, an EF between 55 - 60 %. 6. The RV was not well visualized. 7. The left atrium was not well visualized. 8. The right atrium was not well visualized. 9. 5.0mg of Lumason was utilized for enhancement of images 10. Aortic valve is trileaflet and is mildly thickened. 11. The mitral valve leaflets are mildly thickened. 12. Mild mitral regurgitation is present. 13. Mild tricuspid regurgitation present. 14. The right ventricular systolic pressure, as measured by Doppler, is 21.06mmHg. 15. The pulmonic valve was not well visualized. 16. The aortic root size is normal. 17. There is a small to moderate generalized pericardial effusion present. RV not well seen SMART ENERGY SPECIALIST: Pamela Garcia RDCS
== END 2018-08-06 21:34 | disposition expired | DRG 235 ==
LOC: 2ORMAIN 05:26 → 2SICU 15:36 → 3SCARD 07-29 19:19 → 2SICU 08-03 14:38
PROVIDERS: ADMIT Surgery; ATTEND Surgery
PROC: 06BQ4ZZ Excision of Left Saphenous Vein, Percutaneous Endoscopic Approach (ICD-10-PCS; 2018-07-25)
PROC: 06BP4ZZ Excision of Right Saphenous Vein, Percutaneous Endoscopic Approach (ICD-10-PCS; 2018-07-25)
PROC: B246ZZ4 Ultrasonography of Right and Left Heart, Transesophageal (ICD-10-PCS; 2018-07-25)
PROC: 5A1221Z Performance of Cardiac Output, Continuous (ICD-10-PCS; 2018-07-25)
PROC: 02100Z9 Bypass Coronary Artery, One Artery from Left Internal Mammary, Open Approach (ICD-10-PCS; principal; 2018-07-25 08:00)
PROC: 021209W Bypass Coronary Artery, Three Arteries from Aorta with Autologous Venous Tissue, Open Approach (ICD-10-PCS; 2018-07-25 08:00)
PROC: 5A09357 Assistance with Respiratory Ventilation, Less than 24 Consecutive Hours, Continuous Positive Airway Pressure (ICD-10-PCS; 2018-08-03)
PROC: 0BH17EZ Insertion of Endotracheal Airway into Trachea, Via Natural or Artificial Opening (ICD-10-PCS; 2018-08-04)
PROC: 5A1945Z Respiratory Ventilation, 24-96 Consecutive Hours (ICD-10-PCS; 2018-08-04)
PROC: 02HV33Z Insertion of Infusion Device into Superior Vena Cava, Percutaneous Approach (ICD-10-PCS; 2018-08-04)
DX: I25.10 Atherosclerotic heart disease of native coronary artery without angina pectoris (principal); G93.41 Metabolic encephalopathy; J96.01 Acute respiratory failure with hypoxia; J96.02 Acute respiratory failure with hypercapnia; A41.9 Sepsis, unspecified organism; R65.21 Severe sepsis with septic shock; J18.9 Pneumonia, unspecified organism; N17.0 Acute kidney failure with tubular necrosis; K72.00 Acute and subacute hepatic failure without coma; Z68.43 Body mass index [BMI] 50.0-59.9, adult; D62 Acute posthemorrhagic anemia; M62.82 Rhabdomyolysis; I96 Gangrene, not elsewhere classified; L02.31 Cutaneous abscess of buttock; E87.4 Mixed disorder of acid-base balance; J90 Pleural effusion, not elsewhere classified; J98.11 Atelectasis; F05 Delirium due to known physiological condition; I31.3 Pericardial effusion (noninflammatory); L03.317 Cellulitis of buttock; E66.01 Morbid (severe) obesity due to excess calories; Z66 Do not resuscitate; L89.150 Pressure ulcer of sacral region, unstageable; E87.70 Fluid overload, unspecified; I48.0 Paroxysmal atrial fibrillation; R13.10 Dysphagia, unspecified; I08.3 Combined rheumatic disorders of mitral, aortic and tricuspid valves; I65.23 Occlusion and stenosis of bilateral carotid arteries; Z51.5 Encounter for palliative care; I10 Essential (primary) hypertension; K80.20 Calculus of gallbladder without cholecystitis without obstruction; M19.90 Unspecified osteoarthritis, unspecified site; G47.33 Obstructive sleep apnea (adult) (pediatric); M21.372 Foot drop, left foot; N40.0 Benign prostatic hyperplasia without lower urinary tract symptoms; R73.9 Hyperglycemia, unspecified; F17.201 Nicotine dependence, unspecified, in remission; Z79.82 Long term (current) use of aspirin; Z79.899 Other long term (current) drug therapy; Z98.84 Bariatric surgery status; Z86.73 Personal history of transient ischemic attack (TIA), and cerebral infarction without residual deficits; Z98.42 Cataract extraction status, left eye; Z96.652 Presence of left artificial knee joint; Z98.41 Cataract extraction status, right eye; Z80.9 Family history of malignant neoplasm, unspecified; W01.0XXA Fall on same level from slipping, tripping and stumbling without subsequent striking against object, initial encounter
CPT/HCPCS: 36415; 36600; 70450; 71045; 71046; 74176; 74230; 76604; 76705; 80048; 80053; 80202; 81001; 81003; 82150; 82330; 82533; 82550; 82553; 82805; 83036; 83605; 83690; 83735; 84100; 84484; 85025; 85384; 85520; 85610; 85730; 86850; 86891; 86900; 86901; 86920; 87040; 87070; 87077; 87086; 87186; 87205; 93005; 93306; 94002; 94003; 94640; 94660; 94760